=== PATIENT | female | born 1955 | race Caucasian/White ===

== ENCOUNTER 2017-10-29 11:57 | Inpatient (IN) | payer OTHER, SELFPAY ==
[2017-10-29] VITALS (8 sets, daily range): BP systolic 93–135; BP diastolic 53–74; PULSE 67–80; RESP 16–20; TEMP 36.3–37.6; O2SAT 95–100; BMI 22.8; BMI 23.5
--- NOTE | 2017-10-29 12:04 | ED.ABDPAIN ---
HPI - Abdominal Pain <DORITA Quinonez - Last Filed: 10/29/17 22:44> General Chief Complaint: Abdominal Pain Stated Complaint: ABDOMINAL PAIN, CONSTIPATION,NAUSEA Time Seen by Provider: 10/29/17 12:03 History of Present Illness HPI narrative: 62-year-old female here for complaint of having pain to her lower abdomen right greater than left for the past 5 days. She also states that she has been having constipation her last bowel movement was 5 days ago she states that was firm. She states she has had chills unknown if she has had a temperature. Positive p.o. intake. She denies any trauma to the abdomen. Increased pain with palpation to the area. She denies any urinary symptoms. She states the pain is crampy at times that waxes and wanes. She denies any other concerns or complaints MD complaint: abdominal pain Related Data Home Medications Medication Instructions Recorded Confirmed fluticasone [Flonase Allergy 1 spray INTRANASAL QDAY #0 05/14/16 10/29/17 Relief] calcium carbonate-vitamin D3 2 tab PO DAILY #0 06/03/17 10/29/17 [Calcium 600 + D(3)] docusate sodium 100 mg PO PRN PRN 10/29/17 10/29/17 sennosides 8.6 mg PO BID PRN 10/29/17 10/29/17 Allergies Allergy/AdvReac Type Severity Reaction Status Date / Time influenza virus vaccine, Allergy Severe PASSED OUT Verified 10/29/17 13:24 specific [influenza virus vacc,specific] dog dander [DOG DANDER] Allergy Unknown Verified 10/29/17 13:24 dust mites Allergy Intermediate Uncoded 10/29/17 13:24 Review of Systems <DORITA Quinonez - Last Filed: 10/29/17 22:44> Eyes Denies change in vision, Denies eye discharge, Denies irritation and Denies loss of vision Cardiovascular Denies chest pain, Denies irregular heart rhythm, Denies lightheadedness, Denies palpitations and Denies orthopnea Gastrointestinal Gastrointestinal: Reports abdominal pain and Reports constipation Genitourinary Denies hematuria, Denies flank pain, Denies urinary incontinence and Denies urinary urgency Musculoskeletal Denies back pain, Denies muscle weakness, Denies numbness and Denies tingling Integumentary/Breasts Denies pruritus, Denies erythema, Denies rash and Denies wounds Neurologic Denies confusion, Denies loss of vision, Denies numbness and Denies tingling Psychiatric Denies anxiety, Denies confusion, Denies depression, Denies homicidal ideation and Denies suicidal ideation Endocrine Denies palpitations Exam <DORITA Quinonez - Last Filed: 10/29/17 22:44> Initial Vital Signs Initial Vital Signs: Vital Signs Temperature 99.6 F 10/29/17 12:21 Pulse Rate 79 10/29/17 12:21 Respiratory Rate 20 10/29/17 12:21 Blood Pressure 112/53 L 10/29/17 12:21 Pulse Oximetry 100 10/29/17 12:21 Const General: cooperative and well developed Nutritional Appearance: well nourished Orientation: alert, awake, oriented x3 and not confused HENTX Mouth: oral mucosae normal and moist mucous membranes Eyes Conjunctivae: conjunctivae normal Sclera: sclerae normal Pupils: PERRL EOM: EOM intact bilaterally Resp Effort & Inspection: normal respiratory effort, able to speak in complete sentences, no respiratory distress and no use of accessory muscles Auscultation: clear to auscultation bilaterally, no rales, no rhonchi and no wheezes Cardio Rate: regular rate Rhythm: regular rhythm Heart Sounds: no click, no gallops, no murmurs and no rubs GI Inspection: non-distended Palpation: soft, no hepatosplenomegaly, No hepatomegaly, No hernia, No mass, No pulsatile mass and tender Auscultation: normal bowel sounds General: No CVA tenderness Skin General: no rashes or lesions noted, No jaundice and No petechiae <Elmer Null DO - Last Filed: 10/30/17 08:46> Initial Vital Signs Initial Vital Signs: Vital Signs Temperature 99.6 F 10/29/17 12:21 Pulse Rate 79 10/29/17 12:21 Respiratory Rate 20 10/29/17 12:21 Blood Pressure 112/53 L 10/29/17 12:21 Pulse Oximetry 100 10/29/17 12:21 Course <DORITA Quinonez - Last Filed: 10/29/17 22:44> Orders Ordered: Hydromorphone HCl (Dilaudid) 2 mg IV Q4HR PRN PRN Reason: Pain, Severe Last Admin: 10/30/17 06:12 Dose: 2 mg Admin: 10/30/17 00:15 Dose: 1 mg Piperacillin/Tazobactam/Dextrose (Zosyn) 3.375 gm in 50 mls @ 100 mls/hr IV Q6H SHAYNE Last Infusion: 10/30/17 06:08 Dose: 0 mls/hr Admin: 10/30/17 04:30 Dose: 100 mls/hr Infusion: 10/30/17 01:25 Dose: 0 mls/hr Admin: 10/29/17 21:48 Dose: 100 mls/hr Infusion: 10/29/17 17:22 Dose: 0 mls/hr Admin: 10/29/17 16:45 Dose: 100 mls/hr Sodium Chloride (Normal Saline 0.9%) 1,000 mls @ 125 mls/hr IV CONT SHAYNE Last Admin: 10/30/17 00:52 Dose: 125 mls/hr Admin: 10/29/17 17:58 Dose: Ketorolac Tromethamine (Toradol) 30 mg IV Q8H PRN PRN Reason: Pain, Mild Stop: 11/03/17 16:27 Last Admin: 10/30/17 04:42 Dose: 30 mg Admin: 10/29/17 19:29 Dose: 30 mg Ondansetron HCl (Zofran) 4 mg IV Q6HR PRN PRN Reason: Nausea And Vomiting Last Admin: 10/30/17 07:03 Dose: 4 mg Discontinued Medications Hydromorphone HCl (Dilaudid) 0.5 mg IV NOW ONE Stop: 10/29/17 12:55 Last Admin: 10/29/17 13:25 Dose: 0.5 mg Hydromorphone HCl (Dilaudid) 1 mg IV Q4H PRN PRN Reason: Pain, Severe Sodium Chloride (Normal Saline 0.9%) 1,000 mls @ 1,000 mls/hr IV BOLUS ONE Stop: 10/29/17 13:41 Last Infusion: 10/29/17 14:24 Dose: 0 mls/hr Admin: 10/29/17 13:20 Dose: 1,000 mls/hr Sodium Chloride (Normal Saline 0.9%) 1,000 mls @ 150 mls/hr IV CONT SHAYNE Last Infusion: 10/29/17 17:26 Dose: 125 mls/hr Admin: 10/29/17 16:44 Dose: 150 mls/hr Ondansetron HCl 8 mg/ Sodium (Chloride) 104 mls @ 208 mls/hr IV Q6HR PRN PRN Reason: Nausea And Vomiting Ketorolac Tromethamine (Toradol) 30 mg IV Q8H PRN PRN Reason: Pain, Mild Stop: 11/03/17 16:27 Ondansetron HCl (Zofran) 4 mg IV NOW ONE Stop: 10/29/17 12:43 Last Admin: 10/29/17 13:20 Dose: 4 mg Vital Signs - 8 hr 10/30/17 05:09 Temperature 97.5 F L Pulse Rate 70 Respiratory Rate 16 Blood Pressure 97/52 L Pulse Oximetry 97 <Elmer Null DO - Last Filed: 10/30/17 08:46> Orders Ordered: Hydromorphone HCl (Dilaudid) 2 mg IV Q4HR PRN PRN Reason: Pain, Severe Last Admin: 10/30/17 06:12 Dose: 2 mg Admin: 10/30/17 00:15 Dose: 1 mg Piperacillin/Tazobactam/Dextrose (Zosyn) 3.375 gm in 50 mls @ 100 mls/hr IV Q6H SHAYNE Last Infusion: 10/30/17 06:08 Dose: 0 mls/hr Admin: 10/30/17 04:30 Dose: 100 mls/hr Infusion: 10/30/17 01:25 Dose: 0 mls/hr Admin: 10/29/17 21:48 Dose: 100 mls/hr Infusion: 10/29/17 17:22 Dose: 0 mls/hr Admin: 10/29/17 16:45 Dose: 100 mls/hr Sodium Chloride (Normal Saline 0.9%) 1,000 mls @ 125 mls/hr IV CONT SHAYNE Last Admin: 10/30/17 00:52 Dose: 125 mls/hr Admin: 10/29/17 17:58 Dose: Ketorolac Tromethamine (Toradol) 30 mg IV Q8H PRN PRN Reason: Pain, Mild Stop: 11/03/17 16:27 Last Admin: 10/30/17 04:42 Dose: 30 mg Admin: 10/29/17 19:29 Dose: 30 mg Ondansetron HCl (Zofran) 4 mg IV Q6HR PRN PRN Reason: Nausea And Vomiting Last Admin: 10/30/17 07:03 Dose: 4 mg Discontinued Medications Hydromorphone HCl (Dilaudid) 0.5 mg IV NOW ONE Stop: 10/29/17 12:55 Last Admin: 10/29/17 13:25 Dose: 0.5 mg Hydromorphone HCl (Dilaudid) 1 mg IV Q4H PRN PRN Reason: Pain, Severe Sodium Chloride (Normal Saline 0.9%) 1,000 mls @ 1,000 mls/hr IV BOLUS ONE Stop: 10/29/17 13:41 Last Infusion: 10/29/17 14:24 Dose: 0 mls/hr Admin: 10/29/17 13:20 Dose: 1,000 mls/hr Sodium Chloride (Normal Saline 0.9%) 1,000 mls @ 150 mls/hr IV CONT SHAYNE Last Infusion: 10/29/17 17:26 Dose: 125 mls/hr Admin: 10/29/17 16:44 Dose: 150 mls/hr Ondansetron HCl 8 mg/ Sodium (Chloride) 104 mls @ 208 mls/hr IV Q6HR PRN PRN Reason: Nausea And Vomiting Ketorolac Tromethamine (Toradol) 30 mg IV Q8H PRN PRN Reason: Pain, Mild Stop: 11/03/17 16:27 Ondansetron HCl (Zofran) 4 mg IV NOW ONE Stop: 10/29/17 12:43 Last Admin: 10/29/17 13:20 Dose: 4 mg Vital Signs - 8 hr 10/30/17 05:09 Temperature 97.5 F L Pulse Rate 70 Respiratory Rate 16 Blood Pressure 97/52 L Pulse Oximetry 97 MDM - Abdominal Pain <DORITA Quinonez - Last Filed: 10/29/17 22:44> Lab Data Result diagrams: 10/29/17 14:10 10/29/17 14:10 Lab Results 10/29/17 10/29/17 10/29/17 Range/Units 13:19 14:10 14:10 WBC 14.4 H (4.5-11.0) X10^3/uL RBC 3.45 L (4.0-5.2) X10^6/uL Hgb 10.8 L (12.0-16.0) g/dL Hct 31.3 L (36-46) % MCV 90.9 (80-100) fL MCH 31.4 (26-34) PG MCHC 34.6 (30-36) % RDW 12.1 (11.6-14.8) % Plt Count 367 (150-400) X10^3/uL Neut % (Auto) 78.0 H (50-75) % Lymph % (Auto) 8.9 L (25-40) % Bath % (Auto) 12.5 (3-14) % Eos % (Auto) 0.2 L (2-4) % Baso % (Auto) 0.4 (0-2) % Neut # (Auto) 72352 H (9120-8052) /uL Sodium 136 L (137-145) mmol/L Potassium 3.2 L (3.4-5.1) mmol/L Chloride 100 (98-107) mmol/L Carbon Dioxide 24 (22-32) mmol/L BUN 18 H (7-17) mg/dL Creatinine 0.60 (0.52-1.04) mg/dL Estimated GFR > 60.0 (>60) mL/min BUN/Creatinine Ratio 30.0 H (6-22) Glucose 90 (80-110) mg/dL Calcium 8.7 (8.4-10.2) mg/dL Total Bilirubin 0.4 (0.2-1.3) mg/dL AST 36 (14-36) IU/L ALT 37 (9-52) IU/L Alkaline Phosphatase 106 (38-126) U/L Total Protein 6.5 (6.3-8.2) g/dL Albumin 3.4 L (3.5-5.0) g/dL Globulin 3.1 (1.7-4.1) g/dL Albumin/Globulin Ratio 1.1 (1.0-2.8) Lipase 94 (23-300) U/L Urine Color Yellow Urine Appearance Clear Urine pH 6.5 (4.5-8.0) Ur Specific [place] 1.010 (1.000-1.035) Urine Protein 1+ H (Negative) Urine Glucose (UA) Negative (Normal) g/dL Urine Ketones 3+ H (NEGATIVE) Urine Occult Blood Trace-lysed (Negative) Urine Nitrate Negative (Negative) Urine Bilirubin 2+ H (NEGATIVE) Urine Ictotest Negative (Negative) Urine Urobilinogen 0.2 (0.2) E.U./dL Ur Leukocyte Esterase Trace H (NEGATIVE) Urine RBC 5-10/hpf H (0-5/HPF) Urine WBC 1-5/hpf (0-5/HPF) Ur Squamous Epith Cells 1-5 /hpf Ur Renal Epithelial Cell 0-1/hpf Urine Bacteria Occasional (0-1) (None) Urine Mucus 1+ H (Negative) Ur Culture Indicated? Specimen cultured Micro UA Comment Not Reportable Imaging Data CT scan - abdomen: Radiologist's impression: PROCEDURE: CT ABDOMEN PELVIS W CON INDICATIONS: 62 year-old female with lower abdominal pain for several days. TECHNIQUE: After the administration of intravenous contrast, 5 mm thick sections acquired from the diaphragm to the symphysis. 5 mm coronal and sagittal reformats were acquired. For radiation dose reduction, the following was used: automated exposure control, adjustment of mA and/or kV according to patient size. COMPARISON: None. FINDINGS: Image quality: Excellent. ABDOMEN: Lung bases: Lung bases are clear, except for dependent atelectasis. Heart size is normal. Solid organs: Liver is normal in size and enhancement. Gallbladder wall thickness is normal. Biliary system is non dilated. Pancreas enhances normally. Spleen is normal in size and enhancement. No adrenal nodules. Kidneys demonstrate normal size and enhancement, without hydronephrosis. Peritoneum and bowel: Bowel loops demonstrate normal wall thickness and caliber. The appendix is dilated up to 1.3 cm diameter on axial image 57, with nearby calcified appendicolith. There is moderate loculated fluid around the appendiceal tip more inferiorly, as well as several pockets of extraluminal air. A nearby rim-enhancing fluid collection lies between the rectum and the uterus with multiple internal gas pockets, measuring 7.0 x 5.0 cm. Nodes and vessels: No retroperitoneal or mesenteric adenopathy by size criteria. Aorta and inferior vena cava are normal in size, with minimal aortic atherosclerosis. Miscellaneous: No ventral hernias. PELVIS: Genitourinary: Bladder wall thickness is normal. Uterus and ovaries are normal in size. Miscellaneous: No inguinal hernias or adenopathy. Bones: No suspicious bony lesions. No vertebral body compression fractures. Bilateral L5 pars defects are present, without L5-S1 spondylolisthesis. Nonacute T12 anterior wedge compression fracture is present, with 47% height loss. IMPRESSION: 1. Constellation of findings indicate ruptured acute appendicitis, with resultant midline pelvic abscess between the rectum and the uterus measuring up to 7.0 x 5.0 cm. 2. Nonacute T12 anterior wedge compression fracture, with mild to moderate height loss. 3. Bilateral L5 pars defects, without L5-S1 spondylolisthesis. Dictated by: Rex Fregoso M.D. on 10/29/2017 at 15:46 Approved by: Rex Fregoso M.D. on 10/29/2017 at 15:57 [facility] Narrative Medical decision making narrative: CBC shows elevated white count CT of the abdomen indicates ruptured appendicitis. Discussed case with surgery Dr. Ware. The patient was placed on zoysn IV. Patient is admitted hospital for surgical care. <Elmer Null, - Last Filed: 10/30/17 08:46> Lab Data Lab Results 10/29/17 10/29/17 10/29/17 Range/Units 13:19 14:10 14:10 WBC 14.4 H (4.5-11.0) X10^3/uL RBC 3.45 L (4.0-5.2) X10^6/uL Hgb 10.8 L (12.0-16.0) g/dL Hct 31.3 L (36-46) % MCV 90.9 (80-100) fL MCH 31.4 (26-34) PG MCHC 34.6 (30-36) % RDW 12.1 (11.6-14.8) % Plt Count 367 (150-400) X10^3/uL Neut % (Auto) 78.0 H (50-75) % Lymph % (Auto) 8.9 L (25-40) % Bath % (Auto) 12.5 (3-14) % Eos % (Auto) 0.2 L (2-4) % Baso % (Auto) 0.4 (0-2) % Neut # (Auto) 57322 H (5587-0369) /uL Sodium 136 L (137-145) mmol/L Potassium 3.2 L (3.4-5.1) mmol/L Chloride 100 (98-107) mmol/L Carbon Dioxide 24 (22-32) mmol/L BUN 18 H (7-17) mg/dL Creatinine 0.60 (0.52-1.04) mg/dL Estimated GFR > 60.0 (>60) mL/min BUN/Creatinine Ratio 30.0 H (6-22) Glucose 90 (80-110) mg/dL Calcium 8.7 (8.4-10.2) mg/dL Total Bilirubin 0.4 (0.2-1.3) mg/dL AST 36 (14-36) IU/L ALT 37 (9-52) IU/L Alkaline Phosphatase 106 (38-126) U/L Total Protein 6.5 (6.3-8.2) g/dL Albumin 3.4 L (3.5-5.0) g/dL Globulin 3.1 (1.7-4.1) g/dL Albumin/Globulin Ratio 1.1 (1.0-2.8) Lipase 94 (23-300) U/L Urine Color Yellow Urine Appearance Clear Urine pH 6.5 (4.5-8.0) Ur Specific [place] 1.010 (1.000-1.035) Urine Protein 1+ H (Negative) Urine Glucose (UA) Negative (Normal) g/dL Urine Ketones 3+ H (NEGATIVE) Urine Occult Blood Trace-lysed (Negative) Urine Nitrate Negative (Negative) Urine Bilirubin 2+ H (NEGATIVE) Urine Ictotest Negative (Negative) Urine Urobilinogen 0.2 (0.2) E.U./dL Ur Leukocyte Esterase Trace H (NEGATIVE) Urine RBC 5-10/hpf H (0-5/HPF) Urine WBC 1-5/hpf (0-5/HPF) Ur Squamous Epith Cells 1-5 /hpf Ur Renal Epithelial Cell 0-1/hpf Urine Bacteria Occasional (0-1) (None) Urine Mucus 1+ H (Negative) Ur Culture Indicated? Specimen cultured Micro UA Comment Not Reportable Discharge Plan Departure Patient Disposition: Admitted As Inpatient Clinical Impression: Acute appendicitis Discharge Date/Time: 10/29/17 17:23 Interventions: ED Discharge Assessment Last Done: 10/29/17 17:06 Admit Date/Time: 10/29/17 16:41 Admit Provider: Rea Ware <Elmer Null DO - Last Filed: 10/30/17 08:46> Cosign ED Attending Allyature Attestation: I was immediately available in the department for consultation. Documentation has been reviewed. I agree with assessment and plan.
--- NOTE | 2017-10-29 12:43 | DI.CT.S_ITS ---
PROCEDURE: CT ABDOMEN PELVIS W CON INDICATIONS: 62 year-old female with lower abdominal pain for several days. TECHNIQUE: After the administration of intravenous contrast, 5 mm thick sections acquired from the diaphragm to the symphysis. 5 mm coronal and sagittal reformats were acquired. For radiation dose reduction, the following was used: automated exposure control, adjustment of mA and/or kV according to patient size. COMPARISON: None. FINDINGS: Image quality: Excellent. ABDOMEN: Lung bases: Lung bases are clear, except for dependent atelectasis. Heart size is normal. Solid organs: Liver is normal in size and enhancement. Gallbladder wall thickness is normal. Biliary system is non dilated. Pancreas enhances normally. Spleen is normal in size and enhancement. No adrenal nodules. Kidneys demonstrate normal size and enhancement, without hydronephrosis. Peritoneum and bowel: Bowel loops demonstrate normal wall thickness and caliber. The appendix is dilated up to 1.3 cm diameter on axial image 57, with nearby calcified appendicolith. There is moderate loculated fluid around the appendiceal tip more inferiorly, as well as several pockets of extraluminal air. A nearby rim-enhancing fluid collection lies between the rectum and the uterus with multiple internal gas pockets, measuring 7.0 x 5.0 cm. Nodes and vessels: No retroperitoneal or mesenteric adenopathy by size criteria. Aorta and inferior vena cava are normal in size, with minimal aortic atherosclerosis. Miscellaneous: No ventral hernias. PELVIS: Genitourinary: Bladder wall thickness is normal. Uterus and ovaries are normal in size. Miscellaneous: No inguinal hernias or adenopathy. Bones: No suspicious bony lesions. No vertebral body compression fractures. Bilateral L5 pars defects are present, without L5-S1 spondylolisthesis. Nonacute T12 anterior wedge compression fracture is present, with 47% height loss. IMPRESSION: 1. Constellation of findings indicate ruptured acute appendicitis, with resultant midline pelvic abscess between the rectum and the uterus measuring up to 7.0 x 5.0 cm. 2. Nonacute T12 anterior wedge compression fracture, with mild to moderate height loss. 3. Bilateral L5 pars defects, without L5-S1 spondylolisthesis. Dictated by: Rex Fregoso M.D. on 10/29/2017 at 15:46 Approved by: Rex Fregoso M.D. on 10/29/2017 at 15:57
[2017-10-29] MEDS: ONDANSETRON 4 MG/2 ML INJ IV (13:20)
[2017-10-29] MEDS: SODIUM CHLORIDE 0.9% 1,000 ML 1000 ML IV (13:20)
[2017-10-29 13:25] LABS: Appearance Urine UA CLEAR; Bilirubin Urine UA 2+ (NEGATIVE); Color Urine UA YELLOW; Glucose Urine UA NEGATIVE (Normal); Ketones Urine UA 3+ (NEGATIVE); Leukocyte Esterase Urine UA TRACE (NEGATIVE); Nitrite Urine UA Negative (Negative); Occult Blood Urine UA TRACE-LYSED (Negative); Protein Urine UA 1+ (Negative); Urobilinogen Urine UA 0.2 E.U./dL (0.2); pH Urine UA 6.5 (4.5-8.0)
[2017-10-29] MEDS: HYDROMORPHONE 0.5 MG INJ IV (13:25)
[2017-10-29 13:33] LABS: Ictotest Urine Negative (Negative); RBC Urine 5-10/HPF (0-5/HPF); Renal Epithelial Cells Urine 0-1/HPF; Squamous Epithelial Cell Urine 1-5 /HPF; WBC Urine 1-5/HPF (0-5/HPF)
[2017-10-29 13:34] LABS: Bacteria Urine Occasional (0-1); Culture Indicated Urine Specimen Cultured; Mucus Urine 1+ (Negative)
--- NOTE | 2017-10-29 13:57 | PC.NURSE ---
lab notified that patient needs to be drawn for labs.
[2017-10-29 14:18] LABS: Add Manual Diff / Slide Review NO; Basophils Percent Auto 0.4 % (0-2); Eosinophils Percent Auto 0.2 % (2-4); Hematocrit 31.3 % (36-46); Hemoglobin 10.8 g/dL (12.0-16.0); Lymphocytes Percent Auto 8.9 % (25-40); Mean Corpuscular HGB Conc 34.6 % (30-36); Mean Corpuscular Hemoglobin 31.4 PG (26-34); Mean Corpuscular Volume 90.9 fL (80-100); Monocytes Percent Auto 12.5 % (3-14); Neutrophils Absolute Auto 11300 /uL (3000-5900); Platelet Count 367 X10^3/uL (150-400); Red Blood Cell Count 3.45 X10^6/uL (4.0-5.2); Red Cell Distribution Width 12.1 % (11.6-14.8); White Blood Cell Count 14.4 X10^3/uL (4.5-11.0)
[2017-10-29 14:29] LABS: Alanine Aminotransferase 37 IU/L (9-52); Albumin 3.4 g/dL (3.5-5.0); Albumin Globulin Ratio 1.1 (1.0-2.8); Alkaline Phosphatase 106 U/L (38-126); Aspartate Aminotransferase 36 IU/L (14-36); Bilirubin Total 0.4 mg/dL (0.2-1.3); Blood Urea Nitrogen 18 mg/dL (7-17); Calcium 8.7 mg/dL (8.4-10.2); Carbon Dioxide 24 mmol/L (22-32); Chloride 100 mmol/L (98-107); Estimated Glomerular Filt Rate > 60.0 mL/min (>60); Globulin 3.1 g/dL (1.7-4.1); Glucose 90 mg/dL (80-110); HEMOLYSIS < 15 (0-50); Lipase 94 U/L (23-300); Potassium 3.2 mmol/L (3.4-5.1); Sodium 136 mmol/L (137-145); Total Protein 6.5 g/dL (6.3-8.2)
--- NOTE | 2017-10-29 16:06 | PC.NURSE ---
patient informed of results by rina espinoza. patient teary but verbalized understanding. patient clothing removed, ivf ns infusing at 150 ml/hr as instructed by provider. patient using her personal phone to contact family and awaiting surgical consult.
[2017-10-29] MEDS: SODIUM CHLORIDE 0.9% 1,000 ML 150 ML IV (16:44)
[2017-10-29] MEDS: PIPERACILLIN-TAZO 3.375 GM/50 ML FROZ.PIGGY IV ×2 (16:45→21:48)
--- NOTE | 2017-10-29 16:51 | PC.NURSE ---
attempted to call report, floor staff state they will call us back.
[2017-10-29] MEDS: KETOROLAC 30 MG/ML VIAL IV (19:29)
[2017-10-30] VITALS (17 sets, daily range): BP systolic 90–118; BP diastolic 46–66; PULSE 65–93; RESP 14–18; TEMP 36.3–37.8; O2SAT 92–99; BMI 23.5
--- NOTE | 2017-10-30 | PATH_ITS ---
[facility] Accession Number: [id number] . 01 Material submitted: . INFLAMMATORY ABDOMINAL TISSUE . 02 Diagnosis: Specimen Designated Inflammatory Abdominal Tissue: Appendix with acute appendicitis and extensive acute and chronic inflammation of adjacent soft tissue. Negative for malignancy and significant atypia. MRV/11/02/2017 . 02 Electronically signed: . Ashish Ziegler MD, Pathologist NPI- [id number] . 01 Gross description: . Received in formalin, labeled 1) Inflammatory abdominal tissue, are multiple pieces of gil-yellow and foley rubbery focally firm fibrofatty tissue (2.5 x 1.8 x 1.0 cm in aggregate). The cut surface of multiple pieces contains and apparent lumen with the remaining tissue having a gil-white and foley fibrofatty cut surface. The tissue is inked black. Coil Taper slices submitted in cassette A1. ([id number]) /MRV . 02 Pathologist provided ICD-10: K35.80 . 02 CPT . 712810 Performed at: 01 [facility] [address], [place], [place] [id number] MD Kd Gutierrez MD Phone: [phone] Performed at: 02 [facility] [address] [place], [place] [id number] MD Deny Rivas MD Phone: [phone]
--- NOTE | 2017-10-30 | DI.RAD.S_ITS ---
PROCEDURE: XR CHEST 1V INDICATIONS: NG tube placement TECHNIQUE: One view of the chest was acquired. COMPARISON: None. FINDINGS: Surgical changes and devices: Enteric tip projecting in the stomach. Lungs and pleura: No pleural effusions or pneumothorax. No acute consolidation. Scarring/atelectasis seen in the left lung base Mediastinum: Mediastinal contours appear normal. Heart size is normal. Bones and chest wall: No suspicious bony lesions. Overlying soft tissues appear unremarkable. IMPRESSION: Enteric tube with the tip projecting in the stomach Dictated by: Blayne Thompson M.D. on 10/30/2017 at 13:05 Approved by: Blayne Thompson M.D. on 10/30/2017 at 13:06
[2017-10-30] MEDS: HYDROMORPHONE 2 MG INJ IV ×2 (00:15→06:12)
[2017-10-30] MEDS: SODIUM CHLORIDE 0.9% 1,000 ML 125 ML IV (00:52)
[2017-10-30] MEDS: PIPERACILLIN-TAZO 3.375 GM/50 ML FROZ.PIGGY IV ×4 (04:30→23:34)
[2017-10-30] MEDS: KETOROLAC 30 MG/ML VIAL IV (04:42)
--- NOTE | 2017-10-30 06:23 | PC.NURSE ---
Pt passed gas this morning. pt rates her pain 6/10 to RLQ, Toradol not lasting for 8 hrs and had to be medicated with IV dilaudid.
[2017-10-30] MEDS: ONDANSETRON 4 MG/2 ML INJ IV ×2 (07:03→12:50)
[2017-10-30] MEDS: LACTATED RINGERS 1,000 ML 42 ML IV (09:30)
--- NOTE | 2017-10-30 09:57 | SUR.HOLD ---
pt brought to the pacu, for pre op hold, another pt came from or to pacu, so care to pt Emily done by moises almanza and dr shearer
[2017-10-30] MEDS: LIDOCAINE 1% W/EPI INJ 20 ML INJ (11:03)
[2017-10-30] MEDS: BUPIVACAINE 0.5% (PF) 30 ML VIAL INJ (11:05)
--- NOTE | 2017-10-30 11:08 | SUR.OPER ---
Supine on padded OR bed, head on pillow, left arm padded and tucked at side, right arm secured on padded armboard legs uncrossed, safety belt at thigh, tape over blanket over lower legs .
[2017-10-30] MEDS: METOCLOPRAMIDE 10 MG/2 ML INJ IV (12:49)
--- NOTE | 2017-10-30 12:59 | SUR.HOLD ---
xray done for ngt placement, tube pulled back by dr shearer and xray taken again, placement verified to be ok. to lis. report called to mandi rn and pt transported up t0 room 213 on room air, nausea treated in pacu with ondansetron and reglan.
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
--- NOTE | 2017-10-30 13:09 | P.OP_ITS ---
Operative Date/Time/Diagnoses - Date of procedure: 10/30/17 Time of procedure: 13:04 Pre-op diagnosis: Perforated appendicitis with abscess and peritonitis Post-op diagnosis: same Procedure & Clinicians Procedure: Diagnostic/exploratory laparoscopy with lysis of adhesions, appendectomy, drainage of abscesses x2, and pelvic drain placement. Same procedure as scheduled: Yes Indications: Perforated appendicitis with abscess Surgeon: Rea Ware Click Yes if Unassisted: Yes Anesthesia Type: General (Dr. Rueda) Operative Notes Findings: 1. Appendix completely severed from its attachment to the cecum. 2. Free stool within the right lower quadrant at the site of the appendix 3. Significant intra-abdominal adhesions 4. Large abscess anterior to the rectum 5. Smaller abscess posterior to the cecum Closure Type: primary Specimen(s): other (1. Portions of the appendix, 2. Culture of peritoneal fluid) Implants & Drains: Nineteen [place] Earl drain in the right pericolic gutter and pelvis Applied: catheter Estimated Blood Loss (mL): 20 Blood products transfused: none Procedure in detail: After obtaining informed consent, the patient was brought to the operating room and placed in the supine position on the operating table. Following successful induction of general endotracheal anesthesia, appropriate padding of all miguel prominences, and placement of appropriate monitors, the abdomen was prepped and draped in the standard surgical fashion. A timeout was held per SCOAP protocol. Following infiltration with local anesthetic to create a field block, an incision was created inferior to the umbilicus and carried down through the skin and subcutaneous tissue to reveal the fascia below. 2-0 Vicryl retention sutures were placed on either side of midline and the abdomen was entered under direct vision using an 11 blade scalpel. Finger sweep was used to clear filmy adhesions just either side of the umbilicus to create space for a blunt trocar. A 12 mm blunt-tipped Cornelius trocar was placed in the abdominal cavity and it was insufflated to 15 mmHg pressure. We immediately visualized fairly dense right upper quadrant and mid abdomen adhesions involving the colon and omentum. A 2nd 5 mm trocar was placed midline between the umbilicus and pubis after infiltration with local anesthetic. This provided access for the camera so that the midline trocar could be used for working instruments. The adhesions were gently and carefully lysed sharply. The patient was placed in Trendelenburg position with the left side rotated toward the floor. Under direct vision, a 3rd 5 mm trocar was placed in the right upper quadrant. The camera was placed in the abdominal cavity and we immediately visualized a large right lower quadrant phlegmon. We began gently using blunt instruments and traction to take this phlegmon apart. We noted the open tip of the appendix extending from the cecum. This was grasped and a GUSTAVO stapling device passed across it to seal the end of the cecum. Further dissection into the ileocolic junction revealed free stool in the retrocecal position. The remainder of the appendix was removed in a piecemeal fashion as we could get it freed from surrounding inflammatory tissue. This area was irrigated significantly with saline solution and aspirated free of all fluid. The pelvic abscess was then addressed by lifting the edge of the uterus and releasing a significant volume of creamy liquid pus. The pus was aspirated into a syringe and sent for culture. The entire pelvis was then irrigated with 2 L of warm saline solution and aspirated free of all particulate matter. A 19 [place] Earl drain was then placed in the right upper quadrant and through the right pericolic gutter and into the pelvis. This was sewn into place with a nylon suture. The wounds were checked for hemostasis. The operative site was visualized and irrigated with warm saline solution. The abdomen was aspirated free of all fluid and particulate matter. The trocars were then removed under direct vision. The fascia was closed with 0 Vicryl suture and interrupted nylons were placed in the skin. All sponge, needle, and instrument counts were correct at the conclusion of the case. The patient was allowed to awaken from anesthesia without significant difficulty and taken to the post anesthesia care unit in good condition. The trochars were removed under direct vision. The abdomen was desufflated by giving the patient a large Valsalva maneuver. The umbilical incision was closed in 2 layers with Vicryl and Monocryl suture. Monocryl sutures were placed in the other 2 port sites. All sponge, needle, and instrument counts were correct at the conclusion of the case. The patient was allowed to awaken from anesthesia without difficulty and taken to the post-anesthesia care unit in good condition. Complications: none Condition: stable Disposition: PACU Plan for aftercare: 1. Transfer to acute care 2. Continue antibiotics 3. Leave NG tube in place 4. Leave Cordova in place 5. Will adjust antibiotics when culture results are available
[2017-10-30] MEDS: VANCOMYCIN 1,000 MG/200 ML FROZ.PIGGY 100 MG IV (14:21)
[2017-10-30] MEDS: DEXTROSE 5%-0.45% NS 1,000 ML 100 ML IV (14:22)
--- NOTE | 2017-10-30 17:34 | SUR.PHASEI ---
late entry: pt arrived to pacu with ngt, xray obtained band read by dr shearer, ngt pulled back and pt xrayed again and tube was then verified to be in correct place. vs stable pt nauseated and trated with ondansetron and reglan and nausea was relieved, mouth care done with wet swab and chap stick to lips, no out put from ngt, becca drain emptied x 2 and dressing to abdomen remained c/d/i. report was called and pt taken to room and left in stable condition.
[2017-10-30] MEDS: BENZOCAINE/MENTHOL 1 LOZ PKT 1 EACH PO (19:26)
--- NOTE | 2017-10-30 21:18 | PC.NURSE ---
Patient denies incisional/abdominal pain. 3 dressing sites intact- becca drain serous drainage. denies nausea- c/o discomfort from ng tube- clarified patient requires with dr. pleitez. Patient given throat lozenges for discomfort- also talking less and writing notes due to pain from ng tube. ruby on rails consultant set up and patient instructed in use.
[2017-10-30] MEDS: HYDROMORPHONE PCA 6 MG/30 ML PCA.VIAL IV (23:32)
[2017-10-31] VITALS (7 sets, daily range): BP systolic 94–110; BP diastolic 54–73; PULSE 72–84; RESP 16–18; TEMP 36.3–36.9; O2SAT 80–97
[2017-10-31] MEDS: DEXTROSE 5%-0.45% NS 1,000 ML 100 ML IV ×2 (02:17→23:15)
[2017-10-31] MEDS: PIPERACILLIN-TAZO 3.375 GM/50 ML FROZ.PIGGY IV ×4 (03:00→20:50)
[2017-10-31] MEDS: VANCOMYCIN 1,000 MG/200 ML FROZ.PIGGY 100 MG IV (03:52)
[2017-10-31] MEDS: VANCOMYCIN 1,000 MG/200 ML FROZ.PIGGY 200 MG IV ×2 (04:00→17:15)
[2017-10-31] MEDS: HYDROMORPHONE PCA 6 MG/30 ML PCA.VIAL IV ×3 (06:52→23:12)
[2017-10-31 07:27] LABS: Add Manual Diff / Slide Review NO; Basophils Percent Auto 0.6 % (0-2); Hematocrit 31.5 % (36-46); Hemoglobin 10.9 g/dL (12.0-16.0); Lymphocytes Percent Auto 12.3 % (25-40); Mean Corpuscular HGB Conc 34.6 % (30-36); Mean Corpuscular Hemoglobin 31.5 PG (26-34); Mean Corpuscular Volume 90.9 fL (80-100); Monocytes Percent Auto 10.3 % (3-14); Neutrophils Absolute Auto 11000 /uL (3000-5900); Neutrophils Percent Auto 76.8 % (50-75); Platelet Count 444 X10^3/uL (150-400); Red Blood Cell Count 3.47 X10^6/uL (4.0-5.2); Red Cell Distribution Width 12.3 % (11.6-14.8); White Blood Cell Count 14.4 X10^3/uL (4.5-11.0)
[2017-10-31 07:34] LABS: Alanine Aminotransferase 39 IU/L (9-52); Albumin 3.1 g/dL (3.5-5.0); Alkaline Phosphatase 85 U/L (38-126); Aspartate Aminotransferase 21 IU/L (14-36); Bilirubin Total 0.3 mg/dL (0.2-1.3); Blood Urea Nitrogen 4 mg/dL (7-17); Calcium 8.6 mg/dL (8.4-10.2); Carbon Dioxide 29 mmol/L (22-32); Chloride 101 mmol/L (98-107); Estimated Glomerular Filt Rate > 60.0 mL/min (>60); Globulin 3.2 g/dL (1.7-4.1); Glucose 170 mg/dL (80-110); HEMOLYSIS < 15 (0-50); Potassium 2.9 mmol/L (3.4-5.1); Sodium 141 mmol/L (137-145); Total Protein 6.3 g/dL (6.3-8.2)
[2017-10-31] MEDS: POTASSIUM CHLORIDE 40 MEQ in SODIUM CHLORIDE 0.9% 500 ML 130 ML IV (10:06)
--- NOTE | 2017-10-31 11:47 | CM.DPNOTE ---
Patient drove self to hospital and is hopeful to drive self home. Patient currently on pain meds. Patient understands if she remains on pain meds at time of discharge she will contact a friend to pick her up. Plan: Home when medically stable. Patient currently on IV vanco. CM team to follow up if patient remains on IV abx at discharge and as needed.
--- NOTE | 2017-10-31 13:45 | P.PN_ITS ---
Subjective Date Patient Seen: 10/31/17 Time Patient Seen: 13:41 Interval history: Elba is doing remarkably well now status post exploratory laparoscopy with appendectomy and drainage of 2 large abscesses. She reports that her pain is well controlled. NG tube was removed this morning as it did not produce anything overnight. She is in good spirits. She says she is not hungry and does not care if she eats again but that is mostly because she is worried about how much pain she may experience if she has to go to the bathroom. Exam Vital Signs (past 8 hours): Vital Signs - 8 hr 3 10/31/17 08:01 10/31/17 11:44 Temperature 97.3 F L 97.9 F Pulse Rate 72 79 Respiratory Rate 16 18 Blood Pressure 100/58 L 110/64 Pulse Oximetry 93 92 Pulse Oximetry 92 Oxygen Delivery Method Room Air Oxygen Flow Rate 0 Narrative Exam Narrative: Lungs: Clear to auscultation bilaterally Heart: Regular rate and rhythm Abdomen: Soft, appropriately tender to palpation, active bowel sounds. Drain is in place and draining serosanguineous fluid that is just mildly cloudy. She reports that she has continued to pass flatus since surgery. Extremities: Warm and well perfused. No edema Objective Labs Result Diagrams: 10/31/17 07:10 10/31/17 07:10 Labs: Laboratory Results - last 24 hr 10/31/17 10/31/17 07:10 07:10 WBC 14.4 H RBC 3.47 L Hgb 10.9 L Hct 31.5 L MCV 90.9 MCH 31.5 MCHC 34.6 RDW 12.3 Plt Count 444 H Neut % (Auto) 76.8 H Lymph % (Auto) 12.3 L [place] % (Auto) 10.3 Eos % (Auto) 0.0 L Baso % (Auto) 0.6 Neut # (Auto) 50869 H Sodium 141 Potassium 2.9 L Chloride 101 Carbon Dioxide 29 BUN 4 L Creatinine 0.50 L Estimated GFR > 60.0 BUN/Creatinine Ratio 8.0 Glucose 170 H Calcium 8.6 Total Bilirubin 0.3 AST 21 ALT 39 Alkaline Phosphatase 85 Total Protein 6.3 Albumin 3.1 L Globulin 3.2 Albumin/Globulin Ratio 1.0 Assessment & Plan Plan: Assessment/Plan Narrative: Postop day 1 after laparoscopy for perforated appendicitis with large abscesses. Elba is making excellent progress. Culture show she has grown 2 different types of gram-negative rods but identifications are still to follow. For now we will keep her on Zosyn and vancomycin. Leave the drain in place for now. We can remove the Cordova catheter today and let her start walking in the halls. Will start clear liquids this evening. Quality VTE Deep Vein Thrombosis/Pulmonary Embolism Present on Admission: No
[2017-11-01] MEDS: PIPERACILLIN-TAZO 3.375 GM/50 ML FROZ.PIGGY IV ×4 (03:31→21:12)
[2017-11-01 03:59] LABS: Vancomycin Trough 11.9 ug/mL (10-20)
[2017-11-01] MEDS: VANCOMYCIN 1,000 MG/200 ML FROZ.PIGGY 200 MG IV ×2 (04:30→16:26)
[2017-11-01] MEDS: VANCOMYCIN TROUGH 1 REQUEST MISC (04:32)
[2017-11-01 05:08] VITALS: BP 108/69; PULSE 78; RESP 16; TEMP 36.7; O2SAT 95
[2017-11-01] MEDS: HYDROMORPHONE PCA 6 MG/30 ML PCA.VIAL IV ×3 (06:33→22:00)
[2017-11-01 08:29] VITALS: BP 97/47; PULSE 78; RESP 15; TEMP 36.8; O2SAT 96
[2017-11-01] MEDS: FLUTICASONE 120 SPRAY/16 GM SPRAY.SUSP NASAL (10:44)
[2017-11-01 11:43] LABS: BUN Creatinine Ratio 8.3 (6-22); Blood Urea Nitrogen 5 mg/dL (7-17); Calcium 8.8 mg/dL (8.4-10.2); Carbon Dioxide 29 mmol/L (22-32); Chloride 105 mmol/L (98-107); Estimated Glomerular Filt Rate > 60.0 mL/min (>60); Glucose 97 mg/dL (80-110); HEMOLYSIS < 15 (0-50); Potassium 2.9 mmol/L (3.4-5.1); Sodium 143 mmol/L (137-145)
[2017-11-01 12:39] VITALS: BP 100/62; PULSE 73; RESP 15; TEMP 36.8; O2SAT 98
[2017-11-01] MEDS: LACTATED RINGERS 500 ML 21 ML IV (13:21)
[2017-11-01 14:52] VITALS: BMI 23.2
[2017-11-01 15:50] VITALS: BP 122/61; PULSE 73; RESP 18; TEMP 36.3; O2SAT 93
--- NOTE | 2017-11-01 16:36 | PM.PN.1 ---
Subjective Date Patient Seen: 11/01/17 Time Patient Seen: 11:36 Interval history: Elba is looking well today. She made a complete loop around the hallway and is passing a great deal of flatus. She tolerated clear liquids without difficulty and she is just about to eat her for solid meal. She says the pain medicine is working well for her and she is afraid to change to oral medication currently because it converts her to know that she can push the button whenever she is hurting. She does however, requests that I decreased the amount of IV fluids she is getting because she reports she is having to get up so frequently to use the bathroom. She has not had any fever overnight. Exam Vital Signs (past 8 hours): Vital Signs - 8 hr 11/01/17 12:39 11/01/17 15:50 Temperature 98.2 F 97.4 F L Pulse Rate 73 73 Respiratory Rate 15 18 Blood Pressure 100/62 122/61 H Pulse Oximetry 98 93 Pulse Oximetry 93 Oxygen Delivery Method Room Air Oxygen Flow Rate 0 Procedure Result Verified Site Gram Stain Final 10/30/17-1229 White blood cells Many poly WBCs No Organism Seen No organisms seen Aerobic Culture for wounds Preliminary 11/01/17-0740 Organism 1 Gram negative bacilli Growth HEAVY Action to follow Identification and Sensitivity to Follow Organism 2 Klebsiella pneumoniae Growth HEAVY 2. Klebsiella pneumoniae M.I.C. RX --------- --- * Amikacin S * Ampicillin R * Ampicillin/Sulbactam S * Aztreonam S * Cefazolin S * Cefepime S Cefalotin S * Cefotetan S * Ceftizoxime S * Ceftriaxone S * Cefuroxime S * Ciprofloxacin S * Doripenem S * Ertapenem S * Gentamicin S * Imipenem S * Levofloxacin S * Meropenem S * Moxifloxacin S * Nalidixic Acid S * Norfloxacin S * Piperacillin S * Ticarcillin R * Tigecycline S * Tobramycin S * Trimethoprim/Sulfamethoxazole S * Piperacillin/Tazobactam S Anaerobic Culture Preliminary 11/01/17-1019 <No reportable results for this procedure> Narrative Exam Narrative: Lungs: Clear bilaterally Heart: Regular rate and rhythm Abdomen: Soft, appropriately tender, wounds are clean dry and intact with minimal bruising, right sided SELENE drain is serous to serosanguineous in color and more clear than it was yesterday. Extremities: Warm and well perfused Objective Labs Result Diagrams: 10/31/17 07:10 11/01/17 11:15 Labs: Laboratory Results - last 24 hr 11/01/17 11/01/17 03:22 11:15 Sodium 143 Potassium 2.9 L Chloride 105 Carbon Dioxide 29 BUN 5 L Creatinine 0.60 Estimated GFR > 60.0 BUN/Creatinine Ratio 8.3 Glucose 97 Calcium 8.8 Vancomycin Trough 11.9 Assessment & Plan Plan: Assessment/Plan Narrative: Improving daily after laparoscopic appendectomy for perforated appendicitis with abscess formation. Culture has grown Klebsiella that is sensitive to Zosyn. Will give at least 1 more day for preliminary results to be finalized and then plan to narrow the antibiotic spectrum. 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 We will try to transition to oral meds tomorrow if she is reasonably comfortable. Quality VTE Deep Vein Thrombosis/Pulmonary Embolism Present on Admission: No
--- NOTE | 2017-11-01 16:39 | P.PN_ITS ---
Subjective Date Patient Seen: 11/01/17 Time Patient Seen: 11:36 Interval history: Elba is looking well today. She made a complete loop around the hallway and is passing a great deal of flatus. She tolerated clear liquids without difficulty and she is just about to eat her for solid meal. She says the pain medicine is working well for her and she is afraid to change to oral medication currently because it converts her to know that she can push the button whenever she is hurting. She does however, requests that I decreased the amount of IV fluids she is getting because she reports she is having to get up so frequently to use the bathroom. She has not had any fever overnight. Exam Vital Signs (past 8 hours): Vital Signs - 8 hr 3 11/01/17 12:39 11/01/17 15:50 Temperature 98.2 F 97.4 F L Pulse Rate 73 73 Respiratory Rate 15 18 Blood Pressure 100/62 122/61 H Pulse Oximetry 98 93 Pulse Oximetry 93 Oxygen Delivery Method Room Air Oxygen Flow Rate 0 Procedure Result Verified Site Gram Stain Final 10/30/17- 1229 White blood cells Many poly WBCs No Organism Seen No organisms seen Aerobic Culture for wounds Preliminary 11/01/17- 0740 Organism 1 Gram negative bacilli Growth HEAVY Action to follow Identification and Sensitivity to Follow Organism 2 Klebsiella pneumoniae Growth HEAVY 2. Klebsiella pneumoniae M.I.C. RX --------- --- * Amikacin S * Ampicillin R * Ampicillin/Sulbactam S * Aztreonam S * Cefazolin S * Cefepime S Cefalotin S * Cefotetan S * Ceftizoxime S * Ceftriaxone S * Cefuroxime S * Ciprofloxacin S * Doripenem S * Ertapenem S * Gentamicin S * Imipenem S * Levofloxacin S * Meropenem S * Moxifloxacin S * Nalidixic Acid S * Norfloxacin S * Piperacillin S * Ticarcillin R * Tigecycline S * Tobramycin S * Trimethoprim/Sulfamethoxazole S * Piperacillin/Tazobactam S Anaerobic Culture Preliminary 11/01/17- 1019 <No reportable results for this procedure> Narrative Exam Narrative: Lungs: Clear bilaterally Heart: Regular rate and rhythm Abdomen: Soft, appropriately tender, wounds are clean dry and intact with minimal bruising, right sided SELENE drain is serous to serosanguineous in color and more clear than it was yesterday. Extremities: Warm and well perfused Objective Labs Result Diagrams: 10/31/17 07:10 11/01/17 11:15 Labs: Laboratory Results - last 24 hr 11/01/17 11/01/17 03:22 11:15 Sodium 143 Potassium 2.9 L Chloride 105 Carbon Dioxide 29 BUN 5 L Creatinine 0.60 Estimated GFR > 60.0 BUN/Creatinine Ratio 8.3 Glucose 97 Calcium 8.8 Vancomycin Trough 11.9 Assessment & Plan Plan: Assessment/Plan Narrative: Improving daily after laparoscopic appendectomy for perforated appendicitis with abscess formation. Culture has grown Klebsiella that is sensitive to Zosyn. Will give at least 1 more day for preliminary results to be finalized and then plan to narrow the antibiotic spectrum. 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 We will try to transition to oral meds tomorrow if she is reasonably comfortable. Quality VTE Deep Vein Thrombosis/Pulmonary Embolism Present on Admission: No
[2017-11-01] MEDS: POTASSIUM CHLORIDE 10 MEQ TAB PO (18:00)
[2017-11-01 20:15] VITALS: BP 124/77; PULSE 80; RESP 16; TEMP 36.7; O2SAT 95
[2017-11-01 23:18] VITALS: BP 119/73; PULSE 77; RESP 20; TEMP 36.8; O2SAT 97
[2017-11-02] MEDS: PIPERACILLIN-TAZO 3.375 GM/50 ML FROZ.PIGGY IV ×4 (02:20→21:23)
--- NOTE | 2017-11-02 02:47 | PC.NURSE ---
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 Pt states she is passing flatus. Pt encouraged to turn, cough, deep breathe and use incentive spirometer. Pt agreeable with explanation of rational. Assessment completed.
[2017-11-02] MEDS: VANCOMYCIN 1,000 MG/200 ML FROZ.PIGGY 200 MG IV ×2 (03:07→17:01)
[2017-11-02 03:17] VITALS: BP 117/67; PULSE 74; RESP 19; TEMP 36.6; O2SAT 95
--- NOTE | 2017-11-02 04:44 | PC.NURSE ---
Pt states has occcasional sharp gas pain. Pt states that she is passing flatus. Offers made to replace SCDs and pt declined x2. Encouraged patient to continue with ankle waving and calf pumping. Pt states she plans to walk early in the morning after her bath. Pt states she thinks she will talk to the MD about changing from RING FACER to oral pain meds today. Pt is using RING FACER as necessary and she states it does relieve her pain.
[2017-11-02] MEDS: HYDROMORPHONE PCA 6 MG/30 ML PCA.VIAL IV (05:29)
--- NOTE | 2017-11-02 05:47 | PC.NURSE ---
Pt states she is continuing to pass flatus. 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 Ptg rates abd pain 5/10 with repositioning in bed.
[2017-11-02 06:20] LABS: Blood Urea Nitrogen 7 mg/dL (7-17); Carbon Dioxide 29 mmol/L (22-32); Chloride 103 mmol/L (98-107); Estimated Glomerular Filt Rate > 60.0 mL/min (>60); Glucose 95 mg/dL (80-110); HEMOLYSIS < 15 (0-50); Potassium 2.9 mmol/L (3.4-5.1); Sodium 141 mmol/L (137-145)
[2017-11-02 07:10] VITALS: BP 114/56; PULSE 71; RESP 16; TEMP 37; O2SAT 95
[2017-11-02] MEDS: POTASSIUM CHLORIDE 10 MEQ TAB PO ×2 (09:12→17:06)
--- NOTE | 2017-11-02 09:48 | PC.NURSE ---
Addendum entered by Anuradha Anne R.N. 11/02/17 12:36: Started on Percocet. MASTER AT ARMS removed. Pt continues to have minimal interest in much food. I dont feel nauseated, just not interested. Original Note: AM shift Pt reporting a/e from MASTER [employer], vivid dreams, nausea. While reluctant, agreeable to transitioning to PO pain control for better management and work toward discharge plan. Dr Ware notified of same.
[2017-11-02] MEDS: OXYCODONE/ACETAMINOPHEN 5/325 TABLET 1 TAB PO ×2 (10:22→14:46)
[2017-11-02] MEDS: FLUTICASONE 120 SPRAY/16 GM SPRAY.SUSP NASAL (10:25)
[2017-11-02 11:40] VITALS: BP 114/72; PULSE 76; RESP 16; TEMP 36.8; O2SAT 97
[2017-11-02 16:00] VITALS: BP 115/69; RESP 20; TEMP 37; O2SAT 99
--- NOTE | 2017-11-02 17:06 | P.PN_ITS ---
Subjective Date Patient Seen: 11/02/17 Time Patient Seen: 17:04 Interval history: Good spirits but admits that her pain was out of control earlier today. Still urinating and passing flatus. Still requiring IV medications for breakthrough pain. Exam Vital Signs (past 8 hours): Vital Signs - 8 hr 3 11/02/17 11:40 Temperature 98.2 F Pulse Rate 76 Respiratory Rate 16 Blood Pressure 114/72 Pulse Oximetry 97 Pulse Oximetry 97 Oxygen Delivery Method Room Air Oxygen Flow Rate 0 Narrative Exam Narrative: Afebrile Lungs: Clear bilaterally Heart: Continues to be regular rate and rhythm Abdomen: Soft, active bowel sounds, incisions are clean dry and intact without erythema, drain is serous and decreasing in output. Extremities: No edema Objective Labs Result Diagrams: 10/31/17 07:10 11/02/17 05:50 Labs: Laboratory Results - last 24 hr 11/02/17 05:50 Sodium 141 Potassium 2.9 L Chloride 103 Carbon Dioxide 29 BUN 7 Creatinine 0.70 Estimated GFR > 60.0 BUN/Creatinine Ratio 10.0 Glucose 95 Calcium 9.0 Assessment & Plan Plan: Assessment/Plan Narrative: Continues to improve after a laparoscopic appendectomy with drainage of 2 very large abscesses. 1. Continue antibiotic - we will stop vancomycin and continue only Zosyn for Klebsiella 2. Recheck labs in the morning. Potassium has been low but hopefully will be improving on oral supplementation. Patient did not tolerate potassium rider very well. 3. Plan for discharge to home on Tuesday or Tuesday morning as long as she continues to improve. Quality VTE Deep Vein Thrombosis/Pulmonary Embolism Present on Admission: No
[2017-11-02] MEDS: OXYCODONE IR 10 MG TABLET PO ×2 (17:49→21:23)
[2017-11-02 22:44] VITALS: BP 114/63; RESP 20; TEMP 36; O2SAT 96
[2017-11-02 23:52] VITALS: BP 123/80; PULSE 71; RESP 16; TEMP 36.6; O2SAT 98
--- NOTE | 2017-11-03 00:05 | PC.NURSE ---
Addendum entered by Ksenia Gautam R.N. 11/03/17 04:03: Medicated with Oxycodone for complaint of 7/10 pain. Original Note: Addendum entered by Ksenia Gautam R.N. 11/03/17 00:46: Medicated with Oxycodone 10mg for complaint of 7/10 abdominal pain described as intermittently dull/sharp. Original Note: Alert and oriented. Breath sounds CTA with RA sat of 98%. HRR. Denies nausea. BT present and is passing flatus. Abdomen is soft but appears distended. Dressings to abdomen CDI. Earl drain intact with no drainage noted currently. Does complain of 6/10 incisional pain but too early for additional pain meds and declines other intervention. Is able to turn self in bed but is slow and seems weak. Denies dysuria, frequency, urgency or incontinence. Has not had a BM since 10/28. Wearing bilateral SCD's. Fall risk score is medium; bed alarm is activated for safety.
[2017-11-03] MEDS: OXYCODONE IR 10 MG TABLET PO ×8 (00:42→23:46)
[2017-11-03] MEDS: PIPERACILLIN-TAZO 3.375 GM/50 ML FROZ.PIGGY IV ×4 (02:29→20:41)
[2017-11-03] MEDS: SODIUM CHLORIDE 0.9% FLUSH 10 ML IV ×2 (02:29→10:26)
[2017-11-03 04:13] VITALS: BP 129/66; PULSE 76; RESP 18; TEMP 36.6; O2SAT 97
[2017-11-03 08:15] VITALS: BP 125/73; PULSE 69; RESP 18; TEMP 36.6; O2SAT 97
[2017-11-03] MEDS: FLUTICASONE 120 SPRAY/16 GM SPRAY.SUSP NASAL (10:25)
[2017-11-03] MEDS: POTASSIUM CHLORIDE 10 MEQ TAB PO ×2 (10:25→17:06)
[2017-11-03 12:30] VITALS: BP 121/76; PULSE 67; RESP 14; TEMP 36.8; O2SAT 95
--- NOTE | 2017-11-03 13:30 | P.PN_ITS ---
Subjective Date Patient Seen: 11/03/17 Time Patient Seen: 13:27 Interval history: Postop day 4 after a laparoscopic appendectomy with drainage of abscesses. She reports that she is feeling better. Pain is still an issue. She reports that at times the oxycodone will control her pain and at other times is seems to do nothing. She has made the circular around the roque 1 time today and she plans to do 2 more times before she sleeps tonight. Continues to pass flatus. Exam Vital Signs (past 8 hours): Vital Signs - 8 hr 3 11/03/17 08:15 11/03/17 12:30 Temperature 97.9 F 98.2 F Pulse Rate 69 67 Respiratory Rate 18 14 Blood Pressure 125/73 H 121/76 H Pulse Oximetry 97 95 Pulse Oximetry 95 Oxygen Delivery Method Room Air Oxygen Flow Rate 0 Narrative Exam Narrative: Lungs: Clear bilaterally Heart: Regular rate and rhythm Abdomen: Soft, appropriately tender to palpation, active bowel sounds. Wounds are all clean dry and intact. No erythema and minimal serous drainage. Minimal bruising. Intraperitoneal Earl drain is minimal and serous now. Extremities: No edema Objective Labs Result Diagrams: 10/31/17 07:10 11/02/17 05:50 Assessment & Plan Plan: Assessment/Plan Narrative: Postop day 4 after exploratory laparoscopy with drainage of abscess x2 and appendectomy. The wounds are healing and she is improving. Since sometime with Elba today talking about a realistic expectation regarding pain control. She should not expect to be completely pain free. She should expect more a controlled level of pain. For or below would be a reasonable goal. We will continue to give her oxycodone as needed and she has IV Dilaudid for breakthrough. I am tentatively planning for discharge tomorrow as long as she does well overnight. Quality VTE Deep Vein Thrombosis/Pulmonary Embolism Present on Admission: No
[2017-11-03 15:31] LABS: Add Manual Diff / Slide Review NO; Basophils Percent Auto 0.9 % (0-2); Eosinophils Percent Auto 2.3 % (2-4); Hematocrit 31.4 % (36-46); Hemoglobin 10.7 g/dL (12.0-16.0); Lymphocytes Percent Auto 19.6 % (25-40); Mean Corpuscular HGB Conc 33.9 % (30-36); Mean Corpuscular Hemoglobin 30.9 PG (26-34); Mean Corpuscular Volume 91.2 fL (80-100); Monocytes Percent Auto 7.8 % (3-14); Neutrophils Absolute Auto 8500 /uL (3000-5900); Neutrophils Percent Auto 69.4 % (50-75); Platelet Count 586 X10^3/uL (150-400); Red Blood Cell Count 3.45 X10^6/uL (4.0-5.2); Red Cell Distribution Width 12.4 % (11.6-14.8); White Blood Cell Count 12.3 X10^3/uL (4.5-11.0)
[2017-11-03 15:38] VITALS: BP 136/53; PULSE 79; RESP 16; TEMP 36.4; O2SAT 97
[2017-11-03 15:45] LABS: BUN Creatinine Ratio 15.7 (6-22); Blood Urea Nitrogen 11 mg/dL (7-17); Calcium 9.4 mg/dL (8.4-10.2); Carbon Dioxide 30 mmol/L (22-32); Chloride 100 mmol/L (98-107); Estimated Glomerular Filt Rate > 60.0 mL/min (>60); Glucose 99 mg/dL (80-110); HEMOLYSIS < 15 (0-50); Potassium 3.6 mmol/L (3.4-5.1); Sodium 139 mmol/L (137-145)
[2017-11-03 20:13] VITALS: BP 132/69; PULSE 77; RESP 16; TEMP 36.4; O2SAT 96
[2017-11-03 23:30] VITALS: BP 135/78; PULSE 72; RESP 16; TEMP 36.4; O2SAT 95
[2017-11-04] MEDS: PIPERACILLIN-TAZO 3.375 GM/50 ML FROZ.PIGGY IV ×2 (02:56→08:46)
[2017-11-04] MEDS: OXYCODONE IR 10 MG TABLET PO ×4 (02:56→12:28)
[2017-11-04 03:23] VITALS: BP 115/71; PULSE 74; RESP 16; TEMP 36.6; O2SAT 97
[2017-11-04 08:00] VITALS: BP 118/71; PULSE 69; RESP 16; O2SAT 99
[2017-11-04] MEDS: SODIUM CHLORIDE 0.9% FLUSH 10 ML IV (08:46)
[2017-11-04] MEDS: POTASSIUM CHLORIDE 10 MEQ TAB PO (08:46)
[2017-11-04] MEDS: FLUTICASONE 120 SPRAY/16 GM SPRAY.SUSP NASAL (08:46)
--- NOTE | 2017-11-04 11:05 | P.DS_ITS ---
History of Present Illness Chief complaint: Acute Appendicitis Narrative: Elba is a terrence 62-year-old lady who presented to the emergency room late last evening with 5 days of lower abdominal pain. She reports the pain started 6 days ago with a feeling of ?sour stomach?. She said she has had some subjective fever at home. She describes chills and even some night sweats. She was seen and evaluated in the emergency room and found to have what appears to be perforated appendicitis with 2 areas of abscess formation. I have been consulted for definitive management. Discharge Providers Date of admission: 10/29/17 16:41 Primary care physician: Kathy Alvarado DO Consults: 10/29/17 16:29 Consult to General Surgery Routine Comment: Consulting Provider: Rea Ware Reason for consultation: appendicitis 10/30/17 13:28 Consult to Discharge Planning Routine Comment: Discharge provider: Rea Ware MD Summary Discharge Diagnosis: Acute appendicitis with perforation, abscess, and generalized peritonitis Hospital Course: Elba was taken to the operating room for an uneventful laparoscopic appendectomy with drainage of large peritoneal abscesses. She did well postoperatively. Pain was an issue but not to an unexpected degree. Bowel function returned quickly. At the time of discharge, she is walking in the halls, and using the incentive spirometer effectively. She has been afebrile for more than 24 hr and her drainage output is serous. She is ready for discharge to her home. Status at Discharge Cognitive/behavioral status at discharge: Normal Functional status at discharge: independent ambulation Time Spent with Patient Less than 30 minutes Exam Vital Signs (past 8 hours): Vital Signs - 8 hr 3 11/04/17 03:23 11/04/17 08:00 Temperature 97.8 F Pulse Rate 74 69 Respiratory Rate 16 16 Blood Pressure 115/71 118/71 Pulse Oximetry 97 99 Pulse Oximetry 99 Oxygen Delivery Method Room Air Oxygen Flow Rate 0 Narrative Exam Narrative: Very pleasant lady in no acute distress. HEENT: Normocephalic and atraumatic, pupils equal round reactive to light accommodation with anicteric sclera Lungs: Clear to auscultation bilaterally Heart: Regular rate and rhythm without murmur rub or gallop Abdomen: Soft, appropriately tender to palpation, active bowel sounds. All incisions are clean dry and intact. Drain has been removed and the site is clean. Extremities: Warm and well perfused Extremities: Warm and well perfused Objective Labs Result Diagrams: 11/03/17 15:12 11/03/17 15:12 Labs: Laboratory Results - last 24 hr 11/03/17 11/03/17 15:12 15:12 WBC 12.3 H RBC 3.45 L Hgb 10.7 L Hct 31.4 L MCV 91.2 MCH 30.9 MCHC 33.9 RDW 12.4 Plt Count 586 H Neut % (Auto) 69.4 Lymph % (Auto) 19.6 L [place] % (Auto) 7.8 Eos % (Auto) 2.3 Baso % (Auto) 0.9 Neut # (Auto) 8500 H Sodium 139 Potassium 3.6 Chloride 100 Carbon Dioxide 30 BUN 11 Creatinine 0.70 Estimated GFR > 60.0 BUN/Creatinine Ratio 15.7 Glucose 99 Calcium 9.4 Discharge Plan Discharge Plan Patient Disposition: Home, Self-Care Provider Discharge Instructions Diet: Diet as Tolerated Activity: Do not lift more than 10 pounds Cold/Heat Therapy: Apply ice or heat as desired to help with discomfort Wound Care Report to your healthcare provider any signs of infection, such as:: chills, fever, night sweats, increased pain and unusual drainage Dressing: Remove all dressings and shower as desired. Pat the incisions dry. You may leave them open to air and wear loose fitting clothing. Do not soak in water for at least 2 weeks. Discharge Data Primary Care Provider: Kathy Alvarado Attending Provider: Rea Ware Admit Date/Time: 10/29/17 16:41 Quality VTE Deep Vein Thrombosis/Pulmonary Embolism Present on Admission: No
--- NOTE | 2017-11-04 14:58 | PC.NURSE ---
Addendum entered by Jessica Calderon R.N. 11/04/17 15:18: Called Dr. Ware to clarify DC Rx orders. Patient discharged with friends to personal vehicle via wheelchair. Original Note: patient dressed and packed up, awaiting ride from friend. Items retrieved from safe and given to patient.
== END 2017-11-04 15:29 | disposition home or self-care (01) | DRG 340 ==
LOC: ED 16:36 → AC 16:45
PROVIDERS: Admitting Provider Surgery; Emergency Provider Nurse Practitioner Family; Family Provider Family Medicine; PCP Family Medicine; Visit Provider Surgery
PROC: 0DTJ4ZZ Resection of Appendix, Percutaneous Endoscopic Approach (ICD-10-PCS; CPT 44970; principal; 2017-10-30 09:15)
DX: K35.3 Acute appendicitis with localized peritonitis (principal); K66.0 Peritoneal adhesions (postprocedural) (postinfection); F17.210 Nicotine dependence, cigarettes, uncomplicated; B96.1 Klebsiella pneumoniae [K. pneumoniae] as the cause of diseases classified elsewhere
CPT/HCPCS: 36415; 71045; 74177; 80048; 80053; 80202; 81001; 81003; 83690; 85025; 87070; 87075; 87077; 87086; 87186; 87205; 94762; 96365; 96375; 99284; 99406; J0330; J1100; J1170; J1885; J2250; J2405; J2543; J2704; J2765; J3010; J3370; J3480; Q9967

== ENCOUNTER 2018-03-25 12:31 | Emergency (ER) | payer OTHER, SELFPAY ==
[2017-10-29 17:19] VITALS: BMI 23.5
--- NOTE | 2018-03-25 12:45 | DI.RAD.S_ITS ---
PROCEDURE: XR CLAVICLE LT INDICATIONS: glf, pain TECHNIQUE: 2 views of the clavicle were acquired. COMPARISON: [facility], [facility], XR CHEST 1V, 10/30/2017, 12:27. FINDINGS: Bones: Left lateral clavicle fracture. Possible mild subluxation of the a.c. joint, with slight superior displacement of the lateral clavicle fracture fragment relative to the acromion. Soft tissues: No suspicious soft tissue calcifications. IMPRESSION: Lateral left clavicle fracture. Dictated by: Blayne Thompson M.D. on 03/25/2018 at 14:10 Approved by: Blayne Thompson M.D. on 03/25/2018 at 14:12
[2018-03-25 12:46] VITALS: BP 160/90; PULSE 85; RESP 13; TEMP 36.8; O2SAT 99
--- NOTE | 2018-03-25 13:43 | ED.UPPEXIN ---
HPI - Extremity Injury (Upper) General Chief Complaint: Extremity Injury, Upper Stated Complaint: Lt shoulder pain from falling Time Seen by Provider: 03/25/18 12:43 Source: patient Mode of arrival: ambulatory Limitations: no limitations History of Present Illness HPI narrative: This is a 63-year-old female who states she had a slip and fall yesterday landing on her left shoulder. She states that since then she has continued to have pain which has not improved in the last 12 hr. Patient states there is bruising next the shoulder also. Patient states she does not have any pain in the lower but some sort of in the shoulder and upper chest she states painful to try to lift her shoulder. She does not have any weakness, she has not had any difficulty with grocery deliverer. She felt like she had some numbness in her hand when she was driving over in her car but since changing position she is not having any further. She denies any blood thinners. She took some ibuprofen at home last night. She denies hitting her she denies any neck or back pain or other injuries. She denies any shortness of breath, she denies any nausea or vomiting or other symptoms. Related Data Home Medications Medication Instructions Recorded Confirmed fluticasone [Flonase Allergy 1 spray INTRANASAL QDAY #0 05/14/16 11/22/17 Relief] calcium carbonate-vitamin D3 2 tab PO DAILY #0 06/03/17 11/22/17 [Calcium 600 + D(3)] docusate sodium 100 mg PO PRN PRN 10/29/17 11/22/17 sennosides 8.6 mg PO BID PRN 10/29/17 11/22/17 cholecalciferol (vitamin D3) 1,000 1,000 unit PO DAILY 11/22/17 11/22/17 unit capsule Previous Rx's Medication Instructions Recorded amoxicillin-pot clavulanate 1 tab PO TID #14 tab MDD 2 11/04/17 metronidazole 500 mg PO TID #21 tab MDD 3 11/04/17 oxycodone 10 mg PO Q3HR PRN #30 tab 11/04/17 walker #1 each 11/04/17 ondansetron 4 mg PO Q4H PRN #20 tab 11/05/17 oxycodone 10 mg tablet 10 mg PO Q3H PRN #30 tab 11/17/17 miscellaneous medical supply misc #1 each 11/29/17 oxycodone-acetaminophen [Percocet] 1 tab PO Q4-6H PRN #14 tab 03/25/18 Allergies Allergy/AdvReac Type Severity Reaction Status Date / Time influenza virus vaccine, Allergy Severe PASSED OUT Verified 11/22/17 09:08 specific [influenza virus vacc,specific] dog dander [DOG DANDER] Allergy Unknown Verified 11/22/17 09:08 Review of Systems Review of Systems All systems reviewed & are unremarkable except as noted in HPI and below Constitutional Denies headache(s) and Denies other (LOC) ENT Ears, Nose, Mouth, and Throat: Denies headache(s) and Denies neck pain Cardiovascular Denies chest pain, Denies irregular heart rhythm, Denies lightheadedness, Denies palpitations, Denies dyspnea, Denies dyspnea on exertion and Denies orthopnea Respiratory Denies cough, Denies dyspnea, Denies dyspnea on exertion and Denies wheezing Gastrointestinal Gastrointestinal: Denies abdominal pain, Denies change in bowel habits, Denies diarrhea, Denies nausea and Denies vomiting Musculoskeletal Reports as per HPI, Denies back pain, Denies deformity, Denies joint swelling, Reports limited range of motion, Denies muscle weakness, Denies neck pain, Reports numbness, Reports radiating pain into limb, Reports tingling and Reports other (Right shoulder pain) Integumentary/Breasts Reports unusual bruising Neurologic Denies headache(s), Reports numbness and Reports tingling Endocrine Denies palpitations Allergic/Immunologic Denies wheezing [facility] Medical History Chronic back pain (Chronic 2010) Dry eye (Chronic) GERD (gastroesophageal reflux disease) (Chronic ~1989) Gastric ulcer (Chronic 1989) Hemorrhoids (Chronic 2005) Hiatal hernia (Chronic) Knee pain (Chronic 10/2013) Peptic ulcer disease (Chronic) Rosacea (Chronic) Seasonal allergies (Chronic ~1989) Normal Papanicolaou smear (Resolved) Tibia/fibula fracture (Resolved 1988) Surgical History Anesthesia complication (Resolved) H/O local excision of skin lesion (Resolved 10/2013) History of esophagogastroduodenoscopy (EGD) (Resolved 12/03/16) History of orthopedic surgery (Resolved 1990) History of surgery (Resolved 1981) History of tonsillectomy (Resolved 1972) Status post LASIK surgery (Resolved 2000) Status post hemorrhoidectomy (Resolved 2005) Social History household members: none Smoking Status: Current some day smoker alcohol intake: current Exam Narrative Exam Narrative: GEN: Patient appears in mild distress. Patient is coloring in a coloring book with her right arm. HEAD: No evidence of trauma, no raccoon/Renteria sign. NECK: Nontender, painless range of motion, trachea midline Negative Nexus criteria, there is no midline tenderness, distracting injury, altered mental status, neuro deficit, recent EtOH. EYES: PERRLA, EOMI ENT: External inspection normal, trachea is midline RESP: Chest is nontender and has symmetric movement, no ecchymosis, breath sounds are normal no crackles, wheezes or rales CVS: Heart sounds are normal, no murmur noted, No JVD. ABG/GI: Nontender, soft, normal bowel sounds, no distention, no organomegaly NEURO: Oriented AOx3, neuro is grossly intact, sensation and motor is normal all 4 extremities moving, cranial nerves II through XII are intact, GCS is 15 PSYCH: Normal mood and affect SKIN: Intact, warm and dry, no crepitus and without decubitus. Patient has bruising over the distal clavicle. BACK: No CVA tenderness, no vertebral tenderness, no step-off's, no crepitus EXT: Patient has bruising over the distal clavicle, she has tenderness to palpation over the distal clavicle. There is no crepitus or subcutaneous emphysema. She does not have any tenderness of the shoulder humerus or left upper extremity. She has decreased range of motion at shoulder but has equal plant wire chief bilaterally and with push and pull bilaterally in her upper extremities, hips are nontender, no pedal edema, normal color and temperature, normal range of motion of extremities with normal tendon exam, 2+ pulses in all four extremities Initial Vital Signs Initial Vital Signs: Vital Signs Temperature 98.2 F 03/25/18 12:46 Pulse Rate 85 03/25/18 12:46 Respiratory Rate 13 03/25/18 12:46 Blood Pressure 160/90 H 03/25/18 12:46 Pulse Oximetry 99 03/25/18 12:46 Scores GCS Juany coma scale eye opening: Spontaneous Lyles coma scale verbal response: Orientated Lyles coma scale motor response: Obey commands Lyles coma scale total score: 15 Course Orders Ordered: ED Orders 03/25/18 12:45 XR clavicle LT Stat Discontinued Medications Oxycodone/Acetaminophen (Percocet 5/325) 1 tab PO NOW ONE Stop: 03/25/18 14:24 Last Admin: 03/25/18 14:33 Dose: 1 tab Vital Signs - 8 hr 03/25/18 12:46 Temperature 98.2 F Pulse Rate 85 Respiratory Rate 13 Blood Pressure 160/90 H Pulse Oximetry 99 MDM - Extremity Injury (Upper) Imaging Data clavicle xray: Radiologist's impression: [address] [id number] XRay Report Signed Patient: Elba Diaz [facility]#: [id number] : 6Acct:[id number] Age/Sex: 63 / FDate of Service: 03/25/18 Loc: ED Accession Number: [id number] Procedure: XR clavicle LT Ordering Provider: Roxanne Garibay PROCEDURE: XR CLAVICLE LT INDICATIONS: glf, pain TECHNIQUE: 2 views of the clavicle were acquired. [facility] FINDINGS: Bones: Left lateral clavicle fracture. Possible mild subluxation of the a.c. joint, with slight superior displacement of the lateral clavicle fracture fragment relative to the acromion. Soft tissues: No suspicious soft tissue calcifications. IMPRESSION: Lateral left clavicle fracture. Dictated by: Blayne Thompson M.D. on 03/25/2018 at 14:10 Approved by: Blayne Thompson M.D. on 03/25/2018 at 14:12 [facility] Narrative Medical decision making narrative: Patient has a fracture of the left lateral clavicle. She is tolerating pretty well. She is placed in a sling, given a short-term prescription for oxycodone as she has tolerated this well in the past. We did discuss range of motion for her shoulder and she can take off the sling at any time. Patient referred for follow-up for her fracture. Also discussed signs and symptoms to watch for and reasons to return emergently. Discharge Plan Departure Patient Disposition: Home Clinical Impression: Clavicle fracture Discharge Date/Time: 03/25/18 14:45 Interventions: ED Discharge Assessment Last Done: 03/25/18 14:39 Instructions: DI for Clavicle Fracture-Adult Activity Restrictions/Additional Instructions: Follow-up with primary care orthopedic surgery in the next 7-10 days for recheck. Use shoulder immobilizer as needed but make sure that you are moving your shoulder through its range of motion several times daily to prevent frozen shoulder. Take medications as prescribed for pain. Return to the emergency department for new weakness, numbness, inability to move, rapid swelling or sudden new changes to the extremity. Shortness of breath or new chest pain or passing out. Prescriptions: New oxycodone-acetaminophen [Percocet] 5-325 mg tablet 1 tab PO Q4-6H PRN (Reason: pain) Qty: 14 RF: 0 No Action fluticasone [Flonase Allergy Relief] 9.9 ML spray,suspension 1 spray Intranasal QDAY Qty: 0 RF: 0 calcium carbonate-vitamin D3 [Calcium 600 + D(3)] 600 mg(1,500mg) -200 unit Tablet 2 tab PO DAILY Qty: 0 RF: 0 oxycodone 10 mg tablet 10 mg PO Q3H PRN (Reason: pain) Qty: 30 RF: 0 miscellaneous medical supply misc .ROUTE .MEDSUPPLY Qty: 1 RF: 0 cholecalciferol (vitamin D3) 1,000 unit capsule 1,000 unit PO DAILY RF: 0 sennosides 8.6 mg Tablet 8.6 mg PO BID PRN (Reason: Constipation) RF: 0 docusate sodium 100 mg Capsule 100 mg PO PRN PRN (Reason: Abdominal Discomfort) RF: 0 oxycodone 10 mg Tablet 10 mg PO Q3HR PRN (Reason: Pain, Moderate) Qty: 30 RF: 0 metronidazole 500 mg tablet 500 mg PO TID MDD 3 Qty: 21 RF: 0 amoxicillin-pot clavulanate 500-125 mg tablet 1 tab PO TID MDD 2 Qty: 14 RF: 0 walker misc .ROUTE .MEDSUPPLY Qty: 1 RF: 0 ondansetron 4 mg tablet,disintegrating 4 mg PO Q4H PRN (Reason: nausea) Qty: 20 RF: 1 Referrals: Yo Dugan MD [Physician] - Kathy Alvarado DO [Primary Care Provider] -
--- NOTE | 2018-03-25 13:48 | ED_ITS ---
HPI - Extremity Injury (Upper) General Chief Complaint: Extremity Injury, Upper Stated Complaint: Lt shoulder pain from falling Time Seen by Provider: 03/25/18 12:43 Source: patient Mode of arrival: ambulatory Limitations: no limitations History of Present Illness HPI narrative: This is a 63-year-old female who states she had a slip and fall yesterday landing on her left shoulder. She states that since then she has continued to have pain which has not improved in the last 12 hr. Patient states there is bruising next the shoulder also. Patient states she does not have any pain in the lower but some sort of in the shoulder and upper chest she states painful to try to lift her shoulder. She does not have any weakness, she has not had any difficulty with dry sander. She felt like she had some numbness in her hand when she was driving over in her car but since changing position she is not having any further. She denies any blood thinners. She took some ibuprofen at home last night. She denies hitting her she denies any neck or back pain or other injuries. She denies any shortness of breath, she denies any nausea or vomiting or other symptoms. Related Data Home Medications Medication Instructions Recorded Confirmed fluticasone [Flonase Allergy 1 spray INTRANASAL QDAY #0 05/14/16 11/22/17 Relief] calcium carbonate-vitamin D3 2 tab PO DAILY #0 06/03/17 11/22/17 [Calcium 600 + D(3)] docusate sodium 100 mg PO PRN PRN 10/29/17 11/22/17 sennosides 8.6 mg PO BID PRN 10/29/17 11/22/17 cholecalciferol (vitamin D3) 1,000 1,000 unit PO DAILY 11/22/17 11/22/17 unit capsule Previous Rx's Medication Instructions Recorded amoxicillin-pot clavulanate 1 tab PO TID #14 tab MDD 2 11/04/17 metronidazole 500 mg PO TID #21 tab MDD 3 11/04/17 oxycodone 10 mg PO Q3HR PRN #30 tab 11/04/17 walker #1 each 11/04/17 ondansetron 4 mg PO Q4H PRN #20 tab 11/05/17 oxycodone 10 mg tablet 10 mg PO Q3H PRN #30 tab 11/17/17 miscellaneous medical supply misc #1 each 11/29/17 oxycodone-acetaminophen [Percocet] 1 tab PO Q4-6H PRN #14 tab 03/25/18 Allergies Allergy/AdvReac Type Severity Reaction Status Date / Time influenza virus vaccine, Allergy Severe PASSED OUT Verified 11/22/17 09:08 specific [influenza virus vacc,specific] dog dander [DOG DANDER] Allergy Unknown Verified 11/22/17 09:08 Review of Systems Review of Systems All systems reviewed & are unremarkable except as noted in HPI and below Constitutional Denies headache(s) and Denies other (LOC) ENT Ears, Nose, Mouth, and Throat: Denies headache(s) and Denies neck pain Cardiovascular Denies chest pain, Denies irregular heart rhythm, Denies lightheadedness, Denies palpitations, Denies dyspnea, Denies dyspnea on exertion and Denies orthopnea Respiratory Denies cough, Denies dyspnea, Denies dyspnea on exertion and Denies wheezing Gastrointestinal Gastrointestinal: Denies abdominal pain, Denies change in bowel habits, Denies diarrhea, Denies nausea and Denies vomiting Musculoskeletal Reports as per HPI, Denies back pain, Denies deformity, Denies joint swelling, Reports limited range of motion, Denies muscle weakness, Denies neck pain, Reports numbness, Reports radiating pain into limb, Reports tingling and Reports other (Right shoulder pain) Integumentary/Breasts Reports unusual bruising Neurologic Denies headache(s), Reports numbness and Reports tingling Endocrine Denies palpitations Allergic/Immunologic Denies wheezing [facility] Medical History Chronic back pain (Chronic 2010) Dry eye (Chronic) GERD (gastroesophageal reflux disease) (Chronic ~1989) Gastric ulcer (Chronic 1989) Hemorrhoids (Chronic 2005) Hiatal hernia (Chronic) Knee pain (Chronic 10/2013) Peptic ulcer disease (Chronic) Rosacea (Chronic) Seasonal allergies (Chronic ~1989) Normal Papanicolaou smear (Resolved) Tibia/fibula fracture (Resolved 1988) Surgical History Anesthesia complication (Resolved) H/O local excision of skin lesion (Resolved 10/2013) History of esophagogastroduodenoscopy (EGD) (Resolved 12/03/16) History of orthopedic surgery (Resolved 1990) History of surgery (Resolved 1981) History of tonsillectomy (Resolved 1972) Status post LASIK surgery (Resolved 2000) Status post hemorrhoidectomy (Resolved 2005) Social History household members: none Smoking Status: Current some day smoker alcohol intake: current Exam Narrative Exam Narrative: GEN: Patient appears in mild distress. Patient is coloring in a coloring book with her right arm. HEAD: No evidence of trauma, no raccoon/Renteria sign. NECK: Nontender, painless range of motion, trachea midline Negative Nexus criteria, there is no midline tenderness, distracting injury, altered mental status, neuro deficit, recent EtOH. EYES: PERRLA, EOMI ENT: External inspection normal, trachea is midline RESP: Chest is nontender and has symmetric movement, no ecchymosis, breath sounds are normal no crackles, wheezes or rales CVS: Heart sounds are normal, no murmur noted, No JVD. ABG/GI: Nontender, soft, normal bowel sounds, no distention, no organomegaly NEURO: Oriented AOx3, neuro is grossly intact, sensation and motor is normal all 4 extremities moving, cranial nerves II through XII are intact, GCS is 15 PSYCH: Normal mood and affect SKIN: Intact, warm and dry, no crepitus and without decubitus. Patient has bruising over the distal clavicle. BACK: No CVA tenderness, no vertebral tenderness, no step-off's, no crepitus EXT: Patient has bruising over the distal clavicle, she has tenderness to palpation over the distal clavicle. There is no crepitus or subcutaneous emphysema. She does not have any tenderness of the shoulder humerus or left upper extremity. She has decreased range of motion at shoulder but has equal director [employer] bilaterally and with push and pull bilaterally in her upper extremities, hips are nontender, no pedal edema, normal color and temperature, normal range of motion of extremities with normal tendon exam, 2+ pulses in all four extremities Initial Vital Signs Initial Vital Signs: Vital Signs Temperature 98.2 F 03/25/18 12:46 Pulse Rate 85 03/25/18 12:46 Respiratory Rate 13 03/25/18 12:46 Blood Pressure 160/90 H 03/25/18 12:46 Pulse Oximetry 99 03/25/18 12:46 Scores GCS Juany coma scale eye opening: Spontaneous [place] coma scale verbal response: Orientated [place] coma scale motor response: Obey commands [place] coma scale total score: 15 Course Orders Ordered: ED Orders 03/25/18 12:45 XR clavicle LT Stat Discontinued Medications Oxycodone/Acetaminophen (Percocet 5/325) 1 tab PO NOW ONE Stop: 03/25/18 14:24 Last Admin: 03/25/18 14:33 Dose: 1 tab Vital Signs - 8 hr 03/25/18 12:46 Temperature 98.2 F Pulse Rate 85 Respiratory Rate 13 Blood Pressure 160/90 H Pulse Oximetry 99 MDM - Extremity Injury (Upper) Imaging Data clavicle xray: Radiologist's impression: [address] [address] XRay Report Signed Patient: Elba Diaz [facility]#: [id number] : 6Acct:[id number] Age/Sex: 63 / FDate of Service: 03/25/18 Loc: ED Accession Number: [id number] Procedure: XR clavicle LT Ordering Provider: Roxanne Garibay PROCEDURE: XR CLAVICLE LT INDICATIONS: glf, pain TECHNIQUE: 2 views of the clavicle were acquired. [facility] 12[facility]. FINDINGS: Bones: Left lateral clavicle fracture. Possible mild subluxation of the a.c. joint, with slight superior displacement of the lateral clavicle fracture fragment relative to the acromion. Soft tissues: No suspicious soft tissue calcifications. IMPRESSION: Lateral left clavicle fracture. Dictated by: Blayne Thompson M.D. on 03/25/2018 at 14:10 Approved by: Blayne Thompson M.D. on 03/25/2018 at 14:12 [facility] Narrative Medical decision making narrative: Patient has a fracture of the left lateral clavicle. She is tolerating pretty well. She is placed in a sling, given a short-term prescription for oxycodone as she has tolerated this well in the past. We did discuss range of motion for her shoulder and she can take off the sling at any time. Patient referred for follow-up for her fracture. Also discussed signs and symptoms to watch for and reasons to return emergently. Discharge Plan Departure Patient Disposition: Home Clinical Impression: Clavicle fracture Discharge Date/Time: 03/25/18 14:45 Interventions: ED Discharge Assessment Last Done: 03/25/18 14:39 Instructions: DI for Clavicle Fracture-Adult Activity Restrictions/Additional Instructions: Follow-up with primary care orthopedic surgery in the next 7-10 days for recheck. Use shoulder immobilizer as needed but make sure that you are moving your shoulder through its range of motion several times daily to prevent frozen shoulder. Take medications as prescribed for pain. Return to the emergency department for new weakness, numbness, inability to move , rapid swelling or sudden new changes to the extremity. Shortness of breath or new chest pain or passing out. Prescriptions: New oxycodone-acetaminophen [Percocet] 5-325 mg tablet 1 tab PO Q4-6H PRN (Reason: pain) Qty: 14 RF: 0 No Action fluticasone [Flonase Allergy Relief] 9.9 ML spray,suspension 1 spray Intranasal QDAY Qty: 0 RF: 0 calcium carbonate-vitamin D3 [Calcium 600 + D(3)] 600 mg(1,500mg) -200 unit Tablet 2 tab PO DAILY Qty: 0 RF: 0 oxycodone 10 mg tablet 10 mg PO Q3H PRN (Reason: pain) Qty: 30 RF: 0 miscellaneous medical supply misc .ROUTE .MEDSUPPLY Qty: 1 RF: 0 cholecalciferol (vitamin D3) 1,000 unit capsule 1,000 unit PO DAILY RF: 0 sennosides 8.6 mg Tablet 8.6 mg PO BID PRN (Reason: Constipation) RF: 0 docusate sodium 100 mg Capsule 100 mg PO PRN PRN (Reason: Abdominal Discomfort) RF: 0 oxycodone 10 mg Tablet 10 mg PO Q3HR PRN (Reason: Pain, Moderate) Qty: 30 RF: 0 metronidazole 500 mg tablet 500 mg PO TID MDD 3 Qty: 21 RF: 0 amoxicillin-pot clavulanate 500-125 mg tablet 1 tab PO TID MDD 2 Qty: 14 RF: 0 walker misc .ROUTE .MEDSUPPLY Qty: 1 RF: 0 ondansetron 4 mg tablet,disintegrating 4 mg PO Q4H PRN (Reason: nausea) Qty: 20 RF: 1 Referrals: Yo Dugan MD [Physician] - Kathy Alvarado DO [Primary Care Provider] -
[2018-03-25] MEDS: OXYCODONE/ACETAMINOPHEN 5/325 TABLET 1 TAB PO (14:33)
== END 2018-03-25 14:45 | disposition home or self-care (01) ==
PROVIDERS: Emergency Provider Emergency Medicine; Family Provider Family Medicine; PCP Family Medicine
DX: S42.002A Fracture of unspecified part of left clavicle, initial encounter for closed fracture (principal); W01.0XXA Fall on same level from slipping, tripping and stumbling without subsequent striking against object, initial encounter
CPT/HCPCS: 73000; 99282; 99283

== ENCOUNTER 2018-03-27 17:33 | Emergency (ER) | payer OTHER, SELFPAY ==
[2017-10-29 17:19] VITALS: BMI 23.5
[2018-03-27 17:36] VITALS: BP 151/84; PULSE 81; RESP 20; TEMP 36.9; O2SAT 100
--- NOTE | 2018-03-27 17:40 | ED.UPPEXIN ---
HPI - Extremity Injury (Upper) <Laurie Farr PA-C - Last Filed: 03/27/18 21:33> General Chief Complaint: Extremity Injury, Upper Stated Complaint: FRACTURED LEFT CLAVICLE, NOW HAS HEAD ACHES Time Seen by Provider: 03/27/18 17:40 Source: patient Mode of arrival: ambulatory Limitations: no limitations History of Present Illness HPI narrative: This 63-year-old female returns to ED on advice of her primary care clinic the following left clavicle fracture 2 days ago. She states that she called their for follow-up and mention that she has had some soreness and tightness in the left side of her neck and also headaches, which are not typical for her. She states that her neck feels ?tight?, and she has some tingling in her left hand. She states that she has history of remote neck injury, does not even remember exactly what, but she has occasional tingling in her hand that resolved with changing her neck position, however since her shoulder fracture, the tingling has been more persistent, still somewhat relieved with position change. She states this is through both sides of her hand and fingers, and at times can feel in the wrist and forearm area, not in the upper arm. She describes this as a tingle, but not sensory loss. She denies any pain radiating down the arm, nor acute weakness. She states that she did not hit her neck as far she knows when she fell, more on the anterior lateral part of the shoulder. She is sure that she did not hit her head at all, did not lose consciousness. She has not had vomiting, vision change, or other new complaints. She does have a history of osteoporosis She states she had some type of head injury as a child, none since Related Data Home Medications Medication Instructions Recorded Confirmed fluticasone [Flonase Allergy 1 spray INTRANASAL QDAY #0 05/14/16 11/22/17 Relief] calcium carbonate-vitamin D3 2 tab PO DAILY #0 06/03/17 11/22/17 [Calcium 600 + D(3)] docusate sodium 100 mg PO PRN PRN 10/29/17 11/22/17 sennosides 8.6 mg PO BID PRN 10/29/17 11/22/17 cholecalciferol (vitamin D3) 1,000 1,000 unit PO DAILY 11/22/17 11/22/17 unit capsule Previous Rx's Medication Instructions Recorded amoxicillin-pot clavulanate 1 tab PO TID #14 tab MDD 2 11/04/17 metronidazole 500 mg PO TID #21 tab MDD 3 11/04/17 oxycodone 10 mg PO Q3HR PRN #30 tab 11/04/17 walker #1 each 11/04/17 ondansetron 4 mg PO Q4H PRN #20 tab 11/05/17 oxycodone 10 mg tablet 10 mg PO Q3H PRN #30 tab 11/17/17 miscellaneous medical supply misc #1 each 11/29/17 oxycodone-acetaminophen [Percocet] 1 tab PO Q4-6H PRN #14 tab 03/25/18 cyclobenzaprine 10 mg PO TID PRN #14 tab 03/27/18 Allergies Allergy/AdvReac Type Severity Reaction Status Date / Time influenza virus vaccine, Allergy Severe PASSED OUT Verified 11/22/17 09:08 specific [influenza virus vacc,specific] dog dander [DOG DANDER] Allergy Unknown Verified 11/22/17 09:08 Review of Systems <Laurie Farr PA-C - Last Filed: 03/27/18 21:33> Review of Systems All systems reviewed & are unremarkable except as noted in HPI and below Exam <Laurie Farr PA-C - Last Filed: 03/27/18 21:33> Narrative Exam Narrative: GENERAL APPEARANCE: Patient sitting comfortably, in no distress. HEENT: PERRL, EOMI NECK: Supple LUNGS: Clear to auscultation bilaterally. HEART: Rate and rhythm regular without murmur, normal S1 and S2, no S3 or S4. NEUROLOGIC: Alert and oriented, normal speech, and coordination. Bilateral upper extremity sensation grossly intact MUSCULOSKELETAL: Mild tenderness over the superior C-spine, more tender over the left posterior lateral cervical strap musculature where she is palpably tight. Reduced left lateral bend versus right, somewhat reduced bilateral rotation secondary to tenderness. Full C-spine flexion. No gross deformity of the left shoulder. Normal range of motion of the elbows, wrists, and hands. Sex Offender Treatment Professional strength 5/5 bilaterally VASCULAR: Upper extremities no cyanosis or edema, left radial and ulnar pulses 2+ Initial Vital Signs Initial Vital Signs: Vital Signs Temperature 98.4 F 03/27/18 17:36 Pulse Rate 81 03/27/18 17:36 Respiratory Rate 20 03/27/18 17:36 Blood Pressure 151/84 H 03/27/18 17:36 Pulse Oximetry 100 03/27/18 17:36 <Nando Rey MD - Last Filed: 03/27/18 22:21> Initial Vital Signs Initial Vital Signs: Vital Signs Temperature 98.4 F 03/27/18 17:36 Pulse Rate 81 03/27/18 17:36 Respiratory Rate 20 03/27/18 17:36 Blood Pressure 151/84 H 03/27/18 17:36 Pulse Oximetry 100 03/27/18 17:36 Course <Laurie Farr PA-C - Last Filed: 03/27/18 21:33> Additional Information: The patient has some chronic paresthesia intermittently in her upper extremities and remote history of C-spine injury. We did do a C-spine CT today as well as repeat shoulder x-ray to make sure no acute fracture displacement, which there was not. She has clear muscle tightness in her neck and does remember sleeping awkwardly, likely due to the fracture and sling which has probably exacerbated her muscle tension and headache. No evidence of any other acute injury or neurovascular compromise. She will start cyclobenzaprine as needed and restart ibuprofen to help with pain. She will call Ortho for follow-up as previously planned Orders Ordered: ED Orders 03/27/18 18:16 CT cervical spine wo con Stat XR shoulder LT min 2V Stat Discontinued Medications Acetaminophen (Tylenol) 975 mg PO NOW ONE Stop: 03/27/18 19:34 Hydrocodone Bitart/Acetaminophen ([place] 5/325) 1 tab PO NOW ONE Stop: 03/27/18 19:47 Last Admin: 03/27/18 19:52 Dose: 1 tab Cyclobenzaprine HCl (Flexeril) 10 mg PO NOW ONE Stop: 03/27/18 18:17 Last Admin: 03/27/18 18:42 Dose: 10 mg Ibuprofen (Advil) 400 mg PO NOW ONE Stop: 03/27/18 18:17 Last Admin: 03/27/18 18:42 Dose: 400 mg Vital Signs - 8 hr 03/27/18 17:36 03/27/18 20:05 Temperature 98.4 F Pulse Rate 81 74 Respiratory Rate 20 18 Blood Pressure 151/84 H 138/77 Pulse Oximetry 100 99 <Nando Rey MD - Last Filed: 03/27/18 22:21> Orders Ordered: ED Orders 03/27/18 18:16 CT cervical spine wo con Stat XR shoulder LT min 2V Stat Discontinued Medications Acetaminophen (Tylenol) 975 mg PO NOW ONE Stop: 03/27/18 19:34 Hydrocodone Bitart/Acetaminophen ([place] 5/325) 1 tab PO NOW ONE Stop: 03/27/18 19:47 Last Admin: 03/27/18 19:52 Dose: 1 tab Cyclobenzaprine HCl (Flexeril) 10 mg PO NOW ONE Stop: 03/27/18 18:17 Last Admin: 03/27/18 18:42 Dose: 10 mg Ibuprofen (Advil) 400 mg PO NOW ONE Stop: 03/27/18 18:17 Last Admin: 03/27/18 18:42 Dose: 400 mg Vital Signs - 8 hr 03/27/18 17:36 03/27/18 20:05 Temperature 98.4 F Pulse Rate 81 74 Respiratory Rate 20 18 Blood Pressure 151/84 H 138/77 Pulse Oximetry 100 99 MDM - Extremity Injury (Upper) <Laurie Farr PA-C - Last Filed: 03/27/18 21:33> Imaging Data cspine: Radiologist's impression: [place] [address] CT Scan Report Signed Patient: Elba Diaz [facility]#: [id number] : 6Acct:[id number] Age/Sex: 63 / FDate of Service: 03/27/18 Loc: ED Accession Number: [id number] Procedure: CT cervical spine wo con Ordering Provider: Laurie Farr P.A-C PROCEDURE: CT CERVICAL SPINE WO CON INDICATIONS: Pain, Left. UE paresthesia, History of neck trauma previously. TECHNIQUE: Noncontrast 3 mm thick sections acquired from the skull base to the T4 level. Sagittal and coronal reformats were then constructed. For radiation dose reduction, the following was used: automated exposure control, adjustment of mA and/or kV according to patient size. COMPARISON: None. FINDINGS: Image quality: Excellent. Bones: No fractures or dislocations. Visualized superior ribs are intact. Moderately severe C5-6 and C6-7 degenerative disc disease and disc height reduction with facet osteoarthritis to the degree that significant spinal and foraminal stenosis likely is present. No acute fracture or traumatic subluxation is found. Soft tissues: Prevertebral soft tissues are normal in thickness. No paravertebral hematomas. No apical pneumothoraces. IMPRESSION: No trauma found. Dictated by: Tyler Escoto M.D. on 03/27/2018 at 19:11 Approved by: Tyler Escoto M.D. on 03/27/2018 at 19:12 clavicle: Radiologist's impression: [place] [address] XRay Report Signed Patient: Elba Diaz [facility]#: [id number] : 6Acct:[id number] Age/Sex: 63 / FDate of Service: 03/27/18 Loc: ED Accession Number: [id number] Procedure: XR shoulder LT min 2V Ordering Provider: Laurie Farr P.A-C PROCEDURE: XR SHOULDER LT MIN 2V INDICATIONS: clavicle fracture, for comparison 03/25 TECHNIQUE: 3 views of the shoulder were acquired. COMPARISON: [facility], [facility], XR CLAVICLE LT, 03/25/2018, 12:45. FINDINGS: Bones: No dislocations. No suspicious bony lesions. Visualized ribs appear intact. Previously identified distal clavicular fracture again seen. Soft tissues: No suspicious soft tissue calcifications. IMPRESSION: Previously identified distal left clavicular fracture again seen. Dictated by: Tyler Escoto M.D. on 03/27/2018 at 19:09 Approved by: Tyler Escoto M.D. on 03/27/2018 at 19:10 Discharge Plan Departure Patient Disposition: Home Clinical Impression: Posterolateral cervical muscle strain, Fracture, clavicle closed, shaft Discharge Date/Time: 03/27/18 20:07 Interventions: ED Discharge Assessment Last Done: 03/27/18 20:05 Instructions: Tension Headache, DI for Clavicle Fracture-Adult, DI for Cervical Muscle Strain Activity Restrictions/Additional Instructions: Please return as we talked about if you have any acutely worsening symptoms, or new symptoms such as vision change, vomiting, or weakness in your arm. You can continue your pain medicine as needed and add the muscle relaxant cyclobenzaprine to help with your tight neck. Please avoid driving and other activities where you need to be alert as these may make you sleepy. Also please add ibuprofen 400 mg 3 times daily which can work nicely together with these. You can also try [id number] topical medicines such as Gerardo-Flores, or salon pas or 4% lidocaine patches to the sore areas to help with pain. Please call [facility] tomorrow and let them know that you were seen over the weekend in the emergency room with a shoulder fracture and need to schedule follow-up. Prescriptions: New cyclobenzaprine 10 mg tablet 10 mg PO TID PRN (Reason: muscle spasm) Qty: 14 RF: 0 No Action fluticasone [Flonase Allergy Relief] 9.9 ML spray,suspension 1 spray Intranasal QDAY Qty: 0 RF: 0 calcium carbonate-vitamin D3 [Calcium 600 + D(3)] 600 mg(1,500mg) -200 unit Tablet 2 tab PO DAILY Qty: 0 RF: 0 oxycodone 10 mg tablet 10 mg PO Q3H PRN (Reason: pain) Qty: 30 RF: 0 miscellaneous medical supply misc .ROUTE .MEDSUPPLY Qty: 1 RF: 0 cholecalciferol (vitamin D3) 1,000 unit capsule 1,000 unit PO DAILY RF: 0 sennosides 8.6 mg Tablet 8.6 mg PO BID PRN (Reason: Constipation) RF: 0 docusate sodium 100 mg Capsule 100 mg PO PRN PRN (Reason: Abdominal Discomfort) RF: 0 oxycodone 10 mg Tablet 10 mg PO Q3HR PRN (Reason: Pain, Moderate) Qty: 30 RF: 0 metronidazole 500 mg tablet 500 mg PO TID MDD 3 Qty: 21 RF: 0 amoxicillin-pot clavulanate 500-125 mg tablet 1 tab PO TID MDD 2 Qty: 14 RF: 0 walker misc .ROUTE .MEDSUPPLY Qty: 1 RF: 0 ondansetron 4 mg tablet,disintegrating 4 mg PO Q4H PRN (Reason: nausea) Qty: 20 RF: 1 oxycodone-acetaminophen [Percocet] 5-325 mg tablet 1 tab PO Q4-6H PRN (Reason: pain) Qty: 14 RF: 0 Referrals: [facility] [Provider Group] Kathy Alvarado DO [Primary Care Provider] - <Nando Rey MD - Last Filed: 03/27/18 22:21> Cosign ED Attending Allyature Attestation: I was in the ER at the time of this patient's care. I was available for verbal consultation or to see the patient directly if requested. I agree with the assessment and treatment plan.
--- NOTE | 2018-03-27 18:16 | DI.CT.S_ITS ---
PROCEDURE: CT CERVICAL SPINE WO CON INDICATIONS: Pain, Left. UE paresthesia, History of neck trauma previously. TECHNIQUE: Noncontrast 3 mm thick sections acquired from the skull base to the T4 level. Sagittal and coronal reformats were then constructed. For radiation dose reduction, the following was used: automated exposure control, adjustment of mA and/or kV according to patient size. COMPARISON: None. FINDINGS: Image quality: Excellent. Bones: No fractures or dislocations. Visualized superior ribs are intact. Moderately severe C5-6 and C6-7 degenerative disc disease and disc height reduction with facet osteoarthritis to the degree that significant spinal and foraminal stenosis likely is present. No acute fracture or traumatic subluxation is found. Soft tissues: Prevertebral soft tissues are normal in thickness. No paravertebral hematomas. No apical pneumothoraces. IMPRESSION: No trauma found. Dictated by: Tyler Escoto M.D. on 03/27/2018 at 19:11 Approved by: Tyler Escoto M.D. on 03/27/2018 at 19:12
--- NOTE | 2018-03-27 18:16 | DI.RAD.S_ITS ---
PROCEDURE: XR SHOULDER LT MIN 2V INDICATIONS: clavicle fracture, for comparison 03/25 TECHNIQUE: 3 views of the shoulder were acquired. COMPARISON: [facility], [facility], XR CLAVICLE LT, 03/25/2018, 12:45. FINDINGS: Bones: No dislocations. No suspicious bony lesions. Visualized ribs appear intact. Previously identified distal clavicular fracture again seen. Soft tissues: No suspicious soft tissue calcifications. IMPRESSION: Previously identified distal left clavicular fracture again seen. Dictated by: Tyler Escoto M.D. on 03/27/2018 at 19:09 Approved by: Tyler Escoto M.D. on 03/27/2018 at 19:10
--- NOTE | 2018-03-27 18:26 | ED_ITS ---
HPI - Extremity Injury (Upper) <Laurie Farr PA-C - Last Filed: 03/27/18 21:33> General Chief Complaint: Extremity Injury, Upper Stated Complaint: FRACTURED LEFT CLAVICLE, NOW HAS HEAD ACHES Time Seen by Provider: 03/27/18 17:40 Source: patient Mode of arrival: ambulatory Limitations: no limitations History of Present Illness HPI narrative: This 63-year-old female returns to ED on advice of her primary care clinic the following left clavicle fracture 2 days ago. She states that she called their for follow-up and mention that she has had some soreness and tightness in the left side of her neck and also headaches, which are not typical for her. She states that her neck feels ?tight?, and she has some tingling in her left hand. She states that she has history of remote neck injury, does not even remember exactly what, but she has occasional tingling in her hand that resolved with changing her neck position, however since her shoulder fracture, the tingling has been more persistent, still somewhat relieved with position change. She states this is through both sides of her hand and fingers, and at times can feel in the wrist and forearm area, not in the upper arm. She describes this as a tingle, but not sensory loss. She denies any pain radiating down the arm, nor acute weakness. She states that she did not hit her neck as far she knows when she fell, more on the anterior lateral part of the shoulder. She is sure that she did not hit her head at all , did not lose consciousness. She has not had vomiting, vision change, or other new complaints. She does have a history of osteoporosis She states she had some type of head injury as a child, none since Related Data Home Medications Medication Instructions Recorded Confirmed fluticasone [Flonase Allergy 1 spray INTRANASAL QDAY #0 05/14/16 11/22/17 Relief] calcium carbonate-vitamin D3 2 tab PO DAILY #0 06/03/17 11/22/17 [Calcium 600 + D(3)] docusate sodium 100 mg PO PRN PRN 10/29/17 11/22/17 sennosides 8.6 mg PO BID PRN 10/29/17 11/22/17 cholecalciferol (vitamin D3) 1,000 1,000 unit PO DAILY 11/22/17 11/22/17 unit capsule Previous Rx's Medication Instructions Recorded amoxicillin-pot clavulanate 1 tab PO TID #14 tab MDD 2 11/04/17 metronidazole 500 mg PO TID #21 tab MDD 3 11/04/17 oxycodone 10 mg PO Q3HR PRN #30 tab 11/04/17 walker #1 each 11/04/17 ondansetron 4 mg PO Q4H PRN #20 tab 11/05/17 oxycodone 10 mg tablet 10 mg PO Q3H PRN #30 tab 11/17/17 miscellaneous medical supply misc #1 each 11/29/17 oxycodone-acetaminophen [Percocet] 1 tab PO Q4-6H PRN #14 tab 03/25/18 cyclobenzaprine 10 mg PO TID PRN #14 tab 03/27/18 Allergies Allergy/AdvReac Type Severity Reaction Status Date / Time influenza virus vaccine, Allergy Severe PASSED OUT Verified 11/22/17 09:08 specific [influenza virus vacc,specific] dog dander [DOG DANDER] Allergy Unknown Verified 11/22/17 09:08 Review of Systems <Laurie Farr PA-C - Last Filed: 03/27/18 21:33> Review of Systems All systems reviewed & are unremarkable except as noted in HPI and below Exam <Laurie Farr PA-C - Last Filed: 03/27/18 21:33> Narrative Exam Narrative: GENERAL APPEARANCE: Patient sitting comfortably, in no distress. HEENT: PERRL, EOMI NECK: Supple LUNGS: Clear to auscultation bilaterally. HEART: Rate and rhythm regular without murmur, normal S1 and S2, no S3 or S4. NEUROLOGIC: Alert and oriented, normal speech, and coordination. Bilateral upper extremity sensation grossly intact MUSCULOSKELETAL: Mild tenderness over the superior C-spine, more tender over the left posterior lateral cervical strap musculature where she is palpably tight. Reduced left lateral bend versus right, somewhat reduced bilateral rotation secondary to tenderness. Full C-spine flexion. No gross deformity of the left shoulder. Normal range of motion of the elbows, wrists, and hands. [employer] strength 5/5 bilaterally VASCULAR: Upper extremities no cyanosis or edema, left radial and ulnar pulses 2+ Initial Vital Signs Initial Vital Signs: Vital Signs Temperature 98.4 F 03/27/18 17:36 Pulse Rate 81 03/27/18 17:36 Respiratory Rate 20 03/27/18 17:36 Blood Pressure 151/84 H 03/27/18 17:36 Pulse Oximetry 100 03/27/18 17:36 <Nando Rey MD - Last Filed: 03/27/18 22:21> Initial Vital Signs Initial Vital Signs: Vital Signs Temperature 98.4 F 03/27/18 17:36 Pulse Rate 81 03/27/18 17:36 Respiratory Rate 20 03/27/18 17:36 Blood Pressure 151/84 H 03/27/18 17:36 Pulse Oximetry 100 03/27/18 17:36 Course <Laurie Farr PA-C - Last Filed: 03/27/18 21:33> Additional Information: The patient has some chronic paresthesia intermittently in her upper extremities and remote history of C-spine injury. We did do a C- spine CT today as well as repeat shoulder x-ray to make sure no acute fracture displacement, which there was not. She has clear muscle tightness in her neck and does remember sleeping awkwardly, likely due to the fracture and sling which has probably exacerbated her muscle tension and headache. No evidence of any other acute injury or neurovascular compromise. She will start cyclobenzaprine as needed and restart ibuprofen to help with pain. She will call Ortho for follow-up as previously planned Orders Ordered: ED Orders 03/27/18 18:16 CT cervical spine wo con Stat XR shoulder LT min 2V Stat Discontinued Medications Acetaminophen (Tylenol) 975 mg PO NOW ONE Stop: 03/27/18 19:34 Hydrocodone Bitart/Acetaminophen ([place] 5/325) 1 tab PO NOW ONE Stop: 03/27/18 19:47 Last Admin: 03/27/18 19:52 Dose: 1 tab Cyclobenzaprine HCl (Flexeril) 10 mg PO NOW ONE Stop: 03/27/18 18:17 Last Admin: 03/27/18 18:42 Dose: 10 mg Ibuprofen (Advil) 400 mg PO NOW ONE Stop: 03/27/18 18:17 Last Admin: 03/27/18 18:42 Dose: 400 mg Vital Signs - 8 hr 03/27/18 17:36 03/27/18 20:05 Temperature 98.4 F Pulse Rate 81 74 Respiratory Rate 20 18 Blood Pressure 151/84 H 138/77 Pulse Oximetry 100 99 <Nando Rey MD - Last Filed: 03/27/18 22:21> Orders Ordered: ED Orders 03/27/18 18:16 CT cervical spine wo con Stat XR shoulder LT min 2V Stat Discontinued Medications Acetaminophen (Tylenol) 975 mg PO NOW ONE Stop: 03/27/18 19:34 Hydrocodone Bitart/Acetaminophen ([place] 5/325) 1 tab PO NOW ONE Stop: 03/27/18 19:47 Last Admin: 03/27/18 19:52 Dose: 1 tab Cyclobenzaprine HCl (Flexeril) 10 mg PO NOW ONE Stop: 03/27/18 18:17 Last Admin: 03/27/18 18:42 Dose: 10 mg Ibuprofen (Advil) 400 mg PO NOW ONE Stop: 03/27/18 18:17 Last Admin: 03/27/18 18:42 Dose: 400 mg Vital Signs - 8 hr 03/27/18 17:36 03/27/18 20:05 Temperature 98.4 F Pulse Rate 81 74 Respiratory Rate 20 18 Blood Pressure 151/84 H 138/77 Pulse Oximetry 100 99 MDM - Extremity Injury (Upper) <Laurie Farr PA-C - Last Filed: 03/27/18 21:33> Imaging Data cspine: Radiologist's impression: [place] [address] CT Scan Report Signed Patient: Elba Diaz [facility]#: [id number] : 6Acct:[id number] Age/Sex: 63 / FDate of Service: 03/27/18 Loc: ED Accession Number: [id number] Procedure: CT cervical spine wo con Ordering Provider: Laurie Farr P.A-C PROCEDURE: CT CERVICAL SPINE WO CON INDICATIONS: Pain, Left. UE paresthesia, History of neck trauma previously. TECHNIQUE: Noncontrast 3 mm thick sections acquired from the skull base to the T4 level. Sagittal and coronal reformats were then constructed. For radiation dose reduction, the following was used: automated exposure control, adjustment of mA and/or kV according to patient size. COMPARISON: None. FINDINGS: Image quality: Excellent. Bones: No fractures or dislocations. Visualized superior ribs are intact. Moderately severe C5-6 and C6-7 degenerative disc disease and disc height reduction with facet osteoarthritis to the degree that significant spinal and foraminal stenosis likely is present. No acute fracture or traumatic subluxation is found. Soft tissues: Prevertebral soft tissues are normal in thickness. No paravertebral hematomas. No apical pneumothoraces. IMPRESSION: No trauma found. Dictated by: Tyler Escoto M.D. on 03/27/2018 at 19:11 Approved by: Tyler Escoto M.D. on 03/27/2018 at 19:12 clavicle: Radiologist's impression: [place] [address] XRay Report Signed Patient: Elba Diaz [facility]#: [id number] : 6Acct:[id number] Age/Sex: 63 / FDate of Service: 03/27/18 Loc: ED Accession Number: [id number] Procedure: XR shoulder LT min 2V Ordering Provider: Laurie Farr P.A-C PROCEDURE: XR SHOULDER LT MIN 2V INDICATIONS: clavicle fracture, for comparison 03/25 TECHNIQUE: 3 views of the shoulder were acquired. COMPARISON: [facility], CR, XR CLAVICLE LT, 03/25/2018, 12:45. FINDINGS: Bones: No dislocations. No suspicious bony lesions. Visualized ribs appear intact. Previously identified distal clavicular fracture again seen. Soft tissues: No suspicious soft tissue calcifications. IMPRESSION: Previously identified distal left clavicular fracture again seen. Dictated by: Tyler Escoto M.D. on 03/27/2018 at 19:09 Approved by: Tyler Escoto M.D. on 03/27/2018 at 19:10 Discharge Plan Departure Patient Disposition: Home Clinical Impression: Posterolateral cervical muscle strain, Fracture, clavicle closed, shaft Discharge Date/Time: 03/27/18 20:07 Interventions: ED Discharge Assessment Last Done: 03/27/18 20:05 Instructions: Tension Headache, DI for Clavicle Fracture-Adult, DI for Cervical Muscle Strain Activity Restrictions/Additional Instructions: Please return as we talked about if you have any acutely worsening symptoms, or new symptoms such as vision change, vomiting, or weakness in your arm. You can continue your pain medicine as needed and add the muscle relaxant cyclobenzaprine to help with your tight neck. Please avoid driving and other activities where you need to be alert as these may make you sleepy. Also please add ibuprofen 400 mg 3 times daily which can work nicely together with these. You can also try epat-aos-soqkcvp topical medicines such as Gerardo-Flores, or salon pas or 4% lidocaine patches to the sore areas to help with pain. Please call [facility] tomorrow and let them know that you were seen over the weekend in the emergency room with a shoulder fracture and need to schedule follow-up. Prescriptions: New cyclobenzaprine 10 mg tablet 10 mg PO TID PRN (Reason: muscle spasm) Qty: 14 RF: 0 No Action fluticasone [Flonase Allergy Relief] 9.9 ML spray,suspension 1 spray Intranasal QDAY Qty: 0 RF: 0 calcium carbonate-vitamin D3 [Calcium 600 + D(3)] 600 mg(1,500mg) -200 unit Tablet 2 tab PO DAILY Qty: 0 RF: 0 oxycodone 10 mg tablet 10 mg PO Q3H PRN (Reason: pain) Qty: 30 RF: 0 miscellaneous medical supply misc .ROUTE .MEDSUPPLY Qty: 1 RF: 0 cholecalciferol (vitamin D3) 1,000 unit capsule 1,000 unit PO DAILY RF: 0 sennosides 8.6 mg Tablet 8.6 mg PO BID PRN (Reason: Constipation) RF: 0 docusate sodium 100 mg Capsule 100 mg PO PRN PRN (Reason: Abdominal Discomfort) RF: 0 oxycodone 10 mg Tablet 10 mg PO Q3HR PRN (Reason: Pain, Moderate) Qty: 30 RF: 0 metronidazole 500 mg tablet 500 mg PO TID MDD 3 Qty: 21 RF: 0 amoxicillin-pot clavulanate 500-125 mg tablet 1 tab PO TID MDD 2 Qty: 14 RF: 0 walker misc .ROUTE .MEDSUPPLY Qty: 1 RF: 0 ondansetron 4 mg tablet,disintegrating 4 mg PO Q4H PRN (Reason: nausea) Qty: 20 RF: 1 oxycodone-acetaminophen [Percocet] 5-325 mg tablet 1 tab PO Q4-6H PRN (Reason: pain) Qty: 14 RF: 0 Referrals: [facility] [Provider Group] Kathy Alvarado DO [Primary Care Provider] - <Nando Rey MD - Last Filed: 03/27/18 22:21> Cosign ED Attending Allyature Attestation: I was in the ER at the time of this patient's care. I was available for verbal consultation or to see the patient directly if requested. I agree with the assessment and treatment plan.
[2018-03-27] MEDS: IBUPROFEN 400 MG TABLET PO (18:42)
[2018-03-27] MEDS: CYCLOBENZAPRINE 10 MG TABLET PO (18:42)
--- NOTE | 2018-03-27 19:41 | PC.NURSE ---
[facility]
[2018-03-27] MEDS: HYDROCODONE/ACET 5/325 TABLET 1 TAB PO (19:52)
[2018-03-27 20:05] VITALS: BP 138/77; PULSE 74; RESP 18; O2SAT 99
== END 2018-03-27 20:07 | disposition home or self-care (01) ==
PROVIDERS: Emergency Provider Internal Medicine; Family Provider Family Medicine; PCP Family Medicine
DX: S16.1XXA Strain of muscle, fascia and tendon at neck level, initial encounter (principal); S42.022A Displaced fracture of shaft of left clavicle, initial encounter for closed fracture
CPT/HCPCS: 72125; 73030; 99282; 99284

== ENCOUNTER 2018-08-24 07:30 | Outpatient (RCR) | payer OTHER, SELFPAY ==
[2017-10-29 17:19] VITALS: BMI 23.5
--- NOTE | 2018-06-07 16:45 | PT.OPPOC ---
Current Diagnoses Displaced fracture of lateral end of left clavicle, initial encounter for closed fracture (06/07/18) Provider Visit Care Team Role Provider Type Kathy Alvarado DO Primary Care Provider Physician Specialty: Family Practice Address: [address] [place] [address], [id number] Email: [email or web address] MD Attending Provider Physician Specialty: Orthopedic Surgery Address: [address] [place] [address], [address] Email: [email or web address] Plan Of Care PT-OP-T Assessment and Plan Start: 06/07/18 14:36 Freq: Status: Active Protocol: Document 06/07/18 14:38 EA (Rec: 06/07/18 15:02 EA [id number]) Physical Therapy Assessment Rehab Potential Rehabilitation Potential Good Evaluation Complexity Number of Personal Factors/Comorbidities 1-2 Number of Body Systems Impaired 1-2 Clinical Presentation at Evaluation Stable Impairments Impairments Activity Tolerance Functional Mobility Gait Pain ROM Soft Tissue Mobility Strength Goals Three Impairment Pain with activity with PS of 6/10 Fci Goal (LTG) Patient will perform shoulder overhead movement with pain at least lower than 2/10 LTG Duration 4 wks Two Impairment Impaired shoulder flexion/ABD/ ER ROM Fci Goal (LTG) Patient will reach functional ROM to enhance functional overhead movements LTG Duration 4 wks One Impairment Quick Dash score of 70 Fci Goal (LTG) Patient will have QuickDash score of < 40 LTG Duration 4 wks Assessment Summary Assessment Pleasant 63 y/o F patient with a referring diagnosis of closed displaced fracture of acromial end of left clavicle on first week of March 2018 . Today patient exhibited shoulder LOM with capsular tightness. Weakness with pain towards flexion > ABD and ER. Palpation reveal anterior shoulder tenderness just over distal left clavicle and acromion process. Due to above mentioned deficits, patient has limitation in most overhead movements and lifting ability. Patient would benefit with skilled PT to improve shoulder ROM; and strengthening is upon surgeon discretion or surgeon protocol . Physical Therapy Plan Frequency and Duration Frequency of Treatment 2x/Week Duration of Treatment 8 wks Plan of Care Start Date 06/07/18 Plan of Care End Date 08/02/18 Therapeutic Interventions Therapeutic Interventions Home Exercise Program Joint Mobilizations Manual Therapy Patient/Caregiver Education Self-Care/Home Management Soft Tissue Mobilization Taping Therapeutic Exercises Modalities Cold Pack/Ice Massage Electric Stimulation Next Visit Focus/Plan Next Note Type Treatment Note Next Visit Plan Review HEP, Provide LE's strengthening HEP Plan of Care Dates Plan of Care Start Date 06/07/18 Plan of Care End Date 08/02/18 Please Sign and Return: I have reviewed this Plan of Care and certify that the skilled therapy services above are required to meet the patient?s needs. Physician Signature Date Printed Name and Credentials Clinical Instructor Signature Printed Name and Credentials
--- NOTE | 2018-06-07 16:45 | PT.OIE ---
Current Diagnoses Displaced fracture of lateral end of left clavicle, initial encounter for closed fracture (06/07/18) Past Medical History (Last Updated 03/27/18 @ 18:23 by Laurie Farr PA-C) Chronic back pain (Chronic 2010) Dry eye (Chronic) GERD (gastroesophageal reflux disease) (Chronic ~1989) Gastric ulcer (Chronic 1989) Hemorrhoids (Chronic 2005) Hiatal hernia (Chronic) Knee pain (Chronic 10/2013) Osteoporosis (Chronic) Paresthesia of left upper extremity (Chronic) Peptic ulcer disease (Chronic) Rosacea (Chronic) Seasonal allergies (Chronic ~1989) History of head injury (Resolved) Hx of spinal cord injury (Resolved) Normal Papanicolaou smear (Resolved) Tibia/fibula fracture (Resolved 1988) Past Surgical History (Last Reviewed 03/25/18 @ 13:45 by Roxanne Umaña DO) Anesthesia complication (Resolved) H/O local excision of skin lesion (Resolved 10/2013) History of esophagogastroduodenoscopy (EGD) (Resolved 12/03/16) History of orthopedic surgery (Resolved 1990) History of surgery (Resolved 1981) History of tonsillectomy (Resolved 1972) Status post LASIK surgery (Resolved 2000) Status post hemorrhoidectomy (Resolved 2005) Provider Visit Care Team Role Provider Type Kathy Alvarado DO Primary Care Provider Physician Specialty: Family Practice Address: [address] [place] [address], [id number] Email: [email or web address] MD Attending Provider Physician Specialty: Orthopedic Surgery Address: [address] [place] [address], [id number] Email: [email or web address] Physical Therapy Initial Evaluation PT-OP-A Visit Information Start: 06/07/18 14:36 Freq: Status: Active Protocol: Document 06/07/18 14:38 EA (Rec: 06/07/18 15:02 EA [id number]) Out-Patient Physical Therapy Visit Information Visit Information Visit Type Initial Evaluation Visit Start Time 13:45 Visit Stop Time 14:30 Total Visit Minutes 35 Visit Number 1 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 Evaluation Information Evaluation Date 06/07/18 Precautions Precautions 11 wks post clavicular fracture with current diagnosis of Osteoporosis ROM exercises PT-OP-B Current Condition Start: 06/07/18 14:36 Freq: Status: Active Protocol: Document 06/07/18 14:38 EA (Rec: 06/07/18 15:02 EA [id number]) Current Condition History of Current Condition Onset Date March 25, 2018 Current Complaints S/P closed displaced left clavicular end fracture; both LE's disuse weakness History of Current Condition Pt reports fell on her left shoulder at home on the first week of March 2018; was in the sling for 8 weeks with lifting pre-cautions. Pt reports last X-rays performed 3 weeks ago. Pt reports scared to use left arm and wanted to wait what would be the Physical therapist recommendation. Prior Treatments and Tests November/2017: Appendectomy Future Testing and Treatments Planned Next surgeon appointment is two weeks from now Treatment Goals Patient/Caregiver Goals 1. Patient wants to improve her LE's strength and endurance 2. Patient wants to eliminate left shoulder pain 3. Patient wants to improved shoulder functional mobility Prior Functional Status Baseline Function- ADL's Independent Baseline Function- Mobility Independent Baseline Function- Gait Indep with ability to walk more than a mile prior to last November surgery. Baseline Function- Work/School Retired Baseline Function- Recreation/Hobbies Used to work out in the gym with personal fitness trainer Current Functional Impairments (Reported) Functional Limitations- ADL's Modified independent with no lifting towards left side Functional Limitations- Mobility/Gait < 1 mile ambulation with no AD with no gait deviation Functional Limitations- Work/School Retired Functional Limitations- Recreation/ Unable to comeback to fitness Hobbies exercises PT-OP-C Subjective Start: 06/07/18 14:36 Freq: Status: Active Protocol: Document 06/07/18 14:38 EA (Rec: 06/07/18 15:02 EA [id number]) OP-PT Subjective Patient Comments Patient Comments My body feels weak since the last surgery and I want get back from old routine. Patient reports used to go to the gym with her personal fitness trainer 2-3 x /week and used to walk > 2 miles without difficulty. Patient Reported Progress Improving Patient Questionnaires Quick Dash- Upper Extremity Quick Dash UE Score 70 Quick Dash UE Impairment 60 to 79% Impaired (Score 60- 79) PT-OP-E Functional Tests Start: 06/07/18 14:36 Freq: Status: Active Protocol: Document 06/07/18 15:03 EA (Rec: 06/07/18 15:10 EA [id number]) Functional Tests Apley's Scratch Test Action 1: The subject is instructed to touch the opposite shoulder with his/her hand. This motion checks Glenohumeral adduction, internal rotation , horizontal adduction and scapular protraction Action 2: The subject is instructed to place his/her arm overhead and reach behind the neck to touch his/her upper back. This motion checks Glenohumeral abduction, external rotation and scapular upward rotation and elevation. Action 3: The subject puts his/her hand on the lower back and reaches upward as far as possible. This motion checks glenohumeral adduction, internal rotation and scapular retraction with downward rotation Action 1- Left ant R shoulder Action 1- Right post L shoulder Action 2- Left C7 Action 2- Right T4 Action 3- Left L4 Action 3- Right T6 PT-OP-G Mobility & Gait Start: 06/07/18 14:36 Freq: Status: Active Protocol: Document 06/07/18 15:03 EA (Rec: 06/07/18 15:10 EA [id number]) OP Gait Assessment Gait Gait Assistance Required: Independent Able to Maintain Weight Bearing Status Yes During Gait Assistive Devices Assistive Device None Gait Deviations General Gait Pattern Within Normal Limits Comments Gait Comments No gait deviation noted PT-OP-J Posture/Palpation/Skin Start: 06/07/18 14:36 Freq: Status: Active Protocol: Document 06/07/18 15:03 EA (Rec: 06/07/18 15:10 EA [id number]) Posture Evaluation Comments Posture Comments Good Head cervicothoracic posture Palpation Assessment Location One Palpation Location L anterior deltoid Palpation Findings Soft Tissue Tightness Muscle Guarding Tenderness Palpation Details Grade 2/4 tenderness over left anterior shoulder/ AC junction PT-OP-K Range of Motion Start: 06/07/18 14:36 Freq: Status: Active Protocol: Document 06/07/18 15:03 EA (Rec: 06/07/18 15:10 EA [id number]) Shoulder Goniometric Range of Motion Shoulder Measured in Degrees Right Active Shoulder ROM WFL Yes Left Passive Testing Position Supine Flexion 110 Abduction 120 External Rotation at 0 degrees Abduction 55 Internal Rotation Behind Back (text) 45 Left Active Testing Position Sitting Flexion 90 Extension 60 Abduction 110 External Rotation at 0 degrees Abduction 45 Internal Rotation 40 Shoulder ROM Limitations Shoulder ROM Limitations Soft Tissue Tightness Muscle Weakness Pain PT-OP-M Strength Start: 06/07/18 14:36 Freq: Status: Active Protocol: Document 06/07/18 15:10 EA (Rec: 06/07/18 15:13 EA [id number]) Shoulder Strength Shoulder Manual Muscle Testing Left Flexion 3+ Fair+ Extension 4- Good- Abduction (C5) 3+ Fair+ Adduction 4- Good- External Rotation 3+ Fair+ Internal Rotation 3+ Fair+ Elbow/Forearm Strength Elbow and Forearm Manual Muscle Testing Left Flexion (C6) 5 Normal Extension (C7) 5 Normal Pronation 5 Normal Supination 5 Normal Hip Strength Hip Manual Muscle Testing Right Flexion (L2) 4- Good- Extension (S1) 4 Good Abduction 4- Good- Adduction 4 Good External Rotation 4- Good- Internal Rotation 4- Good- Left Flexion (L2) 4- Good- Extension (S1) 4 Good Abduction 4 Good Adduction 4 Good External Rotation 4 Good Internal Rotation 4 Good PT-OP-Q Treatments Start: 06/07/18 14:36 Freq: Status: Active Protocol: Document 06/07/18 15:03 EA (Rec: 06/07/18 15:10 EA [id number]) Self-Care/Home Management Treatment Education Patient Education Body Mechanics Joint Protection, HEP given Pain Management PT-OP-T Assessment and Plan Start: 06/07/18 14:36 Freq: Status: Active Protocol: Document 06/07/18 14:38 EA (Rec: 06/07/18 15:02 EA [id number]) Physical Therapy Assessment Rehab Potential Rehabilitation Potential Good Evaluation Complexity Number of Personal Factors/Comorbidities 1-2 Number of Body Systems Impaired 1-2 Clinical Presentation at Evaluation Stable Impairments Impairments Activity Tolerance Functional Mobility Gait Pain ROM Soft Tissue Mobility Strength Goals Three Impairment Pain with activity with PS of 6/10 Cork Tile Floor Layer Goal (LTG) Patient will perform shoulder overhead movement with pain at least lower than 2/10 LTG Duration 4 wks Two Impairment Impaired shoulder flexion/ABD/ ER ROM Cork Tile Floor Layer Goal (LTG) Patient will reach functional ROM to enhance functional overhead movements LTG Duration 4 wks One Impairment Quick Dash score of 70 Fci Goal (LTG) Patient will have QuickDash score of < 40 LTG Duration 4 wks Assessment Summary Assessment Pleasant 63 y/o F patient with a referring diagnosis of closed displaced fracture of acromial end of left clavicle on first week of March 2018 . Today patient exhibited shoulder LOM with capsular tightness. Weakness with pain towards flexion > ABD and ER. Palpation reveal anterior shoulder tenderness just over distal left clavicle and acromion process. Due to above mentioned deficits, patient has limitation in most overhead movements and lifting ability. Patient would benefit with skilled PT to improve shoulder ROM; and strengthening is upon surgeon discretion or surgeon protocol . Physical Therapy Plan Frequency and Duration Frequency of Treatment 2x/Week Duration of Treatment 8 wks Plan of Care Start Date 06/07/18 Plan of Care End Date 08/02/18 Therapeutic Interventions Therapeutic Interventions Home Exercise Program Joint Mobilizations Manual Therapy Patient/Caregiver Education Self-Care/Home Management Soft Tissue Mobilization Taping Therapeutic Exercises Modalities Cold Pack/Ice Massage Electric Stimulation Next Visit Focus/Plan Next Note Type Treatment Note Next Visit Plan Review HEP, Provide LE's strengthening HEP
--- NOTE | 2018-06-12 16:00 | PT.OTN ---
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 Pt reports last X-rays performed 3 weeks ago. Pt reports scared to use left arm and wanted to wait whta would be the Physical therapist recommendation. Prior Treatments and Tests November/2017: Appendectomy Future Testing and Treatments Planned Next surgeon appointment is two weeks from now Treatment Goals Patient/Caregiver Goals 1. Patient wants to improve her LE's strength and endurance 2. Patient wants to eliminate left shoulder pain 3. Patient wants to improved shoulder functional mobility Prior Functional Status Baseline Function- ADL's Independent Baseline Function- Mobility Independent Baseline Function- Gait Indep with ability to walk more than a mile prior to last November surgery. Baseline Function- Work/School Retired Baseline Function- Recreation/Hobbies Used to work out in the gym with personal financial advisor Current Functional Impairments (Reported) Functional Limitations- ADL's Modified independent with no lifting towards left side Functional Limitations- Mobility/Gait < 1 mile ambulation with no AD with no gait deviation Functional Limitations- Work/School Retired Functional Limitations- Recreation/ Unable to comeback to fitness Hobbies exercises PT-OP-C Subjective Start: 06/07/18 14:36 Freq: Status: Active Protocol: Document 06/12/18 13:02 EA (Rec: 06/12/18 13:05 EA [id number]) OP-PT Subjective Patient Comments Patient Comments Pt reports she is quite sore after doing HEP; denies pain during exercises but sore after. Patient Reported Progress Improving PT-OP-E Functional Tests Start: 06/07/18 14:36 Freq: Status: Active Protocol: Document 06/07/18 15:03 EA (Rec: 06/07/18 15:10 EA [id number]) Functional Tests Apley's Scratch Test Action 1: The subject is instructed to touch the opposite shoulder with his/her hand. This motion checks Glenohumeral adduction, internal rotation , horizontal adduction and scapular protraction Action 2: The subject is instructed to place his/her arm overhead and reach behind the neck to touch his/her upper back. This motion checks Glenohumeral abduction, external rotation and scapular upward rotation and elevation. Action 3: The subject puts his/her hand on the lower back and reaches upward as far as possible. This motion checks glenohumeral adduction, internal rotation and scapular retraction with downward rotation Action 1- Left ant R shoulder Action 1- Right post L shoulder Action 2- Left C7 Action 2- Right T4 Action 3- Left L4 Action 3- Right T6 PT-OP-G Mobility & Gait Start: 06/07/18 14:36 Freq: Status: Active Protocol: Document 06/07/18 15:03 EA (Rec: 06/07/18 15:10 EA [id number]) OP Gait Assessment Gait Gait Assistance Required: Independent Able to Maintain Weight Bearing Status Yes During Gait Assistive Devices Assistive Device None Gait Deviations General Gait Pattern Within Normal Limits Comments Gait Comments No gait deviation noted PT-OP-J Posture/Palpation/Skin Start: 06/07/18 14:36 Freq: Status: Active Protocol: Document 06/07/18 15:03 EA (Rec: 06/07/18 15:10 EA [id number]) Posture Evaluation Comments Posture Comments Good Head cervicothoracic posture Palpation Assessment Location One Palpation Location L anterior deltoid Palpation Findings Soft Tissue Tightness Muscle Guarding Tenderness Palpation Details Grade 2/4 tenderness over left anterior shoulder/ AC junction PT-OP-K Range of Motion Start: 06/07/18 14:36 Freq: Status: Active Protocol: Document 06/07/18 15:03 EA (Rec: 06/07/18 15:10 EA [id number]) Shoulder Goniometric Range of Motion Shoulder Measured in Degrees Right Active Shoulder ROM WFL Yes Left Passive Testing Position Supine Flexion 110 Abduction 120 External Rotation at 0 degrees Abduction 55 Internal Rotation Behind Back (text) 45 Left Active Testing Position Sitting Flexion 90 Extension 60 Abduction 110 External Rotation at 0 degrees Abduction 45 Internal Rotation 40 Shoulder ROM Limitations Shoulder ROM Limitations Soft Tissue Tightness Muscle Weakness Pain PT-OP-M Strength Start: 06/07/18 14:36 Freq: Status: Active Protocol: Document 06/07/18 15:10 EA (Rec: 06/07/18 15:13 EA [id number]) Shoulder Strength Shoulder Manual Muscle Testing Left Flexion 3+ Fair+ Extension 4- Good- Abduction (C5) 3+ Fair+ Adduction 4- Good- External Rotation 3+ Fair+ Internal Rotation 3+ Fair+ Elbow/Forearm Strength Elbow and Forearm Manual Muscle Testing Left Flexion (C6) 5 Normal Extension (C7) 5 Normal Pronation 5 Normal Supination 5 Normal Hip Strength Hip Manual Muscle Testing Right Flexion (L2) 4- Good- Extension (S1) 4 Good Abduction 4- Good- Adduction 4 Good External Rotation 4- Good- Internal Rotation 4- Good- Left Flexion (L2) 4- Good- Extension (S1) 4 Good Abduction 4 Good Adduction 4 Good External Rotation 4 Good Internal Rotation 4 Good PT-OP-Q Treatments Start: 06/07/18 14:36 Freq: Status: Active Protocol: Document 06/12/18 13:02 EA (Rec: 06/12/18 13:05 EA [id number]) Cardio Equipment Upper Body Ergometer (UBE) Duration (Minutes) 5 Seat Position 8 Height 2.5 Gym Equipment Cable Column (Body Solid) Leg Extension Resistance 10# Reps/Time x 15 reps Shuttle Recovery Bilateral Squats Resistance 2 cords Shuttle Recovery Platform Stable Reps/Time x 15 reps Therapeutic Exercises Sitting Exercises 1 Sitting Exercise Name Camryn: flexion/ABD Reps/Minutes x 15 reps Comments pain free range Standing Exercises 1 Standing Exercise Name Wall slide:flexion/Y direction Side bilateral Reps/Minutes x 12 reps x 2 sets Manual Therapy Treatment Soft Tissue Mobilization 1 Body Location SS/anterior shoulder, Left Mobilization Type Myofascial Release Rolling Sustained Pressure Intensity/Depth Superficial Comments Divert attention to decreased guarding Manual Techniques 1 Type Gentle PROM: Flex/ABD/ER/IR Body Location left shoulder jnt Body Position Supine Reps/Duration x 10 reps Comments Gentle PT-OP-R Modalities Start: 06/07/18 14:36 Freq: Status: Active Protocol: Document 06/12/18 16:43 EA (Rec: 06/13/18 09:43 EA [id number]) Hot Pack/Cold Pack Treatment Cold Pack Location left shoulder Patient Position Hooklying Treatment Duration (minutes) 15 Patient Tolerance Good PT-OP-T Assessment and Plan Start: 06/07/18 14:36 Freq: Status: Active Protocol: Document 06/12/18 16:39 EA (Rec: 06/13/18 09:41 EA [id number]) Physical Therapy Assessment Assessment Summary Assessment Pt tolerated treatment but requires gentle approach due to patient muscle guarding during PROM; however was lessened while conversing to patient during treatment. Patient enjoys most of the LE' s exercises. Physical Therapy Plan Next Visit Focus/Plan Next Note Type Treatment Note Next Visit Plan cont with current plan.
--- NOTE | 2018-06-20 14:30 | PT.OTN ---
Current Diagnoses Displaced fracture of lateral end of left clavicle, initial encounter for closed fracture (06/20/18) Physical Therapy Treatment Note PT-OP-A Visit Information Start: 06/07/18 14:36 Freq: Status: Active Protocol: Document 06/20/18 13:45 GGD (Rec: 06/21/18 16:09 GGD [email or web address]) Out-Patient Physical Therapy Visit Information Visit Information Visit Type Treatment Note Visit Start Time 14:30 Visit Stop Time 15:40 Total Visit Minutes 40 Visit Number 3 Number of TESTER/LIFT TRUCKER Visits 1 Evaluation Information Evaluation Date 06/07/18 PT-OP-B Current Condition Start: 06/07/18 14:36 Freq: Status: Active Protocol: Document 06/07/18 14:38 EA (Rec: 06/07/18 15:02 EA [id number]) Current Condition History of Current Condition Onset Date March 25, 2018 Current Complaints S/P closed displaced left clavicular endfracture; both LE's dissue weakness History of Current Condition Pt reports fell on her left shoulder at home on the of March 2018; was in the sling for 8 weeks with lifting pre-cautions. Pt reports last X-rays performed 3 weeks ago. Pt reports scared to use left arm and wanted to wait whta would be the Physical therapist recommendation. Prior Treatments and Tests November/2017: Appendectomy Future Testing and Treatments Planned Next surgeon appointment is two weeks from now Treatment Goals Patient/Caregiver Goals 1. Patient wants to improve her LE's strength and endurance 2. Patient wants to eliminate left shoulder pain 3. Patient wants to improved shoulder functional mobility Prior Functional Status Baseline Function- ADL's Independent Baseline Function- Mobility Independent Baseline Function- Gait Indep with ability to walk more than a mile prior to last November surgery. Baseline Function- Work/School Retired Baseline Function- Recreation/Hobbies Used to work out in the gym with personal vehicle advisor Current Functional Impairments (Reported) Functional Limitations- ADL's Modified independent with no lifting towards left side Functional Limitations- Mobility/Gait < 1 mile ambulation with no AD with no gait deviation Functional Limitations- Work/School Retired Functional Limitations- Recreation/ Unable to comeback to fitness Hobbies exercises PT-OP-C Subjective Start: 06/07/18 14:36 Freq: Status: Active Protocol: Document 06/20/18 13:45 GGD (Rec: 06/21/18 16:09 GGD [email or web address]) OP-PT Subjective Patient Comments Patient Comments Pt states she had increase in pain after using arm for about 2 hours. PT-OP-E Functional Tests Start: 06/07/18 14:36 Freq: Status: Active Protocol: Document 06/07/18 15:03 EA (Rec: 06/07/18 15:10 EA [id number]) Functional Tests Apley's Scratch Test Action 1: The subject is instructed to touch the opposite shoulder with his/her hand. This motion checks Glenohumeral adduction, internal rotation , horizontal adduction and scapular protraction Action 2: The subject is instructed to place his/her arm overhead and reach behind the neck to touch his/her upper back. This motion checks Glenohumeral abduction, external rotation and scapular upward rotation and elevation. Action 3: The subject puts his/her hand on the lower back and reaches upward as far as possible. This motion checks glenohumeral adduction, internal rotation and scapular retraction with downward rotation Action 1- Left ant R shoulder Action 1- Right post L shoulder Action 2- Left C7 Action 2- Right T4 Action 3- Left L4 Action 3- Right T6 PT-OP-G Mobility & Gait Start: 06/07/18 14:36 Freq: Status: Active Protocol: Document 06/07/18 15:03 EA (Rec: 06/07/18 15:10 EA [id number]) OP Gait Assessment Gait Gait Assistance Required: Independent Able to Maintain Weight Bearing Status Yes During Gait Assistive Devices Assistive Device None Gait Deviations General Gait Pattern Within Normal Limits Comments Gait Comments No gait deviation noted PT-OP-J Posture/Palpation/Skin Start: 06/07/18 14:36 Freq: Status: Active Protocol: Document 06/07/18 15:03 EA (Rec: 06/07/18 15:10 EA [id number]) Posture Evaluation Comments Posture Comments Good Head cervicothoracic posture Palpation Assessment Location One Palpation Location L anterior deltoid Palpation Findings Soft Tissue Tightness Muscle Guarding Tenderness Palpation Details Grade 2/4 tenderness over left anterior shoulder/ AC junction PT-OP-K Range of Motion Start: 06/07/18 14:36 Freq: Status: Active Protocol: Document 06/07/18 15:03 EA (Rec: 06/07/18 15:10 EA [id number]) Shoulder Goniometric Range of Motion Shoulder Measured in Degrees Right Active Shoulder ROM WFL Yes Left Passive Testing Position Supine Flexion 110 Abduction 120 External Rotation at 0 degrees Abduction 55 Internal Rotation Behind Back (text) 45 Left Active Testing Position Sitting Flexion 90 Extension 60 Abduction 110 External Rotation at 0 degrees Abduction 45 Internal Rotation 40 Shoulder ROM Limitations Shoulder ROM Limitations Soft Tissue Tightness Muscle Weakness Pain PT-OP-M Strength Start: 06/07/18 14:36 Freq: Status: Active Protocol: Document 06/07/18 15:10 EA (Rec: 06/07/18 15:13 EA [id number]) Shoulder Strength Shoulder Manual Muscle Testing Left Flexion 3+ Fair+ Extension 4- Good- Abduction (C5) 3+ Fair+ Adduction 4- Good- External Rotation 3+ Fair+ Internal Rotation 3+ Fair+ Elbow/Forearm Strength Elbow and Forearm Manual Muscle Testing Left Flexion (C6) 5 Normal Extension (C7) 5 Normal Pronation 5 Normal Supination 5 Normal Hip Strength Hip Manual Muscle Testing Right Flexion (L2) 4- Good- Extension (S1) 4 Good Abduction 4- Good- Adduction 4 Good External Rotation 4- Good- Internal Rotation 4- Good- Left Flexion (L2) 4- Good- Extension (S1) 4 Good Abduction 4 Good Adduction 4 Good External Rotation 4 Good Internal Rotation 4 Good PT-OP-Q Treatments Start: 06/07/18 14:36 Freq: Status: Active Protocol: Document 06/20/18 13:45 GGD (Rec: 06/21/18 16:09 GGD [email or web address]) Cardio Equipment Upper Body Ergometer (UBE) Duration (Minutes) 5 Seat Position 8 Height 2.5 Gym Equipment Cable Column (Body Solid) Leg Extension Resistance 10# Reps/Time x 15 reps Shuttle Recovery Bilateral Squats Resistance 2 cords Shuttle Recovery Platform Stable Reps/Time x 15 reps Therapeutic Exercises Sitting Exercises 2 Sitting Exercise Name scap squeezes 1 Sitting Exercise Name Camryn: flexion/ABD Reps/Minutes x 15 reps Comments pain free range Standing Exercises 1 Standing Exercise Name Wall slide:flexion/Y direction Side bilateral Reps/Minutes x 12 reps x 2 sets Manual Therapy Treatment Soft Tissue Mobilization 1 Body Location SS/anterior shoulder, Left Mobilization Type Myofascial Release Rolling Sustained Pressure Intensity/Depth Superficial Manual Techniques 1 Type Gentle PROM: Flex/ABD/ER/IR Body Location left shoulder jnt Body Position Supine Reps/Duration x 10 reps Comments Gentle PT-OP-R Modalities Start: 06/07/18 14:36 Freq: Status: Active Protocol: Document 06/12/18 16:43 EA (Rec: 06/13/18 09:43 EA [id number]) Hot Pack/Cold Pack Treatment Cold Pack Location left shoulder Patient Position Hooklying Treatment Duration (minutes) 15 Patient Tolerance Good PT-OP-T Assessment and Plan Start: 06/07/18 14:36 Freq: Status: Active Protocol: Document 06/20/18 13:45 GGD (Rec: 06/21/18 16:09 GGD [email or web address]) Physical Therapy Assessment Assessment Summary Assessment Pt PROM of shoulder is improving. She is limited and guarded with AROM. She good tolerance to LE strengthening. Physical Therapy Plan Frequency and Duration Frequency of Treatment 2x/Week Duration of Treatment 8 wks Plan of Care Start Date 06/07/18 Plan of Care End Date 08/02/18 Therapeutic Interventions Therapeutic Interventions Home Exercise Program Joint Mobilizations Manual Therapy Patient/Caregiver Education Self-Care/Home Management Soft Tissue Mobilization Taping Therapeutic Exercises Modalities Cold Pack/Ice Massage Electric Stimulation Next Visit Focus/Plan Next Note Type Treatment Note Next Visit Plan Review HEP, Provide LE's strengthening HEP
--- NOTE | 2018-06-29 16:51 | PT.OTN ---
Current Diagnoses Displaced fracture of lateral end of left clavicle, initial encounter for closed fracture (06/29/18) Physical Therapy Treatment Note PT-OP-A Visit Information Start: 06/07/18 14:36 Freq: Status: Active Protocol: Document 06/29/18 14:00 HH (Rec: 06/29/18 16:50 HH [email or web address]) Out-Patient Physical Therapy Visit Information Visit Information Visit Type Treatment Note Visit Start Time 14:00 Visit Stop Time 14:45 Total Visit Minutes 45 Visit Number 4 Number of EDUCATIONAL COORDINATOR Visits 0 PT-OP-B Current Condition Start: 06/07/18 14:36 Freq: Status: Active Protocol: Document 06/07/18 14:38 EA (Rec: 06/07/18 15:02 EA [id number]) Current Condition History of Current Condition Onset Date March 25, 2018 Current Complaints S/P closed displaced left clavicular endfracture; both LE's dissue weakness History of Current Condition Pt reports fell on her left shoulder at home on the of March 2018; was in the sling for 8 weeks with lifting pre-cautions. Pt reports last X-rays performed 3 weeks ago. Pt reports scared to use left arm and wanted to wait whta would be the Physical therapist recommendation. Prior Treatments and Tests November/2017: Appendectomy Future Testing and Treatments Planned Next surgeon appointment is two weeks from now Treatment Goals Patient/Caregiver Goals 1. Patient wants to improve her LE's strength and endurance 2. Patient wants to eliminate left shoulder pain 3. Patient wants to improved shoulder functional mobility Prior Functional Status Baseline Function- ADL's Independent Baseline Function- Mobility Independent Baseline Function- Gait Indep with ability to walk more than a mile prior to last November surgery. Baseline Function- Work/School Retired Baseline Function- Recreation/Hobbies Used to work out in the gym with celebrity chef entrepreneur media personality Current Functional Impairments (Reported) Functional Limitations- ADL's Modified independent with no lifting towards left side Functional Limitations- Mobility/Gait < 1 mile ambulation with no AD with no gait deviation Functional Limitations- Work/School Retired Functional Limitations- Recreation/ Unable to comeback to fitness Hobbies exercises PT-OP-C Subjective Start: 06/07/18 14:36 Freq: Status: Active Protocol: Document 06/29/18 14:00 HH (Rec: 06/29/18 16:50 HH [email or web address]) OP-PT Subjective Patient Comments Patient Comments Pt is going to have follow up with tomorrow. Pt states her L shoulder has been feeling pretty good lately. able to nolberto and doff her clothes, and regain most of her ROM. But she did c/o slight pain usually after a long walk Patient Reported Progress Improving PT-OP-E Functional Tests Start: 06/07/18 14:36 Freq: Status: Active Protocol: Document 06/07/18 15:03 EA (Rec: 06/07/18 15:10 EA [id number]) Functional Tests Apley's Scratch Test Action 1: The subject is instructed to touch the opposite shoulder with his/her hand. This motion checks Glenohumeral adduction, internal rotation , horizontal adduction and scapular protraction Action 2: The subject is instructed to place his/her arm overhead and reach behind the neck to touch his/her upper back. This motion checks Glenohumeral abduction, external rotation and scapular upward rotation and elevation. Action 3: The subject puts his/her hand on the lower back and reaches upward as far as possible. This motion checks glenohumeral adduction, internal rotation and scapular retraction with downward rotation Action 1- Left ant R shoulder Action 1- Right post L shoulder Action 2- Left C7 Action 2- Right T4 Action 3- Left L4 Action 3- Right T6 PT-OP-G Mobility & Gait Start: 06/07/18 14:36 Freq: Status: Active Protocol: Document 06/07/18 15:03 EA (Rec: 06/07/18 15:10 EA [id number]) OP Gait Assessment Gait Gait Assistance Required: Independent Able to Maintain Weight Bearing Status Yes During Gait Assistive Devices Assistive Device None Gait Deviations General Gait Pattern Within Normal Limits Comments Gait Comments No gait deviation noted PT-OP-J Posture/Palpation/Skin Start: 06/07/18 14:36 Freq: Status: Active Protocol: Document 06/07/18 15:03 EA (Rec: 06/07/18 15:10 EA [id number]) Posture Evaluation Comments Posture Comments Good Head cervicothoracic posture Palpation Assessment Location One Palpation Location L anterior deltoid Palpation Findings Soft Tissue Tightness Muscle Guarding Tenderness Palpation Details Grade 2/4 tenderness over left anterior shoulder/ AC junction PT-OP-K Range of Motion Start: 06/07/18 14:36 Freq: Status: Active Protocol: Document 06/07/18 15:03 EA (Rec: 06/07/18 15:10 EA [id number]) Shoulder Goniometric Range of Motion Shoulder Measured in Degrees Right Active Shoulder ROM WFL Yes Left Passive Testing Position Supine Flexion 110 Abduction 120 External Rotation at 0 degrees Abduction 55 Internal Rotation Behind Back (text) 45 Left Active Testing Position Sitting Flexion 90 Extension 60 Abduction 110 External Rotation at 0 degrees Abduction 45 Internal Rotation 40 Shoulder ROM Limitations Shoulder ROM Limitations Soft Tissue Tightness Muscle Weakness Pain PT-OP-M Strength Start: 06/07/18 14:36 Freq: Status: Active Protocol: Document 06/07/18 15:10 EA (Rec: 06/07/18 15:13 EA [id number]) Shoulder Strength Shoulder Manual Muscle Testing Left Flexion 3+ Fair+ Extension 4- Good- Abduction (C5) 3+ Fair+ Adduction 4- Good- External Rotation 3+ Fair+ Internal Rotation 3+ Fair+ Elbow/Forearm Strength Elbow and Forearm Manual Muscle Testing Left Flexion (C6) 5 Normal Extension (C7) 5 Normal Pronation 5 Normal Supination 5 Normal Hip Strength Hip Manual Muscle Testing Right Flexion (L2) 4- Good- Extension (S1) 4 Good Abduction 4- Good- Adduction 4 Good External Rotation 4- Good- Internal Rotation 4- Good- Left Flexion (L2) 4- Good- Extension (S1) 4 Good Abduction 4 Good Adduction 4 Good External Rotation 4 Good Internal Rotation 4 Good PT-OP-Q Treatments Start: 06/07/18 14:36 Freq: Status: Active Protocol: Document 06/29/18 14:00 HH (Rec: 06/29/18 16:50 HH [email or web address]) Therapeutic Exercises Sidelying Exercises open book Sidelying Exercise Name open book Reps/Minutes 10 x2 Sitting Exercises 2 Sitting Exercise Name Scap roll Comments foward and backward roll 1 Sitting Exercise Name Camryn: flexion/ABD/ ext Reps/Minutes 10 mins Comments pain free range Manual Therapy Treatment Soft Tissue Mobilization 2 Body Location L upper trap Mobilization Type Myofascial Release Rolling Trigger Point Release Intensity/Depth Moderate 1 Body Location SS/anterior shoulder, Left Mobilization Type Myofascial Release Rolling Sustained Pressure Intensity/Depth Superficial Joint Mobilizations scap downward rotation with extension Grade III Body Position Sitting Comments scap downward rotation with extension scap upward rotation with flexion Grade III Body Position Sitting Comments scap upward rotation with flexion PT-OP-R Modalities Start: 06/07/18 14:36 Freq: Status: Active Protocol: Document 06/12/18 16:43 EA (Rec: 06/13/18 09:43 EA [id number]) Hot Pack/Cold Pack Treatment Cold Pack Location left shoulder Patient Position Hooklying Treatment Duration (minutes) 15 Patient Tolerance Good PT-OP-T Assessment and Plan Start: 06/07/18 14:36 Freq: Status: Active Protocol: Document 06/29/18 14:00 HH (Rec: 06/29/18 16:50 HH [email or web address]) Physical Therapy Assessment Assessment Summary Assessment Pt regained most of her active ROM but she still presented slow movements along with some muscle guarding especially during flexion. Pt rachel tx very well today with focus on scap mob during active GH movements. Educated pt on adding trunk movements (SB/ ROT) during pulleys. Pt is amauri to see MD tomorrow for follow up. Progress strengthening HEP next visit. Physical Therapy Plan Next Visit Focus/Plan Next Note Type Treatment Note Next Visit Plan Review HEP Progress scap and shoulder strengthening HEP LE strengthening.
--- NOTE | 2018-07-11 11:16 | PT.OTN ---
Current Diagnoses Displaced fracture of lateral end of left clavicle, initial encounter for closed fracture (07/11/18) Physical Therapy Treatment Note PT-OP-A Visit Information Start: 06/07/18 14:36 Freq: Status: Active Protocol: Document 07/11/18 10:25 [facility] (Rec: 07/11/18 11:15 [facility] [id number]) Out-Patient Physical Therapy Visit Information Visit Information Visit Type Treatment Note Visit Start Time 10:30 Visit Stop Time 11:25 Total Visit Minutes 55 Visit Number 5 Number of PUBLIC ADDRESS SYSTEM OPERATOR Visits 0 PT-OP-B Current Condition Start: 06/07/18 14:36 Freq: Status: Active Protocol: Document 06/07/18 14:38 EA (Rec: 06/07/18 15:02 EA [id number]) Current Condition History of Current Condition Onset Date March 25, 2018 Current Complaints S/P closed displaced left clavicular endfracture; both LE's dissue weakness History of Current Condition Pt reports fell on her left shoulder at home on the of March 2018; was in the sling for 8 weeks with lifting pre-cautions. Pt reports last X-rays performed 3 weeks ago. Pt reports scared to use left arm and wanted to wait whta would be the Physical therapist recommendation. Prior Treatments and Tests November/2017: Appendectomy Future Testing and Treatments Planned Next surgeon appointment is two weeks from now Treatment Goals Patient/Caregiver Goals 1. Patient wants to improve her LE's strength and endurance 2. Patient wants to eliminate left shoulder pain 3. Patient wants to improved shoulder functional mobility Prior Functional Status Baseline Function- ADL's Independent Baseline Function- Mobility Independent Baseline Function- Gait Indep with ability to walk more than a mile prior to last November surgery. Baseline Function- Work/School Retired Baseline Function- Recreation/Hobbies Used to work out in the gym with quality review trainer Current Functional Impairments (Reported) Functional Limitations- ADL's Modified independent with no lifting towards left side Functional Limitations- Mobility/Gait < 1 mile ambulation with no AD with no gait deviation Functional Limitations- Work/School Retired Functional Limitations- Recreation/ Unable to comeback to fitness Hobbies exercises PT-OP-C Subjective Start: 06/07/18 14:36 Freq: Status: Active Protocol: Document 07/11/18 10:25 [facility] (Rec: 07/11/18 11:15 [facility] [id number]) OP-PT Subjective Patient Comments Patient Comments Pt reports she did not see the doctor d/t the gregor and sees the MD next week. Pt reports feeling overall good except was sore after shovelling but did try to use her R arm more. PT-OP-E Functional Tests Start: 06/07/18 14:36 Freq: Status: Active Protocol: Document 06/07/18 15:03 EA (Rec: 06/07/18 15:10 EA [id number]) Functional Tests Apley's Scratch Test Action 1: The subject is instructed to touch the opposite shoulder with his/her hand. This motion checks Glenohumeral adduction, internal rotation , horizontal adduction and scapular protraction Action 2: The subject is instructed to place his/her arm overhead and reach behind the neck to touch his/her upper back. This motion checks Glenohumeral abduction, external rotation and scapular upward rotation and elevation. Action 3: The subject puts his/her hand on the lower back and reaches upward as far as possible. This motion checks glenohumeral adduction, internal rotation and scapular retraction with downward rotation Action 1- Left ant R shoulder Action 1- Right post L shoulder Action 2- Left C7 Action 2- Right T4 Action 3- Left L4 Action 3- Right T6 PT-OP-G Mobility & Gait Start: 06/07/18 14:36 Freq: Status: Active Protocol: Document 06/07/18 15:03 EA (Rec: 06/07/18 15:10 EA [id number]) OP Gait Assessment Gait Gait Assistance Required: Independent Able to Maintain Weight Bearing Status Yes During Gait Assistive Devices Assistive Device None Gait Deviations General Gait Pattern Within Normal Limits Comments Gait Comments No gait deviation noted PT-OP-J Posture/Palpation/Skin Start: 06/07/18 14:36 Freq: Status: Active Protocol: Document 06/07/18 15:03 EA (Rec: 06/07/18 15:10 EA [id number]) Posture Evaluation Comments Posture Comments Good Head cervicothoracic posture Palpation Assessment Location One Palpation Location L anterior deltoid Palpation Findings Soft Tissue Tightness Muscle Guarding Tenderness Palpation Details Grade 2/4 tenderness over left anterior shoulder/ AC junction PT-OP-K Range of Motion Start: 06/07/18 14:36 Freq: Status: Active Protocol: Document 06/07/18 15:03 EA (Rec: 06/07/18 15:10 EA [id number]) Shoulder Goniometric Range of Motion Shoulder Measured in Degrees Right Active Shoulder ROM WFL Yes Left Passive Testing Position Supine Flexion 110 Abduction 120 External Rotation at 0 degrees Abduction 55 Internal Rotation Behind Back (text) 45 Left Active Testing Position Sitting Flexion 90 Extension 60 Abduction 110 External Rotation at 0 degrees Abduction 45 Internal Rotation 40 Shoulder ROM Limitations Shoulder ROM Limitations Soft Tissue Tightness Muscle Weakness Pain PT-OP-M Strength Start: 06/07/18 14:36 Freq: Status: Active Protocol: Document 06/07/18 15:10 EA (Rec: 06/07/18 15:13 EA [id number]) Shoulder Strength Shoulder Manual Muscle Testing Left Flexion 3+ Fair+ Extension 4- Good- Abduction (C5) 3+ Fair+ Adduction 4- Good- External Rotation 3+ Fair+ Internal Rotation 3+ Fair+ Elbow/Forearm Strength Elbow and Forearm Manual Muscle Testing Left Flexion (C6) 5 Normal Extension (C7) 5 Normal Pronation 5 Normal Supination 5 Normal Hip Strength Hip Manual Muscle Testing Right Flexion (L2) 4- Good- Extension (S1) 4 Good Abduction 4- Good- Adduction 4 Good External Rotation 4- Good- Internal Rotation 4- Good- Left Flexion (L2) 4- Good- Extension (S1) 4 Good Abduction 4 Good Adduction 4 Good External Rotation 4 Good Internal Rotation 4 Good PT-OP-Q Treatments Start: 06/07/18 14:36 Freq: Status: Active Protocol: Document 07/11/18 10:25 [facility] (Rec: 07/11/18 11:15 [facility] [id number]) Cardio Equipment Upper Body Ergometer (UBE) Duration (Minutes) 5 Seat Position 8 Height 2.5 Other fwd & back w/R doing more of the work Therapeutic Exercises Prone Exercises scaption Prone Exercise Name scaption Side left Reps/Minutes 20 Habd Prone Exercise Name habd focus on scap position Side left Reps/Minutes 20 Sidelying Exercises abd Sidelying Exercise Name abd Side left Reps/Minutes 20 ER Sidelying Exercise Name er Side left Reps/Minutes 20 Standing Exercises lunge Standing Exercise Name w/opp arm lift Side bilateral Reps/Minutes 10 squat Standing Exercise Name w/flex w/ focus on scap engagement Reps/Minutes 20 90/90 ER Standing Exercise Name 90/90 ER w/tbar Reps/Minutes 15 Manual Therapy Treatment Soft Tissue Mobilization 2 Body Location L upper trap Mobilization Type Myofascial Release Rolling Trigger Point Release Intensity/Depth Moderate Joint Mobilizations scap downward rotation with extension Grade III Body Position Sitting Comments scap downward rotation with extension scap upward rotation with flexion Grade III Body Position Sitting Comments scap upward rotation with flexion PT-OP-R Modalities Start: 06/07/18 14:36 Freq: Status: Active Protocol: Document 07/11/18 10:25 [facility] (Rec: 07/11/18 11:15 [facility] [id number]) Hot Pack/Cold Pack Treatment Cold Pack Location left shoulder Patient Position Hooklying Treatment Duration (minutes) 15 Patient Tolerance Good PT-OP-T Assessment and Plan Start: 06/07/18 14:36 Freq: Status: Active Protocol: Document 07/11/18 10:25 [facility] (Rec: 07/11/18 11:15 [facility] [id number]) Physical Therapy Assessment Goals Three Impairment Pain with activity with PS of 6/10 Desktop Architect Goal (LTG) Patient will perform shoulder overhead movement with pain at least lower than 2/10 LTG Duration 4 wks Two Impairment Impaired shoulder flexion/ABD/ ER ROM Desktop Architect Goal (LTG) Patient will reach functional ROM to enhance functional overhead movements LTG Duration 4 wks One Impairment Quick Dash score of 70 Desktop Architect Goal (LTG) Patient will have QuickDash score of < 40 LTG Duration 4 wks Assessment Summary Assessment Pt has minimal end range limits of AROM at this time, but does have weakness with repetion of AROM. Physical Therapy Plan Frequency and Duration Frequency of Treatment 2x/Week Duration of Treatment 8 wks Plan of Care Start Date 06/07/18 Plan of Care End Date 08/02/18 Next Visit Focus/Plan Next Note Type Treatment Note Next Visit Plan Advance LE strength & balance & improve end range shoulder motion
--- NOTE | 2018-07-19 12:11 | PT.OTN ---
Current Diagnoses Displaced fracture of lateral end of left clavicle, initial encounter for closed fracture (07/19/18) Physical Therapy Treatment Note PT-OP-A Visit Information Start: 06/07/18 14:36 Freq: Status: Active Protocol: Document 07/19/18 11:11 EA (Rec: 07/19/18 11:16 EA [id number]) Out-Patient Physical Therapy Visit Information Visit Information Visit Type Treatment Note Visit Start Time 10:30 Visit Stop Time 11:15 Total Visit Minutes 45 Visit Number 6 PT-OP-B Current Condition Start: 06/07/18 14:36 Freq: Status: Active Protocol: Document 06/07/18 14:38 EA (Rec: 06/07/18 15:02 EA [id number]) Current Condition History of Current Condition Onset Date March 25, 2018 Current Complaints S/P closed displaced left clavicular endfracture; both LE's dissue weakness History of Current Condition Pt reports fell on her left shoulder at home on the of March 2018; was in the sling for 8 weeks with lifting pre-cautions. Pt reports last X-rays performed 3 weeks ago. Pt reports scared to use left arm and wanted to wait whta would be the Physical therapist recommendation. Prior Treatments and Tests November/2017: Appendectomy Future Testing and Treatments Planned Next surgeon appointment is two weeks from now Treatment Goals Patient/Caregiver Goals 1. Patient wants to improve her LE's strength and endurance 2. Patient wants to eliminate left shoulder pain 3. Patient wants to improved shoulder functional mobility Prior Functional Status Baseline Function- ADL's Independent Baseline Function- Mobility Independent Baseline Function- Gait Indep with ability to walk more than a mile prior to last November surgery. Baseline Function- Work/School Retired Baseline Function- Recreation/Hobbies Used to work out in the gym with personal injury specialist Current Functional Impairments (Reported) Functional Limitations- ADL's Modified independent with no lifting towards left side Functional Limitations- Mobility/Gait < 1 mile ambulation with no AD with no gait deviation Functional Limitations- Work/School Retired Functional Limitations- Recreation/ Unable to comeback to fitness Hobbies exercises PT-OP-C Subjective Start: 06/07/18 14:36 Freq: Status: Active Protocol: Document 07/19/18 11:11 EA (Rec: 07/19/18 11:16 EA [id number]) OP-PT Subjective Patient Comments Patient Comments Pt reports went for a check up and is now no restrictions and can begin resistance training. Patient Reported Progress Improving PT-OP-E Functional Tests Start: 06/07/18 14:36 Freq: Status: Active Protocol: Document 06/07/18 15:03 EA (Rec: 06/07/18 15:10 EA [id number]) Functional Tests Apley's Scratch Test Action 1: The subject is instructed to touch the opposite shoulder with his/her hand. This motion checks Glenohumeral adduction, internal rotation , horizontal adduction and scapular protraction Action 2: The subject is instructed to place his/her arm overhead and reach behind the neck to touch his/her upper back. This motion checks Glenohumeral abduction, external rotation and scapular upward rotation and elevation. Action 3: The subject puts his/her hand on the lower back and reaches upward as far as possible. This motion checks glenohumeral adduction, internal rotation and scapular retraction with downward rotation Action 1- Left ant R shoulder Action 1- Right post L shoulder Action 2- Left C7 Action 2- Right T4 Action 3- Left L4 Action 3- Right T6 PT-OP-G Mobility & Gait Start: 06/07/18 14:36 Freq: Status: Active Protocol: Document 06/07/18 15:03 EA (Rec: 06/07/18 15:10 EA [id number]) OP Gait Assessment Gait Gait Assistance Required: Independent Able to Maintain Weight Bearing Status Yes During Gait Assistive Devices Assistive Device None Gait Deviations General Gait Pattern Within Normal Limits Comments Gait Comments No gait deviation noted PT-OP-J Posture/Palpation/Skin Start: 06/07/18 14:36 Freq: Status: Active Protocol: Document 06/07/18 15:03 EA (Rec: 06/07/18 15:10 EA [id number]) Posture Evaluation Comments Posture Comments Good Head cervicothoracic posture Palpation Assessment Location One Palpation Location L anterior deltoid Palpation Findings Soft Tissue Tightness Muscle Guarding Tenderness Palpation Details Grade 2/4 tenderness over left anterior shoulder/ AC junction PT-OP-K Range of Motion Start: 06/07/18 14:36 Freq: Status: Active Protocol: Document 06/07/18 15:03 EA (Rec: 06/07/18 15:10 EA [id number]) Shoulder Goniometric Range of Motion Shoulder Measured in Degrees Right Active Shoulder ROM WFL Yes Left Passive Testing Position Supine Flexion 110 Abduction 120 External Rotation at 0 degrees Abduction 55 Internal Rotation Behind Back (text) 45 Left Active Testing Position Sitting Flexion 90 Extension 60 Abduction 110 External Rotation at 0 degrees Abduction 45 Internal Rotation 40 Shoulder ROM Limitations Shoulder ROM Limitations Soft Tissue Tightness Muscle Weakness Pain PT-OP-M Strength Start: 06/07/18 14:36 Freq: Status: Active Protocol: Document 06/07/18 15:10 EA (Rec: 06/07/18 15:13 EA [id number]) Shoulder Strength Shoulder Manual Muscle Testing Left Flexion 3+ Fair+ Extension 4- Good- Abduction (C5) 3+ Fair+ Adduction 4- Good- External Rotation 3+ Fair+ Internal Rotation 3+ Fair+ Elbow/Forearm Strength Elbow and Forearm Manual Muscle Testing Left Flexion (C6) 5 Normal Extension (C7) 5 Normal Pronation 5 Normal Supination 5 Normal Hip Strength Hip Manual Muscle Testing Right Flexion (L2) 4- Good- Extension (S1) 4 Good Abduction 4- Good- Adduction 4 Good External Rotation 4- Good- Internal Rotation 4- Good- Left Flexion (L2) 4- Good- Extension (S1) 4 Good Abduction 4 Good Adduction 4 Good External Rotation 4 Good Internal Rotation 4 Good PT-OP-Q Treatments Start: 06/07/18 14:36 Freq: Status: Active Protocol: Document 07/19/18 11:11 EA (Rec: 07/19/18 11:16 EA [id number]) Cardio Equipment Upper Body Ergometer (UBE) Duration (Minutes) 5 Seat Position 8 Height 2.5 Other fwd & back w/R doing more of the work Therapeutic Exercises Prone Exercises scaption Prone Exercise Name scaption Side left Reps/Minutes 20 Sidelying Exercises abd Sidelying Exercise Name abd Side left Resistance 1lb Reps/Minutes 20 ER Sidelying Exercise Name er Side left Resistance 1lb Reps/Minutes 20 Sitting Exercises 1 Sitting Exercise Name Camryn: flexion/ABD/ ext Reps/Minutes 3 mins Comments Full range Standing Exercises 5 Standing Exercise Name ER/IR Resistance Lv1 Reps/Minutes x 12 reps 4 Standing Exercise Name shoulder front raises Resistance 1 lb Reps/Minutes x 12 reps 3 Standing Exercise Name shoulder side raises Resistance 2lbs x 12 reps 2 Standing Exercise Name shoulder press Resistance 3lbs T-bar Reps/Minutes x 12 reps 1 Standing Exercise Name Wall slide:flexion/Y direction Side bilateral Reps/Minutes x 12 reps x 2 sets Manual Therapy Treatment Soft Tissue Mobilization 2 Body Location L upper trap Mobilization Type Myofascial Release Rolling Trigger Point Release Intensity/Depth Moderate 1 Body Location SS/anterior shoulder, Left Mobilization Type Myofascial Release Rolling Sustained Pressure Intensity/Depth Superficial PT-OP-R Modalities Start: 06/07/18 14:36 Freq: Status: Active Protocol: Document 07/11/18 10:25 LR (Rec: 07/11/18 11:15 LR [id number]) Hot Pack/Cold Pack Treatment Cold Pack Location left shoulder Patient Position Hooklying Treatment Duration (minutes) 15 Patient Tolerance Good PT-OP-T Assessment and Plan Start: 06/07/18 14:36 Freq: Status: Active Protocol: Document 07/19/18 12:08 EA (Rec: 07/19/18 12:10 EA [id number]) Physical Therapy Assessment Assessment Summary Assessment Patient exhibits improved shoulder ROM with less discomfort during resistance exercises. HEP given and educated and showed good understanding. Pt to see after a week. Physical Therapy Plan Next Visit Focus/Plan Next Note Type Treatment Note Next Visit Plan Cont. strengthening exercises. Review HEP
--- NOTE | 2018-08-03 16:40 | PT.OTRE ---
Current Diagnoses Displaced fracture of lateral end of left clavicle, initial encounter for closed fracture (08/03/18) Past Medical History (Last Updated 03/27/18 @ 18:23 by Laurie Farr PA-C) Chronic back pain (Chronic 2010) Dry eye (Chronic) GERD (gastroesophageal reflux disease) (Chronic ~1989) Gastric ulcer (Chronic 1989) Hemorrhoids (Chronic 2005) Hiatal hernia (Chronic) Knee pain (Chronic 10/2013) Osteoporosis (Chronic) Paresthesia of left upper extremity (Chronic) Peptic ulcer disease (Chronic) Rosacea (Chronic) Seasonal allergies (Chronic ~1989) History of head injury (Resolved) Hx of spinal cord injury (Resolved) Normal Papanicolaou smear (Resolved) Tibia/fibula fracture (Resolved 1988) Surgical History (Last Reviewed 03/25/18 @ 13:45 by Roxanne Umaña DO) Anesthesia complication (Resolved) H/O local excision of skin lesion (Resolved 10/2013) History of esophagogastroduodenoscopy (EGD) (Resolved 12/03/16) History of orthopedic surgery (Resolved 1990) History of surgery (Resolved 1981) History of tonsillectomy (Resolved 1972) Status post LASIK surgery (Resolved 2000) Status post hemorrhoidectomy (Resolved 2005) Provider Visit Care Team Role Provider Type Kathy Alvarado DO Primary Care Provider Physician Specialty: Family Practice Address: [address] [place] [address], [address] Email: [email or web address] Dugan MD Attending Provider Physician Specialty: Orthopedic Surgery Address: [address] [place] [address], [id number] Email: [email or web address] Physical Therapy Re-Evaluation PT-OP-A Visit Information Start: 06/07/18 14:36 Freq: Status: Active Protocol: Document 08/03/18 11:01 MIKE (Rec: 08/03/18 11:10 EA [id number]) Out-Patient Physical Therapy Visit Information Visit Information Visit Type Treatment Note Visit Start Time 09:45 Visit Stop Time 10:30 Total Visit Minutes 45 Visit Number 7 PT-OP-B Current Condition Start: 06/07/18 14:36 Freq: Status: Active Protocol: Document 06/07/18 14:38 EA (Rec: 06/07/18 15:02 EA [id number]) Current Condition History of Current Condition Onset Date March 25, 2018 Current Complaints S/P closed displaced left clavicular endfracture; both LE's dissue weakness History of Current Condition Pt reports fell on her left shoulder at home on the week of March 2018; was in the sling for 8 weeks with lifting pre-cautions. Pt reports last X-rays performed 3 weeks ago. Pt reports scared to use left arm and wanted to wait whta would be the Physical therapist recommendation. Prior Treatments and Tests November/2017: Appendectomy Future Testing and Treatments Planned Next surgeon appointment is two weeks from now Treatment Goals Patient/Caregiver Goals 1. Patient wants to improve her LE's strength and endurance 2. Patient wants to eliminate left shoulder pain 3. Patient wants to improved shoulder functional mobility Prior Functional Status Baseline Function- ADL's Independent Baseline Function- Mobility Independent Baseline Function- Gait Indep with ability to walk more than a mile prior to last November surgery. Baseline Function- Work/School Retired Baseline Function- Recreation/Hobbies Used to work out in the gym with personalized living manager nurse Current Functional Impairments (Reported) Functional Limitations- ADL's Modified independent with no lifting towards left side Functional Limitations- Mobility/Gait < 1 mile ambulation with no AD with no gait deviation Functional Limitations- Work/School Retired Functional Limitations- Recreation/ Unable to comeback to fitness Hobbies exercises PT-OP-C Subjective Start: 06/07/18 14:36 Freq: Status: Active Protocol: Document 08/03/18 11:01 EA (Rec: 08/03/18 11:10 EA [id number]) OP-PT Subjective Patient Comments Patient Comments Pt reports left shoulder is getting better; states would like to know when to begin to the gym and what exercises she can don Patient Reported Progress Improving PT-OP-E Functional Tests Start: 06/07/18 14:36 Freq: Status: Active Protocol: Document 08/03/18 16:39 EA (Rec: 08/03/18 16:39 EA [id number]) Functional Tests Fawney's Scratch Test Action 1: The subject is instructed to touch the opposite shoulder with his/her hand. This motion checks Glenohumeral adduction, internal rotation , horizontal adduction and scapular protraction Action 2: The subject is instructed to place his/her arm overhead and reach behind the neck to touch his/her upper back. This motion checks Glenohumeral abduction, external rotation and scapular upward rotation and elevation. Action 3: The subject puts his/her hand on the lower back and reaches upward as far as possible. This motion checks glenohumeral adduction, internal rotation and scapular retraction with downward rotation Action 1- Left ant R shoulder Action 1- Right post L shoulder Action 2- Left T2 Action 2- Right T4 Action 3- Left T8 Action 3- Right T6 PT-OP-G Mobility & Gait Start: 06/07/18 14:36 Freq: Status: Active Protocol: Document 06/07/18 15:03 EA (Rec: 06/07/18 15:10 EA [id number]) OP Gait Assessment Gait Gait Assistance Required: Independent Able to Maintain Weight Bearing Status Yes During Gait Assistive Devices Assistive Device None Gait Deviations General Gait Pattern Within Normal Limits Comments Gait Comments No gait deviation noted PT-OP-J Posture/Palpation/Skin Start: 06/07/18 14:36 Freq: Status: Active Protocol: Document 06/07/18 15:03 EA (Rec: 06/07/18 15:10 EA [id number]) Posture Evaluation Comments Posture Comments Good Head cervicothoracic posture Palpation Assessment Location One Palpation Location L anterior deltoid Palpation Findings Soft Tissue Tightness Muscle Guarding Tenderness Palpation Details Grade 2/4 tenderness over left anterior shoulder/ AC junction PT-OP-K Range of Motion Start: 06/07/18 14:36 Freq: Status: Active Protocol: Document 08/03/18 16:36 EA (Rec: 08/03/18 16:38 EA [id number]) Shoulder Goniometric Range of Motion Shoulder Measured in Degrees Right Active Shoulder ROM WFL Yes Left Passive Testing Position Supine Flexion 110 Abduction 120 External Rotation at 0 degrees Abduction 55 Internal Rotation Behind Back (text) 45 Left Active Flexion 170 Extension 170 External Rotation at 0 degrees Abduction 75 Internal Rotation 50 Shoulder ROM Limitations Shoulder ROM Limitations Soft Tissue Tightness Muscle Weakness Pain PT-OP-M Strength Start: 06/07/18 14:36 Freq: Status: Active Protocol: Document 08/03/18 16:38 EA (Rec: 08/03/18 16:39 EA [id number]) Shoulder Strength Shoulder Manual Muscle Testing Left Flexion 4 Good Extension 4- Good- Abduction (C5) 4 Good Adduction 4+ Good+ External Rotation 4 Good Internal Rotation 4 Good Horizontal Abduction 4 Good Horizontal Adduction 4 Good Elbow/Forearm Strength Elbow and Forearm Manual Muscle Testing Left Flexion (C6) 5 Normal Extension (C7) 5 Normal Pronation 5 Normal Supination 5 Normal PT-OP-Q Treatments Start: 06/07/18 14:36 Freq: Status: Active Protocol: Document 08/03/18 11:01 EA (Rec: 08/03/18 11:10 EA [id number]) Cardio Equipment Upper Body Ergometer (UBE) Duration (Minutes) 5 Seat Position 8 Height 2.5 Other fwd & back w/R doing more of the work Gym Equipment Cable Column (Body Solid) Rows Details sit to stand and row Resistance 20 Reps/Time x15 Lat Pull Down Details 20 Reps/Time x15 Shuttle Recovery Bilateral Squats Resistance 3cords Shuttle Recovery Platform Stable Reps/Time x 15 reps Therapeutic Exercises Sitting Exercises 2 Sitting Exercise Name Scap roll Comments foward and backward roll Standing Exercises 5 Standing Exercise Name ER/IR Resistance Lv1 Reps/Minutes x 12 reps 4 Standing Exercise Name shoulder front raises Resistance 2 lb Reps/Minutes x 12 reps 3 Standing Exercise Name shoulder side raises Resistance 2lbs x 12 reps 2 Standing Exercise Name shoulder press Resistance 3lbs T-bar Reps/Minutes x 12 reps lunge Standing Exercise Name w/opp arm lift Side bilateral Reps/Minutes 10 squat Standing Exercise Name w/flex w/ focus on scap engagement Reps/Minutes 20 1 Standing Exercise Name Wall slide:flexion/Y direction Side bilateral Resistance 2lbs AW to wrist Reps/Minutes x 12 reps x 2 sets Self-Care/Home Management Treatment Education Patient Education Body Mechanics Joint Protection Pain Management Other Education Fitness exercises with images given and understands safety. PT-OP-R Modalities Start: 06/07/18 14:36 Freq: Status: Active Protocol: Document 07/11/18 10:25 LR (Rec: 07/11/18 11:15 LR [id number]) Hot Pack/Cold Pack Treatment Cold Pack Location left shoulder Patient Position Hooklying Treatment Duration (minutes) 15 Patient Tolerance Good PT-OP-T Assessment and Plan Start: 06/07/18 14:36 Freq: Status: Active Protocol: Document 08/03/18 11:01 MIKE (Rec: 08/03/18 11:10 EA [id number]) Physical Therapy Assessment Goals Four Impairment No fitness program in place Baffle Mounter Goal (LTG) Patient will exhibit safe/ independent fitness program to both UE/LE's LTG Duration 4 wks Three Impairment Pain with activity with PS of 6/10 Baffle Mounter Goal (LTG) Patient will perform shoulder overhead movement with pain at least lower than 2/10 LTG Duration goal reachd Two Impairment Impaired shoulder flexion/ABD/ ER ROM Fpc Goal (LTG) Patient will reach functional ROM to enhance functional overhead movements LTG Duration Goal reached One Impairment Quick Dash score of 70 Baffle Mounter Goal (LTG) Patient will have QuickDash score of < 20 LTG Duration 4 wks progressing very well Progress Towards Goals Progress Towards Goals Progressing Toward Goals Assessment Summary Assessment Pt demonstrates significant improvement to left shoulder as to functional ROM, strength and functional mobility. Patient will continue to benefit to skilled PT in transition to fitness program. Physical Therapy Plan Frequency and Duration Frequency of Treatment 1 Duration of Treatment 4 Plan of Care Start Date 08/02/18 Plan of Care End Date 09/04/18 Therapeutic Interventions Therapeutic Interventions Home Exercise Program Patient/Caregiver Education Self-Care/Home Management Soft Tissue Mobilization Therapeutic Exercises Modalities Cold Pack/Ice Massage Electric Stimulation Next Visit Focus/Plan Next Note Type Treatment Note Next Visit Plan Re-assess indep fitness exercises responses.
--- NOTE | 2018-08-03 16:41 | PT.OPPOC ---
Current Diagnoses Displaced fracture of lateral end of left clavicle, initial encounter for closed fracture (08/03/18) Provider Visit Care Team Role Provider Type Kathy Alvarado DO Primary Care Provider Physician Specialty: Family Practice Address: [address] [place] [address], [phone] Email: [email or web address] Yo Dugan MD Attending Provider Physician Specialty: Orthopedic Surgery Address: [address] [place] [address], [phone] Email: [email or web address] Plan Of Care PT-OP-T Assessment and Plan Start: 06/07/18 14:36 Freq: Status: Active Protocol: Document 08/03/18 11:01 MIKE (Rec: 08/03/18 11:10 EA [id number]) Physical Therapy Assessment Goals Four Impairment No fitness program in place Quick Sketch Artist Goal (LTG) Patient will exhibit safe/ independent fitness program to both UE/LE's LTG Duration 4 wks Three Impairment Pain with activity with PS of 6/10 Quick Sketch Artist Goal (LTG) Patient will perform shoulder overhead movement with pain at least lower than 2/10 LTG Duration goal reachd Two Impairment Impaired shoulder flexion/ABD/ ER ROM Longterm Goal (LTG) Patient will reach functional ROM to enhance functional overhead movements LTG Duration Goal reached One Impairment Quick Dash score of 70 Quick Sketch Artist Goal (LTG) Patient will have QuickDash score of < 20 LTG Duration 4 wks progressing very well Progress Towards Goals Progress Towards Goals Progressing Toward Goals Assessment Summary Assessment Pt demonstrates significant improvement to left shoulder as to functional ROM, strength and functional mobility. Patient will continue to benefit to skilled PT in transition to fitness program. Physical Therapy Plan Frequency and Duration Frequency of Treatment 1 Duration of Treatment 4 Plan of Care Start Date 08/02/18 Plan of Care End Date 09/04/18 Therapeutic Interventions Therapeutic Interventions Home Exercise Program Patient/Caregiver Education Self-Care/Home Management Soft Tissue Mobilization Therapeutic Exercises Modalities Cold Pack/Ice Massage Electric Stimulation Next Visit Focus/Plan Next Note Type Treatment Note Next Visit Plan Re-assess indep fitness exercises responses. Plan of Care Dates Plan of Care Start Date 08/02/18 Plan of Care End Date 09/04/18 Please Sign and Return: I have reviewed this Plan of Care and certify that the skilled therapy services above are required to meet the patient?s needs. Physician Signature Date Printed Name and Credentials Clinical Instructor Signature Printed Name and Credentials
--- NOTE | 2018-08-24 08:56 | PT.OTN ---
Current Diagnoses Displaced fracture of lateral end of left clavicle, initial encounter for closed fracture (08/24/18) Physical Therapy Treatment Note PT-OP-A Visit Information Start: 06/07/18 14:36 Freq: Status: Active Protocol: Document 08/24/18 07:35 EA (Rec: 08/24/18 08:10 EA [id number]) Out-Patient Physical Therapy Visit Information Visit Information Visit Type Treatment Note Visit Start Time 07:30 Visit Stop Time 08:15 Total Visit Minutes 45 Visit Number 8 PT-OP-B Current Condition Start: 06/07/18 14:36 Freq: Status: Active Protocol: Document 06/07/18 14:38 EA (Rec: 06/07/18 15:02 EA [id number]) Current Condition History of Current Condition Onset Date March 25, 2018 Current Complaints S/P closed displaced left clavicular endfracture; both LE's dissue weakness History of Current Condition Pt reports fell on her left shoulder at home on the of March 2018; was in the sling for 8 weeks with lifting pre-cautions. Pt reports last X-rays performed 3 weeks ago. Pt reports scared to use left arm and wanted to wait whta would be the Physical therapist recommendation. Prior Treatments and Tests November/2017: Appendectomy Future Testing and Treatments Planned Next surgeon appointment is two weeks from now Treatment Goals Patient/Caregiver Goals 1. Patient wants to improve her LE's strength and endurance 2. Patient wants to eliminate left shoulder pain 3. Patient wants to improved shoulder functional mobility Prior Functional Status Baseline Function- ADL's Independent Baseline Function- Mobility Independent Baseline Function- Gait Indep with ability to walk more than a mile prior to last November surgery. Baseline Function- Work/School Retired Baseline Function- Recreation/Hobbies Used to work out in the gym with application trainer Current Functional Impairments (Reported) Functional Limitations- ADL's Modified independent with no lifting towards left side Functional Limitations- Mobility/Gait < 1 mile ambulation with no AD with no gait deviation Functional Limitations- Work/School Retired Functional Limitations- Recreation/ Unable to comeback to fitness Hobbies exercises PT-OP-C Subjective Start: 06/07/18 14:36 Freq: Status: Active Protocol: Document 08/24/18 07:35 EA (Rec: 08/24/18 08:10 EA [id number]) OP-PT Subjective Patient Comments Patient Comments Pt reports she is currently on trainers workout and states animal attendants and trainers foun out that there still weakness; denies pain. Patient Reported Progress Improving PT-OP-E Functional Tests Start: 06/07/18 14:36 Freq: Status: Active Protocol: Document 08/03/18 16:39 EA (Rec: 08/03/18 16:39 EA [id number]) Functional Tests Apley's Scratch Test Action 1: The subject is instructed to touch the opposite shoulder with his/her hand. This motion checks Glenohumeral adduction, internal rotation , horizontal adduction and scapular protraction Action 2: The subject is instructed to place his/her arm overhead and reach behind the neck to touch his/her upper back. This motion checks Glenohumeral abduction, external rotation and scapular upward rotation and elevation. Action 3: The subject puts his/her hand on the lower back and reaches upward as far as possible. This motion checks glenohumeral adduction, internal rotation and scapular retraction with downward rotation Action 1- Left ant R shoulder Action 1- Right post L shoulder Action 2- Left T2 Action 2- Right T4 Action 3- Left T8 Action 3- Right T6 PT-OP-G Mobility & Gait Start: 06/07/18 14:36 Freq: Status: Active Protocol: Document 06/07/18 15:03 EA (Rec: 06/07/18 15:10 EA [id number]) OP Gait Assessment Gait Gait Assistance Required: Independent Able to Maintain Weight Bearing Status Yes During Gait Assistive Devices Assistive Device None Gait Deviations General Gait Pattern Within Normal Limits Comments Gait Comments No gait deviation noted PT-OP-J Posture/Palpation/Skin Start: 06/07/18 14:36 Freq: Status: Active Protocol: Document 06/07/18 15:03 EA (Rec: 06/07/18 15:10 EA [id number]) Posture Evaluation Comments Posture Comments Good Head cervicothoracic posture Palpation Assessment Location One Palpation Location L anterior deltoid Palpation Findings Soft Tissue Tightness Muscle Guarding Tenderness Palpation Details Grade 2/4 tenderness over left anterior shoulder/ AC junction PT-OP-K Range of Motion Start: 06/07/18 14:36 Freq: Status: Active Protocol: Document 08/03/18 16:36 EA (Rec: 08/03/18 16:38 EA [id number]) Shoulder Goniometric Range of Motion Shoulder Measured in Degrees Right Active Shoulder ROM WFL Yes Left Passive Testing Position Supine Flexion 110 Abduction 120 External Rotation at 0 degrees Abduction 55 Internal Rotation Behind Back (text) 45 Left Active Flexion 170 Extension 170 External Rotation at 0 degrees Abduction 75 Internal Rotation 50 Shoulder ROM Limitations Shoulder ROM Limitations Soft Tissue Tightness Muscle Weakness Pain PT-OP-M Strength Start: 06/07/18 14:36 Freq: Status: Active Protocol: Document 08/03/18 16:38 EA (Rec: 08/03/18 16:39 EA [id number]) Shoulder Strength Shoulder Manual Muscle Testing Left Flexion 4 Good Extension 4- Good- Abduction (C5) 4 Good Adduction 4+ Good+ External Rotation 4 Good Internal Rotation 4 Good Horizontal Abduction 4 Good Horizontal Adduction 4 Good Elbow/Forearm Strength Elbow and Forearm Manual Muscle Testing Left Flexion (C6) 5 Normal Extension (C7) 5 Normal Pronation 5 Normal Supination 5 Normal PT-OP-Q Treatments Start: 06/07/18 14:36 Freq: Status: Active Protocol: Document 08/24/18 07:35 EA (Rec: 08/24/18 08:10 EA [id number]) Cardio Equipment Upper Body Ergometer (UBE) Duration (Minutes) 5 Seat Position 8 Height 2.5 Other fwd & back w/R doing more of the work Gym Equipment Cable Column (Body Solid) Rows Details sit to stand and row Resistance 20 Reps/Time x15 Lat Pull Down Details 20 Reps/Time x15 Shuttle Recovery Bilateral Squats Resistance 3cords Shuttle Recovery Platform Stable Reps/Time x 15 reps Therapeutic Exercises Prone Exercises 1 Prone Exercise Name T-Y Resistance 1 lb Reps/Minutes x 12 reps Comments T-ball Standing Exercises 5 Standing Exercise Name ER/IR Resistance Lv1 Reps/Minutes x 12 reps lunge Standing Exercise Name w/opp arm lift Side bilateral Reps/Minutes 10 1 Standing Exercise Name Wall slide:flexion/Y direction Side bilateral Resistance 2lbs AW to wrist Reps/Minutes x 12 reps x 2 sets PT-OP-R Modalities Start: 06/07/18 14:36 Freq: Status: Active Protocol: Document 07/11/18 10:25 LRH (Rec: 07/11/18 11:15 LRH [id number]) Hot Pack/Cold Pack Treatment Cold Pack Location left shoulder Patient Position Hooklying Treatment Duration (minutes) 15 Patient Tolerance Good PT-OP-T Assessment and Plan Start: 06/07/18 14:36 Freq: Status: Active Protocol: Document 08/24/18 08:53 EA (Rec: 08/24/18 08:55 EA [id number]) Physical Therapy Assessment Assessment Summary Assessment Patient has shown shoulder mobility improvement but still requires tactile and verbal cues during therex. No muscular substitution noted. Refused shoulder press exercises as she feels it may aggravated old lumbar fracture . Patient will cont to benefit with skilled PT with main focus on progressive strengthening in transition to fitness exercises. Physical Therapy Plan Next Visit Focus/Plan Next Note Type Re-Evaluation
--- NOTE | 2018-11-20 09:08 | PT.OPDS ---
Current Diagnoses Displaced fracture of lateral end of left clavicle, initial encounter for closed fracture (08/24/18) Provider Visit Care Team Role Provider Type Kathy Alvarado DO Primary Care Provider Physician Specialty: Family Practice Address: [address] [place] [address], [id number] Email: [email or web address] Yo Dugan MD Attending Provider Physician Specialty: Orthopedic Surgery Address: [address] [place] [address], [id number] Email: [email or web address] Visit Number Visit Number 8 Discharge Summary PT-OP-B Current Condition Start: 06/07/18 14:36 Freq: Status: Active Protocol: Document 06/07/18 14:38 EA (Rec: 06/07/18 15:02 EA [id number]) Current Condition History of Current Condition Onset Date March 25, 2018 Current Complaints S/P closed displaced left clavicular endfracture; both LE's dissue weakness History of Current Condition Pt reports fell on her left shoulder at home on the week of March 2018; was in the sling for 8 weeks with lifting pre-cautions. Pt reports last X-rays performed 3 weeks ago. Pt reports scared to use left arm and wanted to wait whta would be the Physical therapist recommendation. Prior Treatments and Tests November/2017: Appendectomy Future Testing and Treatments Planned Next surgeon appointment is two weeks from now Treatment Goals Patient/Caregiver Goals 1. Patient wants to improve her LE's strength and endurance 2. Patient wants to eliminate left shoulder pain 3. Patient wants to improved shoulder functional mobility Prior Functional Status Baseline Function- ADL's Independent Baseline Function- Mobility Independent Baseline Function- Gait Indep with ability to walk more than a mile prior to last November surgery. Baseline Function- Work/School Retired Baseline Function- Recreation/Hobbies Used to work out in the gym with personal care attendant Current Functional Impairments (Reported) Functional Limitations- ADL's Modified independent with no lifting towards left side Functional Limitations- Mobility/Gait < 1 mile ambulation with no AD with no gait deviation Functional Limitations- Work/School Retired Functional Limitations- Recreation/ Unable to comeback to fitness Hobbies exercises PT-OP-C Subjective Start: 06/07/18 14:36 Freq: Status: Active Protocol: Document 11/20/18 09:05 EA (Rec: 11/20/18 09:08 EA [id number]) OP-PT Subjective Patient Comments Patient Comments Over the phone today, patient reports she has been actively swimming and using her shoulder with minimal symptoms increased but she states nothing to bother much. Patient agreeable to be discharge today. Patient Reported Progress Improving PT-OP-E Functional Tests Start: 06/07/18 14:36 Freq: Status: Active Protocol: Document 08/03/18 16:39 EA (Rec: 08/03/18 16:39 EA [id number]) Functional Tests Apley's Scratch Test Action 1- Left ant R shoulder Action 1- Right post L shoulder Action 2- Left T2 Action 2- Right T4 Action 3- Left T8 Action 3- Right T6 PT-OP-G Mobility & Gait Start: 06/07/18 14:36 Freq: Status: Active Protocol: Document 06/07/18 15:03 EA (Rec: 06/07/18 15:10 EA [id number]) OP Gait Assessment Gait Gait Assistance Required: Independent Able to Maintain Weight Bearing Status Yes During Gait Assistive Devices Assistive Device None Gait Deviations General Gait Pattern Within Normal Limits Comments Gait Comments No gait deviation noted PT-OP-J Posture/Palpation/Skin Start: 06/07/18 14:36 Freq: Status: Active Protocol: Document 06/07/18 15:03 EA (Rec: 06/07/18 15:10 EA [id number]) Posture Evaluation Comments Posture Comments Good Head cervicothoracic posture Palpation Assessment Location One Palpation Location L anterior deltoid Palpation Findings Soft Tissue Tightness Muscle Guarding Tenderness Palpation Details Grade 2/4 tenderness over left anterior shoulder/ AC junction PT-OP-K Range of Motion Start: 06/07/18 14:36 Freq: Status: Active Protocol: Document 08/03/18 16:36 EA (Rec: 08/03/18 16:38 EA [id number]) Shoulder Goniometric Range of Motion Shoulder Right Active Shoulder ROM WFL Yes Left Passive Testing Position Supine Flexion 110 Abduction 120 External Rotation at 0 degrees Abduction 55 Internal Rotation Behind Back (text) 45 Left Active Flexion 170 Extension 170 External Rotation at 0 degrees Abduction 75 Internal Rotation 50 Shoulder ROM Limitations Shoulder ROM Limitations Soft Tissue Tightness Muscle Weakness Pain PT-OP-M Strength Start: 06/07/18 14:36 Freq: Status: Active Protocol: Document 08/03/18 16:38 EA (Rec: 08/03/18 16:39 EA [id number]) Shoulder Strength Shoulder Manual Muscle Testing Left Flexion 4 Good Extension 4- Good- Abduction (C5) 4 Good Adduction 4+ Good+ External Rotation 4 Good Internal Rotation 4 Good Horizontal Abduction 4 Good Horizontal Adduction 4 Good Elbow/Forearm Strength Elbow and Forearm Manual Muscle Testing Left Flexion (C6) 5 Normal Extension (C7) 5 Normal Pronation 5 Normal Supination 5 Normal PT-OP-T Assessment and Plan Start: 06/07/18 14:36 Freq: Status: Active Protocol: Document 11/20/18 09:05 EA (Rec: 11/20/18 09:08 EA [id number]) Physical Therapy Assessment Assessment Summary Assessment Patient is discharge today. Patient is rehabilitated better upon discharge. I advised to seek professional certified athletic trainer if wishes to come back to the gym. Physical Therapy Plan Discharge Physical Therapy Discharge Reasons No Longer Attending PT
== END 2018-11-20 09:39 | disposition home or self-care (01) ==
LOC: PHYS 07:30
PROVIDERS: PCP Family Medicine; Visit Provider Orthopaedic Surgery
DX: S42.032A Displaced fracture of lateral end of left clavicle, initial encounter for closed fracture (principal)
CPT/HCPCS: 97010; 97014; 97110; 97140; 97161; 97535; G0283

== ENCOUNTER → 2018-12-13 10:42 | Outpatient (CLI) | payer OTHER, SELFPAY ==
[2017-10-29 17:19] VITALS: BMI 23.5
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
== END ==
PROVIDERS: Visit Provider Registered Nurse
DX: M54.2 Cervicalgia (principal); V89.2XXA Person injured in unspecified motor-vehicle accident, traffic, initial encounter
CPT/HCPCS: 72040; 72072

== ENCOUNTER → 2019-01-17 12:03 | Outpatient (CLI) | payer OTHER, SELFPAY ==
[2017-10-29 17:19] VITALS: BMI 23.5
--- NOTE | 2019-01-17 | DI.MG.S_ITS ---
BILATERAL DIGITAL SCREENING MAMMOGRAM 3D/2D WITH CAD: 01/17/2019 CLINICAL: Routine screening. Comparison is made to exams dated: 06/23/2017 mammogram, 03/12/2016 mammogram, and 03/07/2015 mammogram - [facility]. There are scattered fibroglandular elements in both breasts. Current study was also evaluated with a Computer Aided Detection (CAD) system. No significant masses, calcifications, or other findings are seen in either breast. There has been no significant interval change. IMPRESSION: NEGATIVE There is no mammographic evidence of malignancy. A 1 year screening mammogram is recommended. This exam was interpreted at Station ID: [id number]. NOTE: For mammograms, a report in lay terms will be sent to the patient. Approximately 15% of breast malignancies will not be visualized mammographically. In the management of a palpable breast mass, a negative mammogram must not discourage biopsy of a clinically suspicious lesion. Electronically Signed By: Kd falk/seth:01/17/2019 14:30:10 letter sent: Normal Exam ACR BI-RADS Category 1: Negative [id number]
== END ==
PROVIDERS: PCP Family Medicine; Visit Provider Family Medicine
DX: Z13.21 Encounter for screening for nutritional disorder (principal)
CPT/HCPCS: 77063; 77067

== ENCOUNTER → 2019-08-15 11:59 | Outpatient (CLI) | payer OTHER, SELFPAY ==
[2017-10-29 17:19] VITALS: BMI 23.5
--- NOTE | 2019-08-15 12:01 | DI.US.S_ITS ---
PROCEDURE: US PELVIC COMPLETE INDICATIONS: RLQ PAIN TECHNIQUE: Real-time scanning was performed of the pelvic organs, with image documentation. Additional endovaginal scanning was necessary due to incomplete visualization of the adnexal and endometrial structures by transabdominal scanning. COMPARISON: [facility], , PELVIC COMPLETE, 12/11/2009, 16:11. FINDINGS: Transabdominal scanning: Limited scanning through the kidneys shows no hydronephrosis. No pathologic free abdominal or pelvic fluid. Scanning over the right inguinal canal area revealed no evidence of herniation. Endovaginal scanning: Uterus: Uterus is normal in size at the 2.1 x 3.1 x 3.6 cm. The endometrium measures 1 mm in combined thickness. Ovaries: The right ovary measures 0.9 x 1.1 x 1.5 cm and the left measures 0.9 x 1.0 x 1.3 cm. IMPRESSION: No ovarian or uterine abnormality seen, no abnormal free fluid or evidence of peritoneal mass. No right inguinal hernia is suspected. Source and reported right lower quadrant pain is not seen. The patient reports prior appendectomy. Dictated by: Tyler Escoto M.D. on 08/15/2019 at 14:18 Approved by: Tyler Escoto M.D. on 08/15/2019 at 14:21
== END ==
PROVIDERS: PCP Family Medicine; Referring Provider Family Medicine; Visit Provider Family Medicine
DX: R10.31 Right lower quadrant pain (principal)
CPT/HCPCS: 76830; 76856

== ENCOUNTER → 2020-01-29 10:12 | Outpatient (CLI) | payer OTHER, SELFPAY ==
[2017-10-29 17:19] VITALS: BMI 23.5
--- NOTE | 2020-01-29 10:22 | DI.MG.S_ITS ---
Patient Name: HEMANT CALDERA date: 12/02/1939 Sex: F Attending Physician: Jasper Indications: Date: 01/29/2020 10:16 At the request of: VENU COLIN Procedure: MM screening mammo BI BILATERAL DIGITAL SCREENING MAMMOGRAM 3D/2D WITH CAD: 01/29/2020 CLINICAL: Routine screening. Comparison is made to exams dated: 02/27/2018 mammogram, 02/10/2017 mammogram, and 02/03/2016 mammogram - [facility]. The tissue of both breasts is heterogeneously dense. This may lower the sensitivity of mammography. Current study was also evaluated with a Computer Aided Detection (CAD) system. There are benign vascular calcifications in both breasts. No significant masses, calcifications, or other findings are seen in either breast. There has been no significant interval change. IMPRESSION: BENIGN There is no mammographic evidence of malignancy. A 1 year screening mammogram is recommended. This exam was interpreted at Station ID: [id number]. NOTE: For mammograms, a report in lay terms will be sent to the patient. Approximately 15% of breast malignancies will not be visualized mammographically. In the management of a palpable breast mass, a negative mammogram must not discourage biopsy of a clinically suspicious lesion. Electronically Signed By: Sheila santiago/seth:01/29/2020 10:38:05 letter sent: Normal Exam ACR BI-RADS Category 2: Benign Finding(s) 3342F
== END ==
PROVIDERS: PCP Family Medicine; Referring Provider Family Medicine; Visit Provider Family Medicine
DX: Z12.31 Encounter for screening mammogram for malignant neoplasm of breast (principal)
CPT/HCPCS: 77063; 77067

== ENCOUNTER → 2020-03-09 14:18 | Outpatient (CLI) | payer OTHER, SELFPAY ==
[2017-10-29 17:19] VITALS: BMI 23.5
--- NOTE | 2020-03-09 14:19 | DI.RAD.S_ITS ---
PROCEDURE: XR FOOT LT 2V INDICATIONS: pain around 5th toe TECHNIQUE: 2 views of the foot were acquired. COMPARISON: None. FINDINGS: Bones: In this patient with this given history, scrutiny is given to the 5th toe. There is apparent remote fracture seen involving the proximal phalanx of the 5th toe. No additional fractures or dislocations. No suspicious bony lesions. Age-appropriate bony degenerative changes are seen. Soft tissues: No tibiotalar joint effusion. Achilles tendon appears normal. IMPRESSION: Apparent remote fracture involving the proximal phalanx of the 5th toe. Please correlate with known patient history and focal tenderness. Dictated by: Chris Martínez M.D. on 03/09/2020 at 16:07 Approved by: Chris Martínez M.D. on 03/09/2020 at 16:08
== END ==
PROVIDERS: PCP Family Medicine; Referring Provider Family Medicine; Visit Provider Physician Assistant
DX: M79.675 Pain in left toe(s) (principal)
CPT/HCPCS: 73620

== ENCOUNTER → 2020-05-09 13:47 | Outpatient (CLI) | payer OTHER, SELFPAY ==
[2017-10-29 17:19] VITALS: BMI 23.5
== END ==
PROVIDERS: PCP Family Medicine; Referring Provider Family Medicine; Visit Provider Family Medicine
DX: M81.0 Age-related osteoporosis without current pathological fracture (principal); Z78.0 Asymptomatic menopausal state; K92.9 Disease of digestive system, unspecified; F17.200 Nicotine dependence, unspecified, uncomplicated; Z82.62 Family history of osteoporosis
CPT/HCPCS: 77080

== ENCOUNTER → 2020-08-28 14:07 | Outpatient (CLI) | payer OTHER, SELFPAY ==
[2017-10-29 17:19] VITALS: BMI 23.5
[2020-08-28] MEDS: COVID-19 VACC, Ad26(JANSSEN)/PF 0.5 ML IM (14:20)
== END ==
PROVIDERS: PCP Family Medicine; Visit Provider Internal Medicine
DX: Z23 Encounter for immunization (principal)
CPT/HCPCS: 0031A; 91303

== ENCOUNTER → 2020-09-15 14:02 | Outpatient (CLI) | payer OTHER, SELFPAY ==
[2017-10-29 17:19] VITALS: BMI 23.5
[2020-09-15 14:17] LABS: Bacteria Urine None Seen; RBC Urine None Seen (0-5/HPF); WBC Urine None Seen (0-5/HPF)
[2020-09-15 15:13] LABS: Add Manual Diff / Slide Review NO; Basophils Absolute Auto 100 /uL (0-100); Basophils Percent Auto 1.1 % (0-2); Eosinophils Absolute Auto 300 /uL (0-450); Eosinophils Percent Auto 4.3 % (2-4); Hematocrit 42.2 % (36-46); Hemoglobin 14.1 g/dL (12.0-16.0); Lymphocytes Absolute Auto 3600 /uL (1100-4500); Lymphocytes Percent Auto 46.9 % (25-40); Mean Corpuscular HGB Conc 33.5 % (30-36); Mean Corpuscular Hemoglobin 31.5 PG (26-34); Monocytes Absolute Auto 700 /uL (0-900); Monocytes Percent Auto 9.4 % (3-14); Neutrophils Absolute Auto 2900 /uL (1500-7000); Neutrophils Percent Auto 38.3 % (50-75); Platelet Count 308 X10^3/uL (150-400); Red Blood Cell Count 4.49 X10^6/uL (4.0-5.2); Red Cell Distribution Width 12.1 % (11.6-14.8); White Blood Cell Count 7.6 X10^3/uL (4.5-11.0)
[2020-09-15 15:44] LABS: Alanine Aminotransferase 45 IU/L (<35); Albumin 4.8 g/dL (3.5-5.0); Albumin Globulin Ratio 1.4 (1.0-2.8); Alkaline Phosphatase 77 U/L (38-126); Aspartate Aminotransferase 43 IU/L (14-36); BUN Creatinine Ratio 21.5 (6-22); Bilirubin Total 0.5 mg/dL (0.2-1.3); Blood Urea Nitrogen 14 mg/dL (7-17); Calcium 10.4 mg/dL (8.4-10.2); Carbon Dioxide 20 mmol/L (22-32); Chloride 106 mmol/L (98-107); Cholesterol 224 mg/dL (140-199); Estimated Glomerular Filt Rate > 60.0 mL/min (>60); Globulin 3.4 g/dL (1.7-4.1); Glucose 99 mg/dL (80-110); HDL Cholesterol 77 mg/dL (40-60); HEMOLYSIS < 15 (0-50); LDL Cholesterol Calculated 124 mg/dL (<100); Potassium 3.9 mmol/L (3.4-5.1); Sodium 138 mmol/L (137-145); Total Protein 8.2 g/dL (6.3-8.2); Triglycerides 116 mg/dL (35-150)
[2020-09-15 17:06] LABS: Appearance Urine UA CLEAR; Bilirubin Urine UA NEGATIVE (NEGATIVE); Color Urine UA YELLOW; Glucose Urine UA NEGATIVE (Negative); Ketones Urine UA NEGATIVE (NEGATIVE); Leukocyte Esterase Urine UA NEGATIVE (NEGATIVE); Nitrite Urine UA NEGATIVE (Negative); Occult Blood Urine UA NEGATIVE (Negative); Protein Urine UA NEGATIVE (Negative); Specific Gravity Urine UA <=1.005 (1.000-1.035); Urobilinogen Urine UA 0.2 E.U./dL (0.2)
[2020-09-15 17:07] LABS: pH Urine UA 5.5 (4.5-8.0)
[2020-09-15 17:17] LABS: Culture Indicated Urine Cult Not Indicated
[2020-09-16 14:04] LABS: SARS CoV19 IgG Negative (Negative)
== END ==
PROVIDERS: PCP Family Medicine; Referring Provider Nurse Practitioner Family; Visit Provider Registered Nurse
DX: Z00.00 Encounter for general adult medical examination without abnormal findings (principal); Z01.84 Encounter for antibody response examination; D64.9 Anemia, unspecified; E78.5 Hyperlipidemia, unspecified; Z82.49 Family history of ischemic heart disease and other diseases of the circulatory system; Z20.822 Contact with and (suspected) exposure to COVID-19
CPT/HCPCS: 36415; 80053; 80061; 81001; 85025; 86769

== ENCOUNTER → 2020-11-13 13:30 | Outpatient (CLI) | payer OTHER, SELFPAY ==
[2017-10-29 17:19] VITALS: BMI 23.5
--- NOTE | 2020-11-13 13:32 | DI.RAD.S_ITS ---
PROCEDURE: XR KNEE LT 3V INDICATIONS: knee pain, osteo, weight bearing TECHNIQUE: 3 views of the knee were acquired. COMPARISON: [facility], , KNEE 3V RIGHT, 12/24/2013, 12:04. FINDINGS: Bones: No fractures or dislocations. No suspicious bony lesions. Soft tissues: Small joint joint effusion. No suspicious soft tissue calcifications. IMPRESSION: Small joint effusion; otherwise no definite radiographic abnormality. If pain persists with conservative management, consider cross sectional imaging such as CT or MRI for further assessment. Dictated by: Tung Colbert [facility] Interpreted: Tyler Escoto MD on 11/13/2020 at 13:58 Transcribed by: ISAC on 11/13/2020 at 13:59 Approved by: Tyler Escoto M.D. on 11/14/2020 at 9:32
== END ==
PROVIDERS: PCP Family Medicine; Referring Provider Family Medicine; Visit Provider Family Medicine
DX: M25.562 Pain in left knee (principal); M25.462 Effusion, left knee
CPT/HCPCS: 73562

== ENCOUNTER → 2020-12-06 14:04 | Outpatient (CLI) | payer OTHER, SELFPAY ==
[2017-10-29 17:19] VITALS: BMI 23.5
[2020-12-06 14:32] LABS: COVID19 -Nasal RAPID Negative (Negative)
== END ==
PROVIDERS: PCP Family Medicine; Visit Provider Physician Assistant
DX: Z20.822 Contact with and (suspected) exposure to COVID-19 (principal); J31.2 Chronic pharyngitis
CPT/HCPCS: 87070; 87635

== ENCOUNTER → 2021-01-20 11:26 | Outpatient (CLI) | payer OTHER, SELFPAY ==
[2017-10-29 17:19] VITALS: BMI 23.5
[2021-01-20 13:31] LABS: Alanine Aminotransferase 28 IU/L (<35); Albumin Globulin Ratio 1.7 (1.0-2.8); Alkaline Phosphatase 60 U/L (38-126); Aspartate Aminotransferase 32 IU/L (14-36); BUN Creatinine Ratio 25.4 (6-22); Bilirubin Total 0.4 mg/dL (0.2-1.3); Blood Urea Nitrogen 16 mg/dL (7-17); Calcium 10.2 mg/dL (8.4-10.2); Carbon Dioxide 25 mmol/L (22-32); Chloride 106 mmol/L (98-107); Cholesterol 201 mg/dL (140-199); Estimated Glomerular Filt Rate > 60.0 mL/min (>60); Glucose 94 mg/dL (80-110); HDL Cholesterol 57 mg/dL (40-60); HEMOLYSIS < 15 (0-50); LDL Cholesterol Calculated 122 mg/dL (<100); Potassium 4.2 mmol/L (3.4-5.1); Sodium 139 mmol/L (137-145); Triglycerides 111 mg/dL (35-150)
[2021-01-20 15:50] LABS: Vitamin D 25 Hydroxy (D3) 66.1 ng/mL (30.0-100.0)
== END ==
PROVIDERS: PCP Family Medicine; Referring Provider Family Medicine; Visit Provider Family Medicine
DX: E83.52 Hypercalcemia (principal); M81.8 Other osteoporosis without current pathological fracture; E78.5 Hyperlipidemia, unspecified; M85.80 Other specified disorders of bone density and structure, unspecified site; Z78.0 Asymptomatic menopausal state
CPT/HCPCS: 36415; 80053; 80061; 82306

== ENCOUNTER → 2021-02-12 17:00 | Outpatient (CLI) | payer MEDICARE, OTHER, SELFPAY ==
[2017-10-29 17:19] VITALS: BMI 23.5
--- NOTE | 2021-02-12 | DI.MG.S_ITS ---
BILATERAL DIGITAL SCREENING MAMMOGRAM 3D/2D WITH CAD: 02/12/2021 CLINICAL: Routine screening. Comparison is made to exams dated: 01/29/2020 mammogram, 01/17/2019 mammogram, and 06/23/2017 mammogram - [facility]. The tissue of both breasts is predominantly fatty. Current study was also evaluated with a Computer Aided Detection (CAD) system. There is a benign calcification in the right breast. No significant masses, calcifications, or other findings are seen in either breast. There has been no significant interval change. IMPRESSION: BENIGN There is no mammographic evidence of malignancy. A 1 year screening mammogram is recommended. This exam was interpreted at Station ID: [id number]. NOTE: For mammograms, a report in lay terms will be sent to the patient. Approximately 15% of breast malignancies will not be visualized mammographically. In the management of a palpable breast mass, a negative mammogram must not discourage biopsy of a clinically suspicious lesion. Electronically Signed By: Tarsha mares/seth:02/13/2021 08:40:58 letter sent: Normal Exam ACR BI-RADS Category 2: Benign Finding(s) [id number]
[2021-02-12 10:51] VITALS: BMI 23.5
== END ==
PROVIDERS: PCP Family Medicine; Referring Provider Family Medicine; Visit Provider Family Medicine
DX: Z12.31 Encounter for screening mammogram for malignant neoplasm of breast (principal)
CPT/HCPCS: 77063; 77067

== ENCOUNTER → 2021-04-04 08:01 | Outpatient (CLI) | payer MEDICARE, OTHER, SELFPAY ==
[2021-02-12 10:51] VITALS: BMI 23.5
[2021-04-04 09:07] LABS: Cholesterol 206 mg/dL (140-199); HDL Cholesterol 61 mg/dL (40-60); LDL Cholesterol Calculated 124 mg/dL (<100); Triglycerides 107 mg/dL (35-150)
== END ==
PROVIDERS: PCP Family Medicine; Referring Provider Family Medicine; Visit Provider Family Medicine
DX: E78.5 Hyperlipidemia, unspecified (principal)
CPT/HCPCS: 36415; 80061

== ENCOUNTER → 2021-06-08 12:33 | Outpatient (CLI) | payer MEDICARE, OTHER, SELFPAY ==
[2021-02-12 10:51] VITALS: BMI 23.5
[2021-06-08 16:46] LABS: COVID19 -Nasal RAPID Negative (Negative)
== END ==
PROVIDERS: PCP Family Medicine; Visit Provider Nurse Practitioner Family
DX: Z20.822 Contact with and (suspected) exposure to COVID-19 (principal); R53.83 Other fatigue
CPT/HCPCS: 87635

== ENCOUNTER 2021-06-16 10:57 | Observation (INO) | payer MEDICARE, OTHER, SELFPAY ==
[2021-02-12 10:51] VITALS: BMI 23.5
[2021-06-16] VITALS (20 sets, daily range): BP systolic 120–189; BP diastolic 61–93; PULSE 69–79; RESP 14–23; TEMP 36.3–36.6; O2SAT 94–100; BMI 22.6
--- NOTE | 2021-06-16 11:06 | DI.RAD.S_ITS ---
PROCEDURE: XR CHEST 1V INDICATIONS: Possible stroke TECHNIQUE: One view of the chest was acquired. COMPARISON: [facility], CR, XR CHEST 1V, 10/30/2017, 12:27. FINDINGS: Surgical changes and devices: None. Lungs and pleura: Lungs are clear. No pleural effusions or pneumothorax. Mediastinum: Mediastinal contours appear normal. Heart size is normal. Bones and chest wall: No suspicious bony lesions. Overlying soft tissues appear unremarkable. IMPRESSION: No acute cardiopulmonary disease. Dictated by: Charley Medrano M.D. on 06/16/2021 at 11:26 Approved by: Charley Medrano M.D. on 06/16/2021 at 11:27
--- NOTE | 2021-06-16 11:06 | DI.CT.S_ITS ---
PROCEDURE: CT STROKE INDICATIONS: left side numb TECHNIQUE: Noncontrast 4.5 mm thick angled axial sections acquired from the foramen magnum to the vertex, with coronal reformats. For radiation dose reduction, the following was used: automated exposure control, adjustment of mA and/or kV according to patient size. COMPARISON: None. FINDINGS: Image quality: Excellent. CSF spaces: Basal cisterns are patent. No extra-axial fluid collections. The ventricles are symmetric in size and shape. Brain: Small hypodensity in the right frontal lobe suspicious for subacute infarct. No intracranial bleeds or masses. There is cerebral volume loss for age, with resultant ventricular and sulcal prominence. There are periventricular and deep white matter chronic small vessel ischemic changes. There is intracranial internal carotid artery atherosclerosis. Skull and face: Calvarium and visualized facial bones appear intact, without suspicious lesions. Sinuses: Visualized sinuses and mastoids are clear. IMPRESSION: 1. Small hypodensity in the right frontal lobe suspicious for subacute infarct. 2. No intracranial bleed. The result was discussed with Dr. Aguilar. This study fulfills neurological imaging criteria for inclusion or exclusion of acute stroke therapies based on available published neurological guidelines. Dictated by: Charley Medrano M.D. on 06/16/2021 at 11:23 Approved by: Charley Medrano M.D. on 06/16/2021 at 11:26
--- NOTE | 2021-06-16 11:38 | DI.MRI.S_ITS ---
PROCEDURE: MR STROKE Pre- and post-contrast brain MRI, non-contrast brain MR angiogram, pre- and postcontrast neck MR angiogram INDICATIONS: Left-sided numbness. probable stroke 24 hours TECHNIQUE: Brain: Noncontrast axial T1 spin echo, axial T2 fast spin echo, sagittal and axial FLAIR, coronal T2 fast spin echo, axial gradient echo, axial diffusion and ADC through the brain. After the administration of contrast, axial 3D VIBE of the cranial vasculature and brain. Brain MRA: Non-contrast 3-D time of flight MR angiogram, with multiple bjkcaqw-pmsrhtkjk-nfqekqajwc (MIP) reformats performed. Neck MRA: Axial and sagittal TruFISP through the neck. Coronal dynamic MR angiogram during administration of contrast in the arterial and venous phases, with 3-dimenstional dvipftu-ujuvsotlf-sbahmyhyfb (MIP) reformats constructed from subtraction images. COMPARISON: [facility], CT, CT STROKE, 06/16/2021, 11:16. FINDINGS: Image quality: Excellent. BRAIN: CSF spaces: The ventricles are normal in size. Basal cisterns are patent. No extra-axial fluid collections. Brain: Diffusion weighted images demonstrate no acute infarcts. No intracranial hemorrhage, mass, or mass effect. There are subcortical and periventricular foci of white matter T2 hyperintensity consistent with mild to moderate chronic small vessel ischemic changes. Brainstem appears normal. Normal intravascular flow voids are present. No abnormal intracranial enhancement. Skull and face: Calvarial marrow signal is normal. Orbits appear normal. Sinuses: There is mild mucosal thickening within the ethmoid sinuses. Mastoid air cells are clear. BRAIN MR ANGIOGRAM: Anterior circulation: Intracranial internal carotid arteries are normal in size and patent bilaterally. The flow within the paired anterior cerebral arteries is symmetric and patent bilaterally. The flow within the middle cerebral arteries is symmetric and patent bilaterally. The anterior communicating artery is patent. No high-grade stenoses, occlusions, or aneurysms. Posterior circulation: The visualized portions of the vertebral arteries are patent and join to form a patent basilar artery. The flow within the posterior cerebral arteries is symmetric and patent bilaterally. No high-grade stenoses, occlusions, or aneurysms. NECK MR ANGIOGRAM: Carotids: Great vessels demonstrate conventional anatomy as they arise from the aortic arch. The origins of the common carotid arteries appear patent. The calibers and courses of both common carotid arteries are normal. The carotid bulbs appear widely patent. The internal carotid arteries demonstrate normal course and caliber. Posterior circulation: The origins of the vertebral arteries appear patent. More superior portions of both vertebral arteries demonstrate normal course and caliber, and join to form a normal appearing basilar artery. Miscellaneous: Subclavian arteries appear patent. Pre-contrast images through the neck demonstrate no soft tissue abnormalities. The IMPRESSION: BRAIN MRI: 1. No evidence of acute or subacute infarct. 2. Mild to moderate chronic white matter small vessel ischemic changes. BRAIN MR ANGIOGRAM: 1. No high-grade stenosis or occlusion of the central intracranial arteries. NECK MR ANGIOGRAM: 1. No high-grade stenosis or occlusion of the head and neck arteries. The carotid bulbs are widely patent. Dictated by: Kd Lennon M.D. on 06/16/2021 at 13:48 Approved by: Kd Lennon M.D. on 06/16/2021 at 13:49
--- NOTE | 2021-06-16 11:39 | ED.NEUROSD ---
HPI - Neuro Symptoms/Deficit General Chief Complaint: Neuro Symptoms/Deficit Stated Complaint: numbness/spasms on left side of body Time Seen by Provider: 06/16/21 11:32 Source: patient Mode of arrival: Ambulatory History of Present Illness HPI Narrative: Patient is a 66-year-old female history of hyperlipidemia, presenting today with left arm numbness. She is unclear of when it started but sometime yesterday possibly yesterday afternoon. This morning she woke up and says it continues to feel this way she has no weakness. Her leg has decreased sensation as well but she has no difficulty walking. No difficulty speaking no facial droop. No prior history of TIA stroke or coronary artery disease. She is noted to be quite hypertensive in the emergency department. On Anticoagulants: No Related Data Home Medications Medication Instructions Recorded Confirmed fluticasone propionate 50 1 spray INTRANASAL QDAY #0 05/14/16 06/16/21 mcg/actuation nasal spray,suspension (Flonase Allergy Relief) calcium carbonate 600 mg-vitamin 2 cap PO DAILY 06/16/21 06/16/21 D3 25 mcg (1,000 unit) capsule plant stanol maria ines 450 mg tablet 1 mg PO DAILY 06/16/21 06/16/21 (Cholest Off) Allergies Allergy/AdvReac Type Severity Reaction Status Date / Time influenza virus vaccine, Allergy Severe PASSED OUT Verified 04/06/21 09:35 specific [influenza virus vacc,specific] dog dander [DOG DANDER] Allergy Unknown Verified 04/06/21 09:35 Review of Systems Review of Systems Narrative: GENERAL: Denies chills, fatigue, malaise, fever, sweats, travel HEENT: Denies sinus pain, ear pain, sore throat, difficulty swallowing, neck pain RESPIRATORY: Denies dyspnea, cough, wheezing, hemoptysis, sputum. CARDIOVASCULAR: Denies chest pain, palpitations, orthopnea, edema GASTROINTESTINAL: Denies nausea, vomiting, abdominal pain, diarrhea, constipation, melena. : Denies dysuria, frequency, incontinence, hematuria, urinary retention, flank pain. MUSCULOSKELETAL: Denies weakness, joint pain, or bony pain SKIN: No rash, no erythema, no pruritus NEUROLOGIC: See HPI PSYCHIATRIC: No concerning psychosocial issues. 12 point review of systems is negative except for those stated above and HPI Hematologic/Lymphatic On Anticoagulants: No Patient History Medical History Acute appendicitis Anal pruritus Chronic back pain (2010) Dry eye Fracture of fifth toe, left, closed Gastric ulcer (1989) GERD (gastroesophageal reflux disease) (~1989) Hemorrhoids (2005) Hiatal hernia History of head injury Hx of spinal cord injury Hyperlipidemia Knee pain (10/2013) Normal Papanicolaou smear Osteoporosis (06/07/14) Paresthesia of left upper extremity Peptic ulcer disease Rosacea Seasonal allergies (~1989) Tibia/fibula fracture (1988) Tobacco use disorder (04/22/14) Surgical History Anesthesia complication H/O local excision of skin lesion (10/2013) History of esophagogastroduodenoscopy (EGD) (12/03/16) History of orthopedic surgery (1990) History of surgery (1981) History of tonsillectomy (1972) Status post hemorrhoidectomy (2005) Status post LASIK surgery (2000) Family History Brother Age: 66 Hypertension Father Diabetes mellitus Heart disease Hypertension High cholesterol Mother Heart disease Stroke Renal failure Social History household members: none Smoking Status: Current every day smoker quit status: quit date established alcohol intake: current Smoking Status: Current every day smoker alcohol intake frequency: holidays/special occasions only Substance Use Type: does not use Exam Initial Vital Signs Initial Vital Signs: Vital Signs Temperature 97.4 F L 06/16/21 11:00 Pulse Rate 79 06/16/21 11:00 Respiratory Rate 18 06/16/21 11:00 Blood Pressure 180/93 H 06/16/21 11:00 Pulse Oximetry 99 06/16/21 11:00 GENERAL: Alert pleasant 66-year-old female and in no acute distress. HEENT: Head atraumatic,EOMI, pupils reactive, face symmetric, moist mucous membranes CARDIOVASCULAR: Regular rate and rhythm without murmurs, rubs or gallops. RESPIRATORY: Breath sounds equal bilaterally, no wheezes rales or rhonchi. ABDOMEN: Soft, nontender. Normoactive bowel sounds all 4 quadrants. No guarding or rebound. EXTREMITIES: Normal range of motion, no clubbing or edema. Neurovascularly intact NEUROLOGICAL: Alert and oriented x4.Normal gait and speech. Cranial nerves II through XII grossly intact. Good [id number], good uasm-ta-vtob, strength equal bilaterally, no dysarthria or aphasia, decreased sensation to left both arm and leg no visual changes, mild left facial droop SKIN: Warm, dry, no laceration, no petechiae, no rashes or lesions. Scores NIH Stroke Scale Level of Conciousness: Alert, keenly responsive Ask month/age: Answers both questions correctly. Open/close eyes, close hand: Performs both tasks correctly Best gaze horizontal: Normal Visual tavarez: No visual loss Facial palsy: Minor paralysis, flattened nasolabial fold, asymmetry on smiling Left arm drift: No drift for full 10 sec Right arm drift: No drift for full 10 sec Left leg drift: No drift for full 5 sec Right leg drift: No drift for full 5 sec Limb ataxia: Absent Sensory on face/arms/legs: Mild to moderate sensory loss, can tell touch Best language: No aphasia, normal Dysarthria: Normal Extinction or inattention: No abnormality Total NIH Stroke scale score: 2 Course Orders Ordered: ED Orders 06/16/21 11:06 CT Stroke Stat XR chest 1V Stat EKG-12 Lead Stat 06/16/21 11:38 MR stroke Stat 06/16/21 11:40 COVID19 - ADMIT (PHYSICIAN GENERAL [facility]NAL MEDICINE swab/PCR) Stat 06/16/21 12:03 Complete Blood Count AUTO DIFF Stat Comprehensive Metabolic Panel Stat Troponin & CK Cardiac Panel Stat 06/16/21 12:53 Urine Drug Screen, Rapid Stat Acetaminophen (Acetaminophen 325 Mg Tablet) 650 mg PO Q6HR PRN PRN Reason: Fever/Mild Pain (1-3) Aspirin (Aspirin Ec 81 Mg Tablet) 81 mg PO DAILY SHAYNE Atorvastatin Calcium (Atorvastatin 20 Mg Tablet) 80 mg PO BEDTIME SHAYNE Enoxaparin Sodium (Enoxaparin 40 Mg/0.4 Ml Syringe) 40 mg SUBCUT DAILY SHAYNE Fluticasone Propionate (Fluticasone 120 [place]/16 Gm [place].Susp) 1 spray NASAL DAILY SHAYNE Ondansetron HCl (Ondansetron 4 Mg/2 Ml Inj) 4 mg IV Q8HR PRN PRN Reason: Nausea And Vomiting Discontinued Medications Aspirin (Aspirin 81 Mg Chew Tab) 324 mg PO NOW ONE Stop: 06/16/21 11:38 Last Admin: 06/16/21 11:59 Dose: 324 mg Documented by: LULÚ Lorazepam (Lorazepam 2 Mg/Ml Inj) 0.5 mg IV NOW ONE Stop: 06/16/21 12:32 Last Admin: 06/16/21 12:34 Dose: 0.5 mg Documented by: LULÚ Vital Signs Vital signs: Vital Signs - 8 hr 06/16/21 12:08 06/16/21 12:24 06/16/21 12:30 Pulse Rate 74 71 75 Respiratory Rate 22 Blood Pressure 189/76 H 179/79 H Pulse Oximetry 94 100 100 06/16/21 12:40 06/16/21 13:29 06/16/21 13:30 Pulse Rate 74 70 Respiratory Rate 23 23 Blood Pressure 162/82 H 154/73 H Pulse Oximetry 100 06/16/21 14:00 06/16/21 14:01 Pulse Rate 74 72 Respiratory Rate 20 Blood Pressure 126/86 Pulse Oximetry 98 MDM - Neuro Symptoms/Deficit Lab Data Result diagrams: 06/16/21 12:03 06/16/21 12:03 Labs: Lab Results 06/16/21 06/16/21 06/16/21 Range/Units 11:40 12:03 12:03 WBC 7.0 (4.5-11.0) X10^3/uL RBC 4.70 (4.0-5.2) X10^6/uL Hgb 14.5 (12.0-16.0) g/dL Hct 42.5 (36-46) % MCV 90.3 (80-100) fL MCH 30.8 (26-34) PG MCHC 34.1 (30-36) % RDW 12.2 (11.6-14.8) % Plt Count 340 (150-400) X10^3/uL Neut % (Auto) 49.3 L (50-75) % Lymph % (Auto) 40.6 H (25-40) % [place] % (Auto) 6.8 (3-14) % Eos % (Auto) 2.5 (2-4) % Baso % (Auto) 0.8 (0-2) % Neut # (Auto) 3500 (9990-0411) /uL Lymph # (Auto) 2900 (0060-7177) /uL [place] # (Auto) 500 (0-900) /uL Eos # (Auto) 200 (0-450) /uL Baso # (Auto) 100 (0-100) /uL Sodium 143 (137-145) mmol/L Potassium 4.3 (3.4-5.1) mmol/L Chloride 106 (98-107) mmol/L Carbon Dioxide 27 (22-32) mmol/L BUN 14 (7-17) mg/dL Creatinine 0.66 (0.52-1.04) mg/dL Estimated GFR > 60.0 (>60) mL/min BUN/Creatinine Ratio 21.2 (6-22) Glucose 98 (80-110) mg/dL Calcium 10.8 H (8.4-10.2) mg/dL Total Bilirubin 0.5 (0.2-1.3) mg/dL AST 31 (14-36) IU/L ALT 23 (<35) IU/L Alkaline Phosphatase 79 (38-126) U/L Total Creatine Kinase 74 (30-135) U/L CK-MB (CK-2) TNP CK-MB (CK-2) Rel Index TNP Troponin I < 0.012 (0.01-0.034) ng/mL Total Protein 9.4 H (6.3-8.2) g/dL Albumin 5.4 H (3.5-5.0) g/dL Globulin 4.0 (1.7-4.1) g/dL Albumin/Globulin Ratio 1.4 (1.0-2.8) U Opiates 300ng/mL cut (Negative) Ur Oxycodone Screen (Negative) Urine Methadone Screen (Negative) Ur Barbiturates Screen (Negative) U Tricyclic Antidepress (Negative) Ur Phencyclidine Scrn (Negative) Ur Amphetamines Screen (Negative) U Methamphetamines Scrn (Negative) Ur MDMA Scrn (Ecstasy) (Negative) U Benzodiazepines Scrn (Negative) Urine Cocaine Screen (Negative) U Marijuana (THC) Screen (Negative) SARS-CoV-2 (PCR) Negative (Negative) 06/16/21 Range/Units 12:53 WBC (4.5-11.0) X10^3/uL RBC (4.0-5.2) X10^6/uL Hgb (12.0-16.0) g/dL Hct (36-46) % MCV (80-100) fL MCH (26-34) PG MCHC (30-36) % RDW (11.6-14.8) % Plt Count (150-400) X10^3/uL Neut % (Auto) (50-75) % Lymph % (Auto) (25-40) % [place] % (Auto) (3-14) % Eos % (Auto) (2-4) % Baso % (Auto) (0-2) % Neut # (Auto) (4277-5068) /uL Lymph # (Auto) (9732-8181) /uL [place] # (Auto) (0-900) /uL Eos # (Auto) (0-450) /uL Baso # (Auto) (0-100) /uL Sodium (137-145) mmol/L Potassium (3.4-5.1) mmol/L Chloride (98-107) mmol/L Carbon Dioxide (22-32) mmol/L BUN (7-17) mg/dL Creatinine (0.52-1.04) mg/dL Estimated GFR (>60) mL/min BUN/Creatinine Ratio (6-22) Glucose (80-110) mg/dL Calcium (8.4-10.2) mg/dL Total Bilirubin (0.2-1.3) mg/dL AST (14-36) IU/L ALT (<35) IU/L Alkaline Phosphatase (38-126) U/L Total Creatine Kinase (30-135) U/L CK-MB (CK-2) CK-MB (CK-2) Rel Index Troponin I (0.01-0.034) ng/mL Total Protein (6.3-8.2) g/dL Albumin (3.5-5.0) g/dL Globulin (1.7-4.1) g/dL Albumin/Globulin Ratio (1.0-2.8) U Opiates 300ng/mL cut Negative (Negative) Ur Oxycodone Screen Negative (Negative) Urine Methadone Screen Negative (Negative) Ur Barbiturates Screen Negative (Negative) U Tricyclic Antidepress Negative (Negative) Ur Phencyclidine Scrn Negative (Negative) Ur Amphetamines Screen Negative (Negative) U Methamphetamines Scrn Negative (Negative) Ur MDMA Scrn (Ecstasy) Negative (Negative) U Benzodiazepines Scrn Negative (Negative) Urine Cocaine Screen Negative (Negative) U Marijuana (THC) Screen Negative (Negative) SARS-CoV-2 (PCR) (Negative) Urine Dip Bedside Urine Glucose Negative Bedside Urine Bilirubin - Negative Bedside Urine Ketone - Negative Urine Specific [place] 1.010 Bedside Urine Occult Blood - Negative Bedside Urine pH 6.0 Bedside Urine Protein - Negative Bedside Urine Urobilinogen - Negative Bedside Urine Nitrite - Negative Bedside Urine Leukocytes - Negative Esterase Imaging Data CT scan - head: Radiologist's Impression: PROCEDURE:? CT STROKE ? INDICATIONS:? left side numb ? TECHNIQUE:? Noncontrast 4.5 mm thick angled axial sections acquired from the foramen magnum to the vertex, with coronal reformats.? For radiation dose reduction, the following was used:? automated exposure control, adjustment of mA and/or kV according to patient size.? ? COMPARISON:? None. ? FINDINGS:? Image quality:? Excellent.? ? CSF spaces:? Basal cisterns are patent.? No extra-axial fluid collections.? The ventricles are symmetric in size and shape.? ? Brain:? Small hypodensity in the right frontal lobe suspicious for subacute infarct.? No intracranial bleeds or masses.? There is cerebral volume loss for age, with resultant ventricular and sulcal prominence.? There are periventricular and deep white matter chronic small vessel ischemic changes.? There is intracranial internal carotid artery atherosclerosis.? ? Skull and face:? Calvarium and visualized facial bones appear intact, without suspicious lesions.? ? Sinuses:? Visualized sinuses and mastoids are clear.? ? IMPRESSION:? ? 1. Small hypodensity in the right frontal lobe suspicious for subacute infarct. 2. No intracranial bleed. ? The result was discussed with Dr. Aguilar.? ? This study fulfills neurological imaging criteria for inclusion or exclusion of acute stroke therapies based on available published neurological guidelines.? ? ? Dictated by: Charley Medrano M.D. on 06/16/2021 at 11:23 ?? ECG Data Interpretation: Normal sinus rhythm rate [address] changes no T-wave inversions p.r. interval 134 QRS 86 QTC 428 no ischemic change MDM Narrative Medical decision making narrative: Patient does not have large vessel occlusion signs. But she does have some abnormal feeling sensation on both left arm and left leg. She has had symptoms unknown amount of time currently greater than 3 hours and was not a tPA candidate. Noncontrast CT showed probable subacute stroke. She is also noted to be quite hypertensive in the emergency department without history of hypertension Discharge Plan Departure Patient Disposition: Admitted As Inpatient Clinical Impression: CVA (cerebral vascular accident) Admit Date/Time: 06/16/21 14:13 Admit Provider: Danilo Patino
[2021-06-16] MEDS: ASPIRIN 81 MG CHEW TAB 324 MG PO (11:59)
[2021-06-16 12:17] LABS: Add Manual Diff / Slide Review NO; Basophils Absolute Auto 100 /uL (0-100); Basophils Percent Auto 0.8 % (0-2); Eosinophils Absolute Auto 200 /uL (0-450); Eosinophils Percent Auto 2.5 % (2-4); Hematocrit 42.5 % (36-46); Hemoglobin 14.5 g/dL (12.0-16.0); Lymphocytes Absolute Auto 2900 /uL (1100-4500); Lymphocytes Percent Auto 40.6 % (25-40); Mean Corpuscular HGB Conc 34.1 % (30-36); Mean Corpuscular Hemoglobin 30.8 PG (26-34); Mean Corpuscular Volume 90.3 fL (80-100); Monocytes Absolute Auto 500 /uL (0-900); Monocytes Percent Auto 6.8 % (3-14); Neutrophils Absolute Auto 3500 /uL (1500-7000); Neutrophils Percent Auto 49.3 % (50-75); Platelet Count 340 X10^3/uL (150-400); Red Cell Distribution Width 12.2 % (11.6-14.8)
[2021-06-16 12:29] LABS: Alanine Aminotransferase 23 IU/L (<35); Albumin 5.4 g/dL (3.5-5.0); Albumin Globulin Ratio 1.4 (1.0-2.8); Alkaline Phosphatase 79 U/L (38-126); Aspartate Aminotransferase 31 IU/L (14-36); BUN Creatinine Ratio 21.2 (6-22); Bilirubin Total 0.5 mg/dL (0.2-1.3); Blood Urea Nitrogen 14 mg/dL (7-17); Calcium 10.8 mg/dL (8.4-10.2); Carbon Dioxide 27 mmol/L (22-32); Chloride 106 mmol/L (98-107); Creatine Kinase 74 U/L (30-135); Estimated Glomerular Filt Rate > 60.0 mL/min (>60); Glucose 98 mg/dL (80-110); HEMOLYSIS < 15 (0-50); Potassium 4.3 mmol/L (3.4-5.1); Sodium 143 mmol/L (137-145); Total Protein 9.4 g/dL (6.3-8.2)
[2021-06-16] MEDS: LORazepam 2 MG/ML INJ 0.5 MG IV (12:34)
[2021-06-16 12:38] LABS: COVID19 - ADMIT (NP swab/PCR) Negative (Negative)
[2021-06-16 12:40] LABS: Troponin I < 0.012 ng/mL (0.01-0.034)
[2021-06-16 13:08] LABS: UR Morphine/Opiate cutoff 300 Negative (Negative); Ur Creatinine Normal (Normal); Ur Specific Gravity Normal (Normal); Urine Amphetamines Negative (Negative); Urine Barbiturates Negative (Negative); Urine Benzodiazepines Negative (Negative); Urine Cocaine Negative (Negative); Urine MDMA Negative (Negative); Urine Methadone Negative (Negative); Urine Methamphetamines Negative (Negative); Urine Oxycodone Negative (Negative); Urine Phencyclidine Negative (Negative); Urine Tetrahydrocannabinol Negative (Negative); Urine Tricyclic Antidepressant Negative (Negative); Urine pH Normal (Normal)
--- NOTE | 2021-06-16 14:28 | DI.CT.S_ITS ---
PROCEDURE: CT CERVICAL SPINE WO CON INDICATIONS: radiculopathy in left arm TECHNIQUE: Noncontrast 3 mm thick sections acquired from the skull base to the T4 level. Sagittal and coronal reformats were then constructed. For radiation dose reduction, the following was used: automated exposure control, adjustment of mA and/or kV according to patient size. COMPARISON: [facility], CT, CT CERVICAL SPINE WO CON, 03/27/2018, 19:18. FINDINGS: Image quality: Excellent. Bones: No fractures or dislocations. Mild kyphosis at C5-C6. Degenerative disc disease, moderate at C5-C6 and C6-C7, mild at C3-C4 and C4-C5. Bilateral facet arthropathy most pronounced at C4-C5 and C5-C6 on the left. Visualized superior ribs are intact. Soft tissues: Prevertebral soft tissues are normal in thickness. No paravertebral hematomas. No apical pneumothoraces. IMPRESSION: 1. No acute abnormalities in cervical spine. 2. Moderate degenerative disc and facet disease in cervical spine. Dictated by: Charley Medrano M.D. on 06/16/2021 at 14:56 Approved by: Charley Medrano M.D. on 06/16/2021 at 14:59
--- NOTE | 2021-06-16 14:30 | DI.ECHO.S_ITS ---
[facility] +---------+ : : [address] : : : : [place] : : : : [id number] : : : : Phone: [phone] Echocardiogram Report + + :Name: NARA GAITAN Study Date: 06/17/2021 Height: 61 in : :[facility] ReadingLocation: Weight: 120 lb : : Gender: Female BSA: 1.5 m2 : :: 1955 Age: 66 yrs BP: 132/65 mmHg: :Reason For Study: TIA VS CVA : :Ordering Physician: MENDOZA, : :MYRNA Performed By: Charlene Dhillon : :Referring: MYRNA RAPHAEL : + + Interpretation Summary The patient was in sinus bradycardia with heart rates between 52-62 bpm during the exam. Injection of contrast documented an interatrial shunt. Consider MIKAYLA to assess interatrial shunt. Mild atherosclerotic plaque(s) in the aortic arch. The left ventricle is normal in size. The ejection fraction is estimated to be 60-65%. There is no obvious LV thrombus. The right ventricle is normal in size and function. There is mild tricuspid regurgitation. The right ventricular systolic pressure is estimated to be at least 24 mmHg based on an estimated right atrial pressure of 3 mm Hg. The IVC is of normal diameter and collapses greater than 50% with a sniff. This suggests a low right atrial pressure of 3 mm Hg. Procedure: A two-dimensional transthoracic echocardiogram with color flow and Doppler was performed. The study quality was technically good. There is no prior echocardiogram noted for this patient. A saline contrast injection was performed to assess for cardiac shunting. The patient was in sinus bradycardia with heart rates between 52-62 bpm during the exam. Left Ventricle: The left ventricle is normal in size. Proximal septal thickening is noted. There is no echo evidence for significant left ventricular outflow tract obstruction. There is no thrombus. The ejection fraction is estimated to be 60-65%. There are no focal wall motion abnormalities. Diastolic parameters suggest probable normal left ventricular diastolic function and normal filling pressures. Right Ventricle: The right ventricle is normal in size and function. Atria: The left atrial size is normal. Right atrial size is normal. Injection of contrast documented an interatrial shunt. Mitral Valve: The mitral valve is normal in structure and function. There is trace mitral regurgitation. Aortic Valve: The aortic valve is trileaflet. The aortic valve opens well. There is no aortic valve stenosis. No aortic regurgitation is present. Tricuspid Valve: The tricuspid valve is normal. There is mild tricuspid regurgitation. The right ventricular systolic pressure is estimated to be at least 24 mmHg based on an estimated right atrial pressure of 3 mm Hg. Pulmonic Valve: The pulmonic valve is not well seen, but is grossly normal. There is no pulmonic valvular regurgitation. Great Vessels: The aortic root is normal size. The dimensions of the ascending aorta are normal. Mild atherosclerotic plaque(s) in the aortic arch. There is mild luminal irregularity and echogenicity in the abdominal aorta, suggestive of aortic atherosclerotic disease. The IVC is of normal diameter and collapses greater than 50% with a sniff. This suggests a low right atrial pressure of 3 mm Hg. Pericardium/ Pleura There is no pericardial effusion. There is no pleural effusion. MMode/2D Measurements & Calculations LVIDd: 3.8 cm LVOT diam: 1.9 cm LVIDs: 2.7 cm Ao root diam: 2.7 cm FS: 29.8 % asc Aorta Diam: 2.9 cm IVSd: 0.85 cm Ao Arch Diam (Prox Trans): 2.8 cm LVPWd: 0.61 cm LV clark. diameter/BSA (cm/m^2): 2.5 LV sys. diameter/BSA (cm/m^2): 1.8 LA A2 area: 18.3 cm2 RA long axis: 4.2 cm LA A4 area: 14.8 cm2 RA area: 11.2 cm2 LA length (vol): 4.7 cm RA vol: 25.8 ml LA vol: 48.6 ml RA : 17.0 ml/m2 LA vol index: 31.9 ml/m2 IVC diam: 1.2 cm RVD1 (basal): 3.0 cm RVD2 (mid): 2.6 cm TAPSE: 1.8 cm Doppler Measurements & Calculations Ao V2 max: 135.4 cm/sec LVOT Max Ruslan: 112.6 cm/sec Ao V2 mean: 88.6 cm/sec LV V1 max P.1 mmHg Ao max P.3 mmHg LV V1 VTI: 23.4 cm Ao mean P.6 mmHg LEFTY(I,D): 2.1 cm2 Ao V2 VTI: 33.4 cm LEFTY(V,D): 2.4 cm2 sev ratio: 0.70 LEFTY indexed to BSA (cm^2/m^2): 1.4 MV E max ruslan: 92.5 cm/sec TR max ruslan: 226.4 cm/sec MV A max ruslan: 71.9 cm/sec TR max P.5 mmHg MV E/A: 1.3 PA V2 max: 85.0 cm/sec Med Peak E' Ruslan: 7.9 cm/sec PA V2 mean: 58.4 cm/sec E/E' med: 11.8 PA mean P.5 mmHg Lat Peak E' Ruslan: 11.1 cm/sec PA pr(Accel): 24.2 mmHg E/E' lat: 8.3 E/e' average: 10.0 MV dec time: 0.20 sec SV(LVOT): 68.9 ml Reading Physician:11:17 AM
--- NOTE | 2021-06-16 15:18 | PC.NURSE ---
Agree with documentation/care by Golden Horner
--- NOTE | 2021-06-16 18:24 | PM.HP.1 ---
History of Present Illness History of Present Illness Date Patient Seen: 06/16/21 Time Patient Seen: 12:30 Chief complaint: numbness/spasms on left side of body Narrative: Ms. Diaz is a 66W with PMH of hyperlipidema who presents with left arm numbness. She states staring yesterday her left side had a funny feeling. She has difficulty describing the sensation but it sounds as if she had a change in her sensation, and some numbness. She also had left arm shooting pain. Today she felt worsening symptoms on the left face, left arm slight weakness, and the funny feeling in her left leg. Because of this she presented to the hospital. She had no vision changes, possible transient speech change with word finding difficulty In the ED workup was done, vitals notable for blood pressure systolic in the 180s. Labs notable for WBC 7.0, creatinine 0.66, troponin negative. COVID negative. She was given aspirin and admitted for further treatment. Family history with Mom: TIA Patient History Medical History Acute appendicitis Anal pruritus Chronic back pain (2010) Dry eye Fracture of fifth toe, left, closed Gastric ulcer (1989) GERD (gastroesophageal reflux disease) (~1989) Hemorrhoids (2005) Hiatal hernia History of head injury Hx of spinal cord injury Hyperlipidemia Knee pain (10/2013) Normal Papanicolaou smear Osteoporosis (06/07/14) Paresthesia of left upper extremity Peptic ulcer disease Rosacea Seasonal allergies (~1989) Tibia/fibula fracture (1988) Tobacco use disorder (04/22/14) Surgical History Anesthesia complication H/O local excision of skin lesion (10/2013) History of esophagogastroduodenoscopy (EGD) (12/03/16) History of orthopedic surgery (1990) History of surgery (1981) History of tonsillectomy (1972) Status post hemorrhoidectomy (2005) Status post LASIK surgery (2000) Family & Social History Family History Brother Age: 66 Hypertension Father Diabetes mellitus Heart disease Hypertension High cholesterol Mother Heart disease Stroke Renal failure Social History: household members none Prior Living Arrangements House Safety & Behavioral: Feels Safe in Current Yes Environment Been Physically Hurt or No Threatened By a Person Suicidal Ideation Description None Suicide Plan Description No Plan Tobacco & Substance use: Tobacco type cigarettes Smoking Status Current every day smoker alcohol intake current alcohol intake frequency holiday/special occasion Substance Use Type does not use Meds Home Medications and Allergies Home Medications Medication Instructions Recorded Confirmed Type fluticasone propionate 50 1 spray INTRANASAL QDAY #0 05/14/16 06/16/21 History mcg/actuation nasal spray,suspension (Flonase Allergy Relief) calcium carbonate 600 mg-vitamin 2 cap PO DAILY 06/16/21 06/16/21 History D3 25 mcg (1,000 unit) capsule plant stanol maria ines 450 mg tablet 1 mg PO DAILY 06/16/21 06/16/21 History (Cholest Off) Allergies Allergy/AdvReac Type Severity Reaction Status Date / Time influenza virus vaccine, Allergy Severe PASSED OUT Verified 04/06/21 09:35 specific [influenza virus vacc,specific] dog dander [DOG DANDER] Allergy Unknown Verified 04/06/21 09:35 Review of Systems Review of Systems Narrative: 14 systems reviewed and negative aside from what is noted in HPI Exam Vital Signs (past 8 hours): - 06/16/21 11:00 06/16/21 11:27 06/16/21 11:28 Temperature 97.4 F L Pulse Rate 79 74 72 Respiratory Rate 18 Blood Pressure 180/93 H 189/84 H Pulse Oximetry 99 06/16/21 11:30 06/16/21 12:08 06/16/21 12:24 Temperature Pulse Rate 72 74 71 Respiratory Rate Blood Pressure 189/76 H Pulse Oximetry 99 94 100 06/16/21 12:30 06/16/21 12:40 06/16/21 13:29 Temperature Pulse Rate 75 74 Respiratory Rate 22 23 Blood Pressure 179/79 H 162/82 H Pulse Oximetry 100 100 06/16/21 13:30 06/16/21 14:00 06/16/21 14:01 Temperature Pulse Rate 70 74 72 Respiratory Rate 23 20 Blood Pressure 154/73 H 126/86 Pulse Oximetry 98 06/16/21 14:30 06/16/21 14:44 06/16/21 14:46 Temperature Pulse Rate 72 77 73 Respiratory Rate 17 22 14 Blood Pressure 122/61 132/65 133/63 Pulse Oximetry 100 100 06/16/21 15:03 Temperature 97.7 F Pulse Rate 69 Respiratory Rate 16 Blood Pressure 139/78 Pulse Oximetry 100 Oxygen Delivery Method Room Air Narrative Exam Narrative: GEN: no acute distress HEENT: moist mucous membranes, PERRL NECK: trachea midline, no JVD PULM: clear bilaterally, no wheezes, rhonchi, rales ABD: soft, nontender, nondistended, no organomegaly EXT: warm and well perfused with no edema NEURO: awake and alert, sensation described as slightly decreased on the left, strength equal both sides 5/5, no facial droop, no speech issues PSYCH: pleasant Objective Labs Result Diagrams: 06/16/21 12:03 06/16/21 12:03 Labs: Laboratory Results - last 24 hr 06/16/21 06/16/21 06/16/21 11:40 12:03 12:03 WBC 7.0 RBC 4.70 Hgb 14.5 Hct 42.5 MCV 90.3 MCH 30.8 MCHC 34.1 RDW 12.2 Plt Count 340 Neut % (Auto) 49.3 L Lymph % (Auto) 40.6 H [place] % (Auto) 6.8 Eos % (Auto) 2.5 Baso % (Auto) 0.8 Neut # (Auto) 3500 Lymph # (Auto) 2900 [place] # (Auto) 500 Eos # (Auto) 200 Baso # (Auto) 100 Sodium 143 Potassium 4.3 Chloride 106 Carbon Dioxide 27 BUN 14 Creatinine 0.66 Estimated GFR > 60.0 BUN/Creatinine Ratio 21.2 Glucose 98 Calcium 10.8 H Total Bilirubin 0.5 AST 31 ALT 23 Alkaline Phosphatase 79 Total Creatine Kinase 74 CK-MB (CK-2) TNP CK-MB (CK-2) Rel Index TNP Troponin I < 0.012 Total Protein 9.4 H Albumin 5.4 H Globulin 4.0 Albumin/Globulin Ratio 1.4 U Opiates 300ng/mL cut Ur Oxycodone Screen Urine Methadone Screen Ur Barbiturates Screen U Tricyclic Antidepress Ur Phencyclidine Scrn Ur Amphetamines Screen U Methamphetamines Scrn Ur MDMA Scrn (Ecstasy) U Benzodiazepines Scrn Urine Cocaine Screen U Marijuana (THC) Screen SARS-CoV-2 (PCR) Negative 06/16/21 12:53 WBC RBC Hgb Hct MCV MCH MCHC RDW Plt Count Neut % (Auto) Lymph % (Auto) [place] % (Auto) Eos % (Auto) Baso % (Auto) Neut # (Auto) Lymph # (Auto) [place] # (Auto) Eos # (Auto) Baso # (Auto) Sodium Potassium Chloride Carbon Dioxide BUN Creatinine Estimated GFR BUN/Creatinine Ratio Glucose Calcium Total Bilirubin AST ALT Alkaline Phosphatase Total Creatine Kinase CK-MB (CK-2) CK-MB (CK-2) Rel Index Troponin I Total Protein Albumin Globulin Albumin/Globulin Ratio U Opiates 300ng/mL cut Negative Ur Oxycodone Screen Negative Urine Methadone Screen Negative Ur Barbiturates Screen Negative U Tricyclic Antidepress Negative Ur Phencyclidine Scrn Negative Ur Amphetamines Screen Negative U Methamphetamines Scrn Negative Ur MDMA Scrn (Ecstasy) Negative U Benzodiazepines Scrn Negative Urine Cocaine Screen Negative U Marijuana (THC) Screen Negative SARS-CoV-2 (PCR) Assessment & Plan Assessment & Plan narrative: Ms. Diaz is a 66W who presents with numbness and weakness on the left now resolving. 1. Probable TIA -CT head showed hypodensity, MRI shows no acute stroke -MR angiogram shows no stenosis -ordered for aspirin, and statin -NIH q4 -PT/OT/speech eval -check lipids, a1c -permissive hypertension, no need for meds as long as BP <220 -CT neck to rule out neck causing radiculopathy 2. Hyperlipidemia -ordered for statin 3. Active smoker -counselled to quit smoking CODE: Full Proxy: Chelsie Neely, friend I have utilized all available resources to reconcile the patient's home medications. Time Spent With Patient Critical Care time: I spent a total of [] minutes of critical care time on this patient's care today; this time is exclusive of procedural time. Quality MIPS - Admit I confirm the patient?s Advance Care Plan is present, Code status is documented, Surrogate decision maker is in patient?s record [If Yes, STOP here]: Yes
[2021-06-16] MEDS: ATORVASTATIN 20 MG TABLET 80 MG PO (21:24)
[2021-06-17 04:00] VITALS: BP 104/68; PULSE 63; RESP 18; TEMP 36.6; O2SAT 100
[2021-06-17 06:39] LABS: Add Manual Diff / Slide Review NO; Basophils Absolute Auto 100 /uL (0-100); Basophils Percent Auto 1.2 % (0-2); Eosinophils Absolute Auto 500 /uL (0-450); Eosinophils Percent Auto 6.6 % (2-4); Hematocrit 36.3 % (36-46); Hemoglobin 12.5 g/dL (12.0-16.0); Lymphocytes Absolute Auto 3600 /uL (1100-4500); Lymphocytes Percent Auto 52.3 % (25-40); Mean Corpuscular HGB Conc 34.3 % (30-36); Mean Corpuscular Hemoglobin 31.2 PG (26-34); Mean Corpuscular Volume 90.7 fL (80-100); Monocytes Absolute Auto 500 /uL (0-900); Monocytes Percent Auto 7.8 % (3-14); Neutrophils Absolute Auto 2200 /uL (1500-7000); Neutrophils Percent Auto 32.1 % (50-75); Platelet Count 289 X10^3/uL (150-400); Red Cell Distribution Width 12.4 % (11.6-14.8); White Blood Cell Count 6.9 X10^3/uL (4.5-11.0)
[2021-06-17 06:53] LABS: Hemoglobin A1C% w Est Avg Glu 5.3 % (4.0-6.0)
[2021-06-17 06:54] LABS: BUN Creatinine Ratio 24.6 (6-22); Blood Urea Nitrogen 15 mg/dL (7-17); Calcium 9.8 mg/dL (8.4-10.2); Carbon Dioxide 28 mmol/L (22-32); Chloride 108 mmol/L (98-107); Cholesterol 149 mg/dL (140-199); Estimated Glomerular Filt Rate > 60.0 mL/min (>60); Glucose 101 mg/dL (80-110); HDL Cholesterol 42 mg/dL (40-60); HEMOLYSIS < 15 (0-50); LDL Cholesterol Calculated 87 mg/dL (<100); Magnesium 2.1 mg/dL (1.6-2.3); Potassium 4.2 mmol/L (3.4-5.1); Sodium 141 mmol/L (137-145); Triglycerides 101 mg/dL (35-150)
[2021-06-17 07:15] VITALS: O2SAT 99
[2021-06-17 07:45] VITALS: O2SAT 100
[2021-06-17] MEDS: ASPIRIN EC 81 MG TABLET PO (08:57)
[2021-06-17] MEDS: ENOXAPARIN 40 MG/0.4 ML SYRINGE SUBCUT (08:57)
[2021-06-17 09:39] VITALS: BP 128/66; PULSE 61; RESP 19; TEMP 36.1; O2SAT 100
--- NOTE | 2021-06-17 10:06 | PT.IIE ---
Surgical History (Last Reviewed 06/16/21 @ 18:30 by Danilo Patino MD) Anesthesia complication History of esophagogastroduodenoscopy (EGD) (12/03/16) History of tonsillectomy (1972) Status post hemorrhoidectomy (2005) Status post LASIK surgery (2000) Medical History (Last Reviewed 06/16/21 @ 18:30 by Danilo Patino MD) Acute appendicitis Anal pruritus Chronic back pain (2010) Dry eye Fracture of fifth toe, left, closed Gastric ulcer (1989) GERD (gastroesophageal reflux disease) (~1989) Hemorrhoids (2005) Hiatal hernia History of head injury Hx of spinal cord injury Hyperlipidemia Knee pain (10/2013) Normal Papanicolaou smear Osteoporosis (06/07/14) Paresthesia of left upper extremity Peptic ulcer disease Rosacea Seasonal allergies (~1989) Tibia/fibula fracture (1988) Tobacco use disorder (04/22/14) Physical Therapy Inpatient Evaluation/Re-Eval M1 PT/OT-IP Prior Functional Status Start: 06/17/21 11:55 Freq: NEEDED Status: Active Protocol: Document 06/17/21 10:06 AB (Rec: 06/17/21 12:04 AB [email or web address]) Medical Review Prior Functional Status Medical History Reviewed Yes Communication able to make needs known Mobility and Gait pt stated that she is independent with all mobilities and ambulation without AD Social History Household Members none Living Arrangements House Number of Floors (Floors) One Floor Number of Stairs To Enter/Railing? 7 steps L rail to enter the house Home Environment High Toilet,Walk in Shower,Tub /Shower Home Equipment Four Wheel Walker,Straight Cane,Lift Recliner,Grab Bars Near Toilet,Grab Bars In Shower M2 PT-IP Current Condition Start: 06/17/21 11:55 Freq: NEEDED Status: Active Protocol: Document 06/17/21 10:06 AB (Rec: 06/17/21 12:04 AB [email or web address]) Physical Therapy Current Condition Current Condition Evaluation Date 06/17/21 Treatment Diagnosis CVA; difficulty in walking Onset Date 06/16/21 M3 PT-IP Subjective Start: 06/17/21 11:55 Freq: NEEDED Status: Active Protocol: Document 06/17/21 10:06 AB (Rec: 06/17/21 12:04 AB [id number]) Subjective Physical Therapy Visit Type Type Initial Evaluation Visit Start Time 10:06 Visit Stop Time 10:23 Total Visit Minutes 17 Number of COTTON GROWER Visits 0 Physical Therapy Visit Comments Patient Comments pt is agreeable to do PT Therapy Pain Assessment Pain Present Pain Present Denied Pain M4 PT-IP Mobility and Gait Start: 06/17/21 11:55 Freq: NEEDED Status: Active Protocol: Document 06/17/21 10:06 AB (Rec: 06/17/21 12:04 [email or web address]) PT-Bed Mobility Assessment Supine to Sit Supine to Sit Independent Sit to Supine Sit to Supine Independent PT-Transfer Assessment Sit to and From Stand Sit to and from Stand Independent Equipment Transfer Assistive Device None Orthotic/Prosthetic Devices or Brace: No Comments Mobility Comments pt is independent with bed mobility and transfers without AD. ambulated in room ~ 30 ft without AD SBA without LOB and agreed to ambulate in the hallway and completed ~ 150 ft without AD SBA. completed up /down steps using L rail ascending SBA. ambulated back to her room. Pt requested to go back to bed and completed sit to supine independent. positioned in bed. call light and table placed within reach . pt has no other questions and concerns and agreed that no further PT intervention indicated at this time. Gait Assessment Gait Gait Assistance Required: Standby Assistance Distance (Feet) 150 Able to Maintain Weight Bearing Status Yes During Gait Assistive Devices Assistive Device None Orthotic/Prosthetic Devices or Brace: No Gait Deviations General Gait Pattern Decreased Stride Length Stair Climbing Assessment Evaluation Level of Assist On Stairs Standby Assistance Devices Stair Climbing Assistive Devices Left Railing Technique/Endurance Stair Climbing Direction Ascend and Descend Stair Climbing Technique Step Over Step Number of Steps Climbed 3 Query Text: Stair Climbing Set # Repetitions (reps) 2 PT-Balance Assessment Sitting Balance and Reactions Static Sitting Balance Ability Normal Dynamic Sitting Balance Ability Normal Standing Balance and Reactions Static Standing Balance Ability Good Dynamic Standing Balance Ability Good Device Used without AD M5 PT-IP Objective Assessments Start: 06/17/21 11:55 Freq: NEEDED Status: Active Protocol: Document 06/17/21 10:06 AB (Rec: 06/17/21 12:04 [email or web address]) Orientation Orientation/Cognition Level of Alertness Alert Orientation Name,Age,Birthday,Month,Date, Year,Day of Week,Place, Situation Language Function Ability No Deficits Noted Safety Awareness Understands Safety Issues Memory Description No Deficits Noted Gross Range of Motion Lower Extremity ROM Assessment Within Functional Limits Strength Lower Extremity Strength Assessment Within Functional Limits Coordination Assessment Gross Coordination Gross Coordination WNL Sensation Assessment Sensation Gross Sensation Left UE Impaired Sensation Description Numbness Comments Sensation Comments continues to have slight numbness on L hand Muscle Tone Muscle Tone WNL Yes M6 PT-IP Treatment Start: 06/17/21 11:55 Freq: NEEDED Status: Active Protocol: Document 06/17/21 10:06 AB (Rec: 06/17/21 12:04 AB [email or web address]) Physical Therapy Treatment Education Education Provided Safety M7 PT-IP Assessment and Plan Start: 06/17/21 11:55 Freq: NEEDED Status: Active Protocol: Document 06/17/21 10:06 AB (Rec: 06/17/21 12:04 AB [email or web address]) PT Summary Assessment and Plan Potential Rehabilitation Potential Good Status of Condition at Evaluation Stable Summary Assessment Summary PT eval completed and pt is modified independent with bed mobility and transfers without AD. SBA provided for safety for ambulation and stair climbing. pt able to ambulate without AD and has a steady gait without LOB. No further PT intervention indicated at this time. Frequency of Treatment Frequency Of Treatment Discharge Recommendations To Nursing Amount of Assist Needed Standby Assistance Discharge Recommendations PT Discharge Recommendations Home Transportation Needs at Discharge Private Vehicle
--- NOTE | 2021-06-17 10:45 | ST.IPSCREEN ---
Pt seen secondary to experiencing left arm numbness, her left side had a funny feeling, worsening symptoms on the left face, left arm slight weakness, and the funny feeling in her left leg. Because of this she presented to the hospital. According to records reviewed, pt's symptoms began resolving in the ED. MDI indicated no intracranial change. In her room this morning, pt's speech,language and swallowing were screened. Pt demonstrated all structures and functions to be WNL. No ST indicated. Will d/c
--- NOTE | 2021-06-17 12:30 | OT.IP.EVAL ---
Past Medical History (Last Reviewed 06/16/21 @ 18:30 by Danilo Patino MD) Acute appendicitis Anal pruritus Chronic back pain (2010) Dry eye Fracture of fifth toe, left, closed Gastric ulcer (1989) GERD (gastroesophageal reflux disease) (~1989) H/O local excision of skin lesion (10/2013) Hemorrhoids (2005) Hiatal hernia History of head injury History of orthopedic surgery (1990) History of surgery (1981) Hx of spinal cord injury Hyperlipidemia Knee pain (10/2013) Normal Papanicolaou smear Osteoporosis (06/07/14) Paresthesia of left upper extremity Peptic ulcer disease Rosacea Seasonal allergies (~1989) Tibia/fibula fracture (1988) Tobacco use disorder (04/22/14) Surgical History (Last Reviewed 06/16/21 @ 18:30 by Danilo Patino MD) Anesthesia complication H/O local excision of skin lesion (10/2013) History of esophagogastroduodenoscopy (EGD) (12/03/16) History of orthopedic surgery (1990) History of surgery (1981) History of tonsillectomy (1972) Status post hemorrhoidectomy (2005) Status post LASIK surgery (2000) Occupational Therapy Inpatient Evaluation/Re-Eval M1 PT/OT-IP Prior Functional Status Start: 06/17/21 11:55 Freq: NEEDED Status: Discharge Protocol: Document 06/17/21 10:06 AB (Rec: 06/17/21 12:04 AB [id number]) Medical Review Prior Functional Status Medical History Reviewed Yes Communication able to make needs known Mobility and Gait pt stated that she is independent with all mobilities and ambulation without AD Social History Household Members none Living Arrangements House Number of Floors (Floors) One Floor Number of Stairs To Enter/Railing? 7 steps L rail to enter the house Home Environment High Toilet,Walk in Shower,Tub /Shower Home Equipment Four Wheel Walker,Straight Cane,Lift Recliner,Grab Bars Near Toilet,Grab Bars In Shower M1 PT/OT-IP Prior Functional Status Start: 06/17/21 16:15 Freq: NEEDED Status: Active Protocol: Document 06/17/21 16:15 [facility] (Rec: 06/17/21 16:23 [facility] [id number]) Medical Review Prior Functional Status Medical History Reviewed Yes Communication able to make needs known Mobility and Gait pt stated that she is independent with all mobilities and ambulation without AD Activities of Daily Living and IADL's completely independent with all needs. Social History Household Members none Living Arrangements House Number of Floors (Floors) One Floor Number of Stairs To Enter/Railing? 7 steps L rail to enter the house Home Environment High Toilet,Walk in Shower,Tub /Shower Home Equipment Four Wheel Walker,Straight Cane,Lift Recliner,Grab Bars Near Toilet,Grab Bars In Shower M2 OT-IP Current Condition Start: 06/17/21 16:15 Freq: Status: Active Protocol: Document 06/17/21 16:15 [facility] (Rec: 06/17/21 16:23 [facility] [id number]) Occupational Therapy Current Condition Current Condition Evaluation Date 06/17/21 Treatment Diagnosis TIA Diagnosis Onset Date 06/16/21 M3 OT- IP Subjective and Pain Start: 06/17/21 16:15 Freq: Status: Active Protocol: Document 06/17/21 16:15 [facility] (Rec: 06/17/21 16:23 [facility] [id number]) OT- Subjective Occupational Therapy Visit Type Type Initial Evaluation Visit Start Time 12:10 Visit Stop Time 12:30 Total Visit Minutes 20 Occupational Therapy Visit Comments Patient Comments Pt agreed to work with OT. Patient/Caregiver Goals TO go home. OT Pain Assessment Pain When Pain Assessed At Rest Pain Present Pain Present Denied Pain M4 OT- IP ADL's Start: 06/17/21 16:15 Freq: Status: Active Protocol: Document 06/17/21 16:15 [facility] (Rec: 06/17/21 16:23 [facility] [id number]) OT [id number] General Evaluation Self-Feeding Ability Independent OT ADL-Grooming General Evaluation Grooming Ability Independent OT ADL-Oral Care General Eval Oral Care Ability Independent OT ADL-Toileting General Evaluation Toileting Ability Independent M5 OT- IP IADL's Start: 06/17/21 16:15 Freq: Status: Active Protocol: Document 06/17/21 16:15 [facility] (Rec: 06/17/21 16:23 [facility] [id number]) OT-Instrumental Activities of Daily Living Deficits IADL Deficits Identified No Deficits Home Safety Awareness Awareness of Need for Assistance at Home Good Awareness Ability to Problem Solve Emergency Able to Problem Solve Situations Medication Management Medication Management No Deficits Identified Money Management Money Management No Deficits Identified Meal Preparation Meal Preparation No Deficits Identified Pct Pct No Deficits Identified M6 OT- IP Functional Cognition Start: 06/17/21 16:15 Freq: Status: Active Protocol: Document 06/17/21 16:15 [facility] (Rec: 06/17/21 16:23 [facility] [id number]) Cognitive Factors Limiting Selfcare Function Cognitive Ability Level of Alertness Alert Patient Orientation Name,Age,Birthday,Month,Date, Year,Day of Week,Place, Situation Attention Span Ability Capable of Focused Attention, Capable of Sustained Attention Ability to Follow Commands Able to Follow Multi-Step Commands Memory Description No Deficits Noted Safety Awareness No Deficits Noted Problem Solving Ability No deficits Noted Executive Function Ability Unable to Filter Distractions Cognitive Comments Cognitive Assessment Comments Pt scored 67 seconds on [place] making Part B which implies normal but not perfect for visual attention, task switching, speed of processing , executive functioning, and mental flexibility. Pt is aware that she needs extra time for new learning, as pt initially having trouble to figure out the various variable for reading percentile for 9 Hole Peg test by sex, age and r/l hand. OT- Vision and Hearing OT- Hearing Assessment OT- Hearing Assessment WFL OT- Vision Assessment Visual Acuity Glasses For Reading M7 OT- IP Mobility and Balance Start: 06/17/21 16:15 Freq: Status: Active Protocol: Document 06/17/21 16:15 [facility] (Rec: 06/17/21 16:23 [facility] [id number]) OT-Transfer Assessment Comments Mobility Comments Pt not wanting to get up and has been independent in the room per pt and PT eval. M8 OT- IP Objective Assessments Start: 06/17/21 16:15 Freq: Status: Active Protocol: Document 06/17/21 16:15 [facility] (Rec: 06/17/21 16:23 [facility] [id number]) OT Gross Range of Motion Upper Extremity Range of Motion Assessment Within Functional Limits OT Strength Upper Extremity Strength Assessment Within Functional Limits OT-Muscle Tone Assessment Muscle Tone WNL Yes M9 OT- IP Assessment and Plan Start: 06/17/21 16:15 Freq: Status: Active Protocol: Document 06/17/21 16:15 [facility] (Rec: 06/17/21 16:23 [facility] [id number]) OT Summary Assessment and Plan Potential Rehabilitation Potential Excellent Analytic Complexity at Evaluation Low Summary Progress Towards Goals Safe For Discharge Assessment Summary Pt here due to TIA and feels at her baseline and looking to go home today. Left weakness has resolved and her coordination for her left hand scored above 75% on the 9 Hole Peg Test. Discharge Recommendations OT Discharge Recommendations Home Transportation Needs at Discharge Private Vehicle
[2021-06-17 12:38] VITALS: BP 120/68; PULSE 66; RESP 17; TEMP 36.3; O2SAT 100
--- NOTE | 2021-06-17 13:06 | CM.DANOTE ---
DCP Brief Assessment Note Patient is a 66 yo female who was admitted on 06/16/21 for numbness/spasms. Pt has MCR and PRE DIM for insurance and her PCP is Dr. Kathy Alvarado. EMR was reviewed. Per MD, pt was admitted for TIA workup but test results normal and pt medically stable to d/c home today with no identified barriers to discharge. Per PT, pt lives alone independently and does not use DME for mobility and is active and independent at baseline. PT cleared pt for safe return home today and no further PT needs. Per ST, cleared pt for safe d/c home with no speech needs. Pt has not been admitted since 2018 to [facility] and was able to d/c home at that time as well. No identified barriers to discharge and no bedside DCP assessment completed at this time due to triage needs. Plan: Patient to d/c home today via friend POV and no SW needs at this time. CHARU Richardson
--- NOTE | 2021-06-17 14:06 | PC.NURSE ---
Discharged by provider. Pt verbalized understanding of d/c instructions. Will call her pcp to schedule f/up. IV removed, Tele removed. Pt dressed and escorted off unit via w/c to private vehicle. 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 Pt left in stable condition with all personal belongings.
--- NOTE | 2021-06-17 18:30 | P.DS_ITS ---
History of Present Illness History of Present Illness Chief complaint: numbness/spasms on left side of body Narrative: Ms. Diaz is a 66W with PMH of hyperlipidema who presents with left arm numbness. She states staring yesterday her left side had a funny feeling. She has difficulty describing the sensation but it sounds as if she had a change in her sensation, and some numbness. She also had left arm shooting pain. Today she felt worsening symptoms on the left face, left arm slight weakness, and the fu nny feeling in her left leg. Because of this she presented to the hospital. She had no vision changes, possible transient speech change with word finding difficulty In the ED workup was done, vitals notable for blood pressure systolic in the 180s. Labs notable for WBC 7.0, creatinine 0.66, troponin negative. COVID negative. She was given aspirin and admitted for further treatment. Family history with Mom: TIA Discharge Providers Provider Date of admission: 06/16/21 14:13 Discharge Date: 06/17/21 Primary care physician: Kathy Alvarado DO Consults: 06/16/21 14:29 Consult to Discharge Planning Routine Comment: Consult to Occupational Therapy Evaluate & Treat Comment: Physician Instructions: Evaluate and treat Consult to Physical Therapy Evaluate & Treat Comment: Physician Instructions: Evaluate and Treat Consult to Speech Therapy Evaluate & Treat Comment: Physician Instructions: Evaluate and treat Discharge provider: Danilo Patino MD Summary Hospital Course Discharge Diagnosis: 1. TIA 2. Hyperlipidemia 3. Active smoker Hospital Course: Ms. Diaz was admitted with left sided symptoms, with an odd sensation, numbness in her left arm. She had improvement on her symptoms. She was started on aspirin and plavix. Initial CT head was concerning for possible stroke in the right frontal lobe. Follow up MRI showed no acute process. She did have shooting arm pain and CT c-spine showed no acute abnormalities but moderate disc and facet disease in the C-spine. ECHO showed possible interarterial shunt and there should be consideration to refer to cardiology for further workup if indicated by her PCP. She was discharged on aspirin and a statin and encouraged to stop smoking. Exam Vital Signs (past 8 hours): - 06/17/21 12:38 Temperature 97.3 F L Pulse Rate 66 Respiratory Rate 17 Blood Pressure 120/68 Pulse Oximetry 100 Oxygen Delivery Method Room Air Oxygen Flow Rate 0 Narrative Exam Narrative: GEN: no acute distress PULM: clear bilaterally, no wheezes, rhonchi, rales ABD: soft, nontender, nondistended, no organomegaly EXT: warm and well perfused with no edema Objective Labs Result Diagrams: 06/17/21 06:11 06/17/21 06:11 Labs: Laboratory Results - last 24 hr 06/17/21 06/17/21 06/17/21 06:11 06:11 06:11 WBC 6.9 RBC 4.00 Hgb 12.5 Hct 36.3 MCV 90.7 MCH 31.2 MCHC 34.3 RDW 12.4 Plt Count 289 Neut % (Auto) 32.1 L Lymph % (Auto) 52.3 H Ada % (Auto) 7.8 Eos % (Auto) 6.6 H Baso % (Auto) 1.2 Neut # (Auto) 2200 Lymph # (Auto) 3600 Ada # (Auto) 500 Eos # (Auto) 500 H Baso # (Auto) 100 Sodium 141 Potassium 4.2 Chloride 108 H Carbon Dioxide 28 BUN 15 Creatinine 0.61 Estimated GFR > 60.0 BUN/Creatinine Ratio 24.6 H Glucose 101 Hemoglobin A1c 5.3 Calcium 9.8 Magnesium 2.1 Triglycerides Cholesterol LDL Cholesterol, Calc HDL Cholesterol 06/17/21 06:11 WBC RBC Hgb Hct MCV MCH MCHC RDW Plt Count Neut % (Auto) Lymph % (Auto) Ada % (Auto) Eos % (Auto) Baso % (Auto) Neut # (Auto) Lymph # (Auto) Ada # (Auto) Eos # (Auto) Baso # (Auto) Sodium Potassium Chloride Carbon Dioxide BUN Creatinine Estimated GFR BUN/Creatinine Ratio Glucose Hemoglobin A1c Calcium Magnesium Triglycerides 101 Cholesterol 149 LDL Cholesterol, Calc 87 HDL Cholesterol 42 [facility] Medical History Acute appendicitis Anal pruritus Chronic back pain (2010) Dry eye Fracture of fifth toe, left, closed Gastric ulcer (1989) GERD (gastroesophageal reflux disease) (~1989) Hemorrhoids (2005) Hiatal hernia History of head injury Hx of spinal cord injury Hyperlipidemia Knee pain (10/2013) Normal Papanicolaou smear Osteoporosis (06/07/14) Paresthesia of left upper extremity Peptic ulcer disease Rosacea Seasonal allergies (~1989) Tibia/fibula fracture (1988) Tobacco use disorder (04/22/14) Surgical History Anesthesia complication H/O local excision of skin lesion (10/2013) History of esophagogastroduodenoscopy (EGD) (12/03/16) History of orthopedic surgery (1990) History of surgery (1981) History of tonsillectomy (1972) Status post hemorrhoidectomy (2005) Status post LASIK surgery (2000) Family History Brother Age: 66 Hypertension Father Diabetes mellitus Heart disease Hypertension High cholesterol Mother Heart disease Stroke Renal failure Social History household members: none Smoking Status: Current every day smoker quit status: quit date established alcohol intake: current Discharge Plan Discharge Plan Patient Disposition: Home Provider Discharge Comment: Ms. Diaz came in to the hospital with neurologic symptoms. She was found to have a TIA. She felt improved and was discharged with aspirin and a statin. Discharge orders & Medications Prescriptions: New atorvastatin [Lipitor] 20 mg Tablet 80 mg PO BEDTIME Qty: 30 0RF aspirin 81 mg Tablet,Delayed Release (Dr/Ec) 81 mg PO DAILY Qty: 30 0RF Continued fluticasone propionate [Flonase Allergy Relief] 9.9 ML spray,suspension 1 spray Intranasal QDAY Qty: 0 0RF calcium carbonate-vitamin D3 600 mg-25 mcg (1,000 unit) Capsule 2 cap PO DAILY 0RF Cholest Off 450 mg Tablet 1 mg PO DAILY 0RF Follow up/Referrals: Kathy Alvarado DO [Primary Care Provider] - Diet/Activity/Treatments Diet: Regular Visit Report/Discharge Packet Instructions: DI for Transient Ischemic Attack Discharge Data Primary Care Provider: Kathy Alvarado Attending Provider: Danilo Patino
== END 2021-06-17 13:25 | disposition home or self-care (01) ==
LOC: ED 12:58 → AC 14:49
PROVIDERS: Admitting Provider Internal Medicine; Emergency Provider Emergency Medicine; PCP Family Medicine; Referring Provider Emergency Medicine; Visit Provider Internal Medicine
DX: G45.9 Transient cerebral ischemic attack, unspecified (principal); E78.5 Hyperlipidemia, unspecified; F17.210 Nicotine dependence, cigarettes, uncomplicated; R29.702 NIHSS score 2; Z20.822 Contact with and (suspected) exposure to COVID-19
CPT/HCPCS: 36415; 70450; 70548; 70553; 71045; 72125; 80048; 80053; 80061; 80305; 81003; 82550; 83036; 83735; 84484; 85025; 87635; 93005; 93306; 94760; 96372; 96374; 97161; 97165; 99285; C9803; G0378; J1650; J2060

== ENCOUNTER 2021-06-21 11:06 | Emergency (ER) | payer MEDICARE, OTHER, SELFPAY ==
[2021-06-16 15:03] VITALS: BMI 22.6
[2021-06-21] VITALS (9 sets, daily range): BP systolic 118–141; BP diastolic 60–78; PULSE 55–73; RESP 14–27; TEMP 37.1; O2SAT 90–100; BMI 22.2
--- NOTE | 2021-06-21 11:23 | ED.GENADULT ---
HPI - General Adult General Chief complaint: Headache Stated complaint: POST TIA,HEADACHE,TINGLING IN FEET,PRESSURE IN ARM Time Seen by Provider: 06/21/21 11:22 History of Present Illness HPI narrative: 66-year-old woman with acute left arm numbness on June 16 was admitted for stroke workup and determined to have had a TIA discharged home on the with a statin and daily aspirin. Part of that workup included a brain MRI on 06/16 that showed no aneurysms or high-grade stenoses or occlusions. She describes the headache as variable including both sides of the head behind both eyes waxing and waning through the day. She complains that her left eye feels ?heavy? however she has had no decreased peripheral vision, double vision or decreased visual acuity. She has not had fevers or, does not complain of sinus drainage and reports no focal neurologic complaints since hospital discharge. She did start Lipitor and is wondering if that might be causing some of her fatigue as well as contributing to her headaches. She states she does not typically have headaches and has never been diagnosed with migraines. Related Data Home Medications Medication Instructions Recorded Confirmed fluticasone propionate 50 1 spray INTRANASAL QDAY #0 05/14/16 06/16/21 mcg/actuation nasal spray,suspension (Flonase Allergy Relief) calcium carbonate 600 mg-vitamin 2 cap PO DAILY 06/16/21 06/16/21 D3 25 mcg (1,000 unit) capsule plant stanol maria ines 450 mg tablet 1 mg PO DAILY 06/16/21 06/16/21 (Cholest Off) Previous Rx's Medication Instructions Recorded aspirin 81 mg tablet,delayed 81 mg PO DAILY #30 tab 06/17/21 release atorvastatin 20 mg tablet (Lipitor) 80 mg PO BEDTIME #30 tab 06/17/21 Allergies Allergy/AdvReac Type Severity Reaction Status Date / Time influenza virus vaccine, Allergy Severe PASSED OUT Verified 06/21/21 11:32 specific [influenza virus vacc,specific] dog dander [DOG DANDER] Allergy Unknown Verified 06/21/21 11:32 Review of Systems Review of Systems Narrative: Remainder of complete review of systems is otherwise unremarkable except for that included in the HPI. Patient History Medical History Acute appendicitis Anal pruritus Chronic back pain (2010) Dry eye Fracture of fifth toe, left, closed Gastric ulcer (1989) GERD (gastroesophageal reflux disease) (~1989) Hemorrhoids (2005) Hiatal hernia History of head injury Hx of spinal cord injury Hyperlipidemia Knee pain (10/2013) Normal Papanicolaou smear Osteoporosis (06/07/14) Paresthesia of left upper extremity Peptic ulcer disease Rosacea Seasonal allergies (~1989) Tibia/fibula fracture (1988) Tobacco use disorder (04/22/14) Surgical History Anesthesia complication H/O local excision of skin lesion (10/2013) History of esophagogastroduodenoscopy (EGD) (12/03/16) History of orthopedic surgery (1990) History of surgery (1981) History of tonsillectomy (1972) Status post hemorrhoidectomy (2005) Status post LASIK surgery (2000) Family History Brother Age: 66 Hypertension Father Diabetes mellitus Heart disease Hypertension High cholesterol Mother Heart disease Stroke Renal failure Social History household members: none Smoking Status: Current every day smoker quit status: quit date established alcohol intake: current Smoking Status: Current every day smoker alcohol intake frequency: holidays/special occasions only Substance Use Type: does not use Exam Initial Vital Signs Initial Vital Signs: Vital Signs Temperature 98.7 F 06/21/21 11:32 Pulse Rate 73 06/21/21 11:32 Respiratory Rate 16 06/21/21 11:32 Blood Pressure 138/67 06/21/21 11:32 Pulse Oximetry 99 06/21/21 11:32 General: Healthy appearing, in no acute distress. Able to give a complete and coherent history. Well-nourished well-developed HEENT: Moist mucous membranes, normal sclera with reactive pupils, Neck: No JVD, supple Respiratory: Lungs are clear to auscultation, no wheezing no rales no rhonchi. Full and symmetrical air movement Cardiac: Regular rate and rhythm no murmurs no bruits Abdomen: Soft, nontender, good bowel tones, no flank pain Skin: Warm and dry, no rashes Neurologic: Grossly neurologically intact with no obvious asymmetries or abnormalities Extremities: No trauma, well perfused Psych: Cooperative, appropriate insight and affect Course Orders Ordered: ED Orders 06/21/21 12:22 CT head/brain wo con Stat Complete Blood Count AUTO DIFF Stat Comprehensive Metabolic Panel Stat 06/21/21 12:45 COVID19 -Nasal swab/Pre-Proc Stat Discontinued Medications Sodium Chloride (Normal Saline 0.9%) 1,000 mls @ 1,000 mls/hr IV BOLUS ONE Stop: 06/21/21 13:20 Last Admin: 06/21/21 13:11 Dose: Not Given Documented by: AMANDEEP Ketorolac Tromethamine (Ketorolac 30 Mg/Ml Vial) 15 mg IV NOW ONE Stop: 06/21/21 12:22 Last Admin: 06/21/21 13:10 Dose: Not Given Documented by: AMANDEEP Metoclopramide HCl (Metoclopramide 10 Mg/2 Ml Inj) 10 mg IV NOW ONE Stop: 06/21/21 12:22 Last Admin: 06/21/21 13:10 Dose: Not Given Documented by: AMANDEEP Metoclopramide HCl (Metoclopramide Hcl 10 Mg Tablet) 10 mg PO NOW ONE Stop: 06/21/21 13:10 Oxycodone/Acetaminophen (Oxycodone/Acetaminophen 5/325 Tablet) 1 tab PO NOW ONE Stop: 06/21/21 13:10 Vital Signs Vital signs: Vital Signs - 8 hr 06/21/21 11:32 06/21/21 11:58 06/21/21 12:00 Temperature 98.7 F Pulse Rate 73 62 61 Respiratory Rate 16 23 Blood Pressure 138/67 122/78 Pulse Oximetry 99 100 99 06/21/21 12:34 06/21/21 13:00 06/21/21 13:04 Temperature Pulse Rate 55 L 61 59 L Respiratory Rate 27 H 26 H Blood Pressure 141/67 H Pulse Oximetry 90 L 99 06/21/21 13:30 06/21/21 13:36 Temperature Pulse Rate 59 L 60 Respiratory Rate 14 15 Blood Pressure 137/63 137/67 Pulse Oximetry 100 100 Medical Decision Making Lab Data Labs: Lab Results 06/21/21 Range/Units 12:45 SARS-CoV-2 (PCR) Negative (Negative) MDM Narrative Medical decision making narrative: 66-year-old woman recent hospital admission for TIA with persistent headache. She believes that it started concurrent with the initial left arm numbness that led to the recent hospitalization however she is also concerned that it may be related to the Lipitor on which she was discharged. Because she does not typically headaches she was concerned that there may be new or worsening findings related to her recent TIA comes in for further evaluation. We were unable to start an IV year obtain blood. CT scan head shows no new findings or changes. Headache is significantly improved with ibuprofen and Tylenol. At this point I suggested that she hold the Lipitor to see if it is contributing once the headaches of resolved to try restarting the Lipitor to see if she can tolerated as it is recommended in a 66-year-old woman post TIA. She understands. Questions are answered. She will be following up with her primary care physician and she is safe for home discharge Discharge Plan Departure Patient Disposition: Home Clinical Impression: Headache above the eye region Instructions: DI for Headache Activity Restrictions/Additional Instructions: Thank you for coming in today With the recent TIA, I believe that further evaluation was entirely appropriate. At this point I am not finding any evidence of infection or additional stroke. I think it is safe to treat the headache as simply headache pain. Using 400 mg of ibuprofen (2 sceq-ith-lzsxepr pills) and 1 Tylenol every 6 hours can be very helpful in controlling pain. I think it is safe to hold the atorvastatin for a couple of days to see if the headache improves. If it does I would try restarting the atorvastatin to see if it actually is contributing to the headaches at all. I encourage you follow-up with your primary care physician this week. Prescriptions: No Action fluticasone propionate [Flonase Allergy Relief] 9.9 ML spray,suspension 1 spray Intranasal QDAY Qty: 0 0RF calcium carbonate-vitamin D3 600 mg-25 mcg (1,000 unit) Capsule 2 cap PO DAILY 0RF Cholest Off 450 mg Tablet 1 mg PO DAILY 0RF atorvastatin [Lipitor] 20 mg Tablet 80 mg PO BEDTIME Qty: 30 0RF aspirin 81 mg Tablet,Delayed Release (Dr/Ec) 81 mg PO DAILY Qty: 30 0RF Referrals: Kathy Alvarado DO [Primary Care Provider] -
--- NOTE | 2021-06-21 12:22 | DI.CT.S_ITS ---
PROCEDURE: CT HEAD/BRAIN WO CON INDICATIONS: severe CEJA, recent admit for TIA, unresolved Headache TECHNIQUE: Noncontrast 4.5 mm thick angled axial sections acquired from the foramen magnum to the vertex, with coronal and sagittal reformats. For radiation dose reduction, the following was used: automated exposure control, adjustment of mA and/or kV according to patient size. COMPARISON: [facility], , MR STROKE, 06/16/2021, 12:44. FINDINGS: Image quality: Excellent. CSF spaces: Basal cisterns are patent. No extra-axial fluid collections. Ventricles are normal in size and shape. Brain: No midline shift. No intracranial masses or hemorrhage. Caballero-white matter interface is normal. Moderate cerebral and cerebellar volume loss with multifocal white matter chronic ischemic change noted. Skull and face: Calvarium and visualized facial bones are intact, without suspicious lesions. Sinuses: Visualized sinuses and mastoids are clear. IMPRESSION: Atrophy and chronic ischemic change without acute hemorrhage or mass effect Approved by: Eloy Garber M.D. on 06/21/2021 at 12:43
--- NOTE | 2021-06-21 13:08 | PC.NURSE ---
IV attempted three times and patient declined further attempts for IV or labs. Provider notified.
[2021-06-21 13:29] LABS: COVID19 -Nasal RAPID Negative (Negative)
== END 2021-06-21 14:35 | disposition home or self-care (01) ==
PROVIDERS: Emergency Provider Emergency Medicine; PCP Family Medicine
DX: R51.9 Headache, unspecified (principal); F17.200 Nicotine dependence, unspecified, uncomplicated; Z20.822 Contact with and (suspected) exposure to COVID-19
CPT/HCPCS: 70450; 87635; 99283; 99284; C9803; J1885; J2765

== ENCOUNTER → 2021-07-06 09:02 | Outpatient (CLI) | payer MEDICARE, OTHER, SELFPAY ==
[2021-06-16 15:03] VITALS: BMI 22.6
[2021-07-06 11:32] LABS: Alanine Aminotransferase 25 IU/L (<35); Albumin 4.7 g/dL (3.5-5.0); Albumin Globulin Ratio 1.7 (1.0-2.8); Alkaline Phosphatase 78 U/L (38-126); Aspartate Aminotransferase 27 IU/L (14-36); BUN Creatinine Ratio 26.2 (6-22); Bilirubin Total 0.3 mg/dL (0.2-1.3); Blood Urea Nitrogen 16 mg/dL (7-17); Calcium 10.2 mg/dL (8.4-10.2); Carbon Dioxide 25 mmol/L (22-32); Chloride 105 mmol/L (98-107); Cholesterol 119 mg/dL (140-199); Estimated Glomerular Filt Rate > 60.0 mL/min (>60); Globulin 2.8 g/dL (1.7-4.1); Glucose 90 mg/dL (80-110); HDL Cholesterol 44 mg/dL (40-60); HEMOLYSIS < 15 (0-50); LDL Cholesterol Calculated 49 mg/dL (<100); Potassium 4.7 mmol/L (3.4-5.1); Sodium 138 mmol/L (137-145); Total Protein 7.5 g/dL (6.3-8.2); Triglycerides 131 mg/dL (35-150)
== END ==
PROVIDERS: PCP Family Medicine; Referring Provider Internal Medicine Cardiovascular Disease; Visit Provider Internal Medicine Cardiovascular Disease
DX: G45.9 Transient cerebral ischemic attack, unspecified (principal); R00.1 Bradycardia, unspecified; R06.83 Snoring; E78.00 Pure hypercholesterolemia, unspecified
CPT/HCPCS: 36415; 80053; 80061

== ENCOUNTER → 2021-08-26 16:22 | Outpatient (CLI) | payer MEDICARE, OTHER, SELFPAY ==
[2021-06-16 15:03] VITALS: BMI 22.6
--- NOTE | 2021-08-26 16:24 | DI.RAD.S_ITS ---
PROCEDURE: XR THORACIC SPINE 3V INDICATIONS: thoracic pain since hike 3 - 4 weeks ago TECHNIQUE: 3 views of the thoracic spine were acquired. COMPARISON: [facility], CT, CT ABDOMEN PELVIS W CON, 10/29/2017, 14:46. [facility], CR, XR THORACIC SPINE 3V, 12/13/2018, 10:47. FINDINGS: Bones: No acute compression fractures or dislocations. There is mild levocurvature of the mid thoracic spine centered at approximately the T8-9 level. Mild reciprocal dextrocurvature noted in the mid lumbar spine. Stable appearance of chronic anterior compression deformity at T12. No suspicious bony lesions. 12 pairs of ribs are noted, and appear intact where visualized. Multilevel thoracic spondylitic changes most pronounced in the midthoracic spine. Soft tissues: No paravertebral stripe thickening. IMPRESSION: Thoracic spine without acute fracture. Mild multilevel thoracic spondylosis most pronounced in the mid thoracic spine. Dictated by: Jesse Ya M.D. on 08/26/2021 at 17:00 Approved by: Jesse Ya M.D. on 08/26/2021 at 17:04
== END ==
PROVIDERS: PCP Family Medicine; Referring Provider Family Medicine; Visit Provider Family Medicine
DX: M47.814 Spondylosis without myelopathy or radiculopathy, thoracic region (principal); M54.6 Pain in thoracic spine
CPT/HCPCS: 72072

== ENCOUNTER → 2021-12-09 10:12 | Outpatient (CLI) | payer MEDICARE, OTHER, SELFPAY ==
[2021-06-16 15:03] VITALS: BMI 22.6
[2021-12-09 10:46] LABS: COVID19 -Nasal RAPID Negative (Negative)
== END ==
PROVIDERS: PCP Family Medicine; Visit Provider Physician Assistant
DX: Z20.822 Contact with and (suspected) exposure to COVID-19 (principal)
CPT/HCPCS: 87635

== ENCOUNTER → 2022-02-15 09:13 | Outpatient (CLI) | payer MEDICARE, OTHER, SELFPAY ==
[2021-06-16 15:03] VITALS: BMI 22.6
--- NOTE | 2022-02-15 | DI.MG.S_ITS ---
BILATERAL DIGITAL SCREENING MAMMOGRAM 3D/2D WITH CAD: 02/15/2022 CLINICAL: Routine screening. Comparison is made to exams dated: 02/12/2021 mammogram, 01/29/2020 mammogram, and 01/17/2019 mammogram - [facility]. There are scattered areas of fibroglandular density in both breasts (category b / 25%-50% glandular tissue). Current study was also evaluated with a Computer Aided Detection (CAD) system. There is a benign calcification in the right breast. No significant masses, calcifications, or other findings are seen in either breast. There has been no significant interval change. IMPRESSION: BENIGN There is no mammographic evidence of malignancy. A 1 year screening mammogram is recommended. Based on the Tyrer Cuzick model (a risk assessment model) the patient's lifetime risk is 6.9% and her 10 year risk is 3.5%. According to the ACR, ACS, and NCCN guidelines, an annual breast MRI exam along with mammogram is recommended if the patient's lifetime risk is 20% or greater. This exam was interpreted at Station ID: [id number]. NOTE: For mammograms, a report in lay terms will be sent to the patient. Approximately 15% of breast malignancies will not be visualized mammographically. In the management of a palpable breast mass, a negative mammogram must not discourage biopsy of a clinically suspicious lesion. Electronically Signed By: Ariel boyce/seth:02/15/2022 12:43:59 letter sent: Normal Exam ACR BI-RADS Category 2: Benign Finding(s) 3342F
== END ==
PROVIDERS: PCP Family Medicine; Referring Provider Family Medicine; Visit Provider Family Medicine
DX: Z12.31 Encounter for screening mammogram for malignant neoplasm of breast (principal)
CPT/HCPCS: 77063; 77067

== ENCOUNTER → 2022-04-20 13:11 | Outpatient (CLI) | payer MEDICARE, OTHER, SELFPAY ==
[2021-06-16 15:03] VITALS: BMI 22.6
== END ==
PROVIDERS: PCP Family Medicine; Visit Provider Family Medicine
DX: N89.8 Other specified noninflammatory disorders of vagina (principal)
CPT/HCPCS: 87210

== ENCOUNTER → 2022-04-30 11:30 | Outpatient (CLI) | payer MEDICARE, OTHER, SELFPAY ==
[2021-06-16 15:03] VITALS: BMI 22.6
[2022-04-30 12:54] LABS: Alanine Aminotransferase 33 IU/L (<35); Albumin 5.1 g/dL (3.5-5.0); Albumin Globulin Ratio 1.4 (1.0-2.8); Alkaline Phosphatase 85 U/L (38-126); Aspartate Aminotransferase 46 IU/L (14-36); BUN Creatinine Ratio 21.4 (6-22); Bilirubin Total 0.5 mg/dL (0.2-1.3); Blood Urea Nitrogen 12 mg/dL (7-17); Calcium 10.2 mg/dL (8.4-10.2); Carbon Dioxide 25 mmol/L (22-32); Chloride 103 mmol/L (98-107); Estimated Glomerular Filt Rate > 60 mL/min (>60); Globulin 3.7 g/dL (1.7-4.1); Glucose 85 mg/dL (80-110); HEMOLYSIS 15 (0-50); Potassium 3.7 mmol/L (3.4-5.1); Sodium 142 mmol/L (137-145); Total Protein 8.8 g/dL (6.3-8.2)
== END ==
PROVIDERS: PCP Family Medicine; Referring Provider Nurse Practitioner; Visit Provider Nurse Practitioner
DX: R00.1 Bradycardia, unspecified (principal)
CPT/HCPCS: 36415; 80053

== ENCOUNTER 2022-05-22 16:09 | Observation (INO) | payer MEDICARE, OTHER, SELFPAY ==
[2021-06-16 15:03] VITALS: BMI 22.6
[2022-05-22] VITALS (11 sets, daily range): BP systolic 120–187; BP diastolic 60–84; PULSE 62–75; RESP 11–22; TEMP 36.5–36.6; O2SAT 99–100; BMI 24.7; BMI 25.1
--- NOTE | 2022-05-22 16:25 | DI.CT.S_ITS ---
PROCEDURE: CT ANGIO HEAD AND NECK INDICATIONS: left arm numbness TECHNIQUE: After the administration of intravenous contrast, 1 mm thick sections acquired from the aortic arch through the [place] of Bill. Post-contrast 4.5 mm thick sections then re-acquired from the foramen magnum to the vertex. 3-dimensional eetjqws-nbldmevli-acacsniupx (MIP) and/or volume rendering reformats were acquired of the central intracranial vasculature and neck separately. For radiation dose reduction, the following was used: automated exposure control, adjustment of mA and/or kV according to patient size. COMPARISON: None. FINDINGS: Image quality: Excellent. HEAD CT ANGIOGRAPHY: Anterior circulation: Intracranial internal carotid arteries are normal in size and flow. The flow within the paired anterior cerebral arteries is normal and symmetric. The flow within the middle cerebral arteries is normal and symmetric. The anterior communicating artery is seen. No aneurysms are seen. Posterior circulation: Visualized portions of the vertebral arteries demonstrate normal caliber, and join to form a normal appearing basilar artery. Flow within the posterior cerebral arteries is normal and symmetric. No aneurysms are seen. NECK CT ANGIOGRAPHY: Carotid system: The great vessels demonstrate a conventional anatomy as they arise from the aortic arch. The origins of the common carotid arteries appear patent. The common carotid arteries demonstrate normal caliber and courses. The bifurcation regions are both widely patent. The internal carotid arteries demonstrate normal calibers and courses. Posterior circulation: The origins of the vertebral arteries both appear widely patent. The more superior extracranial portions of both vertebral arteries also demonstrate normal courses and calibers. They join to form a normal appearing basilar artery. Soft tissues: Visualized neck soft tissues demonstrate no suspicious abnormalities. Bones: No suspicious bony lesions. Visualized cervical spine appears normally aligned. IMPRESSION: Normal CT angiogram of the head and neck without evidence of large vessel occlusion, significant stenosis or aneurysm Any quantitative measurements of stenosis were performed using NASCET criteria. Approved by: Eloy Garber M.D. on 05/22/2022 at 16:52
--- NOTE | 2022-05-22 16:25 | DI.CT.S_ITS ---
PROCEDURE: CT STROKE INDICATIONS: left arm numbness TECHNIQUE: Noncontrast 4.5 mm thick angled axial sections acquired from the foramen magnum to the vertex, with coronal reformats. For radiation dose reduction, the following was used: automated exposure control, adjustment of mA and/or kV according to patient size. COMPARISON: None. FINDINGS: Image quality: Excellent. CSF spaces: Basal cisterns are patent. No extra-axial fluid collections. The ventricles are symmetric in size and shape. Brain: No intracranial bleeds or masses. There is cerebral volume loss for age, with resultant ventricular and sulcal prominence. There are periventricular and deep white matter chronic small vessel ischemic changes. There is intracranial internal carotid artery atherosclerosis. Skull and face: Calvarium and visualized facial bones appear intact, without suspicious lesions. Sinuses: Visualized sinuses and mastoids are clear. IMPRESSION: Normal head CT. Findings were discussed with Dr. Aguilar at time of dictation. This study fulfills neurological imaging criteria for inclusion or exclusion of acute stroke therapies based on available published neurological guidelines. Dictated by: Nikos Soto M.D. on 05/22/2022 at 17:08 Approved by: Nikos Soto M.D. on 05/22/2022 at 17:09
--- NOTE | 2022-05-22 16:34 | ED_ITS ---
HPI - Neuro Symptoms/Deficit General Chief Complaint: Neuro Symptoms/Deficit Stated Complaint: 1:45 Larm numb/seeing colors/dizzing stroke BPhi Time Seen by Provider: 05/22/22 16:25 History of Present Illness HPI Narrative: Patient is a 67-year-old female history of TIA with left arm numbness she was admitted about 1 year ago for the same, history of hyperlipidemia, presents today with flashing changes in both eyes and left arm numbness. She is confident it started around 145. She says she is been weaning muscle today not in front of any screens or computers. He says the flashing lights in both eyes lasted less than 10 minutes he says that has completely resolved however she feels like her left arm is still numb. She denies it being week. 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 She denies any chest pain shortness of breath. She is not had any fever chills or nausea and vomiting. Related Data Home Medications Medication Instructions Recorded Confirmed fluticasone propionate 50 1 spray intranasal QDAY ##0 05/14/16 04/30/22 mcg/actuation nasal spray,suspension (Flonase Allergy Relief) calcium carbonate 600 mg-vitamin 2 cap PO DAILY 06/16/21 04/30/22 D3 25 mcg (1,000 unit) capsule docusate sodium PO 07/15/21 04/30/22 Previous Rx's Medication Instructions Recorded aspirin 81 mg tablet,delayed 81 mg PO DAILY #30 tabs 06/17/21 release atorvastatin 40 mg tablet 40 mg PO DAILY #90 tabs 06/23/21 Allergies Allergy/AdvReac Type Severity Reaction Status Date / Time influenza virus vaccine, Allergy Severe PASSED OUT Verified 05/22/22 16:35 specific [influenza virus vacc,specific] dog dander [DOG DANDER] Allergy Unknown Verified 05/22/22 16:35 Review of Systems Review of Systems ROS Unobtainable: All systems reviewed & are unremarkable except as noted in HPI and below Patient History Medical History (Updated 05/22/22 @ 19:06 by Catherine Aguilar DO) Acute appendicitis Allergic rhinitis (04/22/14) Anal pruritus Chronic back pain (2010) Compression fracture of first lumbar vertebra, closed, initial encounter (01/21/16) Dry eye Fracture of fifth toe, left, closed Gastric ulcer (1989) Gastroesophageal reflux disease (01/25/14) GERD (gastroesophageal reflux disease) (~1989) Hemorrhoids (2005) Hiatal hernia History of head injury Hx of spinal cord injury Hypercalcemia Hyperlipidemia Knee pain (10/2013) Low back pain (01/25/14) Osteoporosis (06/07/14) Paresthesia of left upper extremity Peptic ulcer disease Rosacea Seasonal allergies (~1989) Tibia/fibula fracture (1988) Tobacco use disorder (04/22/14) Vaginal atrophy (05/18/17) Surgical History Anesthesia complication H/O local excision of skin lesion (10/2013) History of esophagogastroduodenoscopy (EGD) (12/03/16) History of orthopedic surgery (1990) History of surgery (1981) History of tonsillectomy (1972) Status post hemorrhoidectomy (2005) Status post LASIK surgery (2000) Family History Brother Age: 67 Hypertension Father Diabetes mellitus Heart disease Hypertension High cholesterol Mother Heart disease Stroke Renal failure Social History household members: none Smoking Status: Current every day smoker quit status: quit date established alcohol intake: current Smoking Status: Current every day smoker alcohol intake frequency: holidays/special occasions only Substance Use Type: does not use Exam Initial Vital Signs Initial Vital Signs: Vital Signs Temperature 98 F 05/22/22 16:20 Pulse Rate 68 05/22/22 16:20 Respiratory Rate 17 05/22/22 16:20 Blood Pressure 182/84 H 05/22/22 16:20 Pulse Oximetry 99 05/22/22 16:20 Oxygen Delivery Method 05/22/22 16:20 GENERAL: Alert pleasant 67-year-old female and in no acute distress. HEENT: Head atraumatic,EOMI, pupils reactive, face symmetric, moist mucous membranes CARDIOVASCULAR: Regular rate and rhythm without murmurs, rubs or gallops. RESPIRATORY: Breath sounds equal bilaterally, no wheezes rales or rhonchi. ABDOMEN: Soft, nontender. Normoactive bowel sounds all 4 quadrants. No guarding or rebound. EXTREMITIES: Normal range of motion, no clubbing or edema. Neurovascularly intact NEUROLOGICAL: Alert and oriented x4.Normal gait and speech. Cranial nerves II through XII grossly intact. Good [id number]-[id number], good xorp-hv-sbni, strength equal bilaterally, no dysarthria or aphasia, mild decreased sensation in left, no visual changes, no facial droop SKIN: Warm, dry, no laceration, no petechiae, no rashes or lesions. Scores NIH Stroke Scale Level of Conciousness: Alert, keenly responsive Ask month/age: Answers both questions correctly. Open/close eyes, close hand: Performs both tasks correctly Best gaze horizontal: Normal Visual tavarez: No visual loss Facial palsy: Normal symetrical movement Left arm drift: No drift for full 10 sec Right arm drift: No drift for full 10 sec Left leg drift: No drift for full 5 sec Right leg drift: No drift for full 5 sec Limb ataxia: Absent Sensory on face/arms/legs: Mild to moderate sensory loss, can tell touch Best language: No aphasia, normal Dysarthria: Normal Extinction or inattention: No abnormality Total NIH Stroke scale score: 1 Course Orders Ordered: ED Orders 05/22/22 16:[address] angio head and neck Stat EKG-12 Lead Stat 05/22/22 16:29 Urine Drug Screen, Rapid Stat 05/22/22 17:00 Complete Blood Count AUTO DIFF Stat Comprehensive Metabolic Panel Stat Ethanol (ETOH) Stat Partial Thromboplastin Time Stat Prothrombin Time INR Stat Troponin & CK Cardiac Panel Stat 05/22/22 17:29 Urinalysis and Microscopic Stat 05/22/22 18:28 COVID19 -Nasal RAPID/Pre-Proc Stat Vital Signs Vital signs: Vital Signs - 8 hr 05/22/22 16:20 05/22/22 17:02 05/22/22 18:25 Temperature 98 F Pulse Rate 68 75 66 Respiratory Rate 17 16 21 Blood Pressure 182/84 H 180/79 H Pulse Oximetry 99 99 100 Oxygen Delivery Method Room Air Room Air 05/22/22 18:30 05/22/22 18:30 Temperature Pulse Rate 64 Respiratory Rate 18 Blood Pressure 187/80 H Pulse Oximetry 100 Oxygen Delivery Method Room Air MDM - Neuro Symptoms/Deficit Lab Data Result diagrams: 05/22/22 17:00 05/22/22 17:00 Labs: Lab Results 05/22/22 05/22/22 05/22/22 Range/Units 16:29 17:00 17:00 WBC 8.5 (4.5-11.0) X10^3/uL RBC 4.36 (4.0-5.2) X10^6/uL Hgb 13.4 (12.0-16.0) g/dL Hct 39.2 (36-46) % MCV 90.0 (80-100) fL MCH 30.8 (26-34) PG MCHC 34.3 (30-36) % RDW 12.5 (11.6-14.8) % Plt Count 311 (150-400) X10^3/uL Neut % (Auto) 37.8 L (50-75) % Lymph % (Auto) 51.7 H (25-40) % Sequoyah % (Auto) 7.2 (3-14) % Eos % (Auto) 2.3 (2-4) % Baso % (Auto) 1.0 (0-2) % Neut # (Auto) 3200 (1634-3279) /uL Lymph # (Auto) 4400 (6897-6895) /uL Sequoyah # (Auto) 600 (0-900) /uL Eos # (Auto) 200 (0-450) /uL Baso # (Auto) 100 (0-100) /uL PT 10.9 (10.1-12.7) SECONDS INR 1.0 (0.9-1.3) APTT 28 (26-36) SECONDS Sodium (137-145) mmol/L Potassium (3.4-5.1) mmol/L Chloride (98-107) mmol/L Carbon Dioxide (22-32) mmol/L BUN (7-17) mg/dL Creatinine (0.52-1.04) mg/dL Estimated GFR (>60) mL/min BUN/Creatinine Ratio (6-22) Glucose (80-110) mg/dL Calcium (8.4-10.2) mg/dL Total Bilirubin (0.2-1.3) mg/dL AST (14-36) IU/L ALT (<35) IU/L Alkaline Phosphatase (38-126) U/L Total Creatine Kinase (30-135) U/L CK-MB (CK-2) CK-MB (CK-2) Rel Index Troponin I (0.01-0.034) ng/mL Total Protein (6.3-8.2) g/dL Albumin (3.5-5.0) g/dL Globulin (1.7-4.1) g/dL Albumin/Globulin Ratio (1.0-2.8) Urine Color Urine Appearance Urine pH (4.5-8.0) Ur Specific Maurice (1.000-1.035) Urine Protein (Negative) Urine Glucose (UA) (Negative) g/dL Urine Ketones (NEGATIVE) Urine Occult Blood (Negative) Urine Nitrate (Negative) Urine Bilirubin (NEGATIVE) Urine Urobilinogen (0.2) E.U./dL Ur Leukocyte Esterase (NEGATIVE) Urine RBC (0-5/HPF) Urine WBC (0-5/HPF) Ur Squamous Epith Cells (0-5/HPF) Urine Bacteria (None) Ur Culture Indicated? U Opiates 300ng/mL cut Negative (Negative) Ur Oxycodone Screen Negative (Negative) Urine Methadone Screen Negative (Negative) Ur Barbiturates Screen Negative (Negative) U Tricyclic Antidepress Negative (Negative) Ur Phencyclidine Scrn Negative (Negative) Ur Amphetamines Screen Negative (Negative) U Methamphetamines Scrn Negative (Negative) Ur MDMA Scrn (Ecstasy) Negative (Negative) U Benzodiazepines Scrn Negative (Negative) Urine Cocaine Screen Negative (Negative) U Marijuana (THC) Screen Negative (Negative) Ethyl Alcohol ( - 10) mg/dL 05/22/22 05/22/22 Range/Units 17:00 17:29 WBC (4.5-11.0) X10^3/uL RBC (4.0-5.2) X10^6/uL Hgb (12.0-16.0) g/dL Hct (36-46) % MCV (80-100) fL MCH (26-34) PG MCHC (30-36) % RDW (11.6-14.8) % Plt Count (150-400) X10^3/uL Neut % (Auto) (50-75) % Lymph % (Auto) (25-40) % Sequoyah % (Auto) (3-14) % Eos % (Auto) (2-4) % Baso % (Auto) (0-2) % Neut # (Auto) (1360-5708) /uL Lymph # (Auto) (7010-7401) /uL Sequoyah # (Auto) (0-900) /uL Eos # (Auto) (0-450) /uL Baso # (Auto) (0-100) /uL PT (10.1-12.7) SECONDS INR (0.9-1.3) APTT (26-36) SECONDS Sodium 140 (137-145) mmol/L Potassium 4.0 (3.4-5.1) mmol/L Chloride 100 (98-107) mmol/L Carbon Dioxide 26 (22-32) mmol/L BUN 18 H (7-17) mg/dL Creatinine 0.59 (0.52-1.04) mg/dL Estimated GFR > 60 (>60) mL/min BUN/Creatinine Ratio 30.5 H (6-22) Glucose 81 (80-110) mg/dL Calcium 10.5 H (8.4-10.2) mg/dL Total Bilirubin 0.5 (0.2-1.3) mg/dL AST 32 (14-36) IU/L ALT 27 (<35) IU/L Alkaline Phosphatase 78 (38-126) U/L Total Creatine Kinase 74 (30-135) U/L CK-MB (CK-2) TNP CK-MB (CK-2) Rel Index TNP Troponin I < 0.012 (0.01-0.034) ng/mL Total Protein 8.8 H (6.3-8.2) g/dL Albumin 5.1 H (3.5-5.0) g/dL Globulin 3.7 (1.7-4.1) g/dL Albumin/Globulin Ratio 1.4 (1.0-2.8) Urine Color Yellow Urine Appearance Clear Urine pH 6.5 (4.5-8.0) Ur Specific Maurice <=1.005 (1.000-1.035) Urine Protein Negative (Negative) Urine Glucose (UA) Negative (Negative) g/dL Urine Ketones Negative (NEGATIVE) Urine Occult Blood Negative (Negative) Urine Nitrate Negative (Negative) Urine Bilirubin Negative (NEGATIVE) Urine Urobilinogen 0.2 (0.2) E.U./dL Ur Leukocyte Esterase Negative (NEGATIVE) Urine RBC None seen (0-5/HPF) Urine WBC None seen (0-5/HPF) Ur Squamous Epith Cells 0-1 /hpf (0-5/HPF) Urine Bacteria None seen (None) Ur Culture Indicated? Cult not indicated U Opiates 300ng/mL cut (Negative) Ur Oxycodone Screen (Negative) Urine Methadone Screen (Negative) Ur Barbiturates Screen (Negative) U Tricyclic Antidepress (Negative) Ur Phencyclidine Scrn (Negative) Ur Amphetamines Screen (Negative) U Methamphetamines Scrn (Negative) Ur MDMA Scrn (Ecstasy) (Negative) U Benzodiazepines Scrn (Negative) Urine Cocaine Screen (Negative) U Marijuana (THC) Screen (Negative) Ethyl Alcohol < 10 ( - 10) mg/dL Imaging Data CT scan - head: Radiologist's Impression: Signed Patient: Elba Diaz MR#: [id number] : 1955 Acct:[id number] Age/Sex: 67 / F Date of Service: 05/22/22 Loc: ED Accession Number: [id number] ?? Procedure: CT Stroke Ordering Provider: Catherine Aguilar D.O. PROCEDURE:? CT STROKE ? INDICATIONS:? left arm numbness ? TECHNIQUE:? Noncontrast 4.5 mm thick angled axial sections acquired from the foramen magnum to the vertex, with coronal reformats.? For radiation dose reduction, the following was used:? automated exposure control, adjustment of mA and/or kV according to patient size.? ? COMPARISON:? None. ? FINDINGS:? Image quality:? Excellent.? ? CSF spaces:? Basal cisterns are patent.? No extra-axial fluid collections.? The ventricles are symmetric in size and shape.? ? Brain:? No intracranial bleeds or masses.? There is cerebral volume loss for age, with resultant ventricular and sulcal prominence.? There are periventricular and deep white matter chronic small vessel ischemic changes.? There is intracranial internal carotid artery atherosclerosis.? ? Skull and face:? Calvarium and visualized facial bones appear intact, without suspicious lesions.? ? Sinuses:? Visualized sinuses and mastoids are clear.? ? IMPRESSION:? Normal head CT.? Findings were discussed with Dr. Aguilar at time of dictation. ? This study fulfills neurological imaging criteria for inclusion or exclusion of acute stroke therapies based on available published neurological guidelines.? ? ? Dictated by: Nikos Soto M.D. on 05/22/2022 at 17:08 ? ? CTA - brain/neck: Radiologist's Impression: Signed Patient: Elba Diaz MR#: [id number] : 1955 Acct:[id number] Age/Sex: 67 / F Date of Service: 05/22/22 Loc: ED Accession Number: [id number] ?? Procedure: CT angio head and neck Ordering Provider: Catherine Aguilar D.O. PROCEDURE:? CT ANGIO HEAD AND NECK ? INDICATIONS:? left arm numbness ? TECHNIQUE:? After the administration of intravenous contrast, 1 mm thick sections acquired from the aortic arch through the [place] of Bill.? Post-contrast 4.5 mm thick sections then re-acquired from the foramen magnum to the vertex.? 3-dimensional uddgetk-sglsofuci-hmkxgzyklz (MIP) and/or volume rendering reformats were acquired of the central intracranial vasculature and neck separately. For radiation dose reduction, the following was used:? automated exposure control, adjustment of mA and/or kV according to patient size.? ? COMPARISON:? None. ? FINDINGS:? Image quality:? Excellent.? ? HEAD CT ANGIOGRAPHY:? Anterior circulation:? Intracranial internal carotid arteries are normal in size and flow.? The flow within the paired anterior cerebral arteries is normal and symmetric.? The flow within the middle cerebral arteries is normal and symmetric.? The anterior communicating artery is seen.? No aneurysms are seen.? ? Posterior circulation:? Visualized portions of the vertebral arteries demonstrate normal caliber, and join to form a normal appearing basilar artery.? Flow within the posterior cerebral arteries is normal and symmetric.? No aneurysms are seen.? ? NECK CT ANGIOGRAPHY:? Carotid system:? The great vessels demonstrate a conventional anatomy as they arise from the aortic arch.? The origins of the common carotid arteries appear patent.? The common carotid arteries demonstrate normal caliber and courses.? The bifurcation regions are both widely patent.? The internal carotid arteries demonstrate normal calibers and courses.? ? Posterior circulation:? The origins of the vertebral arteries both appear widely patent.? The more superior extracranial portions of both vertebral arteries also d emonstrate normal courses and calibers.? They join to form a normal appearing basilar artery.? ? Soft tissues:? Visualized neck soft tissues demonstrate no suspicious abnormalities.? ? Bones:? No suspicious bony lesions.? Visualized cervical spine appears normally aligned.? IMPRESSION:? ? Normal CT angiogram of the head and neck without evidence of large vessel occlusion, significant stenosis or aneurysm ? Any quantitative measurements of stenosis were performed using NASCET criteria.? Approved by: Eloy Garber M.D. on 05/22/2022 at 16:52? ECG Data Interpretation: Normal sinus rhythm rate 70 RI interval 154 QRS QTC [address] changes no T-wave inversions similar to previous EKGs MDM Narrative Medical decision making narrative: Patient 67 years old history of TIA with a known PFO presents today as a code stroke. She is a low NIH stroke scale of 1 with sensation only changed in her left arm. Presentation was a little bit different with bilateral visual changes but that part only lasted very briefly only a couple of minutes and then persisted left arm numbness. No chest pain or weakness associated with it. This is however previous TIA presented. She remains hypertensive in the emergency department. Symptoms improving she can not tell if it is completely better yet or not. Blood work and CTs are negative. She does not have any chest pain or pressure. Troponin negative. Patient not a tPA candidate low NIH stroke scale no sign of large vessel occlusion. Dr. Her barrientos updated patient's symptoms test results and kindly accepts Discharge Plan Departure Patient Disposition: Admitted as Observation Clinical Impression: Transient cerebral ischemia Prescriptions: No Action fluticasone propionate [Flonase Allergy Relief] 9.9 ML spray,suspension 1 spray Intranasal QDAY Qty: 0 atorvastatin 40 mg tablet 40 mg PO DAILY Qty: 90 3RF docusate sodium PO calcium carbonate-vitamin D3 600 mg-25 mcg (1,000 unit) Capsule 2 cap PO DAILY aspirin 81 mg Tablet,Delayed Release (Dr/Ec) 81 mg PO DAILY Qty: 30 0RF Referrals: Martha Javed DO [Primary Care Provider] -
[2022-05-22 17:11] LABS: Add Manual Diff / Slide Review NO; Basophils Absolute Auto 100 /uL (0-100); Eosinophils Absolute Auto 200 /uL (0-450); Eosinophils Percent Auto 2.3 % (2-4); Hematocrit 39.2 % (36-46); Hemoglobin 13.4 g/dL (12.0-16.0); Lymphocytes Absolute Auto 4400 /uL (1100-4500); Lymphocytes Percent Auto 51.7 % (25-40); Mean Corpuscular HGB Conc 34.3 % (30-36); Mean Corpuscular Hemoglobin 30.8 PG (26-34); Monocytes Absolute Auto 600 /uL (0-900); Monocytes Percent Auto 7.2 % (3-14); Neutrophils Absolute Auto 3200 /uL (1500-7000); Neutrophils Percent Auto 37.8 % (50-75); Platelet Count 311 X10^3/uL (150-400); Red Blood Cell Count 4.36 X10^6/uL (4.0-5.2); Red Cell Distribution Width 12.5 % (11.6-14.8); White Blood Cell Count 8.5 X10^3/uL (4.5-11.0)
[2022-05-22 17:18] LABS: Prothrombin Time 10.9 SECONDS (10.1-12.7)
[2022-05-22 17:21] LABS: PTT Partial Thromboplastin Tim 28 SECONDS (26-36)
[2022-05-22 17:24] LABS: Alanine Aminotransferase 27 IU/L (<35); Albumin 5.1 g/dL (3.5-5.0); Albumin Globulin Ratio 1.4 (1.0-2.8); Alkaline Phosphatase 78 U/L (38-126); Aspartate Aminotransferase 32 IU/L (14-36); BUN Creatinine Ratio 30.5 (6-22); Bilirubin Total 0.5 mg/dL (0.2-1.3); Blood Urea Nitrogen 18 mg/dL (7-17); Calcium 10.5 mg/dL (8.4-10.2); Carbon Dioxide 26 mmol/L (22-32); Chloride 100 mmol/L (98-107); Creatine Kinase 74 U/L (30-135); Estimated Glomerular Filt Rate > 60 mL/min (>60); Ethanol (ETOH) < 10 mg/dL; Globulin 3.7 g/dL (1.7-4.1); Glucose 81 mg/dL (80-110); HEMOLYSIS 32 (0-50); Sodium 140 mmol/L (137-145); Total Protein 8.8 g/dL (6.3-8.2)
[2022-05-22 17:34] LABS: Troponin I < 0.012 ng/mL (0.01-0.034)
[2022-05-22 17:49] LABS: Appearance Urine UA CLEAR; Bilirubin Urine UA NEGATIVE (NEGATIVE); Color Urine UA YELLOW; Glucose Urine UA NEGATIVE (Negative); Ketones Urine UA NEGATIVE (NEGATIVE); Leukocyte Esterase Urine UA NEGATIVE (NEGATIVE); Nitrite Urine UA NEGATIVE (Negative); Occult Blood Urine UA NEGATIVE (Negative); Protein Urine UA NEGATIVE (Negative); Specific Gravity Urine UA <=1.005 (1.000-1.035); Urobilinogen Urine UA 0.2 E.U./dL (0.2)
[2022-05-22 17:53] LABS: UR Morphine/Opiate cutoff 300 Negative (Negative); Ur Creatinine Normal (Normal); Ur Specific Gravity Normal (Normal); Urine Amphetamines Negative (Negative); Urine Cocaine Negative (Negative); Urine Tetrahydrocannabinol Negative (Negative); Urine pH Normal (Normal)
[2022-05-22 17:54] LABS: Urine Barbiturates Negative (Negative); Urine Benzodiazepines Negative (Negative); Urine MDMA Negative (Negative); Urine Methadone Negative (Negative); Urine Methamphetamines Negative (Negative); Urine Oxycodone Negative (Negative); Urine Phencyclidine Negative (Negative); Urine Tricyclic Antidepressant Negative (Negative)
[2022-05-22 18:06] LABS: pH Urine UA 6.5 (4.5-8.0)
[2022-05-22 18:56] LABS: Bacteria Urine None Seen; Culture Indicated Urine Cult Not Indicated; RBC Urine None Seen (0-5/HPF); Squamous Epithelial Cell Urine 0-1 /HPF (0-5/HPF); WBC Urine None Seen (0-5/HPF)
[2022-05-22 18:57] LABS: COVID19 -Nasal RAPID Negative (Negative)
[2022-05-22] MEDS: ASPIRIN 81 MG CHEW TAB 324 MG PO (19:47)
--- NOTE | 2022-05-22 22:47 | P.HP_ITS ---
History of Present Illness History of Present Illness Date Patient Seen: 05/22/22 Time Patient Seen: 23:00 Chief complaint: 1:45 Larm numb/seeing colors/dizzing stroke BPhi Narrative: Ms. Diaz is a 67W with PMH TIA, HL, PFO who presents to the hospital today w ith flashing in her vision and left arm numbness. This was similar to her symptoms that happened when she was diagnosed with probable TIA last admission here, though then she had no visual changes. She notes her blood pressure was high earlier today. She has been diagnosed with a small PFO and has seen cardiology who has not recommended closure at this point. She had no difficulty with speech. No other symptoms in other extremities. In the ED workup was done, vitals notable for high blood pressure 180s/80s. NIH 1. Labs notable for WBC 8.5, hgb 13.4, plts 311. Creatinine 0.59. Trop negative. UA negative for infection. CT head with no acute process. CTA head/neck with no acute process. She was admitted for further treatment. When I saw her she states her symptoms had resolved. Patient History Medical History Acute appendicitis Allergic rhinitis (04/22/14) Anal pruritus Chronic back pain (2010) Compression fracture of first lumbar vertebra, closed, initial encounter (01/21/16) Dry eye Fracture of fifth toe, left, closed Gastric ulcer (1989) Gastroesophageal reflux disease (01/25/14) GERD (gastroesophageal reflux disease) (~1989) Hemorrhoids (2005) Hiatal hernia History of head injury Hx of spinal cord injury Hypercalcemia Hyperlipidemia Knee pain (10/2013) Low back pain (01/25/14) Osteoporosis (06/07/14) Paresthesia of left upper extremity Peptic ulcer disease Rosacea Seasonal allergies (~1989) Tibia/fibula fracture (1988) Tobacco use disorder (04/22/14) Vaginal atrophy (05/18/17) Surgical History Anesthesia complication H/O local excision of skin lesion (10/2013) History of esophagogastroduodenoscopy (EGD) (12/03/16) History of orthopedic surgery (1990) History of surgery (1981) History of tonsillectomy (1972) Status post hemorrhoidectomy (2005) Status post LASIK surgery (2000) Family & Social History Family History Brother Age: 67 Hypertension Father Diabetes mellitus Heart disease Hypertension High cholesterol Mother Heart disease Stroke Renal failure Social History: household members none Prior Living Arrangements House Safety & Behavioral: Feels Safe in Current Yes Environment Been Physically Hurt or No Threatened By a Person Tobacco & Substance use: Tobacco type cigarettes Smoking Status Current every day smoker alcohol intake current alcohol intake frequency holiday/special occasion Substance Use Type does not use Meds Home Medications and Allergies Home Medications Medication Instructions Recorded Confirmed Type calcium carbonate 600 mg-vitamin 2 cap PO DAILY 06/16/21 05/22/22 History D3 25 mcg (1,000 unit) capsule aspirin 81 mg tablet,delayed 81 mg PO DAILY #30 tabs 06/17/21 05/22/22 Rx release atorvastatin 40 mg tablet 40 mg PO DAILY #90 tabs 06/23/21 05/22/22 Rx docusate sodium 100 mg PO DAILY 07/15/21 05/22/22 History Allergies Allergy/AdvReac Type Severity Reaction Status Date / Time influenza virus vaccine, Allergy Severe PASSED OUT Verified 05/22/22 16:35 specific [influenza virus vacc,specific] dog dander [DOG DANDER] Allergy Unknown Verified 05/22/22 16:35 Review of Systems Review of Systems Narrative: 14 systems reviewed and negative aside from what is noted in HPI Exam Vital Signs (past 8 hours): - 05/22/22 17:02 05/22/22 18:25 05/22/22 18:30 Temperature Pulse Rate 75 66 Respiratory Rate 16 21 Blood Pressure 180/79 H 187/80 H Pulse Oximetry 99 100 Oxygen Delivery Method Room Air Oxygen Flow Rate 05/22/22 18:30 05/22/22 19:00 05/22/22 19:01 Temperature Pulse Rate 64 67 Respiratory Rate 18 17 Blood Pressure 144/67 H Pulse Oximetry 100 100 Oxygen Delivery Method Room Air Oxygen Flow Rate 05/22/22 19:01 05/22/22 19:30 05/22/22 19:30 Temperature Pulse Rate 62 64 Respiratory Rate 19 11 L Blood Pressure 120/60 Pulse Oximetry 100 100 Oxygen Delivery Method Room Air Oxygen Flow Rate 05/22/22 20:00 05/22/22 20:00 05/22/22 20:30 Temperature Pulse Rate 62 Respiratory Rate 20 Blood Pressure 136/63 133/63 Pulse Oximetry 99 Oxygen Delivery Method Oxygen Flow Rate 05/22/22 20:30 05/22/22 21:00 05/22/22 21:00 Temperature Pulse Rate 62 66 Respiratory Rate 13 22 Blood Pressure 149/67 H Pulse Oximetry 100 99 Oxygen Delivery Method Room Air Room Air Oxygen Flow Rate 05/22/22 21:05 Temperature 97.7 F Pulse Rate 67 Respiratory Rate 17 Blood Pressure 137/62 Pulse Oximetry 100 Oxygen Delivery Method Oxygen Flow Rate 0 Oxygen Delivery Method Room Air Oxygen Flow Rate 0 Narrative Exam Narrative: GEN: no acute distress HEENT: moist mucous membranes, PERRL NECK: trachea midline, no JVD PULM: clear bilaterally, no wheezes, rhonchi, rales CV: regular rate and rhythm, with no murmurs ABD: soft, nontender, nondistended, no organomegaly EXT: warm and well perfused with no edema NEURO: awake, alert, oriented, no focal deficits Objective Labs Result Diagrams: 05/22/22 17:00 05/22/22 17:00 Labs: Laboratory Results - last 24 hr 05/22/22 05/22/22 05/22/22 16:29 17:00 17:00 WBC 8.5 RBC 4.36 Hgb 13.4 Hct 39.2 MCV 90.0 MCH 30.8 MCHC 34.3 RDW 12.5 Plt Count 311 Neut % (Auto) 37.8 L Lymph % (Auto) 51.7 H [place] % (Auto) 7.2 Eos % (Auto) 2.3 Baso % (Auto) 1.0 Neut # (Auto) 3200 Lymph # (Auto) 4400 [place] # (Auto) 600 Eos # (Auto) 200 Baso # (Auto) 100 PT 10.9 INR 1.0 APTT 28 Sodium Potassium Chloride Carbon Dioxide BUN Creatinine Estimated GFR BUN/Creatinine Ratio Glucose Calcium Total Bilirubin AST ALT Alkaline Phosphatase Total Creatine Kinase CK-MB (CK-2) CK-MB (CK-2) Rel Index Troponin I Total Protein Albumin Globulin Albumin/Globulin Ratio Urine Color Urine Appearance Urine pH Ur Specific [place] Urine Protein Urine Glucose (UA) Urine Ketones Urine Occult Blood Urine Nitrate Urine Bilirubin Urine Urobilinogen Ur Leukocyte Esterase Urine RBC Urine WBC Ur Squamous Epith Cells Urine Bacteria Ur Culture Indicated? U Opiates 300ng/mL cut Negative Ur Oxycodone Screen Negative Urine Methadone Screen Negative Ur Barbiturates Screen Negative U Tricyclic Antidepress Negative Ur Phencyclidine Scrn Negative Ur Amphetamines Screen Negative U Methamphetamines Scrn Negative Ur MDMA Scrn (Ecstasy) Negative U Benzodiazepines Scrn Negative Urine Cocaine Screen Negative U Marijuana (THC) Screen Negative Ethyl Alcohol SARS-CoV-2 (PCR) 05/22/22 05/22/22 05/22/22 17:00 17:29 18:27 WBC RBC Hgb Hct MCV MCH MCHC RDW Plt Count Neut % (Auto) Lymph % (Auto) [place] % (Auto) Eos % (Auto) Baso % (Auto) Neut # (Auto) Lymph # (Auto) [place] # (Auto) Eos # (Auto) Baso # (Auto) PT INR APTT Sodium 140 Potassium 4.0 Chloride 100 Carbon Dioxide 26 BUN 18 H Creatinine 0.59 Estimated GFR > 60 BUN/Creatinine Ratio 30.5 H Glucose 81 Calcium 10.5 H Total Bilirubin 0.5 AST 32 ALT 27 Alkaline Phosphatase 78 Total Creatine Kinase 74 CK-MB (CK-2) TNP CK-MB (CK-2) Rel Index TNP Troponin I < 0.012 Total Protein 8.8 H Albumin 5.1 H Globulin 3.7 Albumin/Globulin Ratio 1.4 Urine Color Yellow Urine Appearance Clear Urine pH 6.5 Ur Specific [place] <=1.005 Urine Protein Negative Urine Glucose (UA) Negative Urine Ketones Negative Urine Occult Blood Negative Urine Nitrate Negative Urine Bilirubin Negative Urine Urobilinogen 0.2 Ur Leukocyte Esterase Negative Urine RBC None seen Urine WBC None seen Ur Squamous Epith Cells 0-1 /hpf Urine Bacteria None seen Ur Culture Indicated? Cult not indicated U Opiates 300ng/mL cut Ur Oxycodone Screen Urine Methadone Screen Ur Barbiturates Screen U Tricyclic Antidepress Ur Phencyclidine Scrn Ur Amphetamines Screen U Methamphetamines Scrn Ur MDMA Scrn (Ecstasy) U Benzodiazepines Scrn Urine Cocaine Screen U Marijuana (THC) Screen Ethyl Alcohol < 10 SARS-CoV-2 (PCR) Negative Assessment & Plan Assessment & Plan narrative: 1. Probable TIA -CT head and CTA head/neck with no acute process -MRI brain and ECHO ordered -check lipids and a1c -allow permissive hypertension -NIH q4h -continue aspirin, likely will need plavix for 21 days -continue statin -PT/OT and speech eval -follow up as outpatient with cardiology to determine if needs pfo closure -keep on tele 2. Elevated blood pressure -continue close followup with PCP -allow permissive hypertension CODE: Full Proxy: Rea Elisa, friend I have utilized all available resources to reconcile the patient's home medications Time Spent With Patient Critical Care time: I spent a total of [] minutes of critical care time on this patient's care today; this time is exclusive of procedural time. Quality VTE Deep Vein Thrombosis/Pulmonary Embolism Present on Admission: No
[2022-05-22] MEDS: ACETAMINOPHEN 325 MG TABLET 650 MG PO (23:45)
[2022-05-22] MEDS: ATORVASTATIN 20 MG TABLET 40 MG PO (23:46)
--- NOTE | 2022-05-23 | DI.US.S_ITS ---
PROCEDURE: Duplex venous ultrasound, bilateral lower extremity INDICATIONS: PYELONEPHRITIS TECHNIQUE: Duplex venous ultrasound both lower extremity venous vasculature was obtained COMPARISON: None. FINDINGS: Normal color flow, venous waveforms and compressibility noted in the bilateral lower extremities from the common femoral through the popliteal veins into the calf IMPRESSION: No evidence of deep venous thrombosis, bilateral lower extremities Approved by: Eloy Garber M.D. on 05/23/2022 at 15:10
[2022-05-23 01:15] VITALS: O2SAT 96
[2022-05-23 02:00] VITALS: BP 101/55; PULSE 70; RESP 17; TEMP 36.5; O2SAT 96
[2022-05-23 05:00] VITALS: O2SAT 97
[2022-05-23 06:26] LABS: Add Manual Diff / Slide Review NO; Basophils Absolute Auto 100 /uL (0-100); Eosinophils Absolute Auto 300 /uL (0-450); Eosinophils Percent Auto 3.7 % (2-4); Hematocrit 36.4 % (36-46); Hemoglobin 12.4 g/dL (12.0-16.0); Lymphocytes Absolute Auto 4100 /uL (1100-4500); Lymphocytes Percent Auto 54.5 % (25-40); Mean Corpuscular Hemoglobin 30.2 PG (26-34); Mean Corpuscular Volume 88.7 fL (80-100); Monocytes Absolute Auto 600 /uL (0-900); Monocytes Percent Auto 7.9 % (3-14); Neutrophils Absolute Auto 2500 /uL (1500-7000); Neutrophils Percent Auto 32.9 % (50-75); Platelet Count 294 X10^3/uL (150-400); Red Cell Distribution Width 12.8 % (11.6-14.8); White Blood Cell Count 7.6 X10^3/uL (4.5-11.0)
[2022-05-23 06:37] LABS: BUN Creatinine Ratio 32.4 (6-22); Blood Urea Nitrogen 22 mg/dL (7-17); Calcium 9.6 mg/dL (8.4-10.2); Carbon Dioxide 25 mmol/L (22-32); Chloride 102 mmol/L (98-107); Cholesterol 160 mg/dL (140-199); Estimated Glomerular Filt Rate > 60 mL/min (>60); Glucose 94 mg/dL (80-110); HDL Cholesterol 46 mg/dL (40-60); HEMOLYSIS < 15 (0-50); LDL Cholesterol Calculated 58 mg/dL (<100); Potassium 3.8 mmol/L (3.4-5.1); Sodium 139 mmol/L (137-145); Triglycerides 280 mg/dL (35-150)
[2022-05-23 06:52] LABS: Hemoglobin A1C% w Est Avg Glu 5.3 % (4.0-6.0)
--- NOTE | 2022-05-23 07:52 | P.PN_ITS ---
Exam Vital Signs (past 8 hours): - 05/23/22 02:00 05/23/22 01:15 05/23/22 05:00 Temperature 97.7 F Pulse Rate 70 Respiratory Rate 17 Blood Pressure 101/55 L Pulse Oximetry 96 96 97 Oxygen Delivery Method Room Air Room Air Oxygen Flow Rate 0 0 0 Oxygen Delivery Method Room Air Oxygen Flow Rate 0 Narrative Exam Narrative: GEN: no acute distress HEENT: moist mucous membranes, PERRL NECK: trachea midline, no JVD PULM: clear bilaterally, no wheezes, rhonchi, rales CV: regular rate and rhythm, with no murmurs ABD: soft, nontender, nondistended, no organomegaly EXT: warm and well perfused with no edema NEURO: awake, alert, oriented, no focal deficits Objective Labs Result Diagrams: 05/23/22 05:46 05/23/22 05:46 Labs: Laboratory Results - last 24 hr 05/22/22 05/22/22 05/22/22 16:29 17:00 17:00 WBC 8.5 RBC 4.36 Hgb 13.4 Hct 39.2 MCV 90.0 MCH 30.8 MCHC 34.3 RDW 12.5 Plt Count 311 Neut % (Auto) 37.8 L Lymph % (Auto) 51.7 H [place] % (Auto) 7.2 Eos % (Auto) 2.3 Baso % (Auto) 1.0 Neut # (Auto) 3200 Lymph # (Auto) 4400 [place] # (Auto) 600 Eos # (Auto) 200 Baso # (Auto) 100 PT 10.9 INR 1.0 APTT 28 Sodium Potassium Chloride Carbon Dioxide BUN Creatinine Estimated GFR BUN/Creatinine Ratio Glucose Hemoglobin A1c Calcium Total Bilirubin AST ALT Alkaline Phosphatase Total Creatine Kinase CK-MB (CK-2) CK-MB (CK-2) Rel Index Troponin I Total Protein Albumin Globulin Albumin/Globulin Ratio Triglycerides Cholesterol LDL Cholesterol, Calc HDL Cholesterol Urine Color Urine Appearance Urine pH Ur Specific [place] Urine Protein Urine Glucose (UA) Urine Ketones Urine Occult Blood Urine Nitrate Urine Bilirubin Urine Urobilinogen Ur Leukocyte Esterase Urine RBC Urine WBC Ur Squamous Epith Cells Urine Bacteria Ur Culture Indicated? U Opiates 300ng/mL cut Negative Ur Oxycodone Screen Negative Urine Methadone Screen Negative Ur Barbiturates Screen Negative U Tricyclic Antidepress Negative Ur Phencyclidine Scrn Negative Ur Amphetamines Screen Negative U Methamphetamines Scrn Negative Ur MDMA Scrn (Ecstasy) Negative U Benzodiazepines Scrn Negative Urine Cocaine Screen Negative U Marijuana (THC) Screen Negative Ethyl Alcohol SARS-CoV-2 (PCR) 05/22/22 05/22/22 05/22/22 17:00 17:29 18:27 WBC RBC Hgb Hct MCV MCH MCHC RDW Plt Count Neut % (Auto) Lymph % (Auto) [place] % (Auto) Eos % (Auto) Baso % (Auto) Neut # (Auto) Lymph # (Auto) [place] # (Auto) Eos # (Auto) Baso # (Auto) PT INR APTT Sodium 140 Potassium 4.0 Chloride 100 Carbon Dioxide 26 BUN 18 H Creatinine 0.59 Estimated GFR > 60 BUN/Creatinine Ratio 30.5 H Glucose 81 Hemoglobin A1c Calcium 10.5 H Total Bilirubin 0.5 AST 32 ALT 27 Alkaline Phosphatase 78 Total Creatine Kinase 74 CK-MB (CK-2) TNP CK-MB (CK-2) Rel Index TNP Troponin I < 0.012 Total Protein 8.8 H Albumin 5.1 H Globulin 3.7 Albumin/Globulin Ratio 1.4 Triglycerides Cholesterol LDL Cholesterol, Calc HDL Cholesterol Urine Color Yellow Urine Appearance Clear Urine pH 6.5 Ur Specific [place] <=1.005 Urine Protein Negative Urine Glucose (UA) Negative Urine Ketones Negative Urine Occult Blood Negative Urine Nitrate Negative Urine Bilirubin Negative Urine Urobilinogen 0.2 Ur Leukocyte Esterase Negative Urine RBC None seen Urine WBC None seen Ur Squamous Epith Cells 0-1 /hpf Urine Bacteria None seen Ur Culture Indicated? Cult not indicated U Opiates 300ng/mL cut Ur Oxycodone Screen Urine Methadone Screen Ur Barbiturates Screen U Tricyclic Antidepress Ur Phencyclidine Scrn Ur Amphetamines Screen U Methamphetamines Scrn Ur MDMA Scrn (Ecstasy) U Benzodiazepines Scrn Urine Cocaine Screen U Marijuana (THC) Screen Ethyl Alcohol < 10 SARS-CoV-2 (PCR) Negative 05/23/22 05/23/22 05/23/22 05:46 05:46 05:46 WBC 7.6 RBC 4.10 Hgb 12.4 Hct 36.4 MCV 88.7 MCH 30.2 MCHC 34.0 RDW 12.8 Plt Count 294 Neut % (Auto) 32.9 L Lymph % (Auto) 54.5 H [place] % (Auto) 7.9 Eos % (Auto) 3.7 Baso % (Auto) 1.0 Neut # (Auto) 2500 Lymph # (Auto) 4100 [place] # (Auto) 600 Eos # (Auto) 300 Baso # (Auto) 100 PT INR APTT Sodium 139 Potassium 3.8 Chloride 102 Carbon Dioxide 25 BUN 22 H Creatinine 0.68 Estimated GFR > 60 BUN/Creatinine Ratio 32.4 H Glucose 94 Hemoglobin A1c 5.3 Calcium 9.6 Total Bilirubin AST ALT Alkaline Phosphatase Total Creatine Kinase CK-MB (CK-2) CK-MB (CK-2) Rel Index Troponin I Total Protein Albumin Globulin Albumin/Globulin Ratio Triglycerides 280 H Cholesterol 160 LDL Cholesterol, Calc 58 HDL Cholesterol 46 Urine Color Urine Appearance Urine pH Ur Specific [place] Urine Protein Urine Glucose (UA) Urine Ketones Urine Occult Blood Urine Nitrate Urine Bilirubin Urine Urobilinogen Ur Leukocyte Esterase Urine RBC Urine WBC Ur Squamous Epith Cells Urine Bacteria Ur Culture Indicated? U Opiates 300ng/mL cut Ur Oxycodone Screen Urine Methadone Screen Ur Barbiturates Screen U Tricyclic Antidepress Ur Phencyclidine Scrn Ur Amphetamines Screen U Methamphetamines Scrn Ur MDMA Scrn (Ecstasy) U Benzodiazepines Scrn Urine Cocaine Screen U Marijuana (THC) Screen Ethyl Alcohol SARS-CoV-2 (PCR) [facility] Medical History Acute appendicitis Allergic rhinitis (04/22/14) Anal pruritus Chronic back pain (2010) Compression fracture of first lumbar vertebra, closed, initial encounter (01/21/16) Dry eye Fracture of fifth toe, left, closed Gastric ulcer (1989) Gastroesophageal reflux disease (01/25/14) GERD (gastroesophageal reflux disease) (~1989) Hemorrhoids (2005) Hiatal hernia History of head injury Hx of spinal cord injury Hypercalcemia Hyperlipidemia Knee pain (10/2013) Low back pain (01/25/14) Osteoporosis (06/07/14) Paresthesia of left upper extremity Peptic ulcer disease Rosacea Seasonal allergies (~1989) Tibia/fibula fracture (1988) Tobacco use disorder (04/22/14) Vaginal atrophy (05/18/17) Surgical History Anesthesia complication H/O local excision of skin lesion (10/2013) History of esophagogastroduodenoscopy (EGD) (07/14/17) History of orthopedic surgery (1990) History of surgery (1981) History of tonsillectomy (1972) Status post hemorrhoidectomy (2005) Status post LASIK surgery (2000) Family History Brother Age: 67 Hypertension Father Diabetes mellitus Heart disease Hypertension High cholesterol Mother Heart disease Stroke Renal failure Social History household members: none Smoking Status: Current every day smoker quit status: quit date established alcohol intake: current Assessment & Plan Assessment & Plan narrative: 1. Probable TIA -CT head and CTA head/neck with no acute process -MRI brain and ECHO ordered -check lipids and a1c -allow permissive hypertension -NIH q4h -continue aspirin, likely will need plavix for 21 days -continue statin -PT/OT and speech eval -follow up as outpatient with cardiology to determine if needs pfo closure -keep on tele 2. Elevated blood pressure -continue close followup with PCP -allow permissive hypertension CODE: Full Proxy: Rea Pérez, friend I have utilized all available resources to reconcile the patient's home medications Time Spent With Patient Critical Care time: I spent a total of [] minutes of critical care time on this patient's care today; this time is exclusive of procedural time. Quality VTE Deep Vein Thrombosis/Pulmonary Embolism Present on Admission: No
--- NOTE | 2022-05-23 08:11 | DI.MRI.S_ITS ---
PROCEDURE: MR HEAD/BRAIN WO CON INDICATIONS: TIA like symptoms TECHNIQUE: Noncontrast axial T1 spin echo, axial T2 fast spin echo, sagittal and axial FLAIR, coronal T2 fast spin echo, axial gradient echo, axial diffusion and ADC through the brain. COMPARISON: None. FINDINGS: Image quality: Excellent. CSF Spaces: Basal cisterns are patent. No extra-axial fluid collections. Ventricles are normal in size and shape. Brain: No intracranial masses or hemorrhage. [place]/white matter interface is normal. Brainstem appears normal. Diffusion-weighted sequence is unremarkable without evidence of acute infarct. Normal intravascular flow voids are present. Atrophy and moderate chronic ischemic change noted Skull and face: Calvarium has normal marrow signal. Orbits appear normal. Sinuses: Sinuses and mastoids are clear. IMPRESSION: Atrophy and chronic ischemic change without acute infarct, hemorrhage or mass lesion Approved by: Eloy Garber M.D. on 05/23/2022 at 9:51
[2022-05-23] MEDS: CLOPIDOGREL 75 MG TABLET PO (08:38)
[2022-05-23] MEDS: ASPIRIN EC 81 MG TABLET PO (08:38)
--- NOTE | 2022-05-23 08:48 | PC.NURSE ---
Addendum entered by Emma Goodson R.N. 05/23/22 12:38: Patient has had her MRI and Echo, patient was given valium earlier before going in the MRI, states that this helped her relax. She is napping now and waiting to see the doctorr. Original Note: Assess- Patients NIH scale a 0. Patient able to lift both of her arms and legs up with no drift, she is reading sentences well, no aphagia or slurred speech present. Smile is symmetrical, and o vision issues. She is ambulatory in the room and independent with the restroom. Patient will have an MRI , she states that she may need something to help relax her. Unsure of what time MRI will be. Patient is resting now, took her aspirin and plavix. Patient is worried about having to take plavix at home, she would like to talk to the doctors about this.
[2022-05-23] MEDS: diazePAM 5 MG TABLET PO (08:57)
[2022-05-23 09:00] VITALS: O2SAT 98
--- NOTE | 2022-05-23 09:06 | ST.IPSCREEN ---
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 NS provided medications and pt took pills in reclined position with thin water through straw cup. She exhibited no overt signs or symptoms of aspiration. Pt exhibited cognition and speech WNL. She was 100% intelligible and reported no difficulty with word finding. Completed oral motor exam with pt. Structures were symmetrical at rest and in motion. Tongue, lips, and jaw strength and ROM were WNL. Dentition present and WNL. Pt reported no difficulty with mastication or swallowing. Structure and function of oral mechanism appears WNL for the purposes of speech and swallowing. Speech therapy is not indicated at this time.
--- NOTE | 2022-05-23 09:25 | PT.IIE ---
Surgical History (Last Reviewed 05/23/22 @ 00:53 by Danilo Patino MD) Anesthesia complication H/O local excision of skin lesion (10/2013) History of esophagogastroduodenoscopy (EGD) (12/03/16) History of orthopedic surgery (1990) History of surgery (1981) History of tonsillectomy (1972) Status post hemorrhoidectomy (2005) Status post LASIK surgery (2000) Medical History (Last Reviewed 05/23/22 @ 00:53 by Danilo Patino MD) Acute appendicitis Allergic rhinitis (04/22/14) Anal pruritus Chronic back pain (2010) Compression fracture of first lumbar vertebra, closed, initial encounter (01/21/16) Dry eye Fracture of fifth toe, left, closed Gastric ulcer (1989) Gastroesophageal reflux disease (01/25/14) GERD (gastroesophageal reflux disease) (~1989) Hemorrhoids (2005) Hiatal hernia History of head injury Hx of spinal cord injury Hypercalcemia Hyperlipidemia Knee pain (10/2013) Low back pain (01/25/14) Osteoporosis (06/07/14) Paresthesia of left upper extremity Peptic ulcer disease Rosacea Seasonal allergies (~1989) Tibia/fibula fracture (1988) Tobacco use disorder (04/22/14) Vaginal atrophy (05/18/17) Physical Therapy Inpatient Evaluation/Re-Eval M1 PT/OT-IP Prior Functional Status Start: 05/23/22 09:25 Freq: NEEDED Status: Active Protocol: Document 05/23/22 09:25 DLM (Rec: 05/23/22 09:33 DLM [id number]) Medical Review Prior Functional Status Medical History Reviewed Yes Diet/Fluid Consistency Regular Communication WFL Mobility and Gait Independent without a device, active, takes dog for walks Activities of Daily Living and IADL's Independent Social History Household Members none Living Arrangements House Number of Floors (Floors) One Floor Number of Stairs To Enter/Railing? 7 steps in from garage with left rail Home Environment High Toilet,Walk in Shower,Tub /Shower Home Equipment Four Wheel Walker,Straight Cane,Lift Recliner,Grab Bars Near Toilet,Grab Bars In Shower M2 PT-IP Current Condition Start: 05/23/22 09:25 Freq: NEEDED Status: Active Protocol: Document 05/23/22 09:25 DLM (Rec: 05/23/22 09:33 DL [id number]) Physical Therapy Current Condition Current Condition Evaluation Date 05/23/22 Treatment Diagnosis left UE numbness and vision changes, rule/out CVA Onset Date 05/22/22 M3 PT-IP Subjective Start: 05/23/22 09:25 Freq: NEEDED Status: Active Protocol: Document 05/23/22 09:25 DLM (Rec: 05/23/22 09:33 DL [id number]) Subjective Physical Therapy Visit Type Type Initial Evaluation Visit Start Time 09:00 Visit Stop Time 09:25 Total Visit Minutes 25 Number of BELL CLERK Visits 0 Physical Therapy Visit Comments Patient Comments She reports her symptoms have resolved. Patient Goals Discharge home Therapy Pain Assessment Pain When Pain Assessed After Treatment Pain Present Pain Present Denied Pain M4 PT-IP Mobility and Gait Start: 05/23/22 09:25 Freq: NEEDED Status: Active Protocol: Document 05/23/22 09:25 DL (Rec: 05/23/22 09:33 DL [id number]) PT-Bed Mobility Assessment Rolling Type of Rolling Bilateral Level of Assist Independent Supine to Sit Supine to Sit Independent Sit to Supine Sit to Supine Independent Scooting Scooting to Edge of Bed Independent Scooting Up and Down in Bed Independent PT-Transfer Assessment Sit to and From Stand Sit to and from Stand Independent Equipment Transfer Assistive Device None Transfers Transfer Destination Bed Transfer Technique Stand Step Pivot Transfer Ability Level of Assist Independent Gait Assessment Gait Gait Assistance Required: Independent Distance (Feet) 300 Assistive Devices Assistive Device None Gait Deviations General Gait Pattern Within Normal Limits Stair Climbing Assessment Evaluation Level of Assist On Stairs Independent Devices Stair Climbing Assistive Devices Left Railing Technique/Endurance Stair Climbing Direction Ascend and Descend Stair Climbing Technique Step Over Step Number of Steps Climbed 3 Query Text: Stair Climbing Set # Repetitions (reps) 3 PT-Balance Assessment Sitting Balance and Reactions Static Sitting Balance Ability Normal Dynamic Sitting Balance Ability Normal Standing Balance and Reactions Static Standing Balance Ability Normal Dynamic Standing Balance Ability Normal Device Used none Balance Tests Single Limb Standing 5 sec each LE Romberg Independent and steady Tandem Standing needs UE assist to obtain but can hold for 20 sec M5 PT-IP Objective Assessments Start: 05/23/22 09:25 Freq: NEEDED Status: Active Protocol: Document 01/01/23 09:25 DLM (Rec: 05/23/22 09:33 DL [id number]) Orientation Orientation/Cognition Level of Alertness Alert Orientation Name,Age,Birthday,Month,Date, Year,Day of Week,Place, Situation Language Function Ability No Deficits Noted Safety Awareness Understands Safety Issues Memory Description No Deficits Noted Gross Range of Motion Upper Extremity ROM Assessment Within Functional Limits Lower Extremity ROM Assessment Within Functional Limits Strength Upper Extremity Strength Assessment Within Functional Limits Lower Extremity Strength Assessment Within Functional Limits Coordination Assessment Gross Coordination Gross Coordination WNL Sensation Assessment Sensation Gross Sensation WNL Muscle Tone Muscle Tone WNL Yes M6 PT-IP Treatment Start: 05/23/22 09:25 Freq: NEEDED Status: Active Protocol: Document 05/23/22 09:25 DLM (Rec: 05/23/22 09:33 DL [id number]) Physical Therapy Treatment Education Education Provided Safety M7 PT-IP Assessment and Plan Start: 05/23/22 09:25 Freq: NEEDED Status: Active Protocol: Document 05/23/22 09:25 DLM (Rec: 05/23/22 09:33 DL [id number]) PT Summary Assessment and Plan Potential Rehabilitation Potential Excellent Status of Condition at Evaluation Evolving Summary Assessment Summary Janelle is alert and resting in bed. She reports her left UE feels normal and she no longer has a headache nor vision changes. She reports she has been up independently in her room without difficulty. Her clinical exam shows normal strength and independent mobility and gait. No assistive device needed. No increase in symptoms with activity. She appears safe to discharge home when medically cleared. No skilled physical therapy needs identified at this time. Frequency of Treatment Frequency Of Treatment Discharge Treatment Plan Other Recommendations and Next Treatment no skilled physical therapy Focus needs at this time Recommendations To Nursing Amount of Assist Needed Independent Discharge Recommendations PT Discharge Recommendations Home Transportation Needs at Discharge Private Vehicle
[2022-05-23 09:33] VITALS: BP 101/52; PULSE 64; RESP 18; TEMP 36.2; O2SAT 95
--- NOTE | 2022-05-23 10:34 | DI.ECHO.S_ITS ---
Interpretation Summary 1) Normal left ventricular thickness, size, wall motion, and systolic function (EF 60-65%). 2) Normal right ventricular size with low normal function. 3) No significant valvular abnormalities. 4) Injection of contrast with valsalva documented an interatrial shunt. 5) Compared to the Echo done 06/17/2021, no significant change. Procedure: A two-dimensional transthoracic echocardiogram with color flow and Doppler was performed. The study quality was technically adequate. Comparison is made with the echocardiogram of 06/17/2021. The patient was in sinus rhythm with heart rates between 56-63 bpm during the exam. Left Ventricle: There is normal left ventricular wall thickness. The left ventricle is normal in size. The ejection fraction is estimated to be 60-65%. Left ventricular systolic function appears normal without focal wall motion abnormalities. Diastolic parameters suggest a relaxation abnormality of the left ventricle, consistent with probable normal filling pressures. Right Ventricle: The right ventricle is normal size. Right ventricular systolic function is at the lower limits of normal. Atria: The left atrial size is normal. Right atrial size is normal. Injection of contrast with valsalva documented an interatrial shunt. Mitral Valve: The mitral valve is normal in structure and function. There is trace mitral regurgitation. Aortic Valve: The aortic valve is trileaflet. The aortic valve opens well. There is no aortic valve stenosis. No aortic regurgitation is present. Tricuspid Valve: The tricuspid valve is normal in structure and function. There is trace tricuspid regurgitation. Pulmonary artery pressures cannot be estimated because of the lack of a measurable TR jet velocity. Pulmonic Valve: The pulmonic valve is not well seen, but is grossly normal. There is trace pulmonic regurgitation. Great Vessels: The aortic root is normal size. The dimensions of the ascending aorta are normal. The IVC is of normal diameter and collapses greater than 50% with a sniff. This suggests a low right atrial pressure of 3 mm Hg. Pericardium/ Pleura There is no pericardial effusion. There is no pleural effusion. MMode/2D Measurements & Calculations LVIDd: 3.6 cm LVOT diam: 1.8 cm LVIDs: 2.5 cm Ao root diam: 2.7 cm FS: 31.3 % asc Aorta Diam: 2.8 cm EPSS: 0.49 cm Ao Arch Diam (Prox Trans): 2.4 cm IVSd: 0.85 cm LVPWd: 0.87 cm LV clark. diameter/BSA (cm/m^2): 2.4 LV sys. diameter/BSA (cm/m^2): 1.6 LA A2 area: 17.5 cm2 RA long axis: 4.6 cm LA A4 area: 17.1 cm2 RA area: 12.6 cm2 LA length (vol): 5.2 cm RA vol: 29.2 ml LA vol: 48.3 ml RA : 19.0 ml/m2 LA vol index: 31.4 ml/m2 IVC diam: 1.2 cm RVD1 (basal): 3.3 cm RVD2 (mid): 2.8 cm TAPSE: 1.6 cm Doppler Measurements & Calculations Ao V2 max: 129.8 cm/sec LVOT Max Ruslan: 120.1 cm/sec Ao V2 mean: 92.6 cm/sec LV V1 max P.8 mmHg Ao max P.7 mmHg LV V1 VTI: 25.5 cm Ao mean P.8 mmHg LEFTY(I,D): 2.6 cm2 Ao V2 VTI: 24.0 cm LEFTY(V,D): 2.3 cm2 sev ratio: 1.1 LEFTY indexed to BSA (cm^2/m^2): 1.7 MV E max ruslan: 70.2 cm/sec PA V2 max: 79.5 cm/sec MV A max ruslan: 66.1 cm/sec PA V2 mean: 56.2 cm/sec MV E/A: 1.1 PA mean P.5 mmHg Med Peak E' Ruslan: 5.8 cm/sec PA pr(Accel): 41.3 mmHg E/E' med: 12.0 Lat Peak E' Ruslan: 9.7 cm/sec E/E' lat: 7.2 E/e' average: 9.6 MV dec time: 0.25 sec SV(LVOT): 63.1 ml Reading Physician:12:05 PM
--- NOTE | 2022-05-23 10:55 | CM.DANOTE ---
DCP: Case received, EMR reviewed, briefly met with patient while she was walking with P.T. Introduced self and role. Was able to complete DCP assessment based upon information available, as well as P.T. notes. Patient is a 67 year old female who admitted yesterday afternoon to the care of the hospitalist team. PCP: Dr. Javed. Payer: confirmed: Medicare/[employer]. Patient came to the hospital via private vehicle secondary to having flashing changes in both of her eyes, as well as left arm numbness. Patient indicated the flashing lights in both eyes lasted less than 10 minutes, had resolved, but her left arm is still numb. Notes indicate that patient has history of TIA. Patient was also noted to have some HTN. Patient here for CVA rule out, is to have MRI today. Briefly met with patient, she was walking independently in the hallway with P.T. She was heading down for her MRI. Was able to review P.T. notes. She resides alone in [place], has friends of contact. She is independent at her baseline, but does have some DME at home, four wheel walker, cane, and grab bars. Patient is alert and oriented. P: DCP to continue to follow. Patient should be able to go home when stable, pending MRI results. Mery Joiner RN/Assistant Finance Director Discharge Planning/Care Management CM Discharge Assessment Start: 05/23/22 10:52 Freq: Status: Active Protocol: Document 05/23/22 10:52 (Rec: 05/23/22 10:55 [id number]) Discharge Planning Assessment Assigned Marine Engineering Teacher Mery Joiner RN/Assistant Finance Director Advance Directives? No History Provided By Patient,Medical Record Prior Living Arrangements House Household Members none Type of transporation used prior to Drives own vehicle admit Independent with ADL's Yes Is patient alert and oriented? Yes Caregiver for Another No DME Already Rented / Owned Cane,Other Comment Has Four Wheel Walker, grab bars near toilet and shower Barriers to Discharge No Discharge Plan Home Transportation Arrangement Friend. Referrals Initiated None needed Whiteboard Updated in Patient Room with No name and ext. # of Marine Engineering Teacher Comment Did not yet update white board , had nursing in room at the time. Review Status In Process Next Review Type Continued Stay Review
[2022-05-23 14:00] VITALS: BP 124/75; PULSE 74; RESP 18; TEMP 36.4; O2SAT 97
--- NOTE | 2022-05-23 16:53 | PM.DS.1 ---
History of Present Illness History of Present Illness Date Patient Seen: 05/23/22 Time Patient Seen: 23:00 Chief complaint: 1:45 Larm numb/seeing colors/dizzing stroke BPhi Narrative: Ms. Diaz is a 67W with PMH TIA, HL, PFO who presents to the hospital today with flashing in her vision and left arm numbness. This was similar to her symptoms that happened when she was diagnosed with probable TIA last admission here, though then she had no visual changes. She notes her blood pressure was high earlier today. She has been diagnosed with a small PFO and has seen cardiology who has not recommended closure at this point. She had no difficulty with speech. No other symptoms in other extremities. In the ED workup was done, vitals notable for high blood pressure 180s/80s. NIH 1. Labs notable for WBC 8.5, hgb 13.4, plts 311. Creatinine 0.59. Trop negative. UA negative for infection. CT head with no acute process. CTA head/neck with no acute process. She was admitted for further treatment. When I saw her she states her symptoms had resolved. Discharge Providers Provider Date of admission: 05/22/22 19:22 Discharge Date: 05/23/22 Primary care physician: Martha Javed DO Consults: 05/22/22 21:15 Consult to Occupational Therapy Evaluate & Treat Comment: Physician Instructions: Evaluate and treat Consult to Physical Therapy Evaluate & Treat Comment: Physician Instructions: Evaluate and Treat Consult to Speech Therapy Evaluate & Treat Comment: Physician Instructions: Evaluate and treat Discharge provider: Gen Perez DO Summary Hospital Course Discharge Diagnosis: 1. TIA vs migraine -presented with sparkling lights in visual field as well as left arm numbness. Noted a slight headache as well. Suspicious for migraine. -CT head and CTA head/neck with no acute process -MRI brain normal and ECHO ordered but pt will f/u with network diagnostic support specialist for the result -LDL 58 and A1c 5.3% -allowed permissive hypertension for 24 hours -continue aspirin plus plavix for 21 days -continue statin -PT/OT and speech eval 2. Elevated blood pressure -continue close followup with PCP -allowed permissive hypertension, BP 120/70's prior to discharge Hospital Course: Admitted for visual changes and left arm numbness which resolved. Had completely normal stroke workup and given patient's visual changes being similar to aura along with a headache, could possibly be related to a complex migraine. Patient given script for imitrex to take if symptoms ever return and see if this resolves her symptoms. Recommended she also see a neurologist. Nonetheless her aspirin was continued and plavix added for 21 days. Repeat echo done but not resulted yet and she will f/u with her network diagnostic support specialist for the result. DVT US negative bilaterally. Discharged home. Time Spent with Patient Time spent: Greater than 30 minutes Exam Vital Signs (past 8 hours): - 05/23/22 09:33 05/23/22 09:00 05/23/22 13:00 Temperature 97.2 F L Pulse Rate 64 Respiratory Rate 18 Blood Pressure 101/52 L Pulse Oximetry 95 98 Oxygen Delivery Method Room Air Room Air Oxygen Flow Rate 0 05/23/22 14:00 Temperature 97.6 F Pulse Rate 74 Respiratory Rate 18 Blood Pressure 124/75 Pulse Oximetry 97 Oxygen Delivery Method Oxygen Flow Rate 0 Oxygen Delivery Method Room Air Oxygen Flow Rate 0 Narrative Exam Narrative: GEN: no acute distress HEENT: moist mucous membranes, PERRL NECK: trachea midline, no JVD PULM: clear bilaterally, no wheezes, rhonchi, rales CV: regular rate and rhythm, with no murmurs ABD: soft, nontender, nondistended, no organomegaly EXT: warm and well perfused with no edema NEURO: awake, alert, oriented, no focal deficits Objective Labs Result Diagrams: 05/23/22 05:46 05/23/22 05:46 Labs: Laboratory Results - last 24 hr 05/22/22 05/22/22 05/22/22 16:29 17:00 17:00 WBC 8.5 RBC 4.36 Hgb 13.4 Hct 39.2 MCV 90.0 MCH 30.8 MCHC 34.3 RDW 12.5 Plt Count 311 Neut % (Auto) 37.8 L Lymph % (Auto) 51.7 H Pine % (Auto) 7.2 Eos % (Auto) 2.3 Baso % (Auto) 1.0 Neut # (Auto) 3200 Lymph # (Auto) 4400 Pine # (Auto) 600 Eos # (Auto) 200 Baso # (Auto) 100 PT 10.9 INR 1.0 APTT 28 Sodium Potassium Chloride Carbon Dioxide BUN Creatinine Estimated GFR BUN/Creatinine Ratio Glucose Hemoglobin A1c Calcium Total Bilirubin AST ALT Alkaline Phosphatase Total Creatine Kinase CK-MB (CK-2) CK-MB (CK-2) Rel Index Troponin I Total Protein Albumin Globulin Albumin/Globulin Ratio Triglycerides Cholesterol LDL Cholesterol, Calc HDL Cholesterol Urine Color Urine Appearance Urine pH Ur Specific Paradise Urine Protein Urine Glucose (UA) Urine Ketones Urine Occult Blood Urine Nitrate Urine Bilirubin Urine Urobilinogen Ur Leukocyte Esterase Urine RBC Urine WBC Ur Squamous Epith Cells Urine Bacteria Ur Culture Indicated? U Opiates 300ng/mL cut Negative Ur Oxycodone Screen Negative Urine Methadone Screen Negative Ur Barbiturates Screen Negative U Tricyclic Antidepress Negative Ur Phencyclidine Scrn Negative Ur Amphetamines Screen Negative U Methamphetamines Scrn Negative Ur MDMA Scrn (Ecstasy) Negative U Benzodiazepines Scrn Negative Urine Cocaine Screen Negative U Marijuana (THC) Screen Negative Ethyl Alcohol SARS-CoV-2 (PCR) 05/22/22 05/22/22 05/22/22 17:00 17:29 18:27 WBC RBC Hgb Hct MCV MCH MCHC RDW Plt Count Neut % (Auto) Lymph % (Auto) Pine % (Auto) Eos % (Auto) Baso % (Auto) Neut # (Auto) Lymph # (Auto) Pine # (Auto) Eos # (Auto) Baso # (Auto) PT INR APTT Sodium 140 Potassium 4.0 Chloride 100 Carbon Dioxide 26 BUN 18 H Creatinine 0.59 Estimated GFR > 60 BUN/Creatinine Ratio 30.5 H Glucose 81 Hemoglobin A1c Calcium 10.5 H Total Bilirubin 0.5 AST 32 ALT 27 Alkaline Phosphatase 78 Total Creatine Kinase 74 CK-MB (CK-2) TNP CK-MB (CK-2) Rel Index TNP Troponin I < 0.012 Total Protein 8.8 H Albumin 5.1 H Globulin 3.7 Albumin/Globulin Ratio 1.4 Triglycerides Cholesterol LDL Cholesterol, Calc HDL Cholesterol Urine Color Yellow Urine Appearance Clear Urine pH 6.5 Ur Specific Paradise <=1.005 Urine Protein Negative Urine Glucose (UA) Negative Urine Ketones Negative Urine Occult Blood Negative Urine Nitrate Negative Urine Bilirubin Negative Urine Urobilinogen 0.2 Ur Leukocyte Esterase Negative Urine RBC None seen Urine WBC None seen Ur Squamous Epith Cells 0-1 /hpf Urine Bacteria None seen Ur Culture Indicated? Cult not indicated U Opiates 300ng/mL cut Ur Oxycodone Screen Urine Methadone Screen Ur Barbiturates Screen U Tricyclic Antidepress Ur Phencyclidine Scrn Ur Amphetamines Screen U Methamphetamines Scrn Ur MDMA Scrn (Ecstasy) U Benzodiazepines Scrn Urine Cocaine Screen U Marijuana (THC) Screen Ethyl Alcohol < 10 SARS-CoV-2 (PCR) Negative 05/23/22 05/23/22 05/23/22 05:46 05:46 05:46 WBC 7.6 RBC 4.10 Hgb 12.4 Hct 36.4 MCV 88.7 MCH 30.2 MCHC 34.0 RDW 12.8 Plt Count 294 Neut % (Auto) 32.9 L Lymph % (Auto) 54.5 H Pine % (Auto) 7.9 Eos % (Auto) 3.7 Baso % (Auto) 1.0 Neut # (Auto) 2500 Lymph # (Auto) 4100 Pine # (Auto) 600 Eos # (Auto) 300 Baso # (Auto) 100 PT INR APTT Sodium 139 Potassium 3.8 Chloride 102 Carbon Dioxide 25 BUN 22 H Creatinine 0.68 Estimated GFR > 60 BUN/Creatinine Ratio 32.4 H Glucose 94 Hemoglobin A1c 5.3 Calcium 9.6 Total Bilirubin AST ALT Alkaline Phosphatase Total Creatine Kinase CK-MB (CK-2) CK-MB (CK-2) Rel Index Troponin I Total Protein Albumin Globulin Albumin/Globulin Ratio Triglycerides 280 H Cholesterol 160 LDL Cholesterol, Calc 58 HDL Cholesterol 46 Urine Color Urine Appearance Urine pH Ur Specific Paradise Urine Protein Urine Glucose (UA) Urine Ketones Urine Occult Blood Urine Nitrate Urine Bilirubin Urine Urobilinogen Ur Leukocyte Esterase Urine RBC Urine WBC Ur Squamous Epith Cells Urine Bacteria Ur Culture Indicated? U Opiates 300ng/mL cut Ur Oxycodone Screen Urine Methadone Screen Ur Barbiturates Screen U Tricyclic Antidepress Ur Phencyclidine Scrn Ur Amphetamines Screen U Methamphetamines Scrn Ur MDMA Scrn (Ecstasy) U Benzodiazepines Scrn Urine Cocaine Screen U Marijuana (THC) Screen Ethyl Alcohol SARS-CoV-2 (PCR) [facility] Medical History Acute appendicitis Allergic rhinitis (04/22/14) Anal pruritus Chronic back pain (2010) Compression fracture of first lumbar vertebra, closed, initial encounter (01/21/16) Dry eye Fracture of fifth toe, left, closed Gastric ulcer (1989) Gastroesophageal reflux disease (01/25/14) GERD (gastroesophageal reflux disease) (~1989) Hemorrhoids (2005) Hiatal hernia History of head injury Hx of spinal cord injury Hypercalcemia Hyperlipidemia Knee pain (10/2013) Low back pain (01/25/14) Osteoporosis (06/07/14) Paresthesia of left upper extremity Peptic ulcer disease Rosacea Seasonal allergies (~1989) Tibia/fibula fracture (1988) Tobacco use disorder (04/22/14) Vaginal atrophy (05/18/17) Surgical History Anesthesia complication H/O local excision of skin lesion (10/2013) History of esophagogastroduodenoscopy (EGD) (12/03/16) History of orthopedic surgery (1990) History of surgery (1981) History of tonsillectomy (1972) Status post hemorrhoidectomy (2005) Status post LASIK surgery (2000) Family History Brother Age: 67 Hypertension Father Diabetes mellitus Heart disease Hypertension High cholesterol Mother Heart disease Stroke Renal failure Social History household members: none Smoking Status: Current every day smoker quit status: quit date established alcohol intake: current Discharge Plan Discharge Plan Patient Disposition: Home Provider Discharge Comment: You were admitted with visual changes and left arm numbness. All of your stroke workup was negative. I have a strong suspicion that your symptoms may have been related to a migraine, since you also developed a headache. The sparkly lights were suspicious for an aura which typically come before a migraine is about to happen. Just in case, we are treating you for a TIA with aspirin plus plavix for 3 weeks. After that time stop the plavix and continue the aspirin indefinitely. Also keep taking your statin. I've sent a migraine medication called imitrex which you can take if you develop similar symptoms and a headache and if it goes away then you'll know it is a migraine. But if your symptoms persist, or you have any sustained weakness in your arms, legs or face then come to the ED. I would see a neurologist about this to help distinguish if they think these are TIA's vs migraines. Discharge orders & Medications Prescriptions: New clopidogrel 75 mg Tablet 75 mg PO DAILY 20 Days Qty: 20 0RF Rx Instructions: start on 1/2 sumatriptan succinate [Imitrex] 50 mg tablet See Rx Instructions .ROUTE .COMPLEX Qty: 20 0RF Rx Instructions: take 1 tab at onset of headache; if no relief may repeat 1 tab after at least 2 hrs; max = 4 tabs/24 hr Continued atorvastatin 40 mg tablet 40 mg PO DAILY Qty: 90 3RF docusate sodium 100 mg PO DAILY calcium carbonate-vitamin D3 600 mg-25 mcg (1,000 unit) Capsule 2 cap PO DAILY aspirin 81 mg Tablet,Delayed Release (Dr/Ec) 81 mg PO DAILY Qty: 30 0RF Follow up/Referrals: Martha Javed DO [Primary Care Provider] - 1 Month Visit Report/Discharge Packet Instructions: DI for Migraine, DI for Transient Ischemic Attack, Clopidogrel, Sumatriptan Stand Alone Forms: Patient Portal/API, Stroke Signs & Symptoms Discharge Data Primary Care Provider: Martha Javed Attending Provider: Eduardo Plascencia VTE Deep Vein Thrombosis/Pulmonary Embolism Present on Admission: No
== END 2022-05-23 16:30 | disposition home or self-care (01) ==
LOC: ED 19:06 → AC 19:22
PROVIDERS: Internal Medicine; Admitting Provider Internal Medicine; Emergency Provider Emergency Medicine; PCP Family Medicine; Visit Provider Internal Medicine
DX: R29.818 Other symptoms and signs involving the nervous system (principal); R42 Dizziness and giddiness; R03.0 Elevated blood-pressure reading, without diagnosis of hypertension; H53.8 Other visual disturbances; R20.0 Anesthesia of skin; R51.9 Headache, unspecified; R29.701 NIHSS score 1; Z86.73 Personal history of transient ischemic attack (TIA), and cerebral infarction without residual deficits; Z20.822 Contact with and (suspected) exposure to COVID-19
CPT/HCPCS: 36415; 70450; 70496; 70498; 70551; 76770; 80048; 80053; 80061; 80305; 80320; 81001; 82550; 83036; 84484; 85025; 85610; 85730; 87635; 93005; 93306; 97161; 99284; C9803; G0378

== ENCOUNTER → 2022-06-16 12:13 | Outpatient (RCR) | payer MEDICARE, OTHER, SELFPAY ==
[2017-10-29 17:19] VITALS: BMI 23.5
[2021-01-14 09:45] VITALS: BP 142/92
--- NOTE | 2021-01-14 11:50 | PT.OIE ---
Current Diagnoses Patellofemoral disorders, left knee (01/14/21) Difficulty in walking, not elsewhere classified (01/14/21) Past Medical History (Last Reviewed 05/20/20 @ 13:43 by DORITA Kennedy) Acute appendicitis Chronic back pain (2010) Dry eye Fracture of fifth toe, left, closed Gastric ulcer (1989) GERD (gastroesophageal reflux disease) (~1989) H/O local excision of skin lesion (10/2013) Hemorrhoids (2005) Hiatal hernia History of head injury History of orthopedic surgery (1990) History of surgery (1981) Hx of spinal cord injury Knee pain (10/2013) Normal Papanicolaou smear Osteoporosis Paresthesia of left upper extremity Peptic ulcer disease Rosacea Seasonal allergies (~1989) Tibia/fibula fracture (1988) Past Surgical History (Last Reviewed 05/20/20 @ 13:43 by DORITA Kennedy) Anesthesia complication H/O local excision of skin lesion (10/2013) History of esophagogastroduodenoscopy (EGD) (12/03/16) History of orthopedic surgery (1990) History of surgery (1981) History of tonsillectomy (1972) Status post hemorrhoidectomy (2005) Status post LASIK surgery (2000) Visit Care Team Role Provider Type Kathy Alvarado DO Primary Care Provider Physician Specialty: Family Practice Address: [address] [place] [address], [address], [address] Email: [email or web address] Kyle Atkins MD Attending Provider Physician Referring Provider Specialty: Orthopedics Address: [address] [place] [address], [id number] Email: [email or web address] [facility] Initial Evaluation PT-OP-A Visit Information Start: 01/14/21 08:44 Freq: Status: Active Protocol: Document 01/14/21 09:45 AW (Rec: 01/14/21 11:00 AW [id number]) Out-Patient Physical Therapy Visit Information Visit Information Visit Type Initial Evaluation Visit Start Time 09:45 Visit Stop Time 10:30 Total Visit Minutes 45 Visit Number 1 Number of TELEPHONE MESSENGER Visits 0 Evaluation Information Evaluation Date 01/14/21 Precautions Precautions osteoporosis PT-OP-B Current Condition Start: 01/14/21 08:44 Freq: Status: Active Protocol: Document 01/14/21 09:45 AW (Rec: 01/14/21 08:52 AW [id number]) Current Condition History of Current Condition Onset Date October 2020 Current Complaints left knee pain History of Current Condition Elba ramped up her activity very quickly in October. She had been less active than usual over the past year and decided to get back in shape. She started hiking [employer] [place] [employer] regularly. She was also swimming. She started to notice worsening left knee pain - mostly medial but sometimes in the joint itself - which was worse with downhill activity. She noted some relief when she took a break for about 10 days. She also reports occasional swelling in the medial knee. She describes the pain as throbbing and like it's not gliding the way it should. Her pain is present but much more dull when she is less active. She has osteoporosis and fell in early 2018, fracturing her clavicle. She also reports thoracic compression fracture years ago from heavy overhead lifting. She denies falls over the past one year. She does admit she stubbed her left little toe and fractured it last year but did not fall. Prior Treatments and Tests - 11/13/20 left knee x-ray: Small joint effusion; otherwise no definite radiographic abnormality. - 2018 PT following fall and clavicle fracture Future Testing and Treatments Planned Dr. Atkins, ortho, suggests injection but pt would like to try PT first. Treatment Goals Patient/Caregiver Goals Pt would like to be able to return to regular hiking on hilly and uneven terrain without knee pain. Prior Functional Status Baseline Function- ADL's Independent Baseline Function- Mobility Independent Current Functional Impairments (Reported) Functional Limitations- Recreation/ Unable to tolerate downhill Hobbies and down stairs without pain. PT-OP-C Subjective Start: 01/14/21 08:44 Freq: Status: Active Protocol: Document 01/14/21 09:45 AW (Rec: 01/14/21 11:00 AW [email or web address]) Patient Questionnaires Lower Extremity Functional Scale LEFS Score 54 LEFS Impairment 20 to 39% Impaired (Score 48- 62) OP-PT Pain Assessment Pain Assessment Grid Paper Pain Assessment Grid Completed Yes: scanned to EMR PT-OP-D Balance Start: 01/14/21 08:44 Freq: Status: Active Protocol: Document 01/14/21 09:45 AW (Rec: 01/14/21 11:00 AW [email or web address]) Balance Tests Single Limb Standing Single Limb- Right >15 seconds but with instability Single Limb- Left 6 sec, 10 sec - unstable PT-OP-E Functional Tests Start: 01/14/21 08:44 Freq: Status: Active Protocol: Document 01/14/21 09:45 AW (Rec: 01/14/21 11:06 AW [email or web address]) Functional Tests Other sit to stand, squat Comment poor knee tracking bilaterally during descent - excessively medial PT-OP-F Manual Assessment Start: 01/14/21 08:44 Freq: Status: Active Protocol: Document 01/14/21 09:45 AW (Rec: 01/14/21 11:06 AW [email or web address]) Manual Assessments Soft Tissue Assessment Soft Tissue Mobility Assessment Slight atrophy medial quadriceps. No point tenderness at pes anserine or with deep palpation of any knee structure. Joint Mobility Assessment Joint Mobility Assessment Stable on all ligament testing bilaterally. PT-OP-H Neuro Start: 01/14/21 08:44 Freq: Status: Active Protocol: Document 01/14/21 09:45 AW (Rec: 01/14/21 11:06 AW [email or web address]) Sensation Evaluation Gross Sensation Gross Sensation WNL Deep Tendon Reflex & Clonus Assessment Deep Tendon Reflex Bilateral Bicep Deep Tendon Reflex 2+ Normal Bilateral Achilles Deep Tendon Reflex 1+ Diminished Bilateral Patellar Deep Tendon Reflex 2+ Normal Vital Signs Blood Pressure Sitting Blood Pressure (90/60-120/80 mmHg) 142/92 H Blood Pressure Source Manual Cuff,Right Upper Extremity PT-OP-J Posture/Palpation/Skin Start: 01/14/21 08:44 Freq: Status: Active Protocol: Document 01/14/21 09:45 AW (Rec: 01/14/21 11:06 AW [email or web address]) Posture Evaluation Position Standing Knee Posture (L) Neutral,(R) Neutral Ankle/Foot Posture (L) Neutral,(R) Neutral PT-OP-K Range of Motion Start: 01/14/21 08:44 Freq: Status: Active Protocol: Document 01/14/21 09:45 AW (Rec: 01/14/21 11:13 AW [email or web address]) Hip Goniometric Range of Motion Hip bilateral Hip ROM WFL Yes Testing Position Supine Comments Right IR limited. Left rotation WNL Hip ROM Limitations Hip ROM Limitations Soft Tissue Tightness Knee Goniometric Range of Motion Knee bilateral Knee ROM WFL Yes Patient Position Supine Flexion Active (degrees) 145 Flexion Passive (degrees) 150 Extension Active (degrees) 0 Comments No pain with overpressure. PT-OP-L Special Tests Start: 01/14/21 08:44 Freq: Status: Active Protocol: Document 01/14/21 09:45 AW (Rec: 01/14/21 11:13 AW [email or web address]) Special Tests Knee Special Tests Patellar Grind Test Test Results left positive; right negative Thessaly Test 5 Degrees Test Results negative PT-OP-M Strength Start: 01/14/21 08:44 Freq: Status: Active Protocol: Document 01/14/21 09:45 AW (Rec: 01/14/21 11:13 AW [email or web address]) Hip Strength Hip Manual Muscle Testing Left Flexion (L2) 4+ Good+ Extension (S1) 4 Good Abduction 4 Good Adduction 4+ Good+ External Rotation 4+ Good+ Internal Rotation 5 Normal Comments Left hip resisted ER painful Right Flexion (L2) 5 Normal Extension (S1) 4+ Good+ Abduction 4+ Good+ Adduction 4+ Good+ External Rotation 5 Normal Internal Rotation 5 Normal Knee Strength Knee Manual Muscle Testing Left Flexion (S2) 4+ Good+ Extension (L3) 5 Normal Right Flexion (S2) 5 Normal Extension (L3) 5 Normal Ankle/Foot Strength Ankle and Foot Manual Muscle Testing Left Dorsiflexion (L4) 4+ Good+ Plantarflexion (S1) 4+ Good+ Inversion 5 Normal Eversion (S1) 5 Normal Right Dorsiflexion (L4) 5 Normal Plantarflexion (S1) 5 Normal Inversion 5 Normal Eversion (S1) 5 Normal PT-OP-Q Treatments Start: 01/14/21 08:44 Freq: Status: Active Protocol: Document 01/14/21 09:45 AW (Rec: 01/14/21 11:20 AW [email or web address]) Therapeutic Exercises Supine Exercises bridge Supine Exercise Name bridge Equipment Used TB2 Reps/Minutes 5 x 1; 8 x 1 Comments lift - 3SH - 3sec ecc phase supine clamshell Supine Exercise Name supine clamshell Side bilateral Resistance level 2 Equipment Used TB Reps/Minutes 10 x 2 Comments cued controlled eccentric phase PT-OP-T Assessment and Plan Start: 01/14/21 08:44 Freq: Status: Active Protocol: Document 01/14/21 09:45 AW (Rec: 01/14/21 11:48 AW [email or web address]) Physical Therapy Assessment Rehab Potential Rehabilitation Potential Excellent Evaluation Complexity Number of Personal Factors/Comorbidities 1-2 Number of Body Systems Impaired 1-2 Clinical Presentation at Evaluation Stable Impairments Impairments Balance,Functional Activities, Gait,Pain,Posture,ROM,Soft Tissue Mobility,Strength Other Concerns Age Related Concerns osteoporosis Goals Four Impairment hip strength Snf Goal (LTG) Pt will improve all hip strength to 5/5 for improved gait mechanics LTG Duration 8 weeks - 03/11/21 Three Impairment LEFS Snf Goal (LTG) Pt will improve LEFS score from 54/80 66/80 or greater on LEFS to demonstrate improvement in ability to participate in daily and recreational activities. LTG Duration 8 weeks - 03/11/21 Two Impairment pain with hiking Short Term Goal (STG) Pt will hike hilly and uneven terrain 30 minutes without increase in baseline pain STG Duration 4 weeks - 02/11/21 Snf Goal (LTG) Pt will hike hilly and uneven terrain 60 minutes without increase in baseline pain LTG Duration 8 weeks - 03/11/21 One Impairment lacks HEP Short Term Goal (STG) Pt will be independent with HEP for hip and knee strength to support therapy services provided in clinic STG Duration 4 weeks - 02/11/21 Assessment Summary Assessment Elba is an active 65 yo woman who attends outpatient physical therapy with complaint of left knee pain since October. She acknowledges she increased her activity suddenly at that time and that her knee pain was relieved with a break from hiking. The knee is stable on all stress testing. Pt presents with hip weakness (left more affected than right), left medial quadriceps atrophy, and positive patellar grind testing suggestive of patellofemoral joint involvement. She is expected to benefit from skilled therapy to address strength deficits and to modify activity as needed in order to promote full return to hiking activity. Physical Therapy Plan Frequency and Duration Frequency of Treatment 1-2x/week Duration of Treatment 8 weeks Plan of Care Start Date 01/14/21 Plan of Care End Date 03/16/21 Therapeutic Interventions Therapeutic Interventions Aquatic Therapy,Balance Training,Gait Training,Home Exercise Program,Joint Mobilizations,Manual Therapy, Neuromuscular Re-education, Patient/Caregiver Education, Self-Care/Home Management,Soft Tissue Mobilization,Taping, Therapeutic Activities, Therapeutic Exercises Next Visit Focus/Plan Next Note Type Treatment Note Next Visit Plan review initial HEP and progress hip strength as tolerated; hip flexor stretch; medial quad strengthening
--- NOTE | 2021-01-14 11:51 | PT.OPPOC ---
Physical, Occupational & Speech Therapy At [facility] Current Diagnoses Patellofemoral disorders, left knee (01/14/21) Difficulty in walking, not elsewhere classified (01/14/21) Visit Care Team Role Provider Type Kathy Alvarado DO Primary Care Provider Physician Specialty: Family Practice Address: [address] [place] [address], [facility] [address], [place], [address] Email: [email or web address] Kyle Atkins MD Attending Provider Physician Referring Provider Specialty: Orthopedics Address: [address] [place] [address], [id number] Email: [email or web address] Plan Of Care PT-OP-T Assessment and Plan Start: 01/14/21 08:44 Freq: Status: Active Protocol: Document 01/14/21 09:45 AW (Rec: 01/14/21 11:48 AW [email or web address]) Physical Therapy Assessment Rehab Potential Rehabilitation Potential Excellent Evaluation Complexity Number of Personal Factors/Comorbidities 1-2 Number of Body Systems Impaired 1-2 Clinical Presentation at Evaluation Stable Impairments Impairments Balance,Functional Activities, Gait,Pain,Posture,ROM,Soft Tissue Mobility,Strength Other Concerns Age Related Concerns osteoporosis Goals Four Impairment hip strength Safety Coordinator Goal (LTG) Pt will improve all hip strength to 5/5 for improved gait mechanics LTG Duration 8 weeks - 03/11/21 Three Impairment LEFS Safety Coordinator Goal (LTG) Pt will improve LEFS score from 54/80 66/80 or greater on LEFS to demonstrate improvement in ability to participate in daily and recreational activities. LTG Duration 8 weeks - 03/11/21 Two Impairment pain with hiking Short Term Goal (STG) Pt will hike hilly and uneven terrain 30 minutes without increase in baseline pain STG Duration 4 weeks - 02/11/21 Safety Coordinator Goal (LTG) Pt will hike hilly and uneven terrain 60 minutes without increase in baseline pain LTG Duration 8 weeks - 03/11/21 One Impairment lacks HEP Short Term Goal (STG) Pt will be independent with HEP for hip and knee strength to support therapy services provided in clinic STG Duration 4 weeks - 02/11/21 Assessment Summary Assessment Elba is an active 65 yo woman who attends outpatient physical therapy with complaint of left knee pain since October. She acknowledges she increased her activity suddenly at that time and that her knee pain was relieved with a break from hiking. The knee is stable on all stress testing. Pt presents with hip weakness (left more affected than right), left medial quadriceps atrophy, and positive patellar grind testing suggestive of patellofemoral joint involvement. She is expected to benefit from skilled therapy to address strength deficits and to modify activity as needed in order to promote full return to hiking activity. Physical Therapy Plan Frequency and Duration Frequency of Treatment 1-2x/week Duration of Treatment 8 weeks Plan of Care Start Date 01/14/21 Plan of Care End Date 03/16/21 Therapeutic Interventions Therapeutic Interventions Aquatic Therapy,Balance Training,Gait Training,Home Exercise Program,Joint Mobilizations,Manual Therapy, Neuromuscular Re-education, Patient/Caregiver Education, Self-Care/Home Management,Soft Tissue Mobilization,Taping, Therapeutic Activities, Therapeutic Exercises Next Visit Focus/Plan Next Note Type Treatment Note Next Visit Plan review initial HEP and progress hip strength as tolerated; hip flexor stretch; medial quad strengthening Plan of Care Dates Plan of Care Start Date 01/14/21 Plan of Care End Date 03/16/21 Electronically Signed by: Aura Travis PT 01/14/21 [id number] Please Sign and Return: I have reviewed this Plan of Care and certify that the skilled therapy services above are required to meet the patient?s needs. Physician Signature Date Printed Name and Credentials Clinical Instructor Signature Printed Name and Credentials
--- NOTE | 2021-01-20 13:01 | PT.OTN ---
Current Diagnoses Patellofemoral disorders, left knee (01/20/21) Difficulty in walking, not elsewhere classified (01/20/21) Physical Therapy Treatment Note PT-OP-A Visit Information Start: 01/14/21 08:44 Freq: Status: Active Protocol: Document 01/20/21 12:14 SP (Rec: 01/20/21 13:53 SP [id number]) Out-Patient Physical Therapy Visit Information Visit Information Visit Type Treatment Note Visit Start Time 12:14 Visit Stop Time 13:01 Total Visit Minutes 47 Visit Number 2 Number of RESPIRATORY SERVICES MANAGER Visits 1 Evaluation Information Evaluation Date 01/14/21 Precautions Precautions osteoporosis PT-OP-B Current Condition Start: 01/14/21 08:44 Freq: Status: Active Protocol: Document 01/14/21 09:45 AW (Rec: 01/14/21 08:52 AW [email or web address]) Current Condition History of Current Condition Onset Date October 2020 Current Complaints left knee pain History of Current Condition lEba ramped up her activity very quickly in October. She had been less active than usual over the past year and decided to get back in shape. She started hiking [employer] and [employer] regularly. She was also swimming. She started to notice worsening left knee pain - mostly medial but sometimes in the joint itself - which was worse with downhill activity. She noted some relief when she took a break for about 10 days. She also reports occasional swelling in the medial knee. She describes the pain as throbbing and like it's not gliding the way it should. Her pain is present but much more dull when she is less active. She has osteoporosis and fell in early 2018, fracturing her clavicle. She also reports thoracic compression fracture years ago from heavy overhead lifting. She denies falls over the past one year. She does admit she stubbed her left little toe and fractured it last year but did not fall. Prior Treatments and Tests - 11/13/20 left knee x-ray: Small joint effusion; otherwise no definite radiographic abnormality. - 2018 PT following fall and clavicle fracture Future Testing and Treatments Planned Dr. Atkins, ortho, suggests injection but pt would like to try PT first. Treatment Goals Patient/Caregiver Goals Pt would like to be able to return to regular hiking on hilly and uneven terrain without knee pain. Prior Functional Status Baseline Function- ADL's Independent Baseline Function- Mobility Independent Current Functional Impairments (Reported) Functional Limitations- Recreation/ Unable to tolerate downhill Hobbies and down stairs without pain. PT-OP-C Subjective Start: 01/14/21 08:44 Freq: Status: Active Protocol: Document 01/20/21 12:14 SP (Rec: 01/20/21 13:53 SP [id number]) OP-PT Subjective Patient Comments Patient Comments Pt stated the bridging hurt her back at home and unable to continue this ex. PT-OP-D Balance Start: 01/14/21 08:44 Freq: Status: Active Protocol: Document 01/14/21 09:45 AW (Rec: 01/14/21 11:00 AW [email or web address]) Balance Tests Single Limb Standing Single Limb- Right >15 seconds but with instability Single Limb- Left 6 sec, 10 sec - unstable PT-OP-E Functional Tests Start: 01/14/21 08:44 Freq: Status: Active Protocol: Document 01/14/21 09:45 AW (Rec: 01/14/21 11:06 AW [email or web address]) Functional Tests Other sit to stand, squat Comment poor knee tracking bilaterally during descent - excessively medial PT-OP-F Manual Assessment Start: 01/14/21 08:44 Freq: Status: Active Protocol: Document 01/14/21 09:45 AW (Rec: 01/14/21 11:06 AW [email or web address]) Manual Assessments Soft Tissue Assessment Soft Tissue Mobility Assessment Slight atrophy medial quadriceps. No point tenderness at pes anserine or with deep palpation of any knee structure. Joint Mobility Assessment Joint Mobility Assessment Stable on all ligament testing bilaterally. PT-OP-H Neuro Start: 01/14/21 08:44 Freq: Status: Active Protocol: Document 01/14/21 09:45 AW (Rec: 01/14/21 11:06 AW [email or web address]) Sensation Evaluation Gross Sensation Gross Sensation WNL Deep Tendon Reflex & Clonus Assessment Deep Tendon Reflex Bilateral Bicep Deep Tendon Reflex 2+ Normal Bilateral Achilles Deep Tendon Reflex 1+ Diminished Bilateral Patellar Deep Tendon Reflex 2+ Normal Vital Signs Blood Pressure Sitting Blood Pressure (90/60-120/80 mmHg) 142/92 H Blood Pressure Source Manual Cuff,Right Upper Extremity PT-OP-J Posture/Palpation/Skin Start: 01/14/21 08:44 Freq: Status: Active Protocol: Document 01/14/21 09:45 AW (Rec: 01/14/21 11:06 AW [email or web address]) Posture Evaluation Position Standing Knee Posture (L) Neutral,(R) Neutral Ankle/Foot Posture (L) Neutral,(R) Neutral PT-OP-K Range of Motion Start: 01/14/21 08:44 Freq: Status: Active Protocol: Document 01/14/21 09:45 AW (Rec: 01/14/21 11:13 AW [email or web address]) Hip Goniometric Range of Motion Hip bilateral Hip ROM WFL Yes Testing Position Supine Comments Right IR limited. Left rotation WNL Hip ROM Limitations Hip ROM Limitations Soft Tissue Tightness Knee Goniometric Range of Motion Knee bilateral Knee ROM WFL Yes Patient Position Supine Flexion Active (degrees) 145 Flexion Passive (degrees) 150 Extension Active (degrees) 0 Comments No pain with overpressure. PT-OP-L Special Tests Start: 01/14/21 08:44 Freq: Status: Active Protocol: Document 01/14/21 09:45 AW (Rec: 01/14/21 11:13 AW [email or web address]) Special Tests Knee Special Tests Patellar Grind Test Test Results left positive; right negative Thessaly Test 5 Degrees Test Results negative PT-OP-M Strength Start: 01/14/21 08:44 Freq: Status: Active Protocol: Document 01/14/21 09:45 AW (Rec: 01/14/21 11:13 AW [email or web address]) Hip Strength Hip Manual Muscle Testing Left Flexion (L2) 4+ Good+ Extension (S1) 4 Good Abduction 4 Good Adduction 4+ Good+ External Rotation 4+ Good+ Internal Rotation 5 Normal Comments Left hip resisted ER painful Right Flexion (L2) 5 Normal Extension (S1) 4+ Good+ Abduction 4+ Good+ Adduction 4+ Good+ External Rotation 5 Normal Internal Rotation 5 Normal Knee Strength Knee Manual Muscle Testing Left Flexion (S2) 4+ Good+ Extension (L3) 5 Normal Right Flexion (S2) 5 Normal Extension (L3) 5 Normal Ankle/Foot Strength Ankle and Foot Manual Muscle Testing Left Dorsiflexion (L4) 4+ Good+ Plantarflexion (S1) 4+ Good+ Inversion 5 Normal Eversion (S1) 5 Normal Right Dorsiflexion (L4) 5 Normal Plantarflexion (S1) 5 Normal Inversion 5 Normal Eversion (S1) 5 Normal PT-OP-Q Treatments Start: 01/14/21 08:44 Freq: Status: Active Protocol: Document 01/20/21 12:14 SP (Rec: 01/20/21 13:53 SP [id number]) Therapeutic Exercises Supine Exercises pirformis stretch Supine Exercise Name leg over opposite knee added to HEP Side bilateral Reps/Minutes 30 x2 Comments good form Kevin stretch Supine Exercise Name added to HEP Side bilateral Reps/Minutes 2x 30 Comments cued neutral pelvis, TA fac if needed, opp LE bent on table TA SLR Supine Exercise Name 12 o'clock; R 2o'clock, L 10 o 'clock ( added to HEP) Side left Resistance AROM Reps/Minutes 5 reps hold 2 x2 sets Comments good core facilitation PPT and self corrections TA, neutral pelvis trng Supine Exercise Name Instructed pre ther ex Reps/Minutes 34 min Comments pre HEP- good understanding bridge Supine Exercise Name bridge - reviewed HEP Equipment Used TB2 Reps/Minutes 5 x 1; 8 x 1 Comments lift - 3SH - 3sec ecc phase- cued neutral pelvis, modifed bridge glut/core supine clamshell Supine Exercise Name supine clamshell - reviewed HEP Side bilateral Resistance level 2 Equipment Used TB Reps/Minutes 10 x 2 Comments cued controlled eccentric phase Self-Care/Home Management Treatment Education Patient Education Home Exercise Program,Joint Protection,Pain Management, Posture Other Education Extra time for pelvis/ spinal alignment to allow core fac during bridge, added TA SLR and Kevin stretch with no adverse affects. PT-OP-T Assessment and Plan Start: 01/14/21 08:44 Freq: Status: Active Protocol: Document 01/20/21 12:14 SP (Rec: 01/20/21 13:53 SP [id number]) Physical Therapy Assessment Goals Four Impairment hip strength Halfway Goal (LTG) Pt will improve all hip strength to 5/5 for improved gait mechanics LTG Duration 8 weeks - 03/11/21 Three Impairment LEFS Halfway Goal (LTG) Pt will improve LEFS score from 54/80 66/80 or greater on LEFS to demonstrate improvement in ability to participate in daily and recreational activities. LTG Duration 8 weeks - 03/11/21 Two Impairment pain with hiking Short Term Goal (STG) Pt will hike hilly and uneven terrain 30 minutes without increase in baseline pain STG Duration 4 weeks - 02/11/21 Burn Center Nurse Goal (LTG) Pt will hike hilly and uneven terrain 60 minutes without increase in baseline pain LTG Duration 8 weeks - 03/11/21 One Impairment lacks HEP Short Term Goal (STG) Pt will be independent with HEP for hip and knee strength to support therapy services provided in clinic STG Duration 4 weeks - 02/11/21 Assessment Summary Assessment Pt responded well to HEP review. Pt required extra time for TA and PPT trng to allow increase core facilitation during slower controlled bridge w/ tolerant range and good carryover to initiated TA SLR and pelvic positioning for hip flexor stretch. Pt stated felt better and better understanding of HEP leaving. Physical Therapy Plan Frequency and Duration Frequency of Treatment 1-2x/week Duration of Treatment 8 weeks Plan of Care Start Date 01/14/21 Plan of Care End Date 03/16/21 Therapeutic Interventions Therapeutic Interventions Aquatic Therapy,Balance Training,Gait Training,Home Exercise Program,Joint Mobilizations,Manual Therapy, Neuromuscular Re-education, Patient/Caregiver Education, Self-Care/Home Management,Soft Tissue Mobilization,Taping, Therapeutic Activities, Therapeutic Exercises Next Visit Focus/Plan Next Note Type Treatment Note Next Visit Plan Review HEP, bridge, clamshell, TA SLR 2 positions, added LTR /pirformis/Kevin stretching intiated last tx. POC: progress hip strength as tolerated; medial quad strengthening
--- NOTE | 2021-01-22 11:58 | PT.OTN ---
Current Diagnoses Patellofemoral disorders, left knee (01/22/21) Difficulty in walking, not elsewhere classified (01/22/21) Physical Therapy Treatment Note PT-OP-A Visit Information Start: 01/14/21 08:44 Freq: Status: Active Protocol: Document 01/22/21 11:15 AW (Rec: 01/22/21 11:18 AW [id number]) Out-Patient Physical Therapy Visit Information Visit Information Visit Type Treatment Note Visit Start Time 10:30 Visit Stop Time 11:15 Total Visit Minutes 45 Visit Number 3 Number of K 9 POLICE OFFICER Visits 0 Evaluation Information Evaluation Date 01/14/21 Precautions Precautions osteoporosis PT-OP-B Current Condition Start: 01/14/21 08:44 Freq: Status: Active Protocol: Document 01/14/21 09:45 AW (Rec: 01/14/21 08:52 AW [email or web address]) Current Condition History of Current Condition Onset Date October 2020 Current Complaints left knee pain History of Current Condition Elba ramped up her activity very quickly in October. She had been less active than usual over the past year and decided to get back in shape. She started hiking [employer] regularly. She was also swimming. She started to notice worsening left knee pain - mostly medial but sometimes in the joint itself - which was worse with downhill activity. She noted some relief when she took a break for about 10 days. She also reports occasional swelling in the medial knee. She describes the pain as throbbing and like it's not gliding the way it should. Her pain is present but much more dull when she is less active. She has osteoporosis and fell in early 2018, fracturing her clavicle. She also reports thoracic compression fracture years ago from heavy overhead lifting. She denies falls over the past one year. She does admit she stubbed her left little toe and fractured it last year but did not fall. Prior Treatments and Tests - 11/13/20 left knee x-ray: Small joint effusion; otherwise no definite radiographic abnormality. - 2018 PT following fall and clavicle fracture Future Testing and Treatments Planned Dr. Atkins, ortho, suggests injection but pt would like to try PT first. Treatment Goals Patient/Caregiver Goals Pt would like to be able to return to regular hiking on hilly and uneven terrain without knee pain. Prior Functional Status Baseline Function- ADL's Independent Baseline Function- Mobility Independent Current Functional Impairments (Reported) Functional Limitations- Recreation/ Unable to tolerate downhill Hobbies and down stairs without pain. PT-OP-C Subjective Start: 01/14/21 08:44 Freq: Status: Active Protocol: Document 01/22/21 11:15 AW (Rec: 01/22/21 11:18 AW [id number]) OP-PT Subjective Patient Comments Patient Comments I already did my exercises this morning. PT-OP-D Balance Start: 01/14/21 08:44 Freq: Status: Active Protocol: Document 01/14/21 09:45 AW (Rec: 01/14/21 11:00 AW [email or web address]) Balance Tests Single Limb Standing Single Limb- Right >15 seconds but with instability Single Limb- Left 6 sec, 10 sec - unstable PT-OP-E Functional Tests Start: 01/14/21 08:44 Freq: Status: Active Protocol: Document 01/14/21 09:45 AW (Rec: 01/14/21 11:06 AW [email or web address]) Functional Tests Other sit to stand, squat Comment poor knee tracking bilaterally during descent - excessively medial PT-OP-F Manual Assessment Start: 01/14/21 08:44 Freq: Status: Active Protocol: Document 01/14/21 09:45 AW (Rec: 01/14/21 11:06 AW [email or web address]) Manual Assessments Soft Tissue Assessment Soft Tissue Mobility Assessment Slight atrophy medial quadriceps. No point tenderness at pes anserine or with deep palpation of any knee structure. Joint Mobility Assessment Joint Mobility Assessment Stable on all ligament testing bilaterally. PT-OP-H Neuro Start: 01/14/21 08:44 Freq: Status: Active Protocol: Document 01/14/21 09:45 AW (Rec: 01/14/21 11:06 AW [email or web address]) Sensation Evaluation Gross Sensation Gross Sensation WNL Deep Tendon Reflex & Clonus Assessment Deep Tendon Reflex Bilateral Bicep Deep Tendon Reflex 2+ Normal Bilateral Achilles Deep Tendon Reflex 1+ Diminished Bilateral Patellar Deep Tendon Reflex 2+ Normal Vital Signs Blood Pressure Sitting Blood Pressure (90/60-120/80 mmHg) 142/92 H Blood Pressure Source Manual Cuff,Right Upper Extremity PT-OP-J Posture/Palpation/Skin Start: 01/14/21 08:44 Freq: Status: Active Protocol: Document 01/14/21 09:45 AW (Rec: 01/14/21 11:06 AW [email or web address]) Posture Evaluation Position Standing Knee Posture (L) Neutral,(R) Neutral Ankle/Foot Posture (L) Neutral,(R) Neutral PT-OP-K Range of Motion Start: 01/14/21 08:44 Freq: Status: Active Protocol: Document 01/14/21 09:45 AW (Rec: 01/14/21 11:13 AW [email or web address]) Hip Goniometric Range of Motion Hip bilateral Hip ROM WFL Yes Testing Position Supine Comments Right IR limited. Left rotation WNL Hip ROM Limitations Hip ROM Limitations Soft Tissue Tightness Knee Goniometric Range of Motion Knee bilateral Knee ROM WFL Yes Patient Position Supine Flexion Active (degrees) 145 Flexion Passive (degrees) 150 Extension Active (degrees) 0 Comments No pain with overpressure. PT-OP-L Special Tests Start: 01/14/21 08:44 Freq: Status: Active Protocol: Document 01/14/21 09:45 AW (Rec: 01/14/21 11:13 AW [email or web address]) Special Tests Knee Special Tests Patellar Grind Test Test Results left positive; right negative Thessaly Test 5 Degrees Test Results negative PT-OP-M Strength Start: 01/14/21 08:44 Freq: Status: Active Protocol: Document 01/14/21 09:45 AW (Rec: 01/14/21 11:13 AW [email or web address]) Hip Strength Hip Manual Muscle Testing Left Flexion (L2) 4+ Good+ Extension (S1) 4 Good Abduction 4 Good Adduction 4+ Good+ External Rotation 4+ Good+ Internal Rotation 5 Normal Comments Left hip resisted ER painful Right Flexion (L2) 5 Normal Extension (S1) 4+ Good+ Abduction 4+ Good+ Adduction 4+ Good+ External Rotation 5 Normal Internal Rotation 5 Normal Knee Strength Knee Manual Muscle Testing Left Flexion (S2) 4+ Good+ Extension (L3) 5 Normal Right Flexion (S2) 5 Normal Extension (L3) 5 Normal Ankle/Foot Strength Ankle and Foot Manual Muscle Testing Left Dorsiflexion (L4) 4+ Good+ Plantarflexion (S1) 4+ Good+ Inversion 5 Normal Eversion (S1) 5 Normal Right Dorsiflexion (L4) 5 Normal Plantarflexion (S1) 5 Normal Inversion 5 Normal Eversion (S1) 5 Normal PT-OP-Q Treatments Start: 01/14/21 08:44 Freq: Status: Active Protocol: Document 01/22/21 11:15 AW (Rec: 01/22/21 11:18 AW [id number]) Therapeutic Exercises Supine Exercises ITB stretch Supine Exercise Name ITB stretch Side left Reps/Minutes 30 sec x 3 Comments irritated left knee; dc'ed HS stretch Supine Exercise Name HS stretch Side left Resistance HEP Equipment Used strap Reps/Minutes 30 SH x 4 Comments with adduction for ITB stretch pirformis stretch Supine Exercise Name HEP review Side bilateral Reps/Minutes 30 x2 Comments good form Kevin stretch Supine Exercise Name added to HEP Side bilateral Reps/Minutes 2x 30 Comments cued neutral pelvis, TA fac if needed, opp LE bent on table TA SLR Supine Exercise Name 12 o'clock; R 2o'clock, L 10 o 'clock ( added to HEP) Side left Resistance AROM Reps/Minutes 5 reps hold 2 x2 sets Comments focus on lift with ER Sidelying Exercises clamshell Sidelying Exercise Name clamshell Side bilateral Resistance TB2 Reps/Minutes x15 Comments good indep performance; HEP Manual Therapy Treatment Soft Tissue Mobilization left lateral quads, TFL, ITB Mobilization Type Myofascial Release,Rolling, Strumming Intensity/Depth Superficial Body Position Sidelying Comments Ridged rolling pin effective. Pt tolerates only superficial pressure Joint Mobilizations patellar Joint patellar Direction inf, sup Grade II Body Position Supine Reps/Duration 5 min Self-Care/Home Management Treatment Education Patient Education Home Exercise Program Other Education Added ITB stretch, SL clam ( replace supine clam) PT-OP-T Assessment and Plan Start: 01/14/21 08:44 Freq: Status: Active Protocol: Document 01/22/21 11:15 AW (Rec: 01/22/21 11:58 AW [id number]) Physical Therapy Assessment Goals Four Impairment hip strength Half-Way Goal (LTG) Pt will improve all hip strength to 5/5 for improved gait mechanics LTG Duration 8 weeks - 03/11/21 Three Impairment LEFS Early Childhood Specialist Goal (LTG) Pt will improve LEFS score from 54/80 66/80 or greater on LEFS to demonstrate improvement in ability to participate in daily and recreational activities. LTG Duration 8 weeks - 03/11/21 Two Impairment pain with hiking Short Term Goal (STG) Pt will hike hilly and uneven terrain 30 minutes without increase in baseline pain STG Duration 4 weeks - 02/11/21 Early Childhood Specialist Goal (LTG) Pt will hike hilly and uneven terrain 60 minutes without increase in baseline pain LTG Duration 8 weeks - 03/11/21 One Impairment lacks HEP Short Term Goal (STG) Pt will be independent with HEP for hip and knee strength to support therapy services provided in clinic STG Duration 4 weeks - 02/11/21 Assessment Summary Assessment Treatment focused on hip mobility and strengthening in supported position. Pt needing fewer cues for HEP performance. Physical Therapy Plan Frequency and Duration Frequency of Treatment 1-2x/week Duration of Treatment 8 weeks Plan of Care Start Date 01/14/21 Plan of Care End Date 03/16/21 Therapeutic Interventions Therapeutic Interventions Aquatic Therapy,Balance Training,Gait Training,Home Exercise Program,Joint Mobilizations,Manual Therapy, Neuromuscular Re-education, Patient/Caregiver Education, Self-Care/Home Management,Soft Tissue Mobilization,Taping, Therapeutic Activities, Therapeutic Exercises Next Visit Focus/Plan Next Note Type Treatment Note Next Visit Plan Review HEP (added SL clamshell and supine ITB stretch) POC: progress hip strength as tolerated; medial quad strengthening
--- NOTE | 2021-01-29 12:34 | PT.OTN ---
Current Diagnoses Patellofemoral disorders, left knee (01/29/21) Difficulty in walking, not elsewhere classified (01/29/21) Physical Therapy Treatment Note PT-OP-A Visit Information Start: 01/14/21 08:44 Freq: Status: Active Protocol: Document 01/29/21 10:30 AW (Rec: 01/29/21 10:30 AW [email or web address]) Out-Patient Physical Therapy Visit Information Visit Information Visit Type Treatment Note Visit Start Time 09:45 Visit Stop Time 10:30 Total Visit Minutes 45 Visit Number 4 Number of UMBRELLA FINISHER Visits 0 Evaluation Information Evaluation Date 01/14/21 Precautions Precautions osteoporosis PT-OP-B Current Condition Start: 01/14/21 08:44 Freq: Status: Active Protocol: Document 01/14/21 09:45 AW (Rec: 01/14/21 08:52 AW [email or web address]) Current Condition History of Current Condition Onset Date October 2020 Current Complaints left knee pain History of Current Condition Elba ramped up her activity very quickly in October. She had been less active than usual over the past year and decided to get back in shape. She started hiking [employer] and [employer] regularly. She was also swimming. She started to notice worsening left knee pain - mostly medial but sometimes in the joint itself - which was worse with downhill activity. She noted some relief when she took a break for about 10 days. She also reports occasional swelling in the medial knee. She describes the pain as throbbing and like it's not gliding the way it should. Her pain is present but much more dull when she is less active. She has osteoporosis and fell in early 2018, fracturing her clavicle. She also reports thoracic compression fracture years ago from heavy overhead lifting. She denies falls over the past one year. She does admit she stubbed her left little toe and fractured it last year but did not fall. Prior Treatments and Tests - 11/13/20 left knee x-ray: Small joint effusion; otherwise no definite radiographic abnormality. - 2018 PT following fall and clavicle fracture Future Testing and Treatments Planned Dr. Atkins, ortho, suggests injection but pt would like to try PT first. Treatment Goals Patient/Caregiver Goals Pt would like to be able to return to regular hiking on hilly and uneven terrain without knee pain. Prior Functional Status Baseline Function- ADL's Independent Baseline Function- Mobility Independent Current Functional Impairments (Reported) Functional Limitations- Recreation/ Unable to tolerate downhill Hobbies and down stairs without pain. PT-OP-C Subjective Start: 01/14/21 08:44 Freq: Status: Active Protocol: Document 01/29/21 10:30 AW (Rec: 01/29/21 10:30 AW [id number]) OP-PT Subjective Patient Comments Patient Comments I walked [place] (no pavement) for 1. 5 hours and the knee was ok. PT-OP-D Balance Start: 01/14/21 08:44 Freq: Status: Active Protocol: Document 01/14/21 09:45 AW (Rec: 01/14/21 11:00 AW [email or web address]) Balance Tests Single Limb Standing Single Limb- Right >15 seconds but with instability Single Limb- Left 6 sec, 10 sec - unstable PT-OP-E Functional Tests Start: 01/14/21 08:44 Freq: Status: Active Protocol: Document 01/14/21 09:45 AW (Rec: 01/14/21 11:06 AW [email or web address]) Functional Tests Other sit to stand, squat Comment poor knee tracking bilaterally during descent - excessively medial PT-OP-F Manual Assessment Start: 01/14/21 08:44 Freq: Status: Active Protocol: Document 01/14/21 09:45 AW (Rec: 01/14/21 11:06 AW [email or web address]) Manual Assessments Soft Tissue Assessment Soft Tissue Mobility Assessment Slight atrophy medial quadriceps. No point tenderness at pes anserine or with deep palpation of any knee structure. Joint Mobility Assessment Joint Mobility Assessment Stable on all ligament testing bilaterally. PT-OP-H Neuro Start: 01/14/21 08:44 Freq: Status: Active Protocol: Document 01/14/21 09:45 AW (Rec: 01/14/21 11:06 AW [email or web address]) Sensation Evaluation Gross Sensation Gross Sensation WNL Deep Tendon Reflex & Clonus Assessment Deep Tendon Reflex Bilateral Bicep Deep Tendon Reflex 2+ Normal Bilateral Achilles Deep Tendon Reflex 1+ Diminished Bilateral Patellar Deep Tendon Reflex 2+ Normal Vital Signs Blood Pressure Sitting Blood Pressure (90/60-120/80 mmHg) 142/92 H Blood Pressure Source Manual Cuff,Right Upper Extremity PT-OP-J Posture/Palpation/Skin Start: 01/14/21 08:44 Freq: Status: Active Protocol: Document 01/14/21 09:45 AW (Rec: 01/14/21 11:06 AW [email or web address]) Posture Evaluation Position Standing Knee Posture (L) Neutral,(R) Neutral Ankle/Foot Posture (L) Neutral,(R) Neutral PT-OP-K Range of Motion Start: 01/14/21 08:44 Freq: Status: Active Protocol: Document 01/14/21 09:45 AW (Rec: 01/14/21 11:13 AW [email or web address]) Hip Goniometric Range of Motion Hip bilateral Hip ROM WFL Yes Testing Position Supine Comments Right IR limited. Left rotation WNL Hip ROM Limitations Hip ROM Limitations Soft Tissue Tightness Knee Goniometric Range of Motion Knee bilateral Knee ROM WFL Yes Patient Position Supine Flexion Active (degrees) 145 Flexion Passive (degrees) 150 Extension Active (degrees) 0 Comments No pain with overpressure. PT-OP-L Special Tests Start: 01/14/21 08:44 Freq: Status: Active Protocol: Document 01/14/21 09:45 AW (Rec: 01/14/21 11:13 AW [email or web address]) Special Tests Knee Special Tests Patellar Grind Test Test Results left positive; right negative Thessaly Test 5 Degrees Test Results negative PT-OP-M Strength Start: 01/14/21 08:44 Freq: Status: Active Protocol: Document 01/14/21 09:45 AW (Rec: 01/14/21 11:13 AW [email or web address]) Hip Strength Hip Manual Muscle Testing Left Flexion (L2) 4+ Good+ Extension (S1) 4 Good Abduction 4 Good Adduction 4+ Good+ External Rotation 4+ Good+ Internal Rotation 5 Normal Comments Left hip resisted ER painful Right Flexion (L2) 5 Normal Extension (S1) 4+ Good+ Abduction 4+ Good+ Adduction 4+ Good+ External Rotation 5 Normal Internal Rotation 5 Normal Knee Strength Knee Manual Muscle Testing Left Flexion (S2) 4+ Good+ Extension (L3) 5 Normal Right Flexion (S2) 5 Normal Extension (L3) 5 Normal Ankle/Foot Strength Ankle and Foot Manual Muscle Testing Left Dorsiflexion (L4) 4+ Good+ Plantarflexion (S1) 4+ Good+ Inversion 5 Normal Eversion (S1) 5 Normal Right Dorsiflexion (L4) 5 Normal Plantarflexion (S1) 5 Normal Inversion 5 Normal Eversion (S1) 5 Normal PT-OP-Q Treatments Start: 01/14/21 08:44 Freq: Status: Active Protocol: Document 01/29/21 10:30 AW (Rec: 01/29/21 10:30 AW [id number]) Cardio Equipment Bicycle (Upright) Duration (Minutes) 6 Resistance 8 Seat Position 1 Other 50-60 rpm Therapeutic Exercises Supine Exercises HS stretch Supine Exercise Name HS stretch Side left Resistance HEP Equipment Used strap Reps/Minutes 30 SH x 4 Comments with adduction for ITB stretch TA SLR Supine Exercise Name 12 o'clock; R 2o'clock, L 10 o 'clock ( added to HEP) Side left Resistance AROM Reps/Minutes 5 reps hold 2 x2 sets Comments focus on lift with ER Sidelying Exercises clamshell Sidelying Exercise Name clamshell Side bilateral Resistance TB2 Reps/Minutes x15 Comments good indep performance; HEP review Standing Exercises resisted hip extension Standing Exercise Name resisted hip extension Side bilateral Resistance yellow loop Reps/Minutes x12 Comments HEP resisted hip abduction Standing Exercise Name resisted hip abduction Side bilateral Resistance yellow loop Reps/Minutes x12 Comments HEP TKE Standing Exercise Name TKE Side left Resistance TB2 Reps/Minutes x12 Comments clinic only Manual Therapy Treatment Soft Tissue Mobilization left lateral quads, TFL, ITB Mobilization Type Myofascial Release,Rolling, Strumming Intensity/Depth Moderate Body Position Sidelying Comments Ridged rolling pin effective. Pt less reactive, tolerates mod pressure today Joint Mobilizations patellar Joint patellar Direction inf, sup Grade II Body Position Supine Reps/Duration 3 min PT-OP-T Assessment and Plan Start: 01/14/21 08:44 Freq: Status: Active Protocol: Document 01/29/21 10:30 AW (Rec: 01/29/21 12:34 AW [email or web address]) Physical Therapy Assessment Other Concerns Age Related Concerns osteoporosis Goals Four Impairment hip strength Customer Engagement Representative Goal (LTG) Pt will improve all hip strength to 5/5 for improved gait mechanics LTG Duration 8 weeks - 03/11/21 Three Impairment LEFS Customer Engagement Representative Goal (LTG) Pt will improve LEFS score from 54/80 66/80 or greater on LEFS to demonstrate improvement in ability to participate in daily and recreational activities. LTG Duration 8 weeks - 03/11/21 Two Impairment pain with hiking Short Term Goal (STG) Pt will hike hilly and uneven terrain 30 minutes without increase in baseline pain STG Duration 4 weeks - 02/11/21 Customer Engagement Representative Goal (LTG) Pt will hike hilly and uneven terrain 60 minutes without increase in baseline pain LTG Duration 8 weeks - 03/11/21 One Impairment lacks HEP Short Term Goal (STG) Pt will be independent with HEP for hip and knee strength to support therapy services provided in clinic STG Duration 4 weeks - 02/11/21 Assessment Summary Assessment Progressed to some standing exercises today and pt demonstrates good understanding and performance. Added to HEP and will assess at next visit. Physical Therapy Plan Frequency and Duration Frequency of Treatment 1-2x/week Duration of Treatment 8 weeks Plan of Care Start Date 01/14/21 Plan of Care End Date 03/16/21 Therapeutic Interventions Therapeutic Interventions Aquatic Therapy,Balance Training,Gait Training,Home Exercise Program,Joint Mobilizations,Manual Therapy, Neuromuscular Re-education, Patient/Caregiver Education, Self-Care/Home Management,Soft Tissue Mobilization,Taping, Therapeutic Activities, Therapeutic Exercises Next Visit Focus/Plan Next Note Type Treatment Note Next Visit Plan Review HEP (added standing hip abd and ext) POC: progress hip strength as tolerated; medial quad strengthening
--- NOTE | 2021-02-05 12:40 | PT.OTN ---
Current Diagnoses Patellofemoral disorders, left knee (02/05/21) Difficulty in walking, not elsewhere classified (02/05/21) Physical Therapy Treatment Note PT-OP-A Visit Information Start: 01/14/21 08:44 Freq: Status: Active Protocol: Document 02/05/21 10:30 AW (Rec: 02/05/21 10:31 AW [id number]) Out-Patient Physical Therapy Visit Information Visit Information Visit Type Treatment Note Visit Start Time 09:47 Visit Stop Time 10:30 Total Visit Minutes 43 Visit Number 5 Number of HEALTH AND SAFETY ADVISOR Visits 0 Evaluation Information Evaluation Date 01/14/21 Precautions Precautions osteoporosis PT-OP-B Current Condition Start: 01/14/21 08:44 Freq: Status: Active Protocol: Document 01/14/21 09:45 AW (Rec: 01/14/21 08:52 AW [email or web address]) Current Condition History of Current Condition Onset Date October 2020 Current Complaints left knee pain History of Current Condition Elba ramped up her activity very quickly in October. She had been less active than usual over the past year and decided to get back in shape. She started hiking [employer] and [employer] regularly. She was also swimming. She started to notice worsening left knee pain - mostly medial but sometimes in the joint itself - which was worse with downhill activity. She noted some relief when she took a break for about 10 days. She also reports occasional swelling in the medial knee. She describes the pain as throbbing and like it's not gliding the way it should. Her pain is present but much more dull when she is less active. She has osteoporosis and fell in early 2018, fracturing her clavicle. She also reports thoracic compression fracture years ago from heavy overhead lifting. She denies falls over the past one year. She does admit she stubbed her left little toe and fractured it last year but did not fall. Prior Treatments and Tests - 11/13/20 left knee x-ray: Small joint effusion; otherwise no definite radiographic abnormality. - 2018 PT following fall and clavicle fracture Future Testing and Treatments Planned Dr. Atkins, ortho, suggests injection but pt would like to try PT first. Treatment Goals Patient/Caregiver Goals Pt would like to be able to return to regular hiking on hilly and uneven terrain without knee pain. Prior Functional Status Baseline Function- ADL's Independent Baseline Function- Mobility Independent Current Functional Impairments (Reported) Functional Limitations- Recreation/ Unable to tolerate downhill Hobbies and down stairs without pain. PT-OP-C Subjective Start: 01/14/21 08:44 Freq: Status: Active Protocol: Document 02/05/21 10:30 AW (Rec: 02/05/21 10:31 AW [id number]) OP-PT Subjective Patient Comments Patient Comments Been having some low back twitching for several days. Went swimming and hiking and did not have knee throbbing PT-OP-D Balance Start: 01/14/21 08:44 Freq: Status: Active Protocol: Document 01/14/21 09:45 AW (Rec: 01/14/21 11:00 AW [email or web address]) Balance Tests Single Limb Standing Single Limb- Right >15 seconds but with instability Single Limb- Left 6 sec, 10 sec - unstable PT-OP-E Functional Tests Start: 01/14/21 08:44 Freq: Status: Active Protocol: Document 01/14/21 09:45 AW (Rec: 01/14/21 11:06 AW [email or web address]) Functional Tests Other sit to stand, squat Comment poor knee tracking bilaterally during descent - excessively medial PT-OP-F Manual Assessment Start: 01/14/21 08:44 Freq: Status: Active Protocol: Document 01/14/21 09:45 AW (Rec: 01/14/21 11:06 AW [email or web address]) Manual Assessments Soft Tissue Assessment Soft Tissue Mobility Assessment Slight atrophy medial quadriceps. No point tenderness at pes anserine or with deep palpation of any knee structure. Joint Mobility Assessment Joint Mobility Assessment Stable on all ligament testing bilaterally. PT-OP-H Neuro Start: 01/14/21 08:44 Freq: Status: Active Protocol: Document 01/14/21 09:45 AW (Rec: 01/14/21 11:06 AW [email or web address]) Sensation Evaluation Gross Sensation Gross Sensation WNL Deep Tendon Reflex & Clonus Assessment Deep Tendon Reflex Bilateral Bicep Deep Tendon Reflex 2+ Normal Bilateral Achilles Deep Tendon Reflex 1+ Diminished Bilateral Patellar Deep Tendon Reflex 2+ Normal Vital Signs Blood Pressure Sitting Blood Pressure (90/60-120/80 mmHg) 142/92 H Blood Pressure Source Manual Cuff,Right Upper Extremity PT-OP-J Posture/Palpation/Skin Start: 01/14/21 08:44 Freq: Status: Active Protocol: Document 01/14/21 09:45 AW (Rec: 01/14/21 11:06 AW [email or web address]) Posture Evaluation Position Standing Knee Posture (L) Neutral,(R) Neutral Ankle/Foot Posture (L) Neutral,(R) Neutral PT-OP-K Range of Motion Start: 01/14/21 08:44 Freq: Status: Active Protocol: Document 01/14/21 09:45 AW (Rec: 01/14/21 11:13 AW [email or web address]) Hip Goniometric Range of Motion Hip bilateral Hip ROM WFL Yes Testing Position Supine Comments Right IR limited. Left rotation WNL Hip ROM Limitations Hip ROM Limitations Soft Tissue Tightness Knee Goniometric Range of Motion Knee bilateral Knee ROM WFL Yes Patient Position Supine Flexion Active (degrees) 145 Flexion Passive (degrees) 150 Extension Active (degrees) 0 Comments No pain with overpressure. PT-OP-L Special Tests Start: 01/14/21 08:44 Freq: Status: Active Protocol: Document 01/14/21 09:45 AW (Rec: 01/14/21 11:13 AW [email or web address]) Special Tests Knee Special Tests Patellar Grind Test Test Results left positive; right negative Thessaly Test 5 Degrees Test Results negative PT-OP-M Strength Start: 01/14/21 08:44 Freq: Status: Active Protocol: Document 01/14/21 09:45 AW (Rec: 01/14/21 11:13 AW [email or web address]) Hip Strength Hip Manual Muscle Testing Left Flexion (L2) 4+ Good+ Extension (S1) 4 Good Abduction 4 Good Adduction 4+ Good+ External Rotation 4+ Good+ Internal Rotation 5 Normal Comments Left hip resisted ER painful Right Flexion (L2) 5 Normal Extension (S1) 4+ Good+ Abduction 4+ Good+ Adduction 4+ Good+ External Rotation 5 Normal Internal Rotation 5 Normal Knee Strength Knee Manual Muscle Testing Left Flexion (S2) 4+ Good+ Extension (L3) 5 Normal Right Flexion (S2) 5 Normal Extension (L3) 5 Normal Ankle/Foot Strength Ankle and Foot Manual Muscle Testing Left Dorsiflexion (L4) 4+ Good+ Plantarflexion (S1) 4+ Good+ Inversion 5 Normal Eversion (S1) 5 Normal Right Dorsiflexion (L4) 5 Normal Plantarflexion (S1) 5 Normal Inversion 5 Normal Eversion (S1) 5 Normal PT-OP-Q Treatments Start: 01/14/21 08:44 Freq: Status: Active Protocol: Document 02/05/21 10:30 AW (Rec: 02/05/21 10:31 AW [id number]) Therapeutic Exercises Supine Exercises LTR Supine Exercise Name LTR Side bilateral Reps/Minutes x10 ITB stretch Supine Exercise Name ITB stretch Side left Reps/Minutes 30 sec x 3 Comments no irritation today HS stretch Supine Exercise Name HS stretch Side left Resistance HEP Equipment Used strap Reps/Minutes 30 SH x 4 Comments with adduction for ITB stretch Kevin stretch Supine Exercise Name added to HEP Side bilateral Reps/Minutes 2x 30 Comments cued neutral pelvis, TA fac if needed, opp LE bent on table Standing Exercises unilateral heel raise Comments irritated achilles on left; dc 'ed gastroc stretch Standing Exercise Name gastroc stretch Side bilateral Equipment Used [place] Reps/Minutes 30SH x 3 band walk Standing Exercise Name band walk Side bilateral Resistance TB2 Reps/Minutes 5' lap x 4 Comments no irritation; replace hip abd for HEP resisted hip extension Standing Exercise Name resisted hip extension Side bilateral Resistance TB2 Reps/Minutes x12 Comments HEP review resisted hip abduction Standing Exercise Name resisted hip abduction Side bilateral Resistance TB2 Reps/Minutes x12 Comments HEP review Manual Therapy Treatment Soft Tissue Mobilization achilles, triceps surae Body Location achilles, triceps surae Mobilization Type Rolling,Strumming,Sustained Pressure Intensity/Depth Moderate Body Position Hooklying left lateral quads, TFL, ITB Mobilization Type Myofascial Release,Rolling, Strumming Intensity/Depth Moderate Body Position Sidelying Comments Ridged rolling pin effective. Pt less reactive, tolerates mod pressure today Joint Mobilizations patellar Joint patellar Direction inf, sup Grade II Body Position Supine Reps/Duration 3 min PT-OP-T Assessment and Plan Start: 01/14/21 08:44 Freq: Status: Active Protocol: Document 02/05/21 10:30 AW (Rec: 02/05/21 12:40 AW [id number]) Physical Therapy Assessment Other Concerns Age Related Concerns osteoporosis Goals Four Impairment hip strength Teacher Vocational Training Goal (LTG) Pt will improve all hip strength to 5/5 for improved gait mechanics LTG Duration 8 weeks - 03/11/21 Three Impairment LEFS [facility] Goal (LTG) Pt will improve LEFS score from 54/80 66/80 or greater on LEFS to demonstrate improvement in ability to participate in daily and recreational activities. LTG Duration 8 weeks - 03/11/21 Two Impairment pain with hiking Short Term Goal (STG) Pt will hike hilly and uneven terrain 30 minutes without increase in baseline pain STG Duration 4 weeks - 02/11/21 Teacher Vocational Training Goal (LTG) Pt will hike hilly and uneven terrain 60 minutes without increase in baseline pain LTG Duration 8 weeks - 03/11/21 One Impairment lacks HEP Short Term Goal (STG) Pt will be independent with HEP for hip and knee strength to support therapy services provided in clinic STG Duration 4 weeks - 02/11/21 Assessment Summary Assessment Pt reports low back pain with bridge, standing hip abduction , and standing hip extension. Achilles pain noted with heel raises and pt responds well to manual therapy. Physical Therapy Plan Frequency and Duration Frequency of Treatment 1-2x/week Duration of Treatment 8 weeks Plan of Care Start Date 01/14/21 Plan of Care End Date 03/16/21 Therapeutic Interventions Therapeutic Interventions Aquatic Therapy,Balance Training,Gait Training,Home Exercise Program,Joint Mobilizations,Manual Therapy, Neuromuscular Re-education, Patient/Caregiver Education, Self-Care/Home Management,Soft Tissue Mobilization,Taping, Therapeutic Activities, Therapeutic Exercises Next Visit Focus/Plan Next Note Type Treatment Note Next Visit Plan POC: progress hip strength as tolerated; medial quad strengthening
--- NOTE | 2021-02-11 11:36 | PT.OTN ---
Current Diagnoses Patellofemoral disorders, left knee (02/11/21) Difficulty in walking, not elsewhere classified (02/11/21) Physical Therapy Treatment Note PT-OP-A Visit Information Start: 01/14/21 08:44 Freq: Status: Active Protocol: Document 02/11/21 11:18 AW (Rec: 02/11/21 11:19 AW [id number]) Out-Patient Physical Therapy Visit Information Visit Information Visit Type Treatment Note Visit Start Time 10:40 Visit Stop Time 11:18 Total Visit Minutes 38 Visit Number 6 Number of MANAGER STRATEGY Visits 0 Evaluation Information Evaluation Date 01/14/21 Precautions Precautions osteoporosis PT-OP-B Current Condition Start: 01/14/21 08:44 Freq: Status: Active Protocol: Document 01/14/21 09:45 AW (Rec: 01/14/21 08:52 AW [email or web address]) Current Condition History of Current Condition Onset Date October 2020 Current Complaints left knee pain History of Current Condition Elba ramped up her activity very quickly in October. She had been less active than usual over the past year and decided to get back in shape. She started hiking [place] and [employer] regularly. She was also swimming. She started to notice worsening left knee pain - mostly medial but sometimes in the joint itself - which was worse with downhill activity. She noted some relief when she took a break for about 10 days. She also reports occasional swelling in the medial knee. She describes the pain as throbbing and like it's not gliding the way it should. Her pain is present but much more dull when she is less active. She has osteoporosis and fell in early 2018, fracturing her clavicle. She also reports thoracic compression fracture years ago from heavy overhead lifting. She denies falls over the past one year. She does admit she stubbed her left little toe and fractured it last year but did not fall. Prior Treatments and Tests - 11/13/20 left knee x-ray: Small joint effusion; otherwise no definite radiographic abnormality. - 2018 PT following fall and clavicle fracture Future Testing and Treatments Planned Dr. Atkins, ortho, suggests injection but pt would like to try PT first. Treatment Goals Patient/Caregiver Goals Pt would like to be able to return to regular hiking on hilly and uneven terrain without knee pain. Prior Functional Status Baseline Function- ADL's Independent Baseline Function- Mobility Independent Current Functional Impairments (Reported) Functional Limitations- Recreation/ Unable to tolerate downhill Hobbies and down stairs without pain. PT-OP-C Subjective Start: 01/14/21 08:44 Freq: Status: Active Protocol: Document 02/11/21 11:18 AW (Rec: 02/11/21 11:19 AW [id number]) OP-PT Subjective Patient Comments Patient Comments Lateral band walk seemed to irritate knees. Pt swam Tuesday and felt good. PT-OP-D Balance Start: 01/14/21 08:44 Freq: Status: Active Protocol: Document 01/14/21 09:45 AW (Rec: 01/14/21 11:00 AW [email or web address]) Balance Tests Single Limb Standing Single Limb- Right >15 seconds but with instability Single Limb- Left 6 sec, 10 sec - unstable PT-OP-E Functional Tests Start: 01/14/21 08:44 Freq: Status: Active Protocol: Document 01/14/21 09:45 AW (Rec: 01/14/21 11:06 AW [email or web address]) Functional Tests Other sit to stand, squat Comment poor knee tracking bilaterally during descent - excessively medial PT-OP-F Manual Assessment Start: 01/14/21 08:44 Freq: Status: Active Protocol: Document 01/14/21 09:45 AW (Rec: 01/14/21 11:06 AW [email or web address]) Manual Assessments Soft Tissue Assessment Soft Tissue Mobility Assessment Slight atrophy medial quadriceps. No point tenderness at pes anserine or with deep palpation of any knee structure. Joint Mobility Assessment Joint Mobility Assessment Stable on all ligament testing bilaterally. PT-OP-H Neuro Start: 01/14/21 08:44 Freq: Status: Active Protocol: Document 01/14/21 09:45 AW (Rec: 01/14/21 11:06 AW [email or web address]) Sensation Evaluation Gross Sensation Gross Sensation WNL Deep Tendon Reflex & Clonus Assessment Deep Tendon Reflex Bilateral Bicep Deep Tendon Reflex 2+ Normal Bilateral Achilles Deep Tendon Reflex 1+ Diminished Bilateral Patellar Deep Tendon Reflex 2+ Normal Vital Signs Blood Pressure Sitting Blood Pressure (90/60-120/80 mmHg) 142/92 H Blood Pressure Source Manual Cuff,Right Upper Extremity PT-OP-J Posture/Palpation/Skin Start: 01/14/21 08:44 Freq: Status: Active Protocol: Document 01/14/21 09:45 AW (Rec: 01/14/21 11:06 AW [email or web address]) Posture Evaluation Position Standing Knee Posture (L) Neutral,(R) Neutral Ankle/Foot Posture (L) Neutral,(R) Neutral PT-OP-K Range of Motion Start: 01/14/21 08:44 Freq: Status: Active Protocol: Document 01/14/21 09:45 AW (Rec: 01/14/21 11:13 AW [email or web address]) Hip Goniometric Range of Motion Hip bilateral Hip ROM WFL Yes Testing Position Supine Comments Right IR limited. Left rotation WNL Hip ROM Limitations Hip ROM Limitations Soft Tissue Tightness Knee Goniometric Range of Motion Knee bilateral Knee ROM WFL Yes Patient Position Supine Flexion Active (degrees) 145 Flexion Passive (degrees) 150 Extension Active (degrees) 0 Comments No pain with overpressure. PT-OP-L Special Tests Start: 01/14/21 08:44 Freq: Status: Active Protocol: Document 01/14/21 09:45 AW (Rec: 01/14/21 11:13 AW [email or web address]) Special Tests Knee Special Tests Patellar Grind Test Test Results left positive; right negative Thessaly Test 5 Degrees Test Results negative PT-OP-M Strength Start: 01/14/21 08:44 Freq: Status: Active Protocol: Document 01/14/21 09:45 AW (Rec: 01/14/21 11:13 AW [email or web address]) Hip Strength Hip Manual Muscle Testing Left Flexion (L2) 4+ Good+ Extension (S1) 4 Good Abduction 4 Good Adduction 4+ Good+ External Rotation 4+ Good+ Internal Rotation 5 Normal Comments Left hip resisted ER painful Right Flexion (L2) 5 Normal Extension (S1) 4+ Good+ Abduction 4+ Good+ Adduction 4+ Good+ External Rotation 5 Normal Internal Rotation 5 Normal Knee Strength Knee Manual Muscle Testing Left Flexion (S2) 4+ Good+ Extension (L3) 5 Normal Right Flexion (S2) 5 Normal Extension (L3) 5 Normal Ankle/Foot Strength Ankle and Foot Manual Muscle Testing Left Dorsiflexion (L4) 4+ Good+ Plantarflexion (S1) 4+ Good+ Inversion 5 Normal Eversion (S1) 5 Normal Right Dorsiflexion (L4) 5 Normal Plantarflexion (S1) 5 Normal Inversion 5 Normal Eversion (S1) 5 Normal PT-OP-Q Treatments Start: 01/14/21 08:44 Freq: Status: Active Protocol: Document 02/11/21 11:18 AW (Rec: 02/11/21 11:19 AW [id number]) Cardio Equipment Recumbent Bicycle Duration (Minutes) 5 Resistance 8 Seat Position 1 Other upright not available Therapeutic Exercises Supine Exercises ITB stretch Supine Exercise Name ITB stretch Side left Reps/Minutes 30 sec x 3 Comments no irritation today HS stretch Supine Exercise Name HS stretch Side left Resistance HEP Equipment Used strap Reps/Minutes 30 SH x 4 Comments with adduction for ITB stretch Sitting Exercises hip ER/abd Sitting Exercise Name hip ER/abd Side bilateral Resistance yellow loop Reps/Minutes x20 Comments warmup for standing Standing Exercises band walk Standing Exercise Name band walk Side bilateral Resistance TB2 around knee Reps/Minutes 5' lap x 4 Comments band above knee to reduce knee irritation Manual Therapy Treatment Soft Tissue Mobilization left hamstrings Body Location left hamstrings Mobilization Type Rolling,Strumming,Sustained Pressure,Trigger Point Release Intensity/Depth Moderate Body Position Prone Comments moderate to deep with active knee flex/ext. Rolling with ridged pin particularly effective. Pt counseled to use spiky therapy all at home in long-sitting for self STM. Joint Mobilizations patellar Joint patellar Direction inf, sup Grade II Body Position Supine Reps/Duration 3 min PT-OP-T Assessment and Plan Start: 01/14/21 08:44 Freq: Status: Active Protocol: Document 02/11/21 11:18 AW (Rec: 02/11/21 11:36 AW [email or web address]) Physical Therapy Assessment Other Concerns Age Related Concerns osteoporosis Goals Four Impairment hip strength Mcc Goal (LTG) Pt will improve all hip strength to 5/5 for improved gait mechanics LTG Duration 8 weeks - 03/11/21 Three Impairment LEFS Translator Interpreter Goal (LTG) Pt will improve LEFS score from 54/80 66/80 or greater on LEFS to demonstrate improvement in ability to participate in daily and recreational activities. LTG Duration 8 weeks - 03/11/21 Two Impairment pain with hiking Short Term Goal (STG) Pt will hike hilly and uneven terrain 30 minutes without increase in baseline pain 02/11/21 - Pt now swimming regularly without increase in baseline pain but not feeling stable enough to hike hilly trails. STG Duration 4 weeks - 02/11/21 Mcc Goal (LTG) Pt will hike hilly and uneven terrain 60 minutes without increase in baseline pain LTG Duration 8 weeks - 03/11/21 One Impairment lacks HEP Short Term Goal (STG) Pt will be independent with HEP for hip and knee strength to support therapy services provided in clinic STG Duration 4 weeks - 02/11/21 Assessment Summary Assessment Pt complained of left posterior thigh cramping and tightness following resisted side stepping. Moved band from ankles to above knees with good feedback from pt. Physical Therapy Plan Frequency and Duration Frequency of Treatment 1-2x/week Duration of Treatment 8 weeks Plan of Care Start Date 01/14/21 Plan of Care End Date 03/16/21 Therapeutic Interventions Therapeutic Interventions Aquatic Therapy,Balance Training,Gait Training,Home Exercise Program,Joint Mobilizations,Manual Therapy, Neuromuscular Re-education, Patient/Caregiver Education, Self-Care/Home Management,Soft Tissue Mobilization,Taping, Therapeutic Activities, Therapeutic Exercises Next Visit Focus/Plan Next Note Type Treatment Note Next Visit Plan POC: progress hip strength as tolerated; medial quad strengthening
--- NOTE | 2021-02-25 12:12 | PT.OTN ---
Current Diagnoses Patellofemoral disorders, left knee (02/25/21) Difficulty in walking, not elsewhere classified (02/25/21) Physical Therapy Treatment Note PT-OP-A Visit Information Start: 01/14/21 08:44 Freq: Status: Active Protocol: Document 02/25/21 11:10 AW (Rec: 02/25/21 11:14 AW [id number]) Out-Patient Physical Therapy Visit Information Visit Information Visit Type Treatment Note Visit Start Time 10:30 Visit Stop Time 11:10 Total Visit Minutes 40 Visit Number 7 Number of PATIENT INFORMATION COORDINATOR Visits 0 Evaluation Information Evaluation Date 01/14/21 Precautions Precautions osteoporosis PT-OP-B Current Condition Start: 01/14/21 08:44 Freq: Status: Active Protocol: Document 01/14/21 09:45 AW (Rec: 01/14/21 08:52 AW [email or web address]) Current Condition History of Current Condition Onset Date October 2020 Current Complaints left knee pain History of Current Condition [place] ramped up her activity very quickly in October. She had been less active than usual over the past year and decided to get back in shape. She started hiking [employer] [place] [employer] regularly. She was also swimming. She started to notice worsening left knee pain - mostly medial but sometimes in the joint itself - which was worse with downhill activity. She noted some relief when she took a break for about 10 days. She also reports occasional swelling in the medial knee. She describes the pain as throbbing and like it's not gliding the way it should. Her pain is present but much more dull when she is less active. She has osteoporosis and fell in early 2018, fracturing her clavicle. She also reports thoracic compression fracture years ago from heavy overhead lifting. She denies falls over the past one year. She does admit she stubbed her left little toe and fractured it last year but did not fall. Prior Treatments and Tests - 11/13/20 left knee x-ray: Small joint effusion; otherwise no definite radiographic abnormality. - 2018 PT following fall and clavicle fracture Future Testing and Treatments Planned Dr. Atkins, ortho, suggests injection but pt would like to try PT first. Treatment Goals Patient/Caregiver Goals Pt would like to be able to return to regular hiking on hilly and uneven terrain without knee pain. Prior Functional Status Baseline Function- ADL's Independent Baseline Function- Mobility Independent Current Functional Impairments (Reported) Functional Limitations- Recreation/ Unable to tolerate downhill Hobbies and down stairs without pain. PT-OP-C Subjective Start: 01/14/21 08:44 Freq: Status: Active Protocol: Document 02/25/21 11:10 AW (Rec: 02/25/21 11:14 AW [id number]) OP-PT Subjective Patient Comments Patient Comments Still hiking ok but cautious with extreme inclines. [place]. Lateral band walk with band above knees still irritated knees. PT-OP-D Balance Start: 01/14/21 08:44 Freq: Status: Active Protocol: Document 01/14/21 09:45 AW (Rec: 01/14/21 11:00 AW [email or web address]) Balance Tests Single Limb Standing Single Limb- Right >15 seconds but with instability Single Limb- Left 6 sec, 10 sec - unstable PT-OP-E Functional Tests Start: 01/14/21 08:44 Freq: Status: Active Protocol: Document 01/14/21 09:45 AW (Rec: 01/14/21 11:06 AW [email or web address]) Functional Tests Other sit to stand, squat Comment poor knee tracking bilaterally during descent - excessively medial PT-OP-F Manual Assessment Start: 01/14/21 08:44 Freq: Status: Active Protocol: Document 01/14/21 09:45 AW (Rec: 01/14/21 11:06 AW [email or web address]) Manual Assessments Soft Tissue Assessment Soft Tissue Mobility Assessment Slight atrophy medial quadriceps. No point tenderness at pes anserine or with deep palpation of any knee structure. Joint Mobility Assessment Joint Mobility Assessment Stable on all ligament testing bilaterally. PT-OP-H Neuro Start: 01/14/21 08:44 Freq: Status: Active Protocol: Document 01/14/21 09:45 AW (Rec: 01/14/21 11:06 AW [email or web address]) Sensation Evaluation Gross Sensation Gross Sensation WNL Deep Tendon Reflex & Clonus Assessment Deep Tendon Reflex Bilateral Bicep Deep Tendon Reflex 2+ Normal Bilateral Achilles Deep Tendon Reflex 1+ Diminished Bilateral Patellar Deep Tendon Reflex 2+ Normal Vital Signs Blood Pressure Sitting Blood Pressure (90/60-120/80 mmHg) 142/92 H Blood Pressure Source Manual Cuff,Right Upper Extremity PT-OP-J Posture/Palpation/Skin Start: 01/14/21 08:44 Freq: Status: Active Protocol: Document 01/14/21 09:45 AW (Rec: 01/14/21 11:06 AW [email or web address]) Posture Evaluation Position Standing Knee Posture (L) Neutral,(R) Neutral Ankle/Foot Posture (L) Neutral,(R) Neutral PT-OP-K Range of Motion Start: 01/14/21 08:44 Freq: Status: Active Protocol: Document 01/14/21 09:45 AW (Rec: 01/14/21 11:13 AW [email or web address]) Hip Goniometric Range of Motion Hip bilateral Hip ROM WFL Yes Testing Position Supine Comments Right IR limited. Left rotation WNL Hip ROM Limitations Hip ROM Limitations Soft Tissue Tightness Knee Goniometric Range of Motion Knee bilateral Knee ROM WFL Yes Patient Position Supine Flexion Active (degrees) 145 Flexion Passive (degrees) 150 Extension Active (degrees) 0 Comments No pain with overpressure. PT-OP-L Special Tests Start: 01/14/21 08:44 Freq: Status: Active Protocol: Document 01/14/21 09:45 AW (Rec: 01/14/21 11:13 AW [email or web address]) Special Tests Knee Special Tests Patellar Grind Test Test Results left positive; right negative Thessaly Test 5 Degrees Test Results negative PT-OP-M Strength Start: 01/14/21 08:44 Freq: Status: Active Protocol: Document 01/14/21 09:45 AW (Rec: 01/14/21 11:13 AW [email or web address]) Hip Strength Hip Manual Muscle Testing Left Flexion (L2) 4+ Good+ Extension (S1) 4 Good Abduction 4 Good Adduction 4+ Good+ External Rotation 4+ Good+ Internal Rotation 5 Normal Comments Left hip resisted ER painful Right Flexion (L2) 5 Normal Extension (S1) 4+ Good+ Abduction 4+ Good+ Adduction 4+ Good+ External Rotation 5 Normal Internal Rotation 5 Normal Knee Strength Knee Manual Muscle Testing Left Flexion (S2) 4+ Good+ Extension (L3) 5 Normal Right Flexion (S2) 5 Normal Extension (L3) 5 Normal Ankle/Foot Strength Ankle and Foot Manual Muscle Testing Left Dorsiflexion (L4) 4+ Good+ Plantarflexion (S1) 4+ Good+ Inversion 5 Normal Eversion (S1) 5 Normal Right Dorsiflexion (L4) 5 Normal Plantarflexion (S1) 5 Normal Inversion 5 Normal Eversion (S1) 5 Normal PT-OP-Q Treatments Start: 01/14/21 08:44 Freq: Status: Active Protocol: Document 02/25/21 11:10 AW (Rec: 02/25/21 11:14 AW [id number]) Cardio Equipment Bicycle (Upright) Duration (Minutes) 6 Resistance 8 Seat Position 1 Other 50-60 rpm Therapeutic Exercises Sitting Exercises adduction squeeze Sitting Exercise Name adduction squeeze Standing Exercises wall squat hold with ball squeeze Standing Exercise Name wall squat hold with ball squeeze Equipment Used small ball Reps/Minutes 25 sec hold x 4 Comments cued feet fwd hip hike Standing Exercise Name hip hike Side bilateral Equipment Used 6 step Reps/Minutes 2x15 Comments HEP isometric hip abd Standing Exercise Name iso hip abd Side bilateral Reps/Minutes 5SH x 10; 2 sets Comments to replace lateral band walk in HEP band walk Comments dc'ed due to pain TKE Standing Exercise Name TKE Side bilateral Resistance TB3 Reps/Minutes x12 Comments HEP PT-OP-T Assessment and Plan Start: 01/14/21 08:44 Freq: Status: Active Protocol: Document 02/25/21 11:10 AW (Rec: 02/25/21 12:12 AW [email or web address]) Physical Therapy Assessment Other Concerns Age Related Concerns osteoporosis Goals Four Impairment hip strength Hardboard Supervisor Goal (LTG) Pt will improve all hip strength to 5/5 for improved gait mechanics LTG Duration 8 weeks - 03/11/21 Three Impairment LEFS Hardboard Supervisor Goal (LTG) Pt will improve LEFS score from 54/80 66/80 or greater on LEFS to demonstrate improvement in ability to participate in daily and recreational activities. LTG Duration 8 weeks - 03/11/21 Two Impairment pain with hiking Short Term Goal (STG) Pt will hike hilly and uneven terrain 30 minutes without increase in baseline pain 02/11/21 - Pt now swimming regularly without increase in baseline pain but not feeling stable enough to hike hilly trails. STG Duration 4 weeks - 02/11/21 Hardboard Supervisor Goal (LTG) Pt will hike hilly and uneven terrain 60 minutes without increase in baseline pain LTG Duration 8 weeks - 03/11/21 One Impairment lacks HEP Short Term Goal (STG) Pt will be independent with HEP for hip and knee strength to support therapy services provided in clinic STG Duration 4 weeks - 02/11/21 Assessment Summary Assessment Pt had no relief during lateral band walk with modifications made last session. Changed HEP today to include isometric hip abduction, hip hike, wall sit, and TKE. She will keep stretches and supine SLR in all orientations. Re-assess HEP at next visit. Physical Therapy Plan Frequency and Duration Frequency of Treatment 1-2x/week Duration of Treatment 8 weeks Plan of Care Start Date 01/14/21 Plan of Care End Date 03/16/21 Therapeutic Interventions Therapeutic Interventions Aquatic Therapy,Balance Training,Gait Training,Home Exercise Program,Joint Mobilizations,Manual Therapy, Neuromuscular Re-education, Patient/Caregiver Education, Self-Care/Home Management,Soft Tissue Mobilization,Taping, Therapeutic Activities, Therapeutic Exercises Next Visit Focus/Plan Next Note Type Treatment Note Next Visit Plan POC: progress hip strength as tolerated; medial quad strengthening
--- NOTE | 2021-03-18 16:40 | PT.OTN ---
Current Diagnoses Patellofemoral disorders, left knee (03/18/21) Difficulty in walking, not elsewhere classified (03/18/21) Physical Therapy Treatment Note PT-OP-A Visit Information Start: 01/14/21 08:44 Freq: Status: Active Protocol: Document 03/18/21 15:14 AW (Rec: 03/18/21 15:15 AW [id number]) Out-Patient Physical Therapy Visit Information Visit Information Visit Type Treatment Note Visit Start Time 14:30 Visit Number 8 Number of DECORATING EQUIPMENT SETTER Visits 0 Evaluation Information Evaluation Date 01/14/21 Precautions Precautions osteoporosis PT-OP-B Current Condition Start: 01/14/21 08:44 Freq: Status: Active Protocol: Document 01/14/21 09:45 AW (Rec: 01/14/21 08:52 AW [email or web address]) Current Condition History of Current Condition Onset Date October 2020 Current Complaints left knee pain History of Current Condition Elba ramped up her activity very quickly in October. She had been less active than usual over the past year and decided to get back in shape. She started hiking [employer] [place] [employer] regularly. She was also swimming. She started to notice worsening left knee pain - mostly medial but sometimes in the joint itself - which was worse with downhill activity. She noted some relief when she took a break for about 10 days. She also reports occasional swelling in the medial knee. She describes the pain as throbbing and like it's not gliding the way it should. Her pain is present but much more dull when she is less active. She has osteoporosis and fell in early 2018, fracturing her clavicle. She also reports thoracic compression fracture years ago from heavy overhead lifting. She denies falls over the past one year. She does admit she stubbed her left little toe and fractured it last year but did not fall. Prior Treatments and Tests - 11/13/20 left knee x-ray: Small joint effusion; otherwise no definite radiographic abnormality. - 2018 PT following fall and clavicle fracture Future Testing and Treatments Planned Dr. Atkins, ortho, suggests injection but pt would like to try PT first. Treatment Goals Patient/Caregiver Goals Pt would like to be able to return to regular hiking on hilly and uneven terrain without knee pain. Prior Functional Status Baseline Function- ADL's Independent Baseline Function- Mobility Independent Current Functional Impairments (Reported) Functional Limitations- Recreation/ Unable to tolerate downhill Hobbies and down stairs without pain. PT-OP-C Subjective Start: 01/14/21 08:44 Freq: Status: Active Protocol: Document 03/18/21 15:14 AW (Rec: 03/18/21 15:15 AW [id number]) OP-PT Subjective Patient Comments Patient Comments Hiked [place] [address] yesterday and feels sore today . Has been swimming nearly every day. PT-OP-D Balance Start: 01/14/21 08:44 Freq: Status: Active Protocol: Document 01/14/21 09:45 AW (Rec: 01/14/21 11:00 AW [email or web address]) Balance Tests Single Limb Standing Single Limb- Right >15 seconds but with instability Single Limb- Left 6 sec, 10 sec - unstable PT-OP-E Functional Tests Start: 01/14/21 08:44 Freq: Status: Active Protocol: Document 01/14/21 09:45 AW (Rec: 01/14/21 11:06 AW [email or web address]) Functional Tests Other sit to stand, squat Comment poor knee tracking bilaterally during descent - excessively medial PT-OP-F Manual Assessment Start: 01/14/21 08:44 Freq: Status: Active Protocol: Document 01/14/21 09:45 AW (Rec: 01/14/21 11:06 AW [email or web address]) Manual Assessments Soft Tissue Assessment Soft Tissue Mobility Assessment Slight atrophy medial quadriceps. No point tenderness at pes anserine or with deep palpation of any knee structure. Joint Mobility Assessment Joint Mobility Assessment Stable on all ligament testing bilaterally. PT-OP-H Neuro Start: 01/14/21 08:44 Freq: Status: Active Protocol: Document 01/14/21 09:45 AW (Rec: 01/14/21 11:06 AW [email or web address]) Sensation Evaluation Gross Sensation Gross Sensation WNL Deep Tendon Reflex & Clonus Assessment Deep Tendon Reflex Bilateral Bicep Deep Tendon Reflex 2+ Normal Bilateral Achilles Deep Tendon Reflex 1+ Diminished Bilateral Patellar Deep Tendon Reflex 2+ Normal Vital Signs Blood Pressure Sitting Blood Pressure (90/60-120/80 mmHg) 142/92 H Blood Pressure Source Manual Cuff,Right Upper Extremity PT-OP-J Posture/Palpation/Skin Start: 01/14/21 08:44 Freq: Status: Active Protocol: Document 01/14/21 09:45 AW (Rec: 01/14/21 11:06 AW [email or web address]) Posture Evaluation Position Standing Knee Posture (L) Neutral,(R) Neutral Ankle/Foot Posture (L) Neutral,(R) Neutral PT-OP-K Range of Motion Start: 01/14/21 08:44 Freq: Status: Active Protocol: Document 01/14/21 09:45 AW (Rec: 01/14/21 11:13 AW [email or web address]) Hip Goniometric Range of Motion Hip bilateral Hip ROM WFL Yes Testing Position Supine Comments Right IR limited. Left rotation WNL Hip ROM Limitations Hip ROM Limitations Soft Tissue Tightness Knee Goniometric Range of Motion Knee bilateral Knee ROM WFL Yes Patient Position Supine Flexion Active (degrees) 145 Flexion Passive (degrees) 150 Extension Active (degrees) 0 Comments No pain with overpressure. PT-OP-L Special Tests Start: 01/14/21 08:44 Freq: Status: Active Protocol: Document 01/14/21 09:45 AW (Rec: 01/14/21 11:13 AW [email or web address]) Special Tests Knee Special Tests Patellar Grind Test Test Results left positive; right negative Thessaly Test 5 Degrees Test Results negative PT-OP-M Strength Start: 01/14/21 08:44 Freq: Status: Active Protocol: Document 01/14/21 09:45 AW (Rec: 01/14/21 11:13 AW [email or web address]) Hip Strength Hip Manual Muscle Testing Left Flexion (L2) 4+ Good+ Extension (S1) 4 Good Abduction 4 Good Adduction 4+ Good+ External Rotation 4+ Good+ Internal Rotation 5 Normal Comments Left hip resisted ER painful Right Flexion (L2) 5 Normal Extension (S1) 4+ Good+ Abduction 4+ Good+ Adduction 4+ Good+ External Rotation 5 Normal Internal Rotation 5 Normal Knee Strength Knee Manual Muscle Testing Left Flexion (S2) 4+ Good+ Extension (L3) 5 Normal Right Flexion (S2) 5 Normal Extension (L3) 5 Normal Ankle/Foot Strength Ankle and Foot Manual Muscle Testing Left Dorsiflexion (L4) 4+ Good+ Plantarflexion (S1) 4+ Good+ Inversion 5 Normal Eversion (S1) 5 Normal Right Dorsiflexion (L4) 5 Normal Plantarflexion (S1) 5 Normal Inversion 5 Normal Eversion (S1) 5 Normal PT-OP-Q Treatments Start: 01/14/21 08:44 Freq: Status: Active Protocol: Document 03/18/21 15:14 AW (Rec: 03/18/21 15:15 AW [id number]) Cardio Equipment Bicycle (Upright) Duration (Minutes) 6 Resistance 8 Seat Position 1 Other 50-60 rpm Therapeutic Exercises Supine Exercises ITB stretch Supine Exercise Name ITB stretch Side left Reps/Minutes 30 sec x 3 Comments no irritation today bridge Supine Exercise Name SL bridge with opp hip in ER Reps/Minutes 6 x 2 Comments lift - 3SH - 3sec ecc phase- cued neutral pelvis, modifed bridge glut/core Prone Exercises quadruped donkey kick Prone Exercise Name quadruped donkey kick Side bilateral Reps/Minutes x8 Comments cued level pelvis Standing Exercises step down Standing Exercise Name step down Side bilateral Equipment Used 4 step Reps/Minutes x10 Comments no irritation today; cued neutral knee posture Manual Therapy Treatment Joint Mobilizations patellar Joint patellar Direction inf, sup Grade II Body Position Supine Reps/Duration 3 min PT-OP-T Assessment and Plan Start: 01/14/21 08:44 Freq: Status: Active Protocol: Document 03/18/21 15:14 AW (Rec: 03/18/21 16:40 AW [email or web address]) Physical Therapy Assessment Other Concerns Age Related Concerns osteoporosis Goals Four Impairment hip strength Senior Software Manager Goal (LTG) Pt will improve all hip strength to 5/5 for improved gait mechanics - 03/12/21 Improving all planes except abduction 4+/5 bilaterally LTG Duration 2 months - 05/22/21 Three Impairment LEFS Jail Goal (LTG) Pt will improve LEFS score from 54/80 66/80 or greater on LEFS to demonstrate improvement in ability to participate in daily and recreational activities. LTG Duration 2 months - 05/22/21 Two Impairment pain with hiking Short Term Goal (STG) Pt will hike hilly and uneven terrain 30 minutes without increase in baseline pain 02/11/21 - Pt now swimming regularly without increase in baseline pain but not feeling stable enough to hike hilly trails. STG Duration 4 weeks - 02/11/21 Jail Goal (LTG) Pt will hike hilly and uneven terrain 60 minutes without increase in baseline pain 03/12/21 - Pt continues to have pain with downhill, making trail hiking difficult. Continue toward goal. LTG Duration 2 months - 05/22/21 One Impairment lacks HEP Short Term Goal (STG) Pt will be independent with HEP for hip and knee strength to support therapy services provided in clinic STG Duration 4 weeks - 02/11/21 GOAL MET Progress Towards Goals Progress Towards Goals Progressing Toward Goals Progress Comments Pt has progressed toward goals , especially in hip strength. She remains limited by pain in her ability to manage downhill hiking and stairs. She would benefit from continued activity modification and progressive HEP to address LLE pain. Aquatic therapy would be an excellent adjuvant to land- based PT. Assessment Summary Assessment Pt continues to experience poor tracking of her left patella which increases her pain with downhill hiking and stairs. Aquatic therapy would be an excellent adjuvant to land-based PT. Also discussed returning to ortho for consideration of injection and /or further imaging. Physical Therapy Plan Frequency and Duration Frequency of Treatment 1-2x/week Duration of Treatment 8 weeks Plan of Care Start Date 03/18/21 Plan of Care End Date 05/22/21 Therapeutic Interventions Therapeutic Interventions Aquatic Therapy,Balance Training,Gait Training,Home Exercise Program,Joint Mobilizations,Manual Therapy, Neuromuscular Re-education, Patient/Caregiver Education, Self-Care/Home Management,Soft Tissue Mobilization,Taping, Therapeutic Activities, Therapeutic Exercises Modalities Cold Pack/Ice Massage,Hot Packs Next Visit Focus/Plan Next Note Type Treatment Note Next Visit Plan POC: progress hip strength as tolerated; medial quad strengthening; add aquatic PT
--- NOTE | 2021-03-18 16:40 | PT.OPPOC ---
Physical, Occupational & Speech Therapy At [facility] Current Diagnoses Patellofemoral disorders, left knee (03/18/21) Difficulty in walking, not elsewhere classified (03/18/21) Visit Care Team Role Provider Type Specialty: Address: Phone: Fax: Email: Kathy Alvarado DO Primary Care Provider Physician Specialty: Family Practice Address: [address] [place] [address], [address], [place], [address] Email: [email or web address] Kyle Atkins MD Attending Provider Physician Referring Provider Specialty: Orthopedics Address: [address] [place] [address], [id number] Email: [email or web address] Plan Of Care PT-OP-T Assessment and Plan Start: 01/14/21 08:44 Freq: Status: Active Protocol: Document 03/18/21 15:14 AW (Rec: 03/18/21 16:40 AW [email or web address]) Physical Therapy Assessment Other Concerns Age Related Concerns osteoporosis Goals Four Impairment hip strength Automotive Technician Instructor Goal (LTG) Pt will improve all hip strength to 5/5 for improved gait mechanics - 03/12/21 Improving all planes except abduction 4+/5 bilaterally LTG Duration 2 months - 05/22/21 Three Impairment LEFS Half-Way Goal (LTG) Pt will improve LEFS score from 54/80 66/80 or greater on LEFS to demonstrate improvement in ability to participate in daily and recreational activities. LTG Duration 2 months - 05/22/21 Two Impairment pain with hiking Short Term Goal (STG) Pt will hike hilly and uneven terrain 30 minutes without increase in baseline pain 02/11/21 - Pt now swimming regularly without increase in baseline pain but not feeling stable enough to hike hilly trails. STG Duration 4 weeks - 02/11/21 Half-Way Goal (LTG) Pt will hike hilly and uneven terrain 60 minutes without increase in baseline pain 03/12/21 - Pt continues to have pain with downhill, making trail hiking difficult. Continue toward goal. LTG Duration 2 months - 05/22/21 One Impairment lacks HEP Short Term Goal (STG) Pt will be independent with HEP for hip and knee strength to support therapy services provided in clinic STG Duration 4 weeks - 02/11/21 GOAL MET Progress Towards Goals Progress Towards Goals Progressing Toward Goals Progress Comments Pt has progressed toward goals , especially in hip strength. She remains limited by pain in her ability to manage downhill hiking and stairs. She would benefit from continued activity modification and progressive HEP to address LLE pain. Aquatic therapy would be an excellent adjuvant to land- based PT. Assessment Summary Assessment Pt continues to experience poor tracking of her left patella which increases her pain with downhill hiking and stairs. Aquatic therapy would be an excellent adjuvant to land-based PT. Also discussed returning to ortho for consideration of injection and /or further imaging. Physical Therapy Plan Frequency and Duration Frequency of Treatment 1-2x/week Duration of Treatment 8 weeks Plan of Care Start Date 03/18/21 Plan of Care End Date 05/22/21 Therapeutic Interventions Therapeutic Interventions Aquatic Therapy,Balance Training,Gait Training,Home Exercise Program,Joint Mobilizations,Manual Therapy, Neuromuscular Re-education, Patient/Caregiver Education, Self-Care/Home Management,Soft Tissue Mobilization,Taping, Therapeutic Activities, Therapeutic Exercises Modalities Cold Pack/Ice Massage,Hot Packs Next Visit Focus/Plan Next Note Type Treatment Note Next Visit Plan POC: progress hip strength as tolerated; medial quad strengthening; add aquatic PT Plan of Care Dates Plan of Care Start Date 03/18/21 Plan of Care End Date 05/22/21 Electronically Signed by: Aura Travis, PT 03/18/21 1640 Please Sign and Return: I have reviewed this Plan of Care and certify that the skilled therapy services above are required to meet the patient?s needs. Physician Signature Date Printed Name and Credentials Clinical Instructor Signature Printed Name and Credentials
--- NOTE | 2021-03-25 16:07 | PT.OTN ---
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 She had been less active than usual over the past year and decided to get back in shape. She started hiking [employer] and [employer] regularly. She was also swimming. She started to notice worsening left knee pain - mostly medial but sometimes in the joint itself - which was worse with downhill activity. She noted some relief when she took a break for about 10 days. She also reports occasional swelling in the medial knee. She describes the pain as throbbing and like it's not gliding the way it should. Her pain is present but much more dull when she is less active. She has osteoporosis and fell in early 2018, fracturing her clavicle. She also reports thoracic compression fracture years ago from heavy overhead lifting. She denies falls over the past one year. She does admit she stubbed her left little toe and fractured it last year but did not fall. Prior Treatments and Tests - 11/13/20 left knee x-ray: Small joint effusion; otherwise no definite radiographic abnormality. - 2018 PT following fall and clavicle fracture Future Testing and Treatments Planned Dr. Atkins, ortho, suggests injection but pt would like to try PT first. Treatment Goals Patient/Caregiver Goals Pt would like to be able to return to regular hiking on hilly and uneven terrain without knee pain. Prior Functional Status Baseline Function- ADL's Independent Baseline Function- Mobility Independent Current Functional Impairments (Reported) Functional Limitations- Recreation/ Unable to tolerate downhill Hobbies and down stairs without pain. PT-OP-C Subjective Start: 01/14/21 08:44 Freq: Status: Active Protocol: Document 03/25/21 15:47 LJ (Rec: 03/25/21 16:07 LJ [id number]) OP-PT Subjective Patient Comments Patient Comments Hiked [place] trail yesterday and feels sore today . Has been swimming nearly every day. Would like to get aquatic HEP. States her low back is a little sore today PT-OP-D Balance Start: 01/14/21 08:44 Freq: Status: Active Protocol: Document 01/14/21 09:45 AW (Rec: 01/14/21 11:00 AW [email or web address]) Balance Tests Single Limb Standing Single Limb- Right >15 seconds but with instability Single Limb- Left 6 sec, 10 sec - unstable PT-OP-E Functional Tests Start: 01/14/21 08:44 Freq: Status: Active Protocol: Document 01/14/21 09:45 AW (Rec: 01/14/21 11:06 AW [email or web address]) Functional Tests Other sit to stand, squat Comment poor knee tracking bilaterally during descent - excessively medial PT-OP-F Manual Assessment Start: 01/14/21 08:44 Freq: Status: Active Protocol: Document 01/14/21 09:45 AW (Rec: 01/14/21 11:06 AW [email or web address]) Manual Assessments Soft Tissue Assessment Soft Tissue Mobility Assessment Slight atrophy medial quadriceps. No point tenderness at pes anserine or with deep palpation of any knee structure. Joint Mobility Assessment Joint Mobility Assessment Stable on all ligament testing bilaterally. PT-OP-H Neuro Start: 01/14/21 08:44 Freq: Status: Active Protocol: Document 01/14/21 09:45 AW (Rec: 01/14/21 11:06 AW [email or web address]) Sensation Evaluation Gross Sensation Gross Sensation WNL Deep Tendon Reflex & Clonus Assessment Deep Tendon Reflex Bilateral Bicep Deep Tendon Reflex 2+ Normal Bilateral Achilles Deep Tendon Reflex 1+ Diminished Bilateral Patellar Deep Tendon Reflex 2+ Normal Vital Signs Blood Pressure Sitting Blood Pressure (90/60-120/80 mmHg) 142/92 H Blood Pressure Source Manual Cuff,Right Upper Extremity PT-OP-J Posture/Palpation/Skin Start: 01/14/21 08:44 Freq: Status: Active Protocol: Document 01/14/21 09:45 AW (Rec: 01/14/21 11:06 AW [email or web address]) Posture Evaluation Position Standing Knee Posture (L) Neutral,(R) Neutral Ankle/Foot Posture (L) Neutral,(R) Neutral PT-OP-K Range of Motion Start: 01/14/21 08:44 Freq: Status: Active Protocol: Document 01/14/21 09:45 AW (Rec: 01/14/21 11:13 AW [email or web address]) Hip Goniometric Range of Motion Hip bilateral Hip ROM WFL Yes Testing Position Supine Comments Right IR limited. Left rotation WNL Hip ROM Limitations Hip ROM Limitations Soft Tissue Tightness Knee Goniometric Range of Motion Knee bilateral Knee ROM WFL Yes Patient Position Supine Flexion Active (degrees) 145 Flexion Passive (degrees) 150 Extension Active (degrees) 0 Comments No pain with overpressure. PT-OP-L Special Tests Start: 01/14/21 08:44 Freq: Status: Active Protocol: Document 01/14/21 09:45 AW (Rec: 01/14/21 11:13 AW [email or web address]) Special Tests Knee Special Tests Patellar Grind Test Test Results left positive; right negative Thessaly Test 5 Degrees Test Results negative PT-OP-M Strength Start: 01/14/21 08:44 Freq: Status: Active Protocol: Document 01/14/21 09:45 AW (Rec: 01/14/21 11:13 AW [email or web address]) Hip Strength Hip Manual Muscle Testing Left Flexion (L2) 4+ Good+ Extension (S1) 4 Good Abduction 4 Good Adduction 4+ Good+ External Rotation 4+ Good+ Internal Rotation 5 Normal Comments Left hip resisted ER painful Right Flexion (L2) 5 Normal Extension (S1) 4+ Good+ Abduction 4+ Good+ Adduction 4+ Good+ External Rotation 5 Normal Internal Rotation 5 Normal Knee Strength Knee Manual Muscle Testing Left Flexion (S2) 4+ Good+ Extension (L3) 5 Normal Right Flexion (S2) 5 Normal Extension (L3) 5 Normal Ankle/Foot Strength Ankle and Foot Manual Muscle Testing Left Dorsiflexion (L4) 4+ Good+ Plantarflexion (S1) 4+ Good+ Inversion 5 Normal Eversion (S1) 5 Normal Right Dorsiflexion (L4) 5 Normal Plantarflexion (S1) 5 Normal Inversion 5 Normal Eversion (S1) 5 Normal PT-OP-Q Treatments Start: 01/14/21 08:44 Freq: Status: Active Protocol: Document 03/18/21 15:14 AW (Rec: 03/18/21 15:15 AW [id number]) Cardio Equipment Bicycle (Upright) Duration (Minutes) 6 Resistance 8 Seat Position 1 Other 50-60 rpm Therapeutic Exercises Supine Exercises ITB stretch Supine Exercise Name ITB stretch Side left Reps/Minutes 30 sec x 3 Comments no irritation today bridge Supine Exercise Name SL bridge with opp hip in ER Reps/Minutes 6 x 2 Comments lift - 3SH - 3sec ecc phase- cued neutral pelvis, modifed bridge glut/core Prone Exercises quadruped donkey kick Prone Exercise Name quadruped donkey kick Side bilateral Reps/Minutes x8 Comments cued level pelvis Standing Exercises step down Standing Exercise Name step down Side bilateral Equipment Used 4 step Reps/Minutes x10 Comments no irritation today; cued neutral knee posture Manual Therapy Treatment Joint Mobilizations patellar Joint patellar Direction inf, sup Grade II Body Position Supine Reps/Duration 3 min PT-OP-S Aquatic Treatment Start: 03/23/21 15:06 Freq: Status: Active Protocol: Document 03/25/21 15:47 LJ (Rec: 03/25/21 16:07 LJ [id number]) Aquatics Treatment Pool Entry/Exit Pool Entry/Exit Method Stairs Assistance Independent Water Walking Lunge Walk Water Level Chest Level Level of Assistance Standby Assistance,Verbal Cues Comments forward lean Marching Water Level Chest Level Level of Assistance Independent Comments reaching opp knee sideways/grapevine Water Level Chest Level Level of Assistance Independent forward/backward Water Level Chest Level Level of Assistance Independent Lower Extremity Exercises Hip circles Details at wall Body Position Standing Water Level Chest Level Reps/Duration 15 each dir B kick back Details back to wall Body Position Standing Water Level Chest Level Reps/Duration 15 B knee extension Details facing wall Body Position Standing Water Level Chest Level Reps/Duration 15 B Comments toe tap Hip flex/ext/AB/AD Details at wall Body Position Standing Water Level Chest Level Reps/Duration 15 each dir, B Lower Extremity Stretches hip flexors Details at wall Body Position Standing Water Level Chest Level Reps/Duration 30 sec x 2 B quads Details at wall Body Position Standing Equipment lg noodle under ankle Reps/Duration 30 sec x 2 B HS, gastroc, soleus Details at wall Body Position Standing Equipment lg noodle Reps/Duration 30 sec x 2 B [place] Activities [place] Activities Bicycle,Bicycle Backwards, [place],Hip Abduction/ Adduction Other Activities corner trunk rotation-L sitting bicyclling in corner Deep kicks at wall trunk pull down at wall power walk Equipment belt Comments 30/15 x 5 intervals-biking, ski, jacks, power walk PT-OP-T Assessment and Plan Start: 01/14/21 08:44 Freq: Status: Active Protocol: Document 03/25/21 15:47 SHIRLENE (Rec: 03/25/21 16:07 SHIRLENE [id number]) Physical Therapy Assessment Rehab Potential Rehabilitation Potential Excellent Evaluation Complexity Number of Personal Factors/Comorbidities 1-2 Number of Body Systems Impaired 1-2 Clinical Presentation at Evaluation Stable Other Concerns Age Related Concerns osteoporosis Goals Four Impairment hip strength Road Sign Installer Goal (LTG) Pt will improve all hip strength to 5/5 for improved gait mechanics - 03/12/21 Improving all planes except abduction 4+/5 bilaterally LTG Duration 2 months - 05/22/21 Three Impairment LEFS Jail Goal (LTG) Pt will improve LEFS score from 54/80 66/80 or greater on LEFS to demonstrate improvement in ability to participate in daily and recreational activities. LTG Duration 2 months - 05/22/21 Two Impairment pain with hiking Short Term Goal (STG) Pt will hike hilly and uneven terrain 30 minutes without increase in baseline pain 02/11/21 - Pt now swimming regularly without increase in baseline pain but not feeling stable enough to hike hilly trails. STG Duration 4 weeks - 02/11/21 Jail Goal (LTG) Pt will hike hilly and uneven terrain 60 minutes without increase in baseline pain 03/12/21 - Pt continues to have pain with downhill, making trail hiking difficult. Continue toward goal. LTG Duration 2 months - 05/22/21 One Impairment lacks HEP Short Term Goal (STG) Pt will be independent with HEP for hip and knee strength to support therapy services provided in clinic STG Duration 4 weeks - 02/11/21 GOAL MET Progress Towards Goals Progress Towards Goals Progressing Toward Goals Assessment Summary Assessment Pt very comfortable in pool. Performed all exercises well with a tendenancy to push herself. She would benefit from aquatic therapy over land therapy as she tends to overdo land-based activities. Continue AT adding step up activities. Physical Therapy Plan Frequency and Duration Frequency of Treatment 1-2x/week Duration of Treatment 8 weeks Plan of Care Start Date 03/18/21 Plan of Care End Date 05/22/21 Therapeutic Interventions Therapeutic Interventions Aquatic Therapy,Balance Training,Gait Training,Home Exercise Program,Joint Mobilizations,Manual Therapy, Neuromuscular Re-education, Patient/Caregiver Education, Self-Care/Home Management,Soft Tissue Mobilization,Taping, Therapeutic Activities, Therapeutic Exercises Modalities Cold Pack/Ice Massage,Hot Packs Next Visit Focus/Plan Next Note Type Treatment Note Next Visit Plan POC: progress hip strength and medial quad strength as tolerated in aquatic setting
--- NOTE | 2021-04-01 14:41 | PT.OTN ---
Current Diagnoses Patellofemoral disorders, left knee (04/01/21) Difficulty in walking, not elsewhere classified (04/01/21) Physical Therapy Treatment Note PT-OP-A Visit Information Start: 01/14/21 08:44 Freq: Status: Active Protocol: Document 04/01/21 14:30 LJ (Rec: 04/01/21 14:41 LJ [email or web address]) Out-Patient Physical Therapy Visit Information Visit Information Visit Type Aquatic Treatment Note Visit Start Time 11:45 Visit Stop Time 12:30 Total Visit Minutes 45 Visit Number 10 Number of CLINICAL DOCUMENTATION SPEC Visits 2 Evaluation Information Evaluation Date 01/14/21 Precautions Precautions osteoporosis PT-OP-B Current Condition Start: 01/14/21 08:44 Freq: Status: Active Protocol: Document 01/14/21 09:45 AW (Rec: 01/14/21 08:52 AW [email or web address]) Current Condition History of Current Condition Onset Date October 2020 Current Complaints left knee pain History of Current Condition Elba ramped up her activity very quickly in October. She had been less active than usual over the past year and decided to get back in shape. She started hiking [employer] and [employer] regularly. She was also swimming. She started to notice worsening left knee pain - mostly medial but sometimes in the joint itself - which was worse with downhill activity. She noted some relief when she took a break for about 10 days. She also reports occasional swelling in the medial knee. She describes the pain as throbbing and like it's not gliding the way it should. Her pain is present but much more dull when she is less active. She has osteoporosis and fell in early 2018, fracturing her clavicle. She also reports thoracic compression fracture years ago from heavy overhead lifting. She denies falls over the past one year. She does admit she stubbed her left little toe and fractured it last year but did not fall. Prior Treatments and Tests - 11/13/20 left knee x-ray: Small joint effusion; otherwise no definite radiographic abnormality. - 2018 PT following fall and clavicle fracture Future Testing and Treatments Planned Dr. Atkins, ortho, suggests injection but pt would like to try PT first. Treatment Goals Patient/Caregiver Goals Pt would like to be able to return to regular hiking on hilly and uneven terrain without knee pain. Prior Functional Status Baseline Function- ADL's Independent Baseline Function- Mobility Independent Current Functional Impairments (Reported) Functional Limitations- Recreation/ Unable to tolerate downhill Hobbies and down stairs without pain. PT-OP-C Subjective Start: 01/14/21 08:44 Freq: Status: Active Protocol: Document 04/01/21 14:30 LJ (Rec: 04/01/21 14:41 LJ [email or web address]) OP-PT Subjective Patient Comments Patient Comments Pt states she was fatigued after AT last week but didn't experience any soreness. Would like to continue AT [facility] with handouts for reference. PT-OP-D Balance Start: 01/14/21 08:44 Freq: Status: Active Protocol: Document 01/14/21 09:45 AW (Rec: 01/14/21 11:00 AW [email or web address]) Balance Tests Single Limb Standing Single Limb- Right >15 seconds but with instability Single Limb- Left 6 sec, 10 sec - unstable PT-OP-E Functional Tests Start: 01/14/21 08:44 Freq: Status: Active Protocol: Document 01/14/21 09:45 AW (Rec: 01/14/21 11:06 AW [email or web address]) Functional Tests Other sit to stand, squat Comment poor knee tracking bilaterally during descent - excessively medial PT-OP-F Manual Assessment Start: 01/14/21 08:44 Freq: Status: Active Protocol: Document 01/14/21 09:45 AW (Rec: 01/14/21 11:06 AW [email or web address]) Manual Assessments Soft Tissue Assessment Soft Tissue Mobility Assessment Slight atrophy medial quadriceps. No point tenderness at pes anserine or with deep palpation of any knee structure. Joint Mobility Assessment Joint Mobility Assessment Stable on all ligament testing bilaterally. PT-OP-H Neuro Start: 01/14/21 08:44 Freq: Status: Active Protocol: Document 01/14/21 09:45 AW (Rec: 01/14/21 11:06 AW [email or web address]) Sensation Evaluation Gross Sensation Gross Sensation WNL Deep Tendon Reflex & Clonus Assessment Deep Tendon Reflex Bilateral Bicep Deep Tendon Reflex 2+ Normal Bilateral Achilles Deep Tendon Reflex 1+ Diminished Bilateral Patellar Deep Tendon Reflex 2+ Normal Vital Signs Blood Pressure Sitting Blood Pressure (90/60-120/80 mmHg) 142/92 H Blood Pressure Source Manual Cuff,Right Upper Extremity PT-OP-J Posture/Palpation/Skin Start: 01/14/21 08:44 Freq: Status: Active Protocol: Document 01/14/21 09:45 AW (Rec: 01/14/21 11:06 AW [email or web address]) Posture Evaluation Position Standing Knee Posture (L) Neutral,(R) Neutral Ankle/Foot Posture (L) Neutral,(R) Neutral PT-OP-K Range of Motion Start: 01/14/21 08:44 Freq: Status: Active Protocol: Document 01/14/21 09:45 AW (Rec: 01/14/21 11:13 AW [email or web address]) Hip Goniometric Range of Motion Hip bilateral Hip ROM WFL Yes Testing Position Supine Comments Right IR limited. Left rotation WNL Hip ROM Limitations Hip ROM Limitations Soft Tissue Tightness Knee Goniometric Range of Motion Knee bilateral Knee ROM WFL Yes Patient Position Supine Flexion Active (degrees) 145 Flexion Passive (degrees) 150 Extension Active (degrees) 0 Comments No pain with overpressure. PT-OP-L Special Tests Start: 01/14/21 08:44 Freq: Status: Active Protocol: Document 01/14/21 09:45 AW (Rec: 01/14/21 11:13 AW [email or web address]) Special Tests Knee Special Tests Patellar Grind Test Test Results left positive; right negative Thessaly Test 5 Degrees Test Results negative PT-OP-M Strength Start: 01/14/21 08:44 Freq: Status: Active Protocol: Document 01/14/21 09:45 AW (Rec: 01/14/21 11:13 AW [email or web address]) Hip Strength Hip Manual Muscle Testing Left Flexion (L2) 4+ Good+ Extension (S1) 4 Good Abduction 4 Good Adduction 4+ Good+ External Rotation 4+ Good+ Internal Rotation 5 Normal Comments Left hip resisted ER painful Right Flexion (L2) 5 Normal Extension (S1) 4+ Good+ Abduction 4+ Good+ Adduction 4+ Good+ External Rotation 5 Normal Internal Rotation 5 Normal Knee Strength Knee Manual Muscle Testing Left Flexion (S2) 4+ Good+ Extension (L3) 5 Normal Right Flexion (S2) 5 Normal Extension (L3) 5 Normal Ankle/Foot Strength Ankle and Foot Manual Muscle Testing Left Dorsiflexion (L4) 4+ Good+ Plantarflexion (S1) 4+ Good+ Inversion 5 Normal Eversion (S1) 5 Normal Right Dorsiflexion (L4) 5 Normal Plantarflexion (S1) 5 Normal Inversion 5 Normal Eversion (S1) 5 Normal PT-OP-Q Treatments Start: 01/14/21 08:44 Freq: Status: Active Protocol: Document 03/18/21 15:14 AW (Rec: 03/18/21 15:15 AW [id number]) Cardio Equipment Bicycle (Upright) Duration (Minutes) 6 Resistance 8 Seat Position 1 Other 50-60 rpm Therapeutic Exercises Supine Exercises ITB stretch Supine Exercise Name ITB stretch Side left Reps/Minutes 30 sec x 3 Comments no irritation today bridge Supine Exercise Name SL bridge with opp hip in ER Reps/Minutes 6 x 2 Comments lift - 3SH - 3sec ecc phase- cued neutral pelvis, modifed bridge glut/core Prone Exercises quadruped donkey kick Prone Exercise Name quadruped donkey kick Side bilateral Reps/Minutes x8 Comments cued level pelvis Standing Exercises step down Standing Exercise Name step down Side bilateral Equipment Used 4 step Reps/Minutes x10 Comments no irritation today; cued neutral knee posture Manual Therapy Treatment Joint Mobilizations patellar Joint patellar Direction inf, sup Grade II Body Position Supine Reps/Duration 3 min PT-OP-S Aquatic Treatment Start: 03/23/21 15:06 Freq: Status: Active Protocol: Document 04/01/21 14:30 LJ (Rec: 04/01/21 14:41 LJ [email or web address]) Aquatics Treatment Pool Entry/Exit Pool Entry/Exit Method Stairs Assistance Independent Water Walking Lunge Walk Water Level Chest Level Level of Assistance Standby Assistance,Verbal Cues Comments forward lean Marching Water Level Chest Level Level of Assistance Independent Comments reaching opp knee sideways/grapevine Water Level Chest Level Level of Assistance Independent forward/backward Water Level Chest Level Level of Assistance Independent Lower Extremity Exercises Hip circles Details at wall Body Position Standing Water Level Chest Level Reps/Duration 15 each dir B kick back Details back to wall Body Position Standing Water Level Chest Level Reps/Duration 15 B knee extension Details facing wall Body Position Standing Water Level Chest Level Equipment Ankle Weight- 2.5# Reps/Duration 15 B Comments toe tap Hip flex/ext/AB/AD Details at wall Body Position Standing Water Level Chest Level Reps/Duration 15 each dir, B Lower Extremity Stretches hip flexors Details at wall Body Position Standing Water Level Chest Level Reps/Duration 30 sec x 2 B quads Details at wall Body Position Standing Equipment lg noodle under ankle Reps/Duration 30 sec x 2 B HS, gastroc, soleus Details at wall Body Position Standing Equipment lg noodle Reps/Duration 30 sec x 2 B Comments discomfort with LLE during stretch [place] Activities Other Activities corner trunk rotation-L sitting bicyclling in corner T hang 1/2 pendulum B shoot thru front back gymnist trunk rotation suupine crunches x 10 front, side, side BB under knees trunk pull down at wall Equipment belt, sm buoys PT-OP-T Assessment and Plan Start: 01/14/21 08:44 Freq: Status: Active Protocol: Document 04/01/21 14:30 SHIRLENE (Rec: 04/01/21 14:41 SHIRLENE [email or web address]) Physical Therapy Assessment Rehab Potential Rehabilitation Potential Excellent Evaluation Complexity Number of Personal Factors/Comorbidities 1-2 Number of Body Systems Impaired 1-2 Clinical Presentation at Evaluation Stable Other Concerns Age Related Concerns osteoporosis Goals Four Impairment hip strength [facility] Goal (LTG) Pt will improve all hip strength to 5/5 for improved gait mechanics - 03/12/21 Improving all planes except abduction 4+/5 bilaterally LTG Duration 2 months - 05/22/21 Three Impairment LEFS [facility] Goal (LTG) Pt will improve LEFS score from 54/80 66/80 or greater on LEFS to demonstrate improvement in ability to participate in daily and recreational activities. LTG Duration 2 months - 05/22/21 Two Impairment pain with hiking Short Term Goal (STG) Pt will hike hilly and uneven terrain 30 minutes without increase in baseline pain 02/11/21 - Pt now swimming regularly without increase in baseline pain but not feeling stable enough to hike hilly trails. STG Duration 4 weeks - 02/11/21 [facility] Goal (LTG) Pt will hike hilly and uneven terrain 60 minutes without increase in baseline pain 03/12/21 - Pt continues to have pain with downhill, making trail hiking difficult. Continue toward goal. LTG Duration 2 months - 05/22/21 Progress Towards Goals Progress Towards Goals Progressing Toward Goals Assessment Summary Assessment Pt performing all exercises well with good form and understanding. She was given a packet of exercises for AT [facility] which will be reviewed next session. Add [address] way leg kicks on boxes. Physical Therapy Plan Frequency and Duration Frequency of Treatment 1-2x/week Duration of Treatment 8 weeks Plan of Care Start Date 03/18/21 Plan of Care End Date 05/22/21 Therapeutic Interventions Therapeutic Interventions Aquatic Therapy,Balance Training,Gait Training,Home Exercise Program,Joint Mobilizations,Manual Therapy, Neuromuscular Re-education, Patient/Caregiver Education, Self-Care/Home Management,Soft Tissue Mobilization,Taping, Therapeutic Activities, Therapeutic Exercises Modalities Cold Pack/Ice Massage,Hot Packs Next Visit Focus/Plan Next Note Type Treatment Note Next Visit Plan POC: progress hip strength and medial quad strength as tolerated in aquatic setting
--- NOTE | 2022-06-15 11:04 | PT.OPDS ---
Current Diagnoses Patellofemoral disorders, left knee (04/01/21) Difficulty in walking, not elsewhere classified (04/01/21) Visit Care Team Role Provider Type Specialty: Address: Phone: Fax: Email: Kathy Alvarado DO Primary Care Provider Physician Specialty: Family Practice Address: [address] [place] [address], [address], [address] Email: [email or web address] Kyle Atkins MD Attending Provider Physician Referring Provider Specialty: Orthopedics Orthopedic Surgery Address: [address] [place] [address], [place], [address] Email: [email or web address] Visit Number Visit Number 10 Discharge Summary PT-OP-B Current Condition Start: 01/14/21 08:44 Freq: Status: Active Protocol: Document 01/14/21 09:45 AW (Rec: 01/14/21 08:52 AW [email or web address]) Current Condition History of Current Condition Onset Date October 2020 Current Complaints left knee pain History of Current Condition Elba ramped up her activity very quickly in October. She had been less active than usual over the past year and decided to get back in shape. She started hiking [employer] and [employer] regularly. She was also swimming. She started to notice worsening left knee pain - mostly medial but sometimes in the joint itself - which was worse with downhill activity. She noted some relief when she took a break for about 10 days. She also reports occasional swelling in the medial knee. She describes the pain as throbbing and like it's not gliding the way it should. Her pain is present but much more dull when she is less active. She has osteoporosis and fell in early 2018, fracturing her clavicle. She also reports thoracic compression fracture years ago from heavy overhead lifting. She denies falls over the past one year. She does admit she stubbed her left little toe and fractured it last year but did not fall. Prior Treatments and Tests - 11/13/20 left knee x-ray: Small joint effusion; otherwise no definite radiographic abnormality. - 2018 PT following fall and clavicle fracture Future Testing and Treatments Planned Dr. Atkins, ortho, suggests injection but pt would like to try PT first. Treatment Goals Patient/Caregiver Goals Pt would like to be able to return to regular hiking on hilly and uneven terrain without knee pain. Prior Functional Status Baseline Function- ADL's Independent Baseline Function- Mobility Independent Current Functional Impairments (Reported) Functional Limitations- Recreation/ Unable to tolerate downhill Hobbies and down stairs without pain. PT-OP-C Subjective Start: 01/14/21 08:44 Freq: Status: Active Protocol: Document 04/01/21 14:30 LJ (Rec: 04/01/21 14:41 LJ [email or web address]) OP-PT Subjective Patient Comments Patient Comments Pt states she was fatigued after AT last week but didn't experience any soreness. Would like to continue AT [facility] with handouts for reference. PT-OP-D Balance Start: 01/14/21 08:44 Freq: Status: Active Protocol: Document 01/14/21 09:45 AW (Rec: 01/14/21 11:00 AW [email or web address]) Balance Tests Single Limb Standing Single Limb- Right >15 seconds but with instability Single Limb- Left 6 sec, 10 sec - unstable PT-OP-E Functional Tests Start: 01/14/21 08:44 Freq: Status: Active Protocol: Document 01/14/21 09:45 AW (Rec: 01/14/21 11:06 AW [email or web address]) Functional Tests Other sit to stand, squat Comment poor knee tracking bilaterally during descent - excessively medial PT-OP-F Manual Assessment Start: 01/14/21 08:44 Freq: Status: Active Protocol: Document 01/14/21 09:45 AW (Rec: 01/14/21 11:06 AW [email or web address]) Manual Assessments Soft Tissue Assessment Soft Tissue Mobility Assessment Slight atrophy medial quadriceps. No point tenderness at pes anserine or with deep palpation of any knee structure. Joint Mobility Assessment Joint Mobility Assessment Stable on all ligament testing bilaterally. PT-OP-H Neuro Start: 01/14/21 08:44 Freq: Status: Active Protocol: Document 01/14/21 09:45 AW (Rec: 01/14/21 11:06 AW [email or web address]) Sensation Evaluation Gross Sensation Gross Sensation WNL Deep Tendon Reflex & Clonus Assessment Deep Tendon Reflex Bilateral Bicep Deep Tendon Reflex 2+ Normal Bilateral Achilles Deep Tendon Reflex 1+ Diminished Bilateral Patellar Deep Tendon Reflex 2+ Normal Vital Signs Blood Pressure Sitting Blood Pressure (90/60-120/80 mmHg) 142/92 H Blood Pressure Source Manual Cuff,Right Upper Extremity PT-OP-J Posture/Palpation/Skin Start: 01/14/21 08:44 Freq: Status: Active Protocol: Document 01/14/21 09:45 AW (Rec: 01/14/21 11:06 AW [email or web address]) Posture Evaluation Position Standing Knee Posture (L) Neutral,(R) Neutral Ankle/Foot Posture (L) Neutral,(R) Neutral PT-OP-K Range of Motion Start: 01/14/21 08:44 Freq: Status: Active Protocol: Document 01/14/21 09:45 AW (Rec: 01/14/21 11:13 AW [email or web address]) Hip Goniometric Range of Motion Hip bilateral Hip ROM WFL Yes Testing Position Supine Comments Right IR limited. Left rotation WNL Hip ROM Limitations Hip ROM Limitations Soft Tissue Tightness Knee Goniometric Range of Motion Knee bilateral Knee ROM WFL Yes Patient Position Supine Flexion Active (degrees) 145 Flexion Passive (degrees) 150 Extension Active (degrees) 0 Comments No pain with overpressure. PT-OP-L Special Tests Start: 01/14/21 08:44 Freq: Status: Active Protocol: Document 01/14/21 09:45 AW (Rec: 01/14/21 11:13 AW [email or web address]) Special Tests Knee Special Tests Patellar Grind Test Test Results left positive; right negative Thessaly Test 5 Degrees Test Results negative PT-OP-M Strength Start: 01/14/21 08:44 Freq: Status: Active Protocol: Document 01/14/21 09:45 AW (Rec: 01/14/21 11:13 AW [email or web address]) Hip Strength Hip Manual Muscle Testing Left Flexion (L2) 4+ Good+ Extension (S1) 4 Good Abduction 4 Good Adduction 4+ Good+ External Rotation 4+ Good+ Internal Rotation 5 Normal Comments Left hip resisted ER painful Right Flexion (L2) 5 Normal Extension (S1) 4+ Good+ Abduction 4+ Good+ Adduction 4+ Good+ External Rotation 5 Normal Internal Rotation 5 Normal Knee Strength Knee Manual Muscle Testing Left Flexion (S2) 4+ Good+ Extension (L3) 5 Normal Right Flexion (S2) 5 Normal Extension (L3) 5 Normal Ankle/Foot Strength Ankle and Foot Manual Muscle Testing Left Dorsiflexion (L4) 4+ Good+ Plantarflexion (S1) 4+ Good+ Inversion 5 Normal Eversion (S1) 5 Normal Right Dorsiflexion (L4) 5 Normal Plantarflexion (S1) 5 Normal Inversion 5 Normal Eversion (S1) 5 Normal PT-OP-T Assessment and Plan Start: 01/14/21 08:44 Freq: Status: Active Protocol: Document 06/15/22 11:02 AW (Rec: 06/15/22 11:04 AW [id number]) Physical Therapy Plan Discharge Physical Therapy Discharge Reasons No Longer Attending PT Discharge Comments Late discharge entered for pt who has not been seen in land- based or aquatic PT since 03/12. Pt has a new referral and will be seen in June to start a new plan of care.
== END | disposition home or self-care (01) ==
LOC: PHYS 01-14 09:23
PROVIDERS: PCP Family Medicine; Referring Provider Physical Medicine & Rehabilitation; Visit Provider Physical Medicine & Rehabilitation
DX: M22.2X2 Patellofemoral disorders, left knee (principal); R26.2 Difficulty in walking, not elsewhere classified
CPT/HCPCS: 97110; 97113; 97140; 97161; 97535

== ENCOUNTER 2022-06-18 15:44 | Emergency (ER) | payer MEDICARE, OTHER, SELFPAY ==
[2022-05-22 21:27] VITALS: BMI 25.1
[2022-06-18 15:59] VITALS: BP 155/72; PULSE 87; RESP 19; TEMP 36.5; O2SAT 98; BMI 24.2
--- NOTE | 2022-06-18 20:05 | ED.GENADULT ---
HPI - General Adult General Chief complaint: Abdominal Pain Stated complaint: abdominal pain Time Seen by Provider: 06/18/22 19:53 Source: patient Mode of arrival: Ambulatory Limitations: no limitations History of Present Illness HPI narrative: 67-year-old female who is here for evaluation of abdominal discomfort. Symptoms started earlier today. Does radiate down her right leg. Nothing seems to make it better or worse. Has not tried anything for the symptoms prior to arrival. Related Data Home Medications Medication Instructions Recorded Confirmed calcium carbonate 600 mg-vitamin 2 cap PO DAILY 06/16/21 05/22/22 D3 25 mcg (1,000 unit) capsule docusate sodium 100 mg PO DAILY 07/15/21 05/22/22 Previous Rx's Medication Instructions Recorded aspirin 81 mg tablet,delayed 81 mg PO DAILY #30 tabs 06/17/21 release atorvastatin 40 mg tablet 40 mg PO DAILY #90 tabs 06/23/21 sumatriptan succinate 50 mg tablet See Rx Instructions PO .COMPLEX 05/23/22 (Imitrex) #20 tabs Allergies Allergy/AdvReac Type Severity Reaction Status Date / Time influenza virus vaccine, Allergy Severe PASSED OUT Verified 06/18/22 15:59 specific [influenza virus vacc,specific] dog dander [DOG DANDER] Allergy Unknown Verified 06/18/22 15:59 Review of Systems Constitutional Constitutional: Reports system reviewed and no additional complaints, except as documented Cardiovascular Cardiovascular: Reports system reviewed and no additional complaints, except as documented Respiratory Respiratory: Reports system reviewed and no additional complaints, except as documented Gastrointestinal Gastrointestinal: Reports system reviewed and no additional complaints, except as documented Integumentary/Breasts Skin/Breast: Reports system reviewed and no additional complaints, except as documented Hematologic/Lymphatic On Anticoagulants: No Patient History Medical History Acute appendicitis Allergic rhinitis (04/22/14) Anal pruritus Chronic back pain (2010) Compression fracture of first lumbar vertebra, closed, initial encounter (01/21/16) Dry eye Fracture of fifth toe, left, closed Gastric ulcer (1989) Gastroesophageal reflux disease (01/25/14) GERD (gastroesophageal reflux disease) () Hemorrhoids (2005) Hiatal hernia History of head injury Hx of spinal cord injury Hypercalcemia Hyperlipidemia Knee pain (10/2013) Low back pain (01/25/14) Osteoporosis (06/07/14) Paresthesia of left upper extremity Peptic ulcer disease Rosacea Seasonal allergies (~1989) Tibia/fibula fracture (1988) Tobacco use disorder (04/22/14) Vaginal atrophy (05/18/17) Surgical History Anesthesia complication H/O local excision of skin lesion (10/2013) History of esophagogastroduodenoscopy (EGD) (12/03/16) History of orthopedic surgery (1990) History of surgery (1981) History of tonsillectomy (1972) Status post hemorrhoidectomy (2005) Status post LASIK surgery (2000) Family History Brother Age: 67 Hypertension Father Diabetes mellitus Heart disease Hypertension High cholesterol Mother Heart disease Stroke Renal failure Social History household members: none Smoking Status: Former smoker quit status: quit date established alcohol intake: current Smoking Status: Former smoker alcohol intake frequency: holidays/special occasions only Substance Use Type: does not use Exam Initial Vital Signs Initial Vital Signs: Vital Signs Temperature 97.7 F 06/18/22 15:59 Pulse Rate 87 06/18/22 15:59 Respiratory Rate 19 06/18/22 15:59 Blood Pressure 155/72 H 06/18/22 15:59 Pulse Oximetry 98 06/18/22 15:59 Oxygen Delivery Method 06/18/22 15:59 Const General: cooperative and comfortable HENMT Head: normal to inspection and normocephalic Resp Effort & Inspection: normal respiratory effort Auscultation: clear to auscultation bilaterally Cardio Rate: regular rate Rhythm: regular rhythm GI Inspection: normal to inspection and non-distended Palpation: soft, No firm and No guarding Back/Spine/Pelvis Back: No CVA tenderness Skin General: no rashes or lesions noted Extrem General: normal to inspection and capillary refill normal Course Orders Ordered: ED Orders 06/18/22 20:06 CT abdomen pelvis w con Stat 06/18/22 20:50 Complete Blood Count AUTO DIFF Stat Comprehensive Metabolic Panel Stat Lipase Stat Discontinued Medications Ondansetron HCl (Ondansetron 4 Mg Odt) 4 mg PO NOW PRN PRN Reason: Nausea And Vomiting Ondansetron HCl (Ondansetron 4 Mg/2 Ml Inj) 4 mg IV NOW PRN PRN Reason: Nausea And Vomiting Vital Signs Vital signs: Vital Signs - 8 hr 06/18/22 21:39 Pulse Oximetry 96 Oxygen Delivery Method Room Air Medical Decision Making Differential Diagnosis Differential Diagnosis: SBO, appendicitis, gastroenteritis, and others Condition is:: Improved Lab Data Lab results reviewed: Yes I reviewed the patient's lab results. 06/18/22 20:50 06/18/22 20:50 Labs: Lab Results 06/18/22 06/18/22 Range/Units 20:50 20:50 WBC 8.5 (4.5-11.0) X10^3/uL RBC 4.26 (4.0-5.2) X10^6/uL Hgb 12.9 (12.0-16.0) g/dL Hct 38.0 (36-46) % MCV 89.3 (80-100) fL MCH 30.3 (26-34) PG MCHC 34.0 (30-36) % RDW 12.8 (11.6-14.8) % Plt Count 313 (150-400) X10^3/uL Neut % (Auto) 45.0 L (50-75) % Lymph % (Auto) 45.4 H (25-40) % [place] % (Auto) 7.0 (3-14) % Eos % (Auto) 1.7 L (2-4) % Baso % (Auto) 0.9 (0-2) % Neut # (Auto) 3800 (3704-1012) /uL Lymph # (Auto) 3800 (8037-5139) /uL [place] # (Auto) 600 (0-900) /uL Eos # (Auto) 100 (0-450) /uL Baso # (Auto) 100 (0-100) /uL Sodium 139 (137-145) mmol/L Potassium 4.2 (3.4-5.1) mmol/L Chloride 103 (98-107) mmol/L Carbon Dioxide 26 (22-32) mmol/L BUN 17 (7-17) mg/dL Creatinine 0.59 (0.52-1.04) mg/dL Estimated GFR > 60 (>60) mL/min BUN/Creatinine Ratio 28.8 H (6-22) Glucose 85 (80-110) mg/dL Calcium 9.7 (8.4-10.2) mg/dL Total Bilirubin 0.8 (0.2-1.3) mg/dL AST 39 H (14-36) IU/L ALT 31 (<35) IU/L Alkaline Phosphatase 69 (38-126) U/L Total Protein 8.5 H (6.3-8.2) g/dL Albumin 5.1 H (3.5-5.0) g/dL Globulin 3.4 (1.7-4.1) g/dL Albumin/Globulin Ratio 1.5 (1.0-2.8) Lipase 72 (23-300) U/L Urine Dip Bedside Urine Glucose Negative Bedside Urine Bilirubin - Negative Bedside Urine Ketone - Negative Urine Specific [place] 1.015 Bedside Urine Occult Blood - Negative Bedside Urine pH 6.0 Bedside Urine Protein - Negative Bedside Urine Urobilinogen - Negative Bedside Urine Nitrite - Negative Bedside Urine Leukocytes - Negative Esterase Point of care testing: Urine Dip Bedside Urine Glucose Negative Bedside Urine Bilirubin - Negative Bedside Urine Ketone - Negative Urine Specific [place] 1.015 Bedside Urine Occult Blood - Negative Bedside Urine pH 6.0 Bedside Urine Protein - Negative Bedside Urine Urobilinogen - Negative Bedside Urine Nitrite - Negative Bedside Urine Leukocytes - Negative Esterase Imaging Data CT scan - abdomen/pelvis: Radiologist's Impression: [place] [address] CT Scan Report Signed Patient: Elba Diaz MR#: [id number] : 1955 Acct:[id number] Age/Sex: 67 / F Date of Service: 06/18/22 Loc: ED Accession Number: [id number] ?? Procedure: CT abdomen pelvis w con Ordering Provider: Christian Cates D.O. PROCEDURE:? CT ABDOMEN PELVIS W CON ? INDICATIONS:? RLQ abd pain ? TECHNIQUE:? After the administration of IV contrast, axial sections were acquired from the lung bases to the pubic symphysis.? Coronal and sagittal reformats were performed.? For radiation dose reduction, the following was used:? automated exposure control, adjustment of mA and/or kV according to patient size. ? COMPARISON:? [facility], CT, CT ABDOMEN PELVIS W CON, 10/29/2017, 14:46. ? FINDINGS:? Image quality:? Excellent.? ? Lung bases:? There is minimal dependent atelectasis.? ? Heart:? Heart is normal in size. ? ? ABDOMEN: Liver:? No mass lesion. Gallbladder:? Within normal limits without calcified gallstones.? ? Biliary ducts:? No biliary ductal dilatation.? ? Pancreas:? Unremarkable.? ? Spleen:? Normal in size.? ? Adrenal Glands:? No adrenal nodules.? ? Kidneys and Ureters:? No hydronephrosis.? ? ? Stomach and Bowel:? Stomach, small bowel loops, and colon are normal in caliber and wall thickness.? There are surgical sutures along the cecum likely related to prior appendectomy.? No pericecal inflammatory changes.? Peritoneum:? No abnormal intraperitoneal fluid.? No free air.? ? Ventral Wall: ? No hernia.? Abdominal Nodes:? No retroperitoneal or mesenteric adenopathy by size criteria.? Vessels:? Aorta and inferior vena cava are normal in size.? ? PELVIS: Pelvic Organs:? Uterus and ovaries appear within normal size limits.? ? Bladder:? The urinary bladder is partially distended.? ? Pelvic Nodes: No enlarged lymph nodes.? Miscellaneous: No inguinal hernias are seen. ? ? ? Bones:? Visualized osseous structures demonstrate no suspicious focal lesions. ? IMPRESSION:? ? 1.? No definite acute intra-abdominal abnormality. ? 2. Probable surgical absence of the appendix.? No pericecal inflammatory changes identified. ? 3. No evidence of obstructive uropathy. ? ? Dictated by: Kd Lennon M.D. on 06/18/2022 at 21:21 ? ? Approved by: Kd Lennon M.D. on 06/18/2022 at 21:27? ECG Data Attestation: I personally reviewed and interpreted this ECG as follows: Interpretation: Sinus rhythm Ventricular rate is 69 Normal axis Normal QRS Normal QTC No ST T wave changes MDM Narrative Medical decision making narrative: For could be in the emergency department is negative to include labs, EKG, and CT scan. Her exam is benign. There is no surgical process found. No indication for antibiotics. Indication for admission to the hospital. Did discuss this with the patient. We discussed return precautions and follow-up instructions. She expressed understanding and agreement. Discharge Plan Departure Patient Disposition: Home Clinical Impression: Abdominal pain Instructions: DI for Abdominal Pain-Adult Activity Restrictions/Additional Instructions: Recommend that you continue to take all of your medications as directed. Contact your primary doctor for a follow-up. Return to emergency department for any new symptoms. Prescriptions: No Action atorvastatin 40 mg tablet 40 mg PO DAILY Qty: 90 3RF docusate sodium 100 mg PO DAILY sumatriptan succinate [Imitrex] 50 mg tablet See Rx Instructions .ROUTE .COMPLEX Qty: 20 0RF Rx Instructions: take 1 tab at onset of headache; if no relief may repeat 1 tab after at least 2 hrs; max = 4 tabs/24 hr calcium carbonate-vitamin D3 600 mg-25 mcg (1,000 unit) Capsule 2 cap PO DAILY aspirin 81 mg Tablet,Delayed Release (Dr/Ec) 81 mg PO DAILY Qty: 30 0RF Referrals: Augustina Blount DO [Primary Care Provider] - Stand Alone Forms: Patient Portal/API
--- NOTE | 2022-06-18 20:06 | DI.CT.S_ITS ---
PROCEDURE: CT ABDOMEN PELVIS W CON INDICATIONS: RLQ abd pain TECHNIQUE: After the administration of IV contrast, axial sections were acquired from the lung bases to the pubic symphysis. Coronal and sagittal reformats were performed. For radiation dose reduction, the following was used: automated exposure control, adjustment of mA and/or kV according to patient size. COMPARISON: [facility], CT, CT ABDOMEN PELVIS W CON, 10/29/2017, 14:46. FINDINGS: Image quality: Excellent. Lung bases: There is minimal dependent atelectasis. Heart: Heart is normal in size. ABDOMEN: Liver: No mass lesion. Gallbladder: Within normal limits without calcified gallstones. Biliary ducts: No biliary ductal dilatation. Pancreas: Unremarkable. Spleen: Normal in size. Adrenal Glands: No adrenal nodules. Kidneys and Ureters: No hydronephrosis. Stomach and Bowel: Stomach, small bowel loops, and colon are normal in caliber and wall thickness. There are surgical sutures along the cecum likely related to prior appendectomy. No pericecal inflammatory changes. Peritoneum: No abnormal intraperitoneal fluid. No free air. Ventral Wall: No hernia. Abdominal Nodes: No retroperitoneal or mesenteric adenopathy by size criteria. Vessels: Aorta and inferior vena cava are normal in size. PELVIS: Pelvic Organs: Uterus and ovaries appear within normal size limits. Bladder: The urinary bladder is partially distended. Pelvic Nodes: No enlarged lymph nodes. Miscellaneous: No inguinal hernias are seen. Bones: Visualized osseous structures demonstrate no suspicious focal lesions. IMPRESSION: 1. No definite acute intra-abdominal abnormality. 2. Probable surgical absence of the appendix. No pericecal inflammatory changes identified. 3. No evidence of obstructive uropathy. Dictated by: Kd Lennon M.D. on 06/18/2022 at 21:21 Approved by: Kd Lennon M.D. on 06/18/2022 at 21:27
[2022-06-18 21:02] LABS: Add Manual Diff / Slide Review NO; Basophils Absolute Auto 100 /uL (0-100); Basophils Percent Auto 0.9 % (0-2); Eosinophils Absolute Auto 100 /uL (0-450); Eosinophils Percent Auto 1.7 % (2-4); Hemoglobin 12.9 g/dL (12.0-16.0); Lymphocytes Absolute Auto 3800 /uL (1100-4500); Lymphocytes Percent Auto 45.4 % (25-40); Mean Corpuscular Hemoglobin 30.3 PG (26-34); Mean Corpuscular Volume 89.3 fL (80-100); Monocytes Absolute Auto 600 /uL (0-900); Neutrophils Absolute Auto 3800 /uL (1500-7000); Platelet Count 313 X10^3/uL (150-400); Red Blood Cell Count 4.26 X10^6/uL (4.0-5.2); Red Cell Distribution Width 12.8 % (11.6-14.8); White Blood Cell Count 8.5 X10^3/uL (4.5-11.0)
[2022-06-18 21:11] LABS: Alanine Aminotransferase 31 IU/L (<35); Albumin 5.1 g/dL (3.5-5.0); Albumin Globulin Ratio 1.5 (1.0-2.8); Alkaline Phosphatase 69 U/L (38-126); BUN Creatinine Ratio 28.8 (6-22); Bilirubin Total 0.8 mg/dL (0.2-1.3); Blood Urea Nitrogen 17 mg/dL (7-17); Calcium 9.7 mg/dL (8.4-10.2); Carbon Dioxide 26 mmol/L (22-32); Chloride 103 mmol/L (98-107); Estimated Glomerular Filt Rate > 60 mL/min (>60); Globulin 3.4 g/dL (1.7-4.1); Glucose 85 mg/dL (80-110); HEMOLYSIS 88 (0-50); Lipase 72 U/L (23-300); Sodium 139 mmol/L (137-145); Total Protein 8.5 g/dL (6.3-8.2)
[2022-06-18 21:12] LABS: Aspartate Aminotransferase 39 IU/L (14-36)
[2022-06-18 21:13] LABS: Potassium 4.2 mmol/L (3.4-5.1)
[2022-06-18 21:39] VITALS: O2SAT 96
== END 2022-06-18 22:11 | disposition home or self-care (01) ==
PROVIDERS: Emergency Medicine; Emergency Provider Emergency Medicine; Family Provider Family Medicine; PCP Family Medicine
DX: R10.31 Right lower quadrant pain (principal); Z79.82 Long term (current) use of aspirin
CPT/HCPCS: 36415; 74177; 80053; 81003; 83690; 85025; 93005; 99283; 99284; Q9967

== ENCOUNTER 2022-08-09 13:00 | Outpatient (RCR) | payer MEDICARE, OTHER, SELFPAY ==
[2022-05-22 21:27] VITALS: BMI 25.1
--- NOTE | 2022-07-13 17:13 | PT.OPPOC ---
Physical, Occupational & Speech Therapy At [facility] Current Diagnoses Pain in right shoulder (07/13/22) Low back pain, unspecified (07/13/22) Visit Care Team Role Provider Type Martha Javed DO Family Provider Physician Primary Care Provider Specialty: Medical Address: [address] [place] [address], [address], [place], [address] Email: [email or web address] Augustina Blount DO Attending Provider Physician Referring Provider Specialty: Family Practice Address: [address] [place] [address], [address], [place], [address] Phone: Fax: Email: [email or web address] Plan Of Care PT-OP-T Assessment and Plan Start: 07/13/22 08:14 Freq: Status: Active Protocol: Document 07/13/22 14:32 SAK (Rec: 07/13/22 15:14 SAK [id number]) Physical Therapy Assessment Rehab Potential Rehabilitation Potential Good Evaluation Complexity Number of Personal Factors/Comorbidities 1-2 Number of Body Systems Impaired 3 Clinical Presentation at Evaluation Evolving Impairments Impairments Activity Tolerance,Pain,ROM, Strength Goals Four Impairment lacking HEP Impairment no current HEP for ROM or strengthening Short Term Goal (STG) Patient to be instructed in HEP for purposes of strengthenig and ROM right shoulder and HIP STG Duration 08/21/22 Enterprise Security Architect Goal (LTG) Patient to be independent and compliant with HEP and demonstrate right shoulder and hip ROM WNL and strength at least 4+/5 all motions LTG Duration 10/10/22 Three Impairment LEFS Short Term Goal (STG) Improve LEFS Long-Term Goal (LTG) Improve LEFS to at least 75% as measure of improved right LE function including walking, squatting, sleeping, LTG Duration 10/10/22 Two Impairment QuickDash UE disability Index score Short Term Goal (STG) Improve Quickdash score to no greater than STG Duration 08/21/22 Enterprise Security Architect Goal (LTG) Improve Quickdash score to no greater than 2/10 as measure of improved right shoulder function including reaching overhead, to side, across body , and behind back LTG Duration 10/10/22 One Impairment pain right shoulder and hip as high as 8/10 Short Term Goal (STG) decrease pain to no greater than 4/10 with all usual activities STG Duration 08/21/22 Long-Term Goal (LTG) Decrease pain to no greater than 2/10 with all usual activities LTG Duration 10/10/22 Assessment Summary Assessment Patient presents to PT with function-limiting pain right anterior shoulder and groin which appears due to injuring herself while trying to move a washing machine. She has weakness and lack of full motion right shoulder and hip with pain at end-range all motions in her shoulder, and external and internal rotation right hip. Impingement tests and belly press test are positive right shoulder, scour test positive right hip. Feel she would benefit from PT to decrease her pain and heal soft tissue injuries, improve her ROM, strength and function of her right shoulder and hip and allow her to return to her prior activities with minimal to no pain. We discussed POC and she is in agreement. Physical Therapy Plan Frequency and Duration Frequency of Treatment 2x/Week Duration of treatment (weeks) 12 Plan of Care Start Date 07/13/22 Plan of Care End Date 10/10/22 Therapeutic Interventions Therapeutic Interventions Home Exercise Program,Manual Therapy,Patient/Caregiver Education,Self-Care/Home Management,Soft Tissue Mobilization,Taping, Therapeutic Activities, Therapeutic Exercises Modalities Cold Pack/Ice Massage,Electric Stimulation,Hot Packs, Infrared Therapy,Iontophoresis ,Ultrasound Next Visit Focus/Plan Next Note Type Treatment Note Next Visit Plan Review HEP, pulleys for right shoulder ROM, consider isometrics. Progress LE strenthening, provide gentle hip joint distraction, ROM. Update HEP as indicated. End with modalities as indicated. Plan of Care Dates Plan of Care Start Date 07/13/22 Plan of Care End Date 10/10/22 Electronically Signed by: Daisha Salinas, PT 07/14/22 6620 If you are in agreement with this Plan of Care, please return a signed and dated copy. I have reviewed this Plan of Care and certify that the skilled therapy services above are required to meet the patient?s needs. Physician Signature Date Printed Name and Credentials Clinical Instructor Signature Printed Name and Credentials
--- NOTE | 2022-07-13 17:13 | PT.OIE ---
Current Diagnoses Pain in right shoulder (07/13/22) Low back pain, unspecified (07/13/22) Past Medical History (Last Reviewed 06/19/22 @ 01:15 by Christian Cates DO) Acute appendicitis Allergic rhinitis (04/22/14) Anal pruritus Chronic back pain (2010) Compression fracture of first lumbar vertebra, closed, initial encounter (01/21/16) Dry eye Fracture of fifth toe, left, closed Gastric ulcer (1989) Gastroesophageal reflux disease (01/25/14) GERD (gastroesophageal reflux disease) (~1989) Hemorrhoids (2005) Hiatal hernia History of head injury Hx of spinal cord injury Hypercalcemia Hyperlipidemia Knee pain (10/2013) Low back pain (01/25/14) Osteoporosis (06/07/14) Paresthesia of left upper extremity Peptic ulcer disease Rosacea Seasonal allergies (~1989) Tibia/fibula fracture (1988) Tobacco use disorder (04/22/14) Vaginal atrophy (05/18/17) Past Surgical History (Last Reviewed 05/23/22 @ 00:53 by Danilo Patino MD) Anesthesia complication H/O local excision of skin lesion (10/2013) History of esophagogastroduodenoscopy (EGD) (12/03/16) History of orthopedic surgery (1990) History of surgery (1981) History of tonsillectomy (1972) Status post hemorrhoidectomy (2005) Status post LASIK surgery (2000) Visit Care Team Role Provider Type Martha Javed DO Family Provider Physician Primary Care Provider Specialty: Medical Address: [address] [place], [place] [id number] Email: [email or web address] Augustina Blount DO Attending Provider Physician Referring Provider Specialty: Family Practice Address: [address] [place] [address], [id number] Phone: Fax: Email: [email or web address] Physical Therapy Initial Evaluation PT-OP-A Visit Information Start: 07/13/22 08:14 Freq: Status: Active Protocol: Document 07/13/22 14:32 [facility]AK (Rec: 07/13/22 15:14 SAK [id number]) Out-Patient Physical Therapy Visit Information Visit Information Visit Type Initial Evaluation Visit Start Time 14:32 Visit Stop Time 15:25 Total Visit Minutes 53 Visit Number 1 Evaluation Information Evaluation Date 07/13/22 Precautions Precautions PFO, TIA, migraine, fractured tib/fib, Osteoporosis, dizziness, falls PT-OP-B Current Condition Start: 07/13/22 08:14 Freq: Status: Active Protocol: Document 07/13/22 14:32 SAK (Rec: 07/13/22 15:14 [facility] [id number]) Current Condition History of Current Condition Onset Date 3 months Current Complaints right shoulder and groin pain History of Current Condition Right shoulder pain, right groin pain both possibly due to trying to move washing machine pulling toward herself , also may have hurt herself doing something else she can't remember. Denies N/T. Able to walk 4-6 miles but unable to swim due both to hip and shoulder pain. Has tried heat on the shoulder, helps for a little while. Difficulty sleeping. No current exercise program. Denies N/T, bowel or bladder symptoms. Prior Treatments and Tests no imaging. Future Testing and Treatments Planned Return to doctor after PT Treatment Goals Patient/Caregiver Goals Decrease pain, be able to sleep, swim, carry objects, get dressed, reach overhead, behind back, cross legs without pain. Prior Functional Status Baseline Function- ADL's Independent Baseline Function- Mobility Independent Baseline Function- Gait indep Baseline Function- Work/School retired Current Functional Impairments (Reported) Functional Limitations- ADL's painful Functional Limitations- Mobility/Gait no difficulty Functional Limitations- Work/School retired PT-OP-C Subjective Start: 07/13/22 08:14 Freq: Status: Active Protocol: Document 07/13/22 14:43 [facility] (Rec: 07/14/22 17:12 [facility] [id number]) OP-PT Pain Assessment Pain Assessment Grid Paper Pain Assessment Grid Completed Yes Location right shoulder and groin Intensity 8 Description Aching,Burning,Pressure,Sharp, Stabbing,Tender,Tightness, Throbbing Frequency Frequent Pain Aggravating Factors ADL's,Activity,Standing, Walking Pain Alleviating Factors Heat Home Pain Medication Use Pain Medications Used Yes Pain Behaviors Pain Behaviors Facial Grimacing,Wincing PT-OP-F Manual Assessment Start: 07/13/22 08:14 Freq: Status: Active Protocol: Document 07/13/22 14:43 [facility] (Rec: 07/14/22 17:12 [facility] [id number]) Manual Assessments Joint Mobility Assessment Joint Mobility Assessment hypomobile right shoulder inf and post glide hypomobile right hip distraction and posterior glide PT-OP-G Mobility & Gait Start: 07/13/22 08:14 Freq: Status: Active Protocol: Document 07/13/22 14:43 [facility]AK (Rec: 07/14/22 17:12 [facility] [id number]) OP Gait Assessment Gait Gait Assistance Required: Independent Assistive Devices Assistive Device None Gait Deviations General Gait Pattern Antalgic Factors Limiting Gait Function Factors Limiting Gait Function Decreased Strength,Limited Range of Motion,Pain PT-OP-H Neuro Start: 07/13/22 08:14 Freq: Status: Active Protocol: Document 07/13/22 14:43 [facility]AK (Rec: 07/14/22 17:12 [facility] [id number]) Sensation Evaluation Gross Sensation Gross Sensation WNL PT-OP-J Posture/Palpation/Skin Start: 07/13/22 08:14 Freq: Status: Active Protocol: Document 07/13/22 14:43 [facility]AK (Rec: 07/14/22 17:12 [facility] [id number]) Posture Evaluation Position Standing T-Spine Posture Increased Kyphosis L-Spine Posture Increased Lordosis Scapula Posture (L) Protracted,(R) Protracted Arm Posture (L) Internally Rotated,(R) Internally Rotated Hip Posture (L) Externally Rotated,(R) Externally Rotated Palpation Assessment Location psoas Palpation Location R Palpation Findings Soft Tissue Tightness,Muscle Guarding,Tenderness RC insertion Palpation Location R Palpation Findings Soft Tissue Tightness, Tenderness PT-OP-K Range of Motion Start: 07/13/22 08:14 Freq: Status: Active Protocol: Document 07/13/22 14:32 [facility] (Rec: 07/13/22 15:14 [facility] [id number]) Cervical Spine Range of Motion Cervical Spine Active Comments WNL Lumbar Spine Range of Motion Lumbar Spine Active Testing Position Standing Comments mild decrease all motions, no increase in groin pain Shoulder Goniometric Range of Motion Shoulder Right Active Shoulder ROM WFL No Testing Position Sitting Flexion 150 Extension 10 Abduction 65 External Rotation at 45 degrees 45 Abduction Internal Rotation Behind Back (text) lateral hip Left Active Shoulder ROM WFL Yes Shoulder ROM Limitations Shoulder ROM Limitations Pain Hip Goniometric Range of Motion Hip Right Flexion w/Knee Flexed 100 Straight Leg Raise 75 Extension 10 Abduction 35 Internal Rotation 25 External Rotation 35 Comments painful end-range ER Left Hip ROM WFL Yes Comments mild HS tightness PT-OP-L Special Tests Start: 07/13/22 08:14 Freq: Status: Active Protocol: Document 07/13/22 14:43 [facility] (Rec: 07/14/22 17:12 [facility] [id number]) Special Tests Shoulder Special Tests Elevation Impingement Test Results positive right Biceps Load II Test Test Results negative right Belly Press Test Results positive right Hip Special Tests KINGA Test Results negative Scour Test Test Results positive right PT-OP-M Strength Start: 07/13/22 08:14 Freq: Status: Active Protocol: Document 07/13/22 14:43 [facility] (Rec: 07/14/22 17:12 [facility] [id number]) Shoulder Strength Shoulder Manual Muscle Testing Right Flexion 3- Fair- Extension 3- Fair- Abduction (C5) 3- Fair- Adduction 3+ Fair+ External Rotation 3- Fair- Internal Rotation 3- Fair- Comments pain with resistance all motions right Left Flexion 5 Normal Extension 5 Normal Adduction 5 Normal External Rotation 4 Good Internal Rotation 4+ Good+ Elbow/Forearm Strength Elbow and Forearm Manual Muscle Testing Right Flexion (C6) 4 Good Extension (C7) 4 Good Comments guarding due to pain Left Flexion (C6) 5 Normal Extension (C7) 5 Normal Hip Strength Hip Manual Muscle Testing Right Flexion (L2) 4- Good- Extension (S1) 3+ Fair+ Abduction 3+ Fair+ Adduction 3+ Fair+ External Rotation 4- Good- Left Flexion (L2) 4 Good Extension (S1) 4 Good Abduction 4 Good External Rotation 4- Good- Internal Rotation 4+ Good+ Knee Strength Knee Manual Muscle Testing Right Flexion (S2) 4+ Good+ Extension (L3) 4+ Good+ Left Flexion (S2) 5 Normal Extension (L3) 5 Normal PT-OP-Q Treatments Start: 07/13/22 08:14 Freq: Status: Active Protocol: Document 07/13/22 14:43 [facility] (Rec: 07/14/22 17:12 [facility] [id number]) Self-Care/Home Management Treatment Education Patient Education Home Exercise Program Other Education issued written HO PT-OP-R Modalities Start: 07/13/22 08:14 Freq: Status: Active Protocol: Document 07/13/22 14:43 [facility] (Rec: 07/14/22 17:12 [facility] [id number]) Hot Pack/Cold Pack Treatment Cold Pack Location right shoulder and hip Patient Position Hooklying Treatment Duration (minutes) 10 Patient Tolerance Good PT-OP-T Assessment and Plan Start: 07/13/22 08:14 Freq: Status: Active Protocol: Document 07/13/22 14:32 [facility] (Rec: 07/13/22 15:14 [facility] [id number]) Physical Therapy Assessment Rehab Potential Rehabilitation Potential Good Evaluation Complexity Number of Personal Factors/Comorbidities 1-2 Number of Body Systems Impaired 3 Clinical Presentation at Evaluation Evolving Impairments Impairments Activity Tolerance,Pain,ROM, Strength Goals Four Impairment lacking HEP Impairment no current HEP for ROM or strengthening Short Term Goal (STG) Patient to be instructed in HEP for purposes of strengthenig and ROM right shoulder and HIP STG Duration 08/21/22 [employer] Supervisor Goal (LTG) Patient to be independent and compliant with HEP and demonstrate right shoulder and hip ROM WNL and strength at least 4+/5 all motions LTG Duration 10/10/22 Three Impairment LEFS Short Term Goal (STG) Improve LEFS Group Home Goal (LTG) Improve LEFS to at least 75% as measure of improved right LE function including walking, squatting, sleeping, LTG Duration 10/10/22 Two Impairment QuickDash UE disability Index score Short Term Goal (STG) Improve Quickdash score to no greater than STG Duration 08/21/22 Group Home Goal (LTG) Improve Quickdash score to no greater than 2/10 as measure of improved right shoulder function including reaching overhead, to side, across body , and behind back LTG Duration 10/10/22 One Impairment pain right shoulder and hip as high as 8/10 Short Term Goal (STG) decrease pain to no greater than 4/10 with all usual activities STG Duration 08/21/22 Group Home Goal (LTG) Decrease pain to no greater than 2/10 with all usual activities LTG Duration 10/10/22 Assessment Summary Assessment Patient presents to PT with function-limiting pain right anterior shoulder and groin which appears due to injuring herself while trying to move a washing machine. She has weakness and lack of full motion right shoulder and hip with pain at end-range all motions in her shoulder, and external and internal rotation right hip. Impingement tests and belly press test are positive right shoulder, scour test positive right hip. Feel she would benefit from PT to decrease her pain and heal soft tissue injuries, improve her ROM, strength and function of her right shoulder and hip and allow her to return to her prior activities with minimal to no pain. We discussed POC and she is in agreement. Physical Therapy Plan Frequency and Duration Frequency of Treatment 2x/Week Duration of treatment (weeks) 12 Plan of Care Start Date 07/13/22 Plan of Care End Date 10/10/22 Therapeutic Interventions Therapeutic Interventions Home Exercise Program,Manual Therapy,Patient/Caregiver Education,Self-Care/Home Management,Soft Tissue Mobilization,Taping, Therapeutic Activities, Therapeutic Exercises Modalities Cold Pack/Ice Massage,Electric Stimulation,Hot Packs, Infrared Therapy,Iontophoresis ,Ultrasound Next Visit Focus/Plan Next Note Type Treatment Note Next Visit Plan Review HEP, pulleys for right shoulder ROM, consider isometrics. Progress LE strenthening, provide gentle hip joint distraction, ROM. Update HEP as indicated. End with modalities as indicated.
--- NOTE | 2022-07-15 13:47 | PT.OTN ---
Current Diagnoses Pain in right shoulder (07/15/22) Low back pain, unspecified (07/15/22) Physical Therapy Treatment Note PT-OP-A Visit Information Start: 07/13/22 08:14 Freq: Status: Active Protocol: Document 07/15/22 13:01 SAK (Rec: 07/15/22 13:47 [facility] [id number]) Out-Patient Physical Therapy Visit Information Visit Information Visit Type Treatment Note Visit Start Time 13:01 Visit Stop Time 13:56 Total Visit Minutes 55 Visit Number 2 Evaluation Information Evaluation Date 07/13/22 Precautions Precautions PFO, TIA, migraine, fractured tib/fib, Osteoporosis, dizziness, falls PT-OP-B Current Condition Start: 07/13/22 08:14 Freq: Status: Active Protocol: Document 07/15/22 13:01 [facility] (Rec: 07/15/22 13:47 [facility] [id number]) Current Condition History of Current Condition Onset Date 3 months Current Complaints right shoulder and groin pain History of Current Condition Right shoulder pain, right groin pain both possibly due to trying to move washing machine pulling toward herself , also may have hurt herself doing something else she can't remember. Denies N/T. Able to walk 4-6 miles but unable to swim due both to hip and shoulder pain. Has tried heat on the shoulder, helps for a little while. Difficulty sleeping. No current exercise program. Denies N/T, bowel or bladder symptoms. Prior Treatments and Tests no imaging. Future Testing and Treatments Planned Return to doctor after PT Treatment Goals Patient/Caregiver Goals Decrease pain, be able to sleep, swim, carry objects, get dressed, reach overhead, behind back, cross legs without pain. PT-OP-C Subjective Start: 07/13/22 08:14 Freq: Status: Active Protocol: Document 07/15/22 13:01 [facility]AK (Rec: 07/15/22 13:47 [facility] [id number]) OP-PT Subjective Patient Comments Patient Comments Right shoulder throbbing. PT-OP-F Manual Assessment Start: 07/13/22 08:14 Freq: Status: Active Protocol: Document 07/13/22 14:43 [facility]AK (Rec: 07/14/22 17:12 [facility] [id number]) Manual Assessments Joint Mobility Assessment Joint Mobility Assessment hypomobile right shoulder inf and post glide hypomobile right hip distraction and posterior glide PT-OP-G Mobility & Gait Start: 07/13/22 08:14 Freq: Status: Active Protocol: Document 07/13/22 14:43 [facility] (Rec: 07/14/22 17:12 [facility] [id number]) OP Gait Assessment Gait Gait Assistance Required: Independent Assistive Devices Assistive Device None Gait Deviations General Gait Pattern Antalgic Factors Limiting Gait Function Factors Limiting Gait Function Decreased Strength,Limited Range of Motion,Pain PT-OP-H Neuro Start: 07/13/22 08:14 Freq: Status: Active Protocol: Document 07/13/22 14:43 [facility] (Rec: 07/14/22 17:12 [facility] [id number]) Sensation Evaluation Gross Sensation Gross Sensation WNL PT-OP-J Posture/Palpation/Skin Start: 07/13/22 08:14 Freq: Status: Active Protocol: Document 07/13/22 14:43 [facility] (Rec: 07/14/22 17:12 [facility] [id number]) Posture Evaluation Position Standing T-Spine Posture Increased Kyphosis L-Spine Posture Increased Lordosis Scapula Posture (L) Protracted,(R) Protracted Arm Posture (L) Internally Rotated,(R) Internally Rotated Hip Posture (L) Externally Rotated,(R) Externally Rotated Palpation Assessment Location psoas Palpation Location R Palpation Findings Soft Tissue Tightness,Muscle Guarding,Tenderness RC insertion Palpation Location R Palpation Findings Soft Tissue Tightness, Tenderness PT-OP-K Range of Motion Start: 07/13/22 08:14 Freq: Status: Active Protocol: Document 07/13/22 14:32 [facility] (Rec: 07/13/22 15:14 [facility] [id number]) Cervical Spine Range of Motion Cervical Spine Active Comments WNL Lumbar Spine Range of Motion Lumbar Spine Active Testing Position Standing Comments mild decrease all motions, no increase in groin pain Shoulder Goniometric Range of Motion Shoulder Right Active Shoulder ROM WFL No Testing Position Sitting Flexion 150 Extension 10 Abduction 65 External Rotation at 45 degrees 45 Abduction Internal Rotation Behind Back (text) lateral hip Left Active Shoulder ROM WFL Yes Shoulder ROM Limitations Shoulder ROM Limitations Pain Hip Goniometric Range of Motion Hip Right Flexion w/Knee Flexed 100 Straight Leg Raise 75 Extension 10 Abduction 35 Internal Rotation 25 External Rotation 35 Comments painful end-range ER Left Hip ROM WFL Yes Comments mild HS tightness PT-OP-L Special Tests Start: 07/13/22 08:14 Freq: Status: Active Protocol: Document 07/13/22 14:43 [facility] (Rec: 07/14/22 17:12 [facility] [id number]) Special Tests Shoulder Special Tests Elevation Impingement Test Results positive right Biceps Load II Test Test Results negative right Belly Press Test Results positive right Hip Special Tests KINGA Test Results negative Scour Test Test Results positive right PT-OP-M Strength Start: 07/13/22 08:14 Freq: Status: Active Protocol: Document 07/13/22 14:43 [facility] (Rec: 07/14/22 17:12 [facility] [id number]) Shoulder Strength Shoulder Manual Muscle Testing Right Flexion 3- Fair- Extension 3- Fair- Abduction (C5) 3- Fair- Adduction 3+ Fair+ External Rotation 3- Fair- Internal Rotation 3- Fair- Comments pain with resistance all motions right Left Flexion 5 Normal Extension 5 Normal Adduction 5 Normal External Rotation 4 Good Internal Rotation 4+ Good+ Elbow/Forearm Strength Elbow and Forearm Manual Muscle Testing Right Flexion (C6) 4 Good Extension (C7) 4 Good Comments guarding due to pain Left Flexion (C6) 5 Normal Extension (C7) 5 Normal Hip Strength Hip Manual Muscle Testing Right Flexion (L2) 4- Good- Extension (S1) 3+ Fair+ Abduction 3+ Fair+ Adduction 3+ Fair+ External Rotation 4- Good- Left Flexion (L2) 4 Good Extension (S1) 4 Good Abduction 4 Good External Rotation 4- Good- Internal Rotation 4+ Good+ Knee Strength Knee Manual Muscle Testing Right Flexion (S2) 4+ Good+ Extension (L3) 4+ Good+ Left Flexion (S2) 5 Normal Extension (L3) 5 Normal PT-OP-Q Treatments Start: 07/13/22 08:14 Freq: Status: Active Protocol: Document 07/15/22 13:01 [facility] (Rec: 07/15/22 13:47 [facility] [id number]) Therapeutic Exercises Supine Exercises marching Reps/Minutes 10x GH flex Supine Exercise Name wand Reps/Minutes 10x Comments 90-115 shoulder extension isometric Reps/Minutes 5x supine clam Resistance L2 TB Reps/Minutes 10x ball squeeze Reps/Minutes 10x Sitting Exercises pulleys Sitting Exercise Name scaption, flexion Reps/Minutes 10x Comments scaption better rachel than flexion scapular squeeze Reps/Minutes 5x Comments cues to inhibit UT table slide Sitting Exercise Name flex Equipment Used pillowcase Reps/Minutes 6x Standing Exercises shoulder rylan Standing Exercise Name flex/ext/ab/ad/IR/ER Reps/Minutes 3-5x ea Manual Therapy Treatment Soft Tissue Mobilization right bicep, deltoid, RC Mobilization Type Myofascial Release,Strumming, Sustained Pressure Intensity/Depth Moderate Self-Care/Home Management Treatment Education Patient Education Home Exercise Program Other Education issued updated written HO PT-OP-R Modalities Start: 07/13/22 08:14 Freq: Status: Active Protocol: Document 07/15/22 13:01 [facility] (Rec: 07/15/22 13:47 [facility] [id number]) Hot Pack/Cold Pack Treatment Cold Pack Location right shoulder and hip Patient Position Hooklying Treatment Duration (minutes) 10 Patient Tolerance Good PT-OP-T Assessment and Plan Start: 07/13/22 08:14 Freq: Status: Active Protocol: Document 07/15/22 13:01 [facility] (Rec: 07/15/22 13:47 [facility] [id number]) Physical Therapy Assessment Goals Four Impairment lacking HEP Impairment no current HEP for ROM or strengthening Short Term Goal (STG) Patient to be instructed in HEP for purposes of strengthenig and ROM right shoulder and HIP STG Duration 08/21/22 Nursing Home Goal (LTG) Patient to be independent and compliant with HEP and demonstrate right shoulder and hip ROM WNL and strength at least 4+/5 all motions LTG Duration 10/10/22 Three Impairment LEFS Short Term Goal (STG) Improve LEFS [facility] Manager Goal (LTG) Improve LEFS to at least 75% as measure of improved right LE function including walking, squatting, sleeping, LTG Duration 10/10/22 Two Impairment QuickDash UE disability Index score Short Term Goal (STG) Improve Quickdash score to no greater than STG Duration 08/21/22 [employer] [facility] Manager Goal (LTG) Improve Quickdash score to no greater than 2/10 as measure of improved right shoulder function including reaching overhead, to side, across body , and behind back LTG Duration 10/10/22 One Impairment pain right shoulder and hip as high as 8/10 Short Term Goal (STG) decrease pain to no greater than 4/10 with all usual activities STG Duration 08/21/22 [employer] [facility] Manager Goal (LTG) Decrease pain to no greater than 2/10 with all usual activities LTG Duration 10/10/22 Physical Therapy Plan Frequency and Duration Frequency of Treatment 2x/Week Duration of treatment (weeks) 12 Plan of Care Start Date 07/13/22 Plan of Care End Date 10/10/22 Therapeutic Interventions Therapeutic Interventions Home Exercise Program,Manual Therapy,Patient/Caregiver Education,Self-Care/Home Management,Soft Tissue Mobilization,Taping, Therapeutic Activities, Therapeutic Exercises Modalities Cold Pack/Ice Massage,Electric Stimulation,Hot Packs, Infrared Therapy,Iontophoresis ,Ultrasound Next Visit Focus/Plan Next Note Type Treatment Note Next Visit Plan Evaluate response to isometrics, added hip exercises. Consider cold laser or ultrasound to right shoulder, gentle joint mobs.
--- NOTE | 2022-07-19 14:34 | PT.OTN ---
Current Diagnoses Pain in right shoulder (07/19/22) Low back pain, unspecified (07/19/22) Physical Therapy Treatment Note PT-OP-A Visit Information Start: 07/13/22 08:14 Freq: Status: Active Protocol: Document 07/19/22 13:48 [facility]AK (Rec: 07/19/22 14:34 [facility] [id number]) Out-Patient Physical Therapy Visit Information Visit Information Visit Type Treatment Note Visit Start Time 13:49 Total Visit Minutes 55 Visit Number 3 Evaluation Information Evaluation Date 07/13/22 Precautions Precautions PFO, TIA, migraine, fractured tib/fib, Osteoporosis, dizziness, falls PT-OP-B Current Condition Start: 07/13/22 08:14 Freq: Status: Active Protocol: Document 07/19/22 13:48 SAK (Rec: 07/19/22 14:34 [facility] [id number]) Current Condition History of Current Condition Onset Date 3 months Current Complaints right shoulder and groin pain History of Current Condition Right shoulder pain, right groin pain both possibly due to trying to move washing machine pulling toward herself , also may have hurt herself doing something else she can't remember. Denies N/T. Able to walk 4-6 miles but unable to swim due both to hip and shoulder pain. Has tried heat on the shoulder, helps for a little while. Difficulty sleeping. No current exercise program. Denies N/T, bowel or bladder symptoms. Prior Treatments and Tests no imaging. Future Testing and Treatments Planned Return to doctor after PT Treatment Goals Patient/Caregiver Goals Decrease pain, be able to sleep, swim, carry objects, get dressed, reach overhead, behind back, cross legs without pain. PT-OP-C Subjective Start: 07/13/22 08:14 Freq: Status: Active Protocol: Document 07/19/22 13:48 SAK (Rec: 07/19/22 14:34 [facility] [id number]) OP-PT Subjective Patient Comments Patient Comments Compliant with exercises, reports also remembered lifting a metal clothing rack in March. PT-OP-F Manual Assessment Start: 07/13/22 08:14 Freq: Status: Active Protocol: Document 07/13/22 14:43 SAK (Rec: 07/14/22 17:12 [facility] [id number]) Manual Assessments Joint Mobility Assessment Joint Mobility Assessment hypomobile right shoulder inf and post glide hypomobile right hip distraction and posterior glide PT-OP-G Mobility & Gait Start: 07/13/22 08:14 Freq: Status: Active Protocol: Document 07/13/22 14:43 [facility] (Rec: 07/14/22 17:12 [facility] [id number]) OP Gait Assessment Gait Gait Assistance Required: Independent Assistive Devices Assistive Device None Gait Deviations General Gait Pattern Antalgic Factors Limiting Gait Function Factors Limiting Gait Function Decreased Strength,Limited Range of Motion,Pain PT-OP-H Neuro Start: 07/13/22 08:14 Freq: Status: Active Protocol: Document 07/13/22 14:43 [facility] (Rec: 07/14/22 17:12 [facility] [id number]) Sensation Evaluation Gross Sensation Gross Sensation WNL PT-OP-J Posture/Palpation/Skin Start: 07/13/22 08:14 Freq: Status: Active Protocol: Document 07/13/22 14:43 [facility] (Rec: 07/14/22 17:12 [facility] [id number]) Posture Evaluation Position Standing T-Spine Posture Increased Kyphosis L-Spine Posture Increased Lordosis Scapula Posture (L) Protracted,(R) Protracted Arm Posture (L) Internally Rotated,(R) Internally Rotated Hip Posture (L) Externally Rotated,(R) Externally Rotated Palpation Assessment Location psoas Palpation Location R Palpation Findings Soft Tissue Tightness,Muscle Guarding,Tenderness RC insertion Palpation Location R Palpation Findings Soft Tissue Tightness, Tenderness PT-OP-K Range of Motion Start: 07/13/22 08:14 Freq: Status: Active Protocol: Document 07/13/22 14:32 [facility] (Rec: 07/13/22 15:14 [facility] [id number]) Cervical Spine Range of Motion Cervical Spine Active Comments WNL Lumbar Spine Range of Motion Lumbar Spine Active Testing Position Standing Comments mild decrease all motions, no increase in groin pain Shoulder Goniometric Range of Motion Shoulder Right Active Shoulder ROM WFL No Testing Position Sitting Flexion 150 Extension 10 Abduction 65 External Rotation at 45 degrees 45 Abduction Internal Rotation Behind Back (text) lateral hip Left Active Shoulder ROM WFL Yes Shoulder ROM Limitations Shoulder ROM Limitations Pain Hip Goniometric Range of Motion Hip Right Flexion w/Knee Flexed 100 Straight Leg Raise 75 Extension 10 Abduction 35 Internal Rotation 25 External Rotation 35 Comments painful end-range ER Left Hip ROM WFL Yes Comments mild HS tightness PT-OP-L Special Tests Start: 07/13/22 08:14 Freq: Status: Active Protocol: Document 07/13/22 14:43 [facility] (Rec: 07/14/22 17:12 [facility] [id number]) Special Tests Shoulder Special Tests Elevation Impingement Test Results positive right Biceps Load II Test Test Results negative right Belly Press Test Results positive right Hip Special Tests KINGA Test Results negative Scour Test Test Results positive right PT-OP-M Strength Start: 07/13/22 08:14 Freq: Status: Active Protocol: Document 07/13/22 14:43 [facility] (Rec: 07/14/22 17:12 [facility] [id number]) Shoulder Strength Shoulder Manual Muscle Testing Right Flexion 3- Fair- Extension 3- Fair- Abduction (C5) 3- Fair- Adduction 3+ Fair+ External Rotation 3- Fair- Internal Rotation 3- Fair- Comments pain with resistance all motions right Left Flexion 5 Normal Extension 5 Normal Adduction 5 Normal External Rotation 4 Good Internal Rotation 4+ Good+ Elbow/Forearm Strength Elbow and Forearm Manual Muscle Testing Right Flexion (C6) 4 Good Extension (C7) 4 Good Comments guarding due to pain Left Flexion (C6) 5 Normal Extension (C7) 5 Normal Hip Strength Hip Manual Muscle Testing Right Flexion (L2) 4- Good- Extension (S1) 3+ Fair+ Abduction 3+ Fair+ Adduction 3+ Fair+ External Rotation 4- Good- Left Flexion (L2) 4 Good Extension (S1) 4 Good Abduction 4 Good External Rotation 4- Good- Internal Rotation 4+ Good+ Knee Strength Knee Manual Muscle Testing Right Flexion (S2) 4+ Good+ Extension (L3) 4+ Good+ Left Flexion (S2) 5 Normal Extension (L3) 5 Normal PT-OP-Q Treatments Start: 07/13/22 08:14 Freq: Status: Active Protocol: Document 07/19/22 13:48 [facility] (Rec: 07/19/22 14:34 [facility] [id number]) Therapeutic Exercises Sitting Exercises forward flex Sitting Exercise Name forward lean Equipment Used wand, vertical, hand on top Reps/Minutes 10x pulleys Sitting Exercise Name scaption, flexion Reps/Minutes 10x Comments scaption better rachel than flexion scapular squeeze Reps/Minutes 10x5 Comments cues to inhibit UT table slide Sitting Exercise Name flex Equipment Used pillowcase Reps/Minutes 6x Standing Exercises shoulder rylan Standing Exercise Name HEP Manual Therapy Treatment Soft Tissue Mobilization right bicep, deltoid, RC Mobilization Type Myofascial Release,Strumming, Sustained Pressure Intensity/Depth Moderate Self-Care/Home Management Treatment Education Patient Education Home Exercise Program,Pain Management,Posture PT-OP-R Modalities Start: 07/13/22 08:14 Freq: Status: Active Protocol: Document 07/19/22 13:48 [facility] (Rec: 07/19/22 14:34 [facility] [id number]) Hot Pack/Cold Pack Treatment Hot Pack Location right shoulder Patient Position Hooklying Treatment Duration (minutes) 15 Patient Tolerance Good Ultrasound Therapy Treatment right shoulder Treatment Duration (minutes) 8 Patient Position Hooklying Mode Setting Pulsed Duty Cycle 50% Intensity Setting (w/cm2) 1.2 PT-OP-T Assessment and Plan Start: 07/13/22 08:14 Freq: Status: Active Protocol: Document 07/19/22 13:48 [facility] (Rec: 07/19/22 14:34 [facility] [id number]) Physical Therapy Assessment Goals Four Impairment lacking HEP Impairment no current HEP for ROM or strengthening Short Term Goal (STG) Patient to be instructed in HEP for purposes of strengthenig and ROM right shoulder and HIP STG Duration 08/21/22 Senior Staff Consultant Goal (LTG) Patient to be independent and compliant with HEP and demonstrate right shoulder and hip ROM WNL and strength at least 4+/5 all motions LTG Duration 10/10/22 Three Impairment LEFS Short Term Goal (STG) Improve LEFS Senior Staff Consultant Goal (LTG) Improve LEFS to at least 75% as measure of improved right LE function including walking, squatting, sleeping, LTG Duration 10/10/22 Two Impairment QuickDash UE disability Index score Short Term Goal (STG) Improve Quickdash score to no greater than STG Duration 08/21/22 Half-Way Goal (LTG) Improve Quickdash score to no greater than 2/10 as measure of improved right shoulder function including reaching overhead, to side, across body , and behind back LTG Duration 10/10/22 One Impairment pain right shoulder and hip as high as 8/10 Short Term Goal (STG) decrease pain to no greater than 4/10 with all usual activities STG Duration 08/21/22 Senior Staff Consultant Goal (LTG) Decrease pain to no greater than 2/10 with all usual activities LTG Duration 10/10/22 Physical Therapy Plan Frequency and Duration Frequency of Treatment 2x/Week Duration of treatment (weeks) 12 Plan of Care Start Date 07/13/22 Plan of Care End Date 10/10/22 Therapeutic Interventions Therapeutic Interventions Home Exercise Program,Manual Therapy,Patient/Caregiver Education,Self-Care/Home Management,Soft Tissue Mobilization,Taping, Therapeutic Activities, Therapeutic Exercises Modalities Cold Pack/Ice Massage,Electric Stimulation,Hot Packs, Infrared Therapy,Iontophoresis ,Ultrasound Next Visit Focus/Plan Next Note Type Treatment Note Next Visit Plan evaluate response to US, DTM. REview HEP, consider joint mobs, AAROM, PROM
--- NOTE | 2022-07-21 17:08 | PT.OTN ---
Current Diagnoses Pain in right shoulder (07/21/22) Low back pain, unspecified (07/21/22) Physical Therapy Treatment Note PT-OP-A Visit Information Start: 07/13/22 08:14 Freq: Status: Active Protocol: Document 07/21/22 12:58 [facility] (Rec: 07/21/22 13:[address] [facility] [id number]) Out-Patient Physical Therapy Visit Information Visit Information Visit Type Treatment Note Visit Start Time 13:00 Visit Stop Time 13:55 Total Visit Minutes 55 Visit Number 4 Evaluation Information Evaluation Date 07/13/22 Precautions Precautions PFO, TIA, migraine, fractured tib/fib, Osteoporosis, dizziness, falls PT-OP-B Current Condition Start: 07/13/22 08:14 Freq: Status: Active Protocol: Document 07/21/22 12:[address] [facility] (Rec: 07/21/22 13:[address] [facility] [id number]) Current Condition History of Current Condition Onset Date 3 months Current Complaints right shoulder and groin pain History of Current Condition Right shoulder pain, right groin pain both possibly due to trying to move washing machine pulling toward herself , also may have hurt herself doing something else she can't remember. Denies N/T. Able to walk 4-6 miles but unable to swim due both to hip and shoulder pain. Has tried heat on the shoulder, helps for a little while. Difficulty sleeping. No current exercise program. Denies N/T, bowel or bladder symptoms. Prior Treatments and Tests no imaging. Future Testing and Treatments Planned Return to doctor after PT Treatment Goals Patient/Caregiver Goals Decrease pain, be able to sleep, swim, carry objects, get dressed, reach overhead, behind back, cross legs without pain. Woke up in middle of night with shoulder pain. PT-OP-C Subjective Start: 07/13/22 08:14 Freq: Status: Active Protocol: Document 07/21/22 12:[address] [facility] (Rec: 07/21/22 13:[address] [facility] [id number]) OP-PT Subjective Patient Comments Patient Comments States left shoulder hurting from using it more. Inc pain after PT in low back. Shoulder felt ok initially, then sore later in day, took Ibuprofen that day then end of day. Doing HEP. Receptive to trial iontophoresis to shoulder. States she realized she was still lifting too high on bridge exercise, better rachel with lower lift. Should get pulleys for home use in next couple days. PT-OP-F Manual Assessment Start: 07/13/22 08:14 Freq: Status: Active Protocol: Document 07/13/22 14:[address] [facility] (Rec: 07/14/22 17:[address] [facility] [id number]) Manual Assessments Joint Mobility Assessment Joint Mobility Assessment hypomobile right shoulder inf and post glide hypomobile right hip distraction and posterior glide PT-OP-G Mobility & Gait Start: 07/13/22 08:14 Freq: Status: Active Protocol: Document 07/13/22 14:[address] [facility] (Rec: 07/14/22 17:[address] [facility] [id number]) OP Gait Assessment Gait Gait Assistance Required: Independent Assistive Devices Assistive Device None Gait Deviations General Gait Pattern Antalgic Factors Limiting Gait Function Factors Limiting Gait Function Decreased Strength,Limited Range of Motion,Pain PT-OP-H Neuro Start: 07/13/22 08:14 Freq: Status: Active Protocol: Document 07/13/22 14:[address] [facility] (Rec: 07/14/22 17:[address] [facility] [id number]) Sensation Evaluation Gross Sensation Gross Sensation WNL PT-OP-J Posture/Palpation/Skin Start: 07/13/22 08:14 Freq: Status: Active Protocol: Document 07/13/22 14:[address] [facility] (Rec: 07/14/22 17:[address] [facility] [id number]) Posture Evaluation Position Standing T-Spine Posture Increased Kyphosis L-Spine Posture Increased Lordosis Scapula Posture (L) Protracted,(R) Protracted Arm Posture (L) Internally Rotated,(R) Internally Rotated Hip Posture (L) Externally Rotated,(R) Externally Rotated Palpation Assessment Location psoas Palpation Location R Palpation Findings Soft Tissue Tightness,Muscle Guarding,Tenderness RC insertion Palpation Location R Palpation Findings Soft Tissue Tightness, Tenderness PT-OP-K Range of Motion Start: 07/13/22 08:14 Freq: Status: Active Protocol: Document 07/13/22 14:32 [facility] (Rec: 07/13/22 15:[address] [facility] [id number]) Cervical Spine Range of Motion Cervical Spine Active Comments WNL Lumbar Spine Range of Motion Lumbar Spine Active Testing Position Standing Comments mild decrease all motions, no increase in groin pain Shoulder Goniometric Range of Motion Shoulder Right Active Shoulder ROM WFL No Testing Position Sitting Flexion 150 Extension 10 Abduction 65 External Rotation at 45 degrees 45 Abduction Internal Rotation Behind Back (text) lateral hip Left Active Shoulder ROM WFL Yes Shoulder ROM Limitations Shoulder ROM Limitations Pain Hip Goniometric Range of Motion Hip Right Flexion w/Knee Flexed 100 Straight Leg Raise 75 Extension 10 Abduction 35 Internal Rotation 25 External Rotation 35 Comments painful end-range ER Left Hip ROM WFL Yes Comments mild HS tightness PT-OP-L Special Tests Start: 07/13/22 08:14 Freq: Status: Active Protocol: Document 07/13/22 14:[address] [facility] (Rec: 07/14/22 17:[address] [facility] [id number]) Special Tests Shoulder Special Tests Elevation Impingement Test Results positive right Biceps Load II Test Test Results negative right Belly Press Test Results positive right Hip Special Tests KINGA Test Results negative Scour Test Test Results positive right PT-OP-M Strength Start: 07/13/22 08:14 Freq: Status: Active Protocol: Document 07/13/22 14:[address] [facility] (Rec: 07/14/22 17:[address] [facility] [id number]) Shoulder Strength Shoulder Manual Muscle Testing Right Flexion 3- Fair- Extension 3- Fair- Abduction (C5) 3- Fair- Adduction 3+ Fair+ External Rotation 3- Fair- Internal Rotation 3- Fair- Comments pain with resistance all motions right Left Flexion 5 Normal Extension 5 Normal Adduction 5 Normal External Rotation 4 Good Internal Rotation 4+ Good+ Elbow/Forearm Strength Elbow and Forearm Manual Muscle Testing Right Flexion (C6) 4 Good Extension (C7) 4 Good Comments guarding due to pain Left Flexion (C6) 5 Normal Extension (C7) 5 Normal Hip Strength Hip Manual Muscle Testing Right Flexion (L2) 4- Good- Extension (S1) 3+ Fair+ Abduction 3+ Fair+ Adduction 3+ Fair+ External Rotation 4- Good- Left Flexion (L2) 4 Good Extension (S1) 4 Good Abduction 4 Good External Rotation 4- Good- Internal Rotation 4+ Good+ Knee Strength Knee Manual Muscle Testing Right Flexion (S2) 4+ Good+ Extension (L3) 4+ Good+ Left Flexion (S2) 5 Normal Extension (L3) 5 Normal PT-OP-Q Treatments Start: 07/13/22 08:14 Freq: Status: Active Protocol: Document 07/21/22 12:[address] [facility] (Rec: 07/21/22 13:[address] [facility] [id number]) Therapeutic Exercises Supine Exercises serratus punch Reps/Minutes 10x GH flex Supine Exercise Name wand Reps/Minutes 10x Comments 90-115 Sidelying Exercises shoulder flex Sidelying Exercise Name PROM >AAROM with manual scap upward rot Reps/Minutes 10x shoulder ER Reps/Minutes 10x Comments denied pain Sitting Exercises pulleys Sitting Exercise Name scaption, flexion Reps/Minutes 10x Comments scaption better rachel than flexion scapular squeeze Reps/Minutes 10x5 Comments cues to inhibit UT table slide Sitting Exercise Name HEP Standing Exercises pendulum Reps/Minutes 10x ea Comments f/b/circles shoulder rylan Standing Exercise Name HEP review Reps/Minutes 3x each direction Manual Therapy Treatment Joint Mobilizations scapula Joint prot/retr/inf/sup Grade III Body Position Sidelying Self-Care/Home Management Treatment Education Patient Education Home Exercise Program,Pain Management,Posture PT-OP-R Modalities Start: 07/13/22 08:14 Freq: Status: Active Protocol: Document 07/21/22 12:[address] [facility] (Rec: 07/21/22 13:[address] [facility] [id number]) Hot Pack/Cold Pack Treatment Hot Pack Location right shoulder and ant right hip Patient Position Hooklying Treatment Duration (minutes) 15 Patient Tolerance Good Iontophoresis Treatment right ant shoulder Treatment Medication Dexamethasone (-) Medication Amount (mL) (ml) 1 Treatment Polarity Negative Treatment Duration (minutes) 3 Ultrasound Therapy Treatment right shoulder Treatment Duration (minutes) 8 Patient Position Hooklying Mode Setting Pulsed Duty Cycle 50% Intensity Setting (w/cm2) 1.2 PT-OP-T Assessment and Plan Start: 07/13/22 08:14 Freq: Status: Active Protocol: Document 07/21/22 12:[address] [facility] (Rec: 07/21/22 13:[address] [facility] [id number]) Physical Therapy Assessment Goals Four Impairment lacking HEP Impairment no current HEP for ROM or strengthening Short Term Goal (STG) Patient to be instructed in HEP for purposes of strengthenig and ROM right shoulder and HIP STG Duration 08/21/22 Assistant Project Engineer Goal (LTG) Patient to be independent and compliant with HEP and demonstrate right shoulder and hip ROM WNL and strength at least 4+/5 all motions LTG Duration 10/10/22 Three Impairment LEFS Short Term Goal (STG) Improve LEFS Halfway Goal (LTG) Improve LEFS to at least 75% as measure of improved right LE function including walking, squatting, sleeping, LTG Duration 10/10/22 Two Impairment QuickDash UE disability Index score Short Term Goal (STG) Improve Quickdash score to no greater than STG Duration 08/21/22 Assistant Project Engineer Goal (LTG) Improve Quickdash score to no greater than 2/10 as measure of improved right shoulder function including reaching overhead, to side, across body , and behind back LTG Duration 10/10/22 One Impairment pain right shoulder and hip as high as 8/10 Short Term Goal (STG) decrease pain to no greater than 4/10 with all usual activities STG Duration 08/21/22 Assistant Project Engineer Goal (LTG) Decrease pain to no greater than 2/10 with all usual activities LTG Duration 10/10/22 Assessment Summary Assessment Patient reported decrease in pain for several hours after last PT session, though then more sore. Trial iontophoresis today. Did not add new ex to HEP yet. Good performance of shoulder isometrics with review today. Sidelying shoulder flex with manual scapular upward rotation no pain max 140 deg. Physical Therapy Plan Frequency and Duration Frequency of Treatment 2x/Week Duration of treatment (weeks) 12 Plan of Care Start Date 07/13/22 Plan of Care End Date 10/10/22 Therapeutic Interventions Therapeutic Interventions Home Exercise Program,Manual Therapy,Patient/Caregiver Education,Self-Care/Home Management,Soft Tissue Mobilization,Taping, Therapeutic Activities, Therapeutic Exercises Modalities Cold Pack/Ice Massage,Electric Stimulation,Hot Packs, Infrared Therapy,Iontophoresis ,Ultrasound Next Visit Focus/Plan Next Note Type Treatment Note Next Visit Plan Evaluate response to iontophoresis. Continue strengthening, ROM, stab ex for shoulder, hip strengthening and flexibility as tolerated.
--- NOTE | 2022-07-27 13:46 | PT.OTN ---
Current Diagnoses Pain in right shoulder (07/27/22) Low back pain, unspecified (07/27/22) Physical Therapy Treatment Note PT-OP-A Visit Information Start: 07/13/22 08:14 Freq: Status: Active Protocol: Document 07/27/22 13:01 [facility] (Rec: 07/27/22 13:46 [facility] [id number]) Out-Patient Physical Therapy Visit Information Visit Information Visit Type Treatment Note Visit Start Time 13:00 Visit Stop Time 13:55 Total Visit Minutes 58 Visit Number 5 Evaluation Information Evaluation Date 07/13/22 Precautions Precautions PFO, TIA, migraine, fractured tib/fib, Osteoporosis, dizziness, falls PT-OP-B Current Condition Start: 07/13/22 08:14 Freq: Status: Active Protocol: Document 07/27/22 13:01 [facility] (Rec: 07/27/22 13:46 [facility] [id number]) Current Condition History of Current Condition Onset Date 3 months Current Complaints right shoulder and groin pain History of Current Condition Right shoulder pain, right groin pain both possibly due to trying to move washing machine pulling toward herself , also may have hurt herself doing something else she can't remember. Denies N/T. Able to walk 4-6 miles but unable to swim due both to hip and shoulder pain. Has tried heat on the shoulder, helps for a little while. Difficulty sleeping. No current exercise program. Denies N/T, bowel or bladder symptoms. Prior Treatments and Tests no imaging. Future Testing and Treatments Planned Return to doctor after PT Treatment Goals Patient/Caregiver Goals Decrease pain, be able to sleep, swim, carry objects, get dressed, reach overhead, behind back, cross legs without pain. Woke up in middle of night with shoulder pain. PT-OP-C Subjective Start: 07/13/22 08:14 Freq: Status: Active Protocol: Document 07/27/22 13:01 [facility] (Rec: 07/27/22 13:46 [facility] [id number]) OP-PT Subjective Patient Comments Patient Comments Reports decrease in pain after iontophoresis, took a break on still felt better for the whole weekend. Compliant with HEP. Can move a little more with less pain, was able to lift container of orange juice with less pain. PT-OP-F Manual Assessment Start: 07/13/22 08:14 Freq: Status: Active Protocol: Document 07/13/22 14:43 [facility] (Rec: 07/14/22 17:12 [facility] [id number]) Manual Assessments Joint Mobility Assessment Joint Mobility Assessment hypomobile right shoulder inf and post glide hypomobile right hip distraction and posterior glide PT-OP-G Mobility & Gait Start: 07/13/22 08:14 Freq: Status: Active Protocol: Document 07/13/22 14:43 [facility] (Rec: 07/14/22 17:12 [facility] [id number]) OP Gait Assessment Gait Gait Assistance Required: Independent Assistive Devices Assistive Device None Gait Deviations General Gait Pattern Antalgic Factors Limiting Gait Function Factors Limiting Gait Function Decreased Strength,Limited Range of Motion,Pain PT-OP-H Neuro Start: 07/13/22 08:14 Freq: Status: Active Protocol: Document 07/13/22 14:43 [facility] (Rec: 07/14/22 17:12 [facility] [id number]) Sensation Evaluation Gross Sensation Gross Sensation WNL PT-OP-J Posture/Palpation/Skin Start: 07/13/22 08:14 Freq: Status: Active Protocol: Document 07/13/22 14:43 [facility] (Rec: 07/14/22 17:12 [facility] [id number]) Posture Evaluation Position Standing T-Spine Posture Increased Kyphosis L-Spine Posture Increased Lordosis Scapula Posture (L) Protracted,(R) Protracted Arm Posture (L) Internally Rotated,(R) Internally Rotated Hip Posture (L) Externally Rotated,(R) Externally Rotated Palpation Assessment Location psoas Palpation Location R Palpation Findings Soft Tissue Tightness,Muscle Guarding,Tenderness RC insertion Palpation Location R Palpation Findings Soft Tissue Tightness, Tenderness PT-OP-K Range of Motion Start: 07/13/22 08:14 Freq: Status: Active Protocol: Document 07/13/22 14:32 [facility] (Rec: 07/13/22 15:14 [facility] [id number]) Cervical Spine Range of Motion Cervical Spine Active Comments WNL Lumbar Spine Range of Motion Lumbar Spine Active Testing Position Standing Comments mild decrease all motions, no increase in groin pain Shoulder Goniometric Range of Motion Shoulder Right Active Shoulder ROM WFL No Testing Position Sitting Flexion 150 Extension 10 Abduction 65 External Rotation at 45 degrees 45 Abduction Internal Rotation Behind Back (text) lateral hip Left Active Shoulder ROM WFL Yes Shoulder ROM Limitations Shoulder ROM Limitations Pain Hip Goniometric Range of Motion Hip Right Flexion w/Knee Flexed 100 Straight Leg Raise 75 Extension 10 Abduction 35 Internal Rotation 25 External Rotation 35 Comments painful end-range ER Left Hip ROM WFL Yes Comments mild HS tightness PT-OP-L Special Tests Start: 07/13/22 08:14 Freq: Status: Active Protocol: Document 07/13/22 14:43 [facility] (Rec: 07/14/22 17:12 [facility] [id number]) Special Tests Shoulder Special Tests Elevation Impingement Test Results positive right Biceps Load II Test Test Results negative right Belly Press Test Results positive right Hip Special Tests KINGA Test Results negative Scour Test Test Results positive right PT-OP-M Strength Start: 07/13/22 08:14 Freq: Status: Active Protocol: Document 07/13/22 14:43 [facility] (Rec: 07/14/22 17:12 [facility] [id number]) Shoulder Strength Shoulder Manual Muscle Testing Right Flexion 3- Fair- Extension 3- Fair- Abduction (C5) 3- Fair- Adduction 3+ Fair+ External Rotation 3- Fair- Internal Rotation 3- Fair- Comments pain with resistance all motions right Left Flexion 5 Normal Extension 5 Normal Adduction 5 Normal External Rotation 4 Good Internal Rotation 4+ Good+ Elbow/Forearm Strength Elbow and Forearm Manual Muscle Testing Right Flexion (C6) 4 Good Extension (C7) 4 Good Comments guarding due to pain Left Flexion (C6) 5 Normal Extension (C7) 5 Normal Hip Strength Hip Manual Muscle Testing Right Flexion (L2) 4- Good- Extension (S1) 3+ Fair+ Abduction 3+ Fair+ Adduction 3+ Fair+ External Rotation 4- Good- Left Flexion (L2) 4 Good Extension (S1) 4 Good Abduction 4 Good External Rotation 4- Good- Internal Rotation 4+ Good+ Knee Strength Knee Manual Muscle Testing Right Flexion (S2) 4+ Good+ Extension (L3) 4+ Good+ Left Flexion (S2) 5 Normal Extension (L3) 5 Normal PT-OP-Q Treatments Start: 07/13/22 08:14 Freq: Status: Active Protocol: Document 07/27/22 13:01 [facility] (Rec: 07/27/22 13:46 [facility] [id number]) Therapeutic Exercises Sidelying Exercises shoulder ER Reps/Minutes 10x Comments denied pain Sitting Exercises pulleys Sitting Exercise Name scaption, flexion Reps/Minutes 10x Comments scaption better rachel than flexion Standing Exercises row Equipment Used L1 TB Reps/Minutes 10x Comments verbal and tactile cues for scapular activation and movement sh hor add Standing Exercise Name behind back Equipment Used wand Reps/Minutes 10x shoulder ext Equipment Used wand Reps/Minutes 10x Manual Therapy Treatment Joint Mobilizations scapula Joint prot/retr/inf/sup Grade III Body Position Sidelying PT-OP-R Modalities Start: 07/13/22 08:14 Freq: Status: Active Protocol: Document 07/27/22 13:01 [facility] (Rec: 07/27/22 13:46 [facility] [id number]) Hot Pack/Cold Pack Treatment Hot Pack Location right shoulder and ant right hip Patient Position Hooklying Treatment Duration (minutes) 15 Patient Tolerance Good Iontophoresis Treatment right ant shoulder Treatment Medication Dexamethasone (-) Medication Amount (mL) (ml) 1 Treatment Polarity Negative Treatment Duration (minutes) 3 Ultrasound Therapy Treatment right shoulder Treatment Duration (minutes) 8 Patient Position Hooklying Mode Setting Pulsed Duty Cycle 50% Intensity Setting (w/cm2) 1.2 PT-OP-T Assessment and Plan Start: 07/13/22 08:14 Freq: Status: Active Protocol: Document 07/27/22 13:01 [facility] (Rec: 07/27/22 13:46 [facility] [id number]) Physical Therapy Assessment Goals Four Impairment lacking HEP Impairment no current HEP for ROM or strengthening Short Term Goal (STG) Patient to be instructed in HEP for purposes of strengthenig and ROM right shoulder and HIP STG Duration 08/21/22 Assisted Goal (LTG) Patient to be independent and compliant with HEP and demonstrate right shoulder and hip ROM WNL and strength at least 4+/5 all motions LTG Duration 10/10/22 Three Impairment LEFS Short Term Goal (STG) Improve LEFS Recycling Operator Goal (LTG) Improve LEFS to at least 75% as measure of improved right LE function including walking, squatting, sleeping, LTG Duration 10/10/22 Two Impairment QuickDash UE disability Index score Short Term Goal (STG) Improve Quickdash score to no greater than STG Duration 08/21/22 Assisted Goal (LTG) Improve Quickdash score to no greater than 2/10 as measure of improved right shoulder function including reaching overhead, to side, across body , and behind back LTG Duration 10/10/22 One Impairment pain right shoulder and hip as high as 8/10 Short Term Goal (STG) decrease pain to no greater than 4/10 with all usual activities STG Duration 08/21/22 Recycling Operator Goal (LTG) Decrease pain to no greater than 2/10 with all usual activities LTG Duration 10/10/22 Progress Towards Goals Progress Towards Goals Progressing Toward Goals Assessment Summary Assessment Good compliance with HEP. Added sidelying sh ER and standing row with L1 TB today with good tolerance. Decreased pain with iontophoresis so done again today. Physical Therapy Plan Frequency and Duration Frequency of Treatment 2x/Week Duration of treatment (weeks) 12 Plan of Care Start Date 07/13/22 Plan of Care End Date 10/10/22 Therapeutic Interventions Therapeutic Interventions Home Exercise Program,Manual Therapy,Patient/Caregiver Education,Self-Care/Home Management,Soft Tissue Mobilization,Taping, Therapeutic Activities, Therapeutic Exercises Modalities Cold Pack/Ice Massage,Electric Stimulation,Hot Packs, Infrared Therapy,Iontophoresis ,Ultrasound Next Visit Focus/Plan Next Note Type Treatment Note Next Visit Plan Continue PT for right shoulder and right hip flexibility and strengthening; inc emphasis on hip next session as tolerated.
--- NOTE | 2022-07-29 17:04 | PT.OTN ---
Current Diagnoses Pain in right shoulder (07/29/22) Low back pain, unspecified (07/29/22) Physical Therapy Treatment Note PT-OP-A Visit Information Start: 07/13/22 08:14 Freq: Status: Active Protocol: Document 07/29/22 13:00 [facility] (Rec: 07/29/22 13:50 [facility] [id number]) Out-Patient Physical Therapy Visit Information Visit Information Visit Type Treatment Note Visit Start Time 13:00 Visit Stop Time 13:45 Total Visit Minutes 45 Visit Number 6 Evaluation Information Evaluation Date 07/13/22 Precautions Precautions PFO, TIA, migraine, fractured tib/fib, Osteoporosis, dizziness, falls PT-OP-B Current Condition Start: 07/13/22 08:14 Freq: Status: Active Protocol: Document 07/29/22 13:00 [facility] (Rec: 07/29/22 13:50 [facility] [id number]) Current Condition History of Current Condition Onset Date 3 months Current Complaints right shoulder and groin pain History of Current Condition Right shoulder pain, right groin pain both possibly due to trying to move washing machine pulling toward herself , also may have hurt herself doing something else she can't remember. Denies N/T. Able to walk 4-6 miles but unable to swim due both to hip and shoulder pain. Has tried heat on the shoulder, helps for a little while. Difficulty sleeping. No current exercise program. Denies N/T, bowel or bladder symptoms. Prior Treatments and Tests no imaging. Future Testing and Treatments Planned Return to doctor after PT PT-OP-C Subjective Start: 07/13/22 08:14 Freq: Status: Active Protocol: Document 07/29/22 13:00 [facility] (Rec: 07/29/22 13:50 [facility] [id number]) OP-PT Subjective Patient Comments Patient Comments Pain level 0-4+ right shoulder , 5/10 right hip with getting dressed, no pain with walking. Difficulty putting right ankleonto left knee-painful to put shoes or socks on. Compliant to HEP PT-OP-F Manual Assessment Start: 07/13/22 08:14 Freq: Status: Active Protocol: Document 07/13/22 14:43 [facility] (Rec: 07/14/22 17:12 [facility] [id number]) Manual Assessments Joint Mobility Assessment Joint Mobility Assessment hypomobile right shoulder inf and post glide hypomobile right hip distraction and posterior glide PT-OP-G Mobility & Gait Start: 07/13/22 08:14 Freq: Status: Active Protocol: Document 07/13/22 14:43 [facility] (Rec: 07/14/22 17:12 [facility] [id number]) OP Gait Assessment Gait Gait Assistance Required: Independent Assistive Devices Assistive Device None Gait Deviations General Gait Pattern Antalgic Factors Limiting Gait Function Factors Limiting Gait Function Decreased Strength,Limited Range of Motion,Pain PT-OP-H Neuro Start: 07/13/22 08:14 Freq: Status: Active Protocol: Document 07/13/22 14:43 [facility] (Rec: 07/14/22 17:12 [facility] [id number]) Sensation Evaluation Gross Sensation Gross Sensation WNL PT-OP-J Posture/Palpation/Skin Start: 07/13/22 08:14 Freq: Status: Active Protocol: Document 07/13/22 14:43 [facility] (Rec: 07/14/22 17:12 [facility] [id number]) Posture Evaluation Position Standing T-Spine Posture Increased Kyphosis L-Spine Posture Increased Lordosis Scapula Posture (L) Protracted,(R) Protracted Arm Posture (L) Internally Rotated,(R) Internally Rotated Hip Posture (L) Externally Rotated,(R) Externally Rotated Palpation Assessment Location psoas Palpation Location R Palpation Findings Soft Tissue Tightness,Muscle Guarding,Tenderness RC insertion Palpation Location R Palpation Findings Soft Tissue Tightness, Tenderness PT-OP-K Range of Motion Start: 07/13/22 08:14 Freq: Status: Active Protocol: Document 07/13/22 14:32 [facility] (Rec: 07/13/22 15:14 [facility] [id number]) Cervical Spine Range of Motion Cervical Spine Active Comments WNL Lumbar Spine Range of Motion Lumbar Spine Active Testing Position Standing Comments mild decrease all motions, no increase in groin pain Shoulder Goniometric Range of Motion Shoulder Right Active Shoulder ROM WFL No Testing Position Sitting Flexion 150 Extension 10 Abduction 65 External Rotation at 45 degrees 45 Abduction Internal Rotation Behind Back (text) lateral hip Left Active Shoulder ROM WFL Yes Shoulder ROM Limitations Shoulder ROM Limitations Pain Hip Goniometric Range of Motion Hip Right Flexion w/Knee Flexed 100 Straight Leg Raise 75 Extension 10 Abduction 35 Internal Rotation 25 External Rotation 35 Comments painful end-range ER Left Hip ROM WFL Yes Comments mild HS tightness PT-OP-L Special Tests Start: 07/13/22 08:14 Freq: Status: Active Protocol: Document 07/13/22 14:43 [facility] (Rec: 07/14/22 17:12 [facility] [id number]) Special Tests Shoulder Special Tests Elevation Impingement Test Results positive right Biceps Load II Test Test Results negative right Belly Press Test Results positive right Hip Special Tests KINGA Test Results negative Scour Test Test Results positive right PT-OP-M Strength Start: 07/13/22 08:14 Freq: Status: Active Protocol: Document 07/13/22 14:43 [facility] (Rec: 07/14/22 17:12 [facility] [id number]) Shoulder Strength Shoulder Manual Muscle Testing Right Flexion 3- Fair- Extension 3- Fair- Abduction (C5) 3- Fair- Adduction 3+ Fair+ External Rotation 3- Fair- Internal Rotation 3- Fair- Comments pain with resistance all motions right Left Flexion 5 Normal Extension 5 Normal Adduction 5 Normal External Rotation 4 Good Internal Rotation 4+ Good+ Elbow/Forearm Strength Elbow and Forearm Manual Muscle Testing Right Flexion (C6) 4 Good Extension (C7) 4 Good Comments guarding due to pain Left Flexion (C6) 5 Normal Extension (C7) 5 Normal Hip Strength Hip Manual Muscle Testing Right Flexion (L2) 4- Good- Extension (S1) 3+ Fair+ Abduction 3+ Fair+ Adduction 3+ Fair+ External Rotation 4- Good- Left Flexion (L2) 4 Good Extension (S1) 4 Good Abduction 4 Good External Rotation 4- Good- Internal Rotation 4+ Good+ Knee Strength Knee Manual Muscle Testing Right Flexion (S2) 4+ Good+ Extension (L3) 4+ Good+ Left Flexion (S2) 5 Normal Extension (L3) 5 Normal PT-OP-Q Treatments Start: 07/13/22 08:14 Freq: Status: Active Protocol: Document 07/29/22 13:00 [facility] (Rec: 07/29/22 13:50 [facility] [id number]) Therapeutic Exercises Supine Exercises unil hip IR/ER Reps/Minutes 10x Comments foot on table, knee bent Sitting Exercises pulleys Sitting Exercise Name scaption, flexion Reps/Minutes 10x Comments scaption better rachel than flexion, manual facil of scapular upward rotation Standing Exercises row Standing Exercise Name HEP sh hor add Standing Exercise Name HEP shoulder ext Standing Exercise Name HEP Manual Therapy Treatment Soft Tissue Mobilization right bicep, deltoid, RC Mobilization Type Myofascial Release,Strumming, Sustained Pressure Joint Mobilizations right hip Direction long and short axis distraction, lateral distraction; neutral and with ER Grade III Body Position Supine Reps/Duration 11 min PT-OP-R Modalities Start: 07/13/22 08:14 Freq: Status: Active Protocol: Document 07/29/22 13:00 [facility] (Rec: 07/29/22 13:50 [facility] [id number]) Hot Pack/Cold Pack Treatment Hot Pack Location no time Iontophoresis Treatment right ant shoulder Treatment Medication Dexamethasone (-) Medication Amount (mL) (ml) 1 Treatment Polarity Negative Treatment Duration (minutes) 3 Ultrasound Therapy Treatment right shoulder Treatment Duration (minutes) 8 Patient Position Hooklying Mode Setting Pulsed Duty Cycle 50% Intensity Setting (w/cm2) 1.2 PT-OP-T Assessment and Plan Start: 07/13/22 08:14 Freq: Status: Active Protocol: Document 07/29/22 13:00 [facility] (Rec: 07/29/22 13:50 [facility] [id number]) Physical Therapy Assessment Goals Four Impairment lacking HEP Impairment no current HEP for ROM or strengthening Short Term Goal (STG) Patient to be instructed in HEP for purposes of strengthenig and ROM right shoulder and HIP STG Duration 08/21/22 Skilled Nursing Goal (LTG) Patient to be independent and compliant with HEP and demonstrate right shoulder and hip ROM WNL and strength at least 4+/5 all motions LTG Duration 10/10/22 Three Impairment LEFS Short Term Goal (STG) Improve LEFS Silk Weaver Goal (LTG) Improve LEFS to at least 75% as measure of improved right LE function including walking, squatting, sleeping, LTG Duration 10/10/22 Two Impairment QuickDash UE disability Index score Short Term Goal (STG) Improve Quickdash score to no greater than STG Duration 08/21/22 Silk Weaver Goal (LTG) Improve Quickdash score to no greater than 2/10 as measure of improved right shoulder function including reaching overhead, to side, across body , and behind back LTG Duration 10/10/22 One Impairment pain right shoulder and hip as high as 8/10 Short Term Goal (STG) decrease pain to no greater than 4/10 with all usual activities STG Duration 08/21/22 Skilled Nursing Goal (LTG) Decrease pain to no greater than 2/10 with all usual activities LTG Duration 10/10/22 Progress Towards Goals Progress Towards Goals Progressing Toward Goals Assessment Summary Assessment Initiated manual techniques for hip focused arthrokinematics for improved hip functional ER with good tolerance neutral rotation, painful with ER. Physical Therapy Plan Frequency and Duration Frequency of Treatment 2x/Week Duration of treatment (weeks) 12 Plan of Care Start Date 07/13/22 Plan of Care End Date 10/10/22 Therapeutic Interventions Therapeutic Interventions Home Exercise Program,Manual Therapy,Patient/Caregiver Education,Self-Care/Home Management,Soft Tissue Mobilization,Taping, Therapeutic Activities, Therapeutic Exercises Modalities Cold Pack/Ice Massage,Electric Stimulation,Hot Packs, Infrared Therapy,Iontophoresis ,Ultrasound Next Visit Focus/Plan Next Note Type Treatment Note Next Visit Plan Evaluate response to hip joint mobilizations
--- NOTE | 2022-08-03 13:30 | PT-OP ANOTE ---
cancelled due to ill
--- NOTE | 2022-08-05 17:30 | PT.OTN ---
Current Diagnoses Pain in right shoulder (08/05/22) Low back pain, unspecified (08/05/22) Physical Therapy Treatment Note PT-OP-A Visit Information Start: 07/13/22 08:14 Freq: Status: Active Protocol: Document 08/05/22 14:34 SAK (Rec: 08/05/22 15:18 [facility] [id number]) Out-Patient Physical Therapy Visit Information Visit Information Visit Type Treatment Note Visit Start Time 14:34 Visit Stop Time 15:25 Total Visit Minutes 51 Visit Number 7 Evaluation Information Evaluation Date 07/13/22 Precautions Precautions PFO, TIA, migraine, fractured tib/fib, Osteoporosis, dizziness, falls PT-OP-B Current Condition Start: 07/13/22 08:14 Freq: Status: Active Protocol: Document 08/05/22 14:34 SAK (Rec: 08/05/22 15:18 [facility] [id number]) Current Condition History of Current Condition Onset Date 3 months Current Complaints right shoulder and groin pain History of Current Condition Right shoulder pain, right groin pain both possibly due to trying to move washing machine pulling toward herself , also may have hurt herself doing something else she can't remember. Denies N/T. Able to walk 4-6 miles but unable to swim due both to hip and shoulder pain. Has tried heat on the shoulder, helps for a little while. Difficulty sleeping. No current exercise program. Denies N/T, bowel or bladder symptoms. Prior Treatments and Tests no imaging. Future Testing and Treatments Planned Return to doctor after PT PT-OP-C Subjective Start: 07/13/22 08:14 Freq: Status: Active Protocol: Document 08/05/22 14:34 SAK (Rec: 08/05/22 15:18 [facility] [id number]) OP-PT Subjective Patient Comments Patient Comments Has been sore, not sleeping in same bed, inc shoulder pain. Did exercises yesterday and this am. Feels like she pulled something PT-OP-F Manual Assessment Start: 07/13/22 08:14 Freq: Status: Active Protocol: Document 07/13/22 14:43 SAK (Rec: 07/14/22 17:12 [facility] [id number]) Manual Assessments Joint Mobility Assessment Joint Mobility Assessment hypomobile right shoulder inf and post glide hypomobile right hip distraction and posterior glide PT-OP-G Mobility & Gait Start: 07/13/22 08:14 Freq: Status: Active Protocol: Document 07/13/22 14:43 [facility] (Rec: 07/14/22 17:12 [facility] [id number]) OP Gait Assessment Gait Gait Assistance Required: Independent Assistive Devices Assistive Device None Gait Deviations General Gait Pattern Antalgic Factors Limiting Gait Function Factors Limiting Gait Function Decreased Strength,Limited Range of Motion,Pain PT-OP-H Neuro Start: 07/13/22 08:14 Freq: Status: Active Protocol: Document 07/13/22 14:43 SAK (Rec: 07/14/22 17:12 [facility] [id number]) Sensation Evaluation Gross Sensation Gross Sensation WNL PT-OP-J Posture/Palpation/Skin Start: 07/13/22 08:14 Freq: Status: Active Protocol: Document 07/13/22 14:43 [facility] (Rec: 07/14/22 17:12 [facility] [id number]) Posture Evaluation Position Standing T-Spine Posture Increased Kyphosis L-Spine Posture Increased Lordosis Scapula Posture (L) Protracted,(R) Protracted Arm Posture (L) Internally Rotated,(R) Internally Rotated Hip Posture (L) Externally Rotated,(R) Externally Rotated Palpation Assessment Location psoas Palpation Location R Palpation Findings Soft Tissue Tightness,Muscle Guarding,Tenderness RC insertion Palpation Location R Palpation Findings Soft Tissue Tightness, Tenderness PT-OP-K Range of Motion Start: 07/13/22 08:14 Freq: Status: Active Protocol: Document 07/13/22 14:32 SAK (Rec: 07/13/22 15:14 [facility] [id number]) Cervical Spine Range of Motion Cervical Spine Active Comments WNL Lumbar Spine Range of Motion Lumbar Spine Active Testing Position Standing Comments mild decrease all motions, no increase in groin pain Shoulder Goniometric Range of Motion Shoulder Right Active Shoulder ROM WFL No Testing Position Sitting Flexion 150 Extension 10 Abduction 65 External Rotation at 45 degrees 45 Abduction Internal Rotation Behind Back (text) lateral hip Left Active Shoulder ROM WFL Yes Shoulder ROM Limitations Shoulder ROM Limitations Pain Hip Goniometric Range of Motion Hip Right Flexion w/Knee Flexed 100 Straight Leg Raise 75 Extension 10 Abduction 35 Internal Rotation 25 External Rotation 35 Comments painful end-range ER Left Hip ROM WFL Yes Comments mild HS tightness PT-OP-L Special Tests Start: 07/13/22 08:14 Freq: Status: Active Protocol: Document 07/13/22 14:43 [facility] (Rec: 07/14/22 17:12 [facility] [id number]) Special Tests Shoulder Special Tests Elevation Impingement Test Results positive right Biceps Load II Test Test Results negative right Belly Press Test Results positive right Hip Special Tests KINGA Test Results negative Scour Test Test Results positive right PT-OP-M Strength Start: 07/13/22 08:14 Freq: Status: Active Protocol: Document 07/13/22 14:43 [facility] (Rec: 07/14/22 17:12 [facility] [id number]) Shoulder Strength Shoulder Manual Muscle Testing Right Flexion 3- Fair- Extension 3- Fair- Abduction (C5) 3- Fair- Adduction 3+ Fair+ External Rotation 3- Fair- Internal Rotation 3- Fair- Comments pain with resistance all motions right Left Flexion 5 Normal Extension 5 Normal Adduction 5 Normal External Rotation 4 Good Internal Rotation 4+ Good+ Elbow/Forearm Strength Elbow and Forearm Manual Muscle Testing Right Flexion (C6) 4 Good Extension (C7) 4 Good Comments guarding due to pain Left Flexion (C6) 5 Normal Extension (C7) 5 Normal Hip Strength Hip Manual Muscle Testing Right Flexion (L2) 4- Good- Extension (S1) 3+ Fair+ Abduction 3+ Fair+ Adduction 3+ Fair+ External Rotation 4- Good- Left Flexion (L2) 4 Good Extension (S1) 4 Good Abduction 4 Good External Rotation 4- Good- Internal Rotation 4+ Good+ Knee Strength Knee Manual Muscle Testing Right Flexion (S2) 4+ Good+ Extension (L3) 4+ Good+ Left Flexion (S2) 5 Normal Extension (L3) 5 Normal PT-OP-Q Treatments Start: 07/13/22 08:14 Freq: Status: Active Protocol: Document 08/05/22 14:34 [facility] (Rec: 08/05/22 15:18 [facility] [id number]) Cardio Equipment Recumbent Stepper (Sci-Fit) Duration (Minutes) 2 Seat Position 7 Other stopped due to knee pain Gym Equipment Cable Column (Body Solid) scapular shrug Resistance 10 Reps/Time 10 Rows Resistance 10 Reps/Time 10 Lat Pull Down Resistance 15 Reps/Time x15 Shuttle Recovery Bilateral Squats Resistance 50 Shuttle Recovery Platform Stable Reps/Time 10 Therapeutic Exercises Supine Exercises unil hip IR/ER Reps/Minutes 10x Comments foot on table, knee bent Sitting Exercises pulleys Sitting Exercise Name scaption, flexion Reps/Minutes 10x Comments scaption better rachel than flexion, manual facil of scapular upward rotation Standing Exercises Shoulder ER Equipment Used L1 TB Reps/Minutes 10x row Standing Exercise Name HEP review Equipment Used L1 TB Reps/Minutes 10x sh hor add Standing Exercise Name HEP review shoulder ext Standing Exercise Name HEP review Resistance L1 TB Reps/Minutes 10x Manual Therapy Treatment Joint Mobilizations right hip Direction long and short axis distraction, lateral distraction; neutral and with ER Grade III Body Position Supine Reps/Duration 8 min PT-OP-R Modalities Start: 07/13/22 08:14 Freq: Status: Active Protocol: Document 08/05/22 14:34 [facility] (Rec: 08/05/22 15:18 [facility] [id number]) Iontophoresis Treatment right ant shoulder Treatment Medication Dexamethasone (-) Medication Amount (mL) (ml) 1 Treatment Polarity Negative Treatment Duration (minutes) 3 PT-OP-T Assessment and Plan Start: 07/13/22 08:14 Freq: Status: Active Protocol: Document 08/05/22 14:34 [facility] (Rec: 08/05/22 15:18 [facility] [id number]) Physical Therapy Assessment Goals Four Impairment lacking HEP Impairment no current HEP for ROM or strengthening Short Term Goal (STG) Patient to be instructed in HEP for purposes of strengthenig and ROM right shoulder and HIP STG Duration 08/21/22 Local Hazmat Driver Goal (LTG) Patient to be independent and compliant with HEP and demonstrate right shoulder and hip ROM WNL and strength at least 4+/5 all motions LTG Duration 10/10/22 Three Impairment LEFS Short Term Goal (STG) Improve LEFS Detention Goal (LTG) Improve LEFS to at least 75% as measure of improved right LE function including walking, squatting, sleeping, LTG Duration 10/10/22 Two Impairment QuickDash UE disability Index score Short Term Goal (STG) Improve Quickdash score to no greater than STG Duration 08/21/22 Detention Goal (LTG) Improve Quickdash score to no greater than 2/10 as measure of improved right shoulder function including reaching overhead, to side, across body , and behind back LTG Duration 10/10/22 One Impairment pain right shoulder and hip as high as 8/10 Short Term Goal (STG) decrease pain to no greater than 4/10 with all usual activities STG Duration 08/21/22 Detention Goal (LTG) Decrease pain to no greater than 2/10 with all usual activities LTG Duration 10/10/22 Assessment Summary Assessment Improved tolerance for shoulder exercises with some impingement symptoms overhead. Added shoulder IR and ER with TB with good tolerance. Decreased pain and improved hip mobility with joint mobs Physical Therapy Plan Frequency and Duration Frequency of Treatment 2x/Week Duration of treatment (weeks) 12 Plan of Care Start Date 07/13/22 Plan of Care End Date 10/10/22 Therapeutic Interventions Therapeutic Interventions Home Exercise Program,Manual Therapy,Patient/Caregiver Education,Self-Care/Home Management,Soft Tissue Mobilization,Taping, Therapeutic Activities, Therapeutic Exercises Modalities Cold Pack/Ice Massage,Electric Stimulation,Hot Packs, Infrared Therapy,Iontophoresis ,Ultrasound Next Visit Focus/Plan Next Note Type Treatment Note Next Visit Plan Continue progression of ther ex for shoulder and hip ROM and strengthening, joint mob and DTM as indicated. End with modalities as needed.
--- NOTE | 2022-08-09 16:34 | PT.OTN ---
Current Diagnoses Pain in right shoulder (08/09/22) Low back pain, unspecified (08/09/22) Physical Therapy Treatment Note PT-OP-A Visit Information Start: 07/13/22 08:14 Freq: Status: Active Protocol: Document 08/09/22 13:00 SAK (Rec: 08/09/22 13:46 [facility] [id number]) Out-Patient Physical Therapy Visit Information Visit Information Visit Type Treatment Note Visit Start Time 13:00 Visit Stop Time 13:52 Total Visit Minutes 52 Visit Number 8 Evaluation Information Evaluation Date 07/13/22 Precautions Precautions PFO, TIA, migraine, fractured tib/fib, Osteoporosis, dizziness, falls PT-OP-B Current Condition Start: 07/13/22 08:14 Freq: Status: Active Protocol: Document 08/09/22 13:00 [facility] (Rec: 08/09/22 13:46 [facility] [id number]) Current Condition History of Current Condition Onset Date 3 months Current Complaints right shoulder and groin pain History of Current Condition Right shoulder pain, right groin pain both possibly due to trying to move washing machine pulling toward herself , also may have hurt herself doing something else she can't remember. Denies N/T. Able to walk 4-6 miles but unable to swim due both to hip and shoulder pain. Has tried heat on the shoulder, helps for a little while. Difficulty sleeping. No current exercise program. Denies N/T, bowel or bladder symptoms. Prior Treatments and Tests no imaging. Future Testing and Treatments Planned Return to doctor after PT PT-OP-C Subjective Start: 07/13/22 08:14 Freq: Status: Active Protocol: Document 08/09/22 13:00 SAK (Rec: 08/09/22 13:46 [facility] [id number]) OP-PT Subjective Patient Comments Patient Comments Went to gym yesterday, may have overdone it. Did rows, lat pull, bands (too strong of band), bicycle. Did wand ex for behind back in shower . Thinks doing more than she has been PT-OP-F Manual Assessment Start: 07/13/22 08:14 Freq: Status: Active Protocol: Document 07/13/22 14:43 SAK (Rec: 07/14/22 17:12 [facility] [id number]) Manual Assessments Joint Mobility Assessment Joint Mobility Assessment hypomobile right shoulder inf and post glide hypomobile right hip distraction and posterior glide PT-OP-G Mobility & Gait Start: 07/13/22 08:14 Freq: Status: Active Protocol: Document 07/13/22 14:43 [facility] (Rec: 07/14/22 17:12 [facility] [id number]) OP Gait Assessment Gait Gait Assistance Required: Independent Assistive Devices Assistive Device None Gait Deviations General Gait Pattern Antalgic Factors Limiting Gait Function Factors Limiting Gait Function Decreased Strength,Limited Range of Motion,Pain PT-OP-H Neuro Start: 07/13/22 08:14 Freq: Status: Active Protocol: Document 07/13/22 14:43 [facility] (Rec: 07/14/22 17:12 [facility] [id number]) Sensation Evaluation Gross Sensation Gross Sensation WNL PT-OP-J Posture/Palpation/Skin Start: 07/13/22 08:14 Freq: Status: Active Protocol: Document 07/13/22 14:43 [facility] (Rec: 07/14/22 17:12 [facility] [id number]) Posture Evaluation Position Standing T-Spine Posture Increased Kyphosis L-Spine Posture Increased Lordosis Scapula Posture (L) Protracted,(R) Protracted Arm Posture (L) Internally Rotated,(R) Internally Rotated Hip Posture (L) Externally Rotated,(R) Externally Rotated Palpation Assessment Location psoas Palpation Location R Palpation Findings Soft Tissue Tightness,Muscle Guarding,Tenderness RC insertion Palpation Location R Palpation Findings Soft Tissue Tightness, Tenderness PT-OP-K Range of Motion Start: 07/13/22 08:14 Freq: Status: Active Protocol: Document 07/13/22 14:32 [facility] (Rec: 07/13/22 15:14 [facility] [id number]) Cervical Spine Range of Motion Cervical Spine Active Comments WNL Lumbar Spine Range of Motion Lumbar Spine Active Testing Position Standing Comments mild decrease all motions, no increase in groin pain Shoulder Goniometric Range of Motion Shoulder Right Active Shoulder ROM WFL No Testing Position Sitting Flexion 150 Extension 10 Abduction 65 External Rotation at 45 degrees 45 Abduction Internal Rotation Behind Back (text) lateral hip Left Active Shoulder ROM WFL Yes Shoulder ROM Limitations Shoulder ROM Limitations Pain Hip Goniometric Range of Motion Hip Right Flexion w/Knee Flexed 100 Straight Leg Raise 75 Extension 10 Abduction 35 Internal Rotation 25 External Rotation 35 Comments painful end-range ER Left Hip ROM WFL Yes Comments mild HS tightness PT-OP-L Special Tests Start: 07/13/22 08:14 Freq: Status: Active Protocol: Document 07/13/22 14:43 [facility] (Rec: 07/14/22 17:12 [facility] [id number]) Special Tests Shoulder Special Tests Elevation Impingement Test Results positive right Biceps Load II Test Test Results negative right Belly Press Test Results positive right Hip Special Tests KINGA Test Results negative Scour Test Test Results positive right PT-OP-M Strength Start: 07/13/22 08:14 Freq: Status: Active Protocol: Document 07/13/22 14:43 [facility] (Rec: 07/14/22 17:12 [facility] [id number]) Shoulder Strength Shoulder Manual Muscle Testing Right Flexion 3- Fair- Extension 3- Fair- Abduction (C5) 3- Fair- Adduction 3+ Fair+ External Rotation 3- Fair- Internal Rotation 3- Fair- Comments pain with resistance all motions right Left Flexion 5 Normal Extension 5 Normal Adduction 5 Normal External Rotation 4 Good Internal Rotation 4+ Good+ Elbow/Forearm Strength Elbow and Forearm Manual Muscle Testing Right Flexion (C6) 4 Good Extension (C7) 4 Good Comments guarding due to pain Left Flexion (C6) 5 Normal Extension (C7) 5 Normal Hip Strength Hip Manual Muscle Testing Right Flexion (L2) 4- Good- Extension (S1) 3+ Fair+ Abduction 3+ Fair+ Adduction 3+ Fair+ External Rotation 4- Good- Left Flexion (L2) 4 Good Extension (S1) 4 Good Abduction 4 Good External Rotation 4- Good- Internal Rotation 4+ Good+ Knee Strength Knee Manual Muscle Testing Right Flexion (S2) 4+ Good+ Extension (L3) 4+ Good+ Left Flexion (S2) 5 Normal Extension (L3) 5 Normal PT-OP-Q Treatments Start: 07/13/22 08:14 Freq: Status: Active Protocol: Document 08/09/22 13:00 [facility] (Rec: 08/09/22 13:46 [facility] [id number]) Gym Equipment Cable Column (Body Solid) hamstring curl Resistance 20 Reps/Time 2x10 hip ad Resistance 20 Reps/Time 2x10 hip ab Resistance 20 Reps/Time 2x10 scapular shrug Details HEP Rows Details HEP Lat Pull Down Details HEP Shuttle Recovery Bilateral Squats Details HEP Therapeutic Exercises Sitting Exercises pulleys Sitting Exercise Name scaption, flexion Reps/Minutes 10x Comments scaption better rachel than flexion, manual facil of scapular upward rotation Standing Exercises 4-way hip Equipment Used L1 TB (peach) Reps/Minutes 10x domonique Comments domonique UE support for balance pulleys Standing Exercise Name shoulder IR Reps/Minutes 10x2 Comments manual cues for shoulder alignment Shoulder ER Equipment Used L1 TB Reps/Minutes 10x row Standing Exercise Name HEP review Equipment Used L1 TB Reps/Minutes 10x sh hor add Standing Exercise Name HEP review shoulder ext Standing Exercise Name HEP review Resistance L1 TB Reps/Minutes 10x Manual Therapy Treatment Soft Tissue Mobilization subscap Mobilization Type Sustained Pressure Comments pin and stretch with GH flex right bicep, deltoid, RC Mobilization Type Myofascial Release,Strumming, Sustained Pressure Joint Mobilizations GH Direction post,in Grade III Body Position Supine PT-OP-R Modalities Start: 07/13/22 08:14 Freq: Status: Active Protocol: Document 08/09/22 13:00 [facility] (Rec: 08/09/22 13:46 [facility] [id number]) Hot Pack/Cold Pack Treatment Cold Pack Location right shoulder and hip Patient Position Hooklying Treatment Duration (minutes) 10 Patient Tolerance Good Iontophoresis Treatment right ant shoulder Treatment Medication Dexamethasone (-) Medication Amount (mL) (ml) 1 Treatment Polarity Negative Treatment Duration (minutes) 3 PT-OP-T Assessment and Plan Start: 07/13/22 08:14 Freq: Status: Active Protocol: Document 08/09/22 13:00 [facility] (Rec: 08/09/22 13:46 [facility] [id number]) Physical Therapy Assessment Goals Four Impairment lacking HEP Impairment no current HEP for ROM or strengthening Short Term Goal (STG) Patient to be instructed in HEP for purposes of strengthenig and ROM right shoulder and HIP STG Duration 08/21/22 Usp Goal (LTG) Patient to be independent and compliant with HEP and demonstrate right shoulder and hip ROM WNL and strength at least 4+/5 all motions LTG Duration 10/10/22 Three Impairment LEFS Short Term Goal (STG) Improve LEFS Podiatry Doctor Goal (LTG) Improve LEFS to at least 75% as measure of improved right LE function including walking, squatting, sleeping, LTG Duration 10/10/22 Two Impairment QuickDash UE disability Index score Short Term Goal (STG) Improve Quickdash score to no greater than STG Duration 08/21/22 Usp Goal (LTG) Improve Quickdash score to no greater than 2/10 as measure of improved right shoulder function including reaching overhead, to side, across body , and behind back LTG Duration 10/10/22 One Impairment pain right shoulder and hip as high as 8/10 Short Term Goal (STG) decrease pain to no greater than 4/10 with all usual activities STG Duration 08/21/22 Usp Goal (LTG) Decrease pain to no greater than 2/10 with all usual activities LTG Duration 10/10/22 Assessment Summary Assessment Patient went to gym for ther ex as previously discussed, overdid but felt good about getting back to gym. Additional exercises reviewed for doing in gym with good understanding for alignment of machine for HS curl, hip ab/ ad, lira-free intensity and ROM . Shoulder IR most limited and painful, improved with joint mob Physical Therapy Plan Frequency and Duration Frequency of Treatment 2x/Week Duration of treatment (weeks) 12 Plan of Care Start Date 07/13/22 Plan of Care End Date 10/10/22 Therapeutic Interventions Therapeutic Interventions Home Exercise Program,Manual Therapy,Patient/Caregiver Education,Self-Care/Home Management,Soft Tissue Mobilization,Taping, Therapeutic Activities, Therapeutic Exercises Modalities Cold Pack/Ice Massage,Electric Stimulation,Hot Packs, Infrared Therapy,Iontophoresis ,Ultrasound Next Visit Focus/Plan Next Note Type Treatment Note Next Visit Plan Continue progression of ther ex for shoulder and hip ROM and strengthening, joint mob and DTM as indicated. End with modalities as needed.
--- NOTE | 2022-12-20 16:00 | PT.OPDS ---
Current Diagnoses Pain in right shoulder (08/09/22) Low back pain, unspecified (08/09/22) Visit Care Team Role Provider Type Martha Javed DO Family Provider Physician Primary Care Provider Specialty: Medical Address: [address] [place] [address], [address], [place], [address] Email: [email or web address] [email or web address] Blount DO Attending Provider Physician Referring Provider Specialty: Family Practice Address: [address] [place] [address], [address], [place], [address] Email: [email or web address] Visit Number Visit Number 8 Discharge Summary PT-OP-B Current Condition Start: 07/13/22 08:14 Freq: Status: Active Protocol: Document 08/09/22 13:00 SAK (Rec: 08/09/22 13:46 [facility] [id number]) Current Condition History of Current Condition Onset Date 3 months Current Complaints right shoulder and groin pain History of Current Condition Right shoulder pain, right groin pain both possibly due to trying to move washing machine pulling toward herself , also may have hurt herself doing something else she can't remember. Denies N/T. Able to walk 4-6 miles but unable to swim due both to hip and shoulder pain. Has tried heat on the shoulder, helps for a little while. Difficulty sleeping. No current exercise program. Denies N/T, bowel or bladder symptoms. Prior Treatments and Tests no imaging. Future Testing and Treatments Planned Return to doctor after PT PT-OP-C Subjective Start: 07/13/22 08:14 Freq: Status: Active Protocol: Document 08/09/22 13:00 SAK (Rec: 08/09/22 13:46 [facility] [id number]) OP-PT Subjective Patient Comments Patient Comments Went to gym yesterday, may have overdone it. Did rows, lat pull, bands (too strong of band), bicycle. Did wand ex for behind back in shower . Thinks doing more than she has been PT-OP-F Manual Assessment Start: 07/13/22 08:14 Freq: Status: Active Protocol: Document 07/13/22 14:43 SAK (Rec: 07/14/22 17:12 [facility] [id number]) Manual Assessments Joint Mobility Assessment Joint Mobility Assessment hypomobile right shoulder inf and post glide hypomobile right hip distraction and posterior glide PT-OP-G Mobility & Gait Start: 07/13/22 08:14 Freq: Status: Active Protocol: Document 07/13/22 14:43 [facility] (Rec: 07/14/22 17:12 [facility] [id number]) OP Gait Assessment Gait Gait Assistance Required: Independent Assistive Devices Assistive Device None Gait Deviations General Gait Pattern Antalgic Factors Limiting Gait Function Factors Limiting Gait Function Decreased Strength,Limited Range of Motion,Pain PT-OP-H Neuro Start: 07/13/22 08:14 Freq: Status: Active Protocol: Document 07/13/22 14:43 [facility] (Rec: 07/14/22 17:12 [facility] [id number]) Sensation Evaluation Gross Sensation Gross Sensation WNL PT-OP-J Posture/Palpation/Skin Start: 07/13/22 08:14 Freq: Status: Active Protocol: Document 07/13/22 14:43 [facility] (Rec: 07/14/22 17:12 [facility] [id number]) Posture Evaluation Position Standing T-Spine Posture Increased Kyphosis L-Spine Posture Increased Lordosis Scapula Posture (L) Protracted,(R) Protracted Arm Posture (L) Internally Rotated,(R) Internally Rotated Hip Posture (L) Externally Rotated,(R) Externally Rotated Palpation Assessment Location psoas Palpation Location R Palpation Findings Soft Tissue Tightness,Muscle Guarding,Tenderness RC insertion Palpation Location R Palpation Findings Soft Tissue Tightness, Tenderness PT-OP-K Range of Motion Start: 07/13/22 08:14 Freq: Status: Active Protocol: Document 07/13/22 14:32 [facility] (Rec: 07/13/22 15:14 [facility] [id number]) Cervical Spine Range of Motion Cervical Spine Active Comments WNL Lumbar Spine Range of Motion Lumbar Spine Active Testing Position Standing Comments mild decrease all motions, no increase in groin pain Shoulder Goniometric Range of Motion Shoulder Right Active Shoulder ROM WFL No Testing Position Sitting Flexion 150 Extension 10 Abduction 65 External Rotation at 45 degrees 45 Abduction Internal Rotation Behind Back (text) lateral hip Left Active Shoulder ROM WFL Yes Shoulder ROM Limitations Shoulder ROM Limitations Pain Hip Goniometric Range of Motion Hip Right Flexion w/Knee Flexed 100 Straight Leg Raise 75 Extension 10 Abduction 35 Internal Rotation 25 External Rotation 35 Comments painful end-range ER Left Hip ROM WFL Yes Comments mild HS tightness PT-OP-L Special Tests Start: 07/13/22 08:14 Freq: Status: Active Protocol: Document 07/13/22 14:43 [facility] (Rec: 07/14/22 17:12 [facility] [id number]) Special Tests Shoulder Special Tests Elevation Impingement Test Results positive right Biceps Load II Test Test Results negative right Belly Press Test Results positive right Hip Special Tests KINGA Test Results negative Scour Test Test Results positive right PT-OP-M Strength Start: 07/13/22 08:14 Freq: Status: Active Protocol: Document 07/13/22 14:43 [facility] (Rec: 07/14/22 17:12 [facility] [id number]) Shoulder Strength Shoulder Manual Muscle Testing Right Flexion 3- Fair- Extension 3- Fair- Abduction (C5) 3- Fair- Adduction 3+ Fair+ External Rotation 3- Fair- Internal Rotation 3- Fair- Comments pain with resistance all motions right Left Flexion 5 Normal Extension 5 Normal Adduction 5 Normal External Rotation 4 Good Internal Rotation 4+ Good+ Elbow/Forearm Strength Elbow and Forearm Manual Muscle Testing Right Flexion (C6) 4 Good Extension (C7) 4 Good Comments guarding due to pain Left Flexion (C6) 5 Normal Extension (C7) 5 Normal Hip Strength Hip Manual Muscle Testing Right Flexion (L2) 4- Good- Extension (S1) 3+ Fair+ Abduction 3+ Fair+ Adduction 3+ Fair+ External Rotation 4- Good- Left Flexion (L2) 4 Good Extension (S1) 4 Good Abduction 4 Good External Rotation 4- Good- Internal Rotation 4+ Good+ Knee Strength Knee Manual Muscle Testing Right Flexion (S2) 4+ Good+ Extension (L3) 4+ Good+ Left Flexion (S2) 5 Normal Extension (L3) 5 Normal PT-OP-T Assessment and Plan Start: 07/13/22 08:14 Freq: Status: Active Protocol: Document 12/20/22 16:00 [facility] (Rec: 12/20/22 16:00 [facility] [id number]) Physical Therapy Plan Discharge Physical Therapy Discharge Reasons No Longer Attending PT
== END 2022-12-22 11:14 | disposition home or self-care (01) ==
LOC: PHYS 13:00
PROVIDERS: Absent Provider Family Medicine; Family Provider Family Medicine; PCP Family Medicine; Referring Provider Family Medicine; Visit Provider Family Medicine
DX: M25.511 Pain in right shoulder (principal); M54.50 Low back pain, unspecified
CPT/HCPCS: 97110; 97140; 97162; 97535

== ENCOUNTER → 2022-11-17 15:09 | Outpatient (CLI) | payer MEDICARE, OTHER, SELFPAY ==
[2022-05-22 21:27] VITALS: BMI 25.1
== END ==
PROVIDERS: Family Provider Family Medicine; PCP Family Medicine; Visit Provider Physician Assistant
DX: N39.0 Urinary tract infection, site not specified (principal); L29.3 Anogenital pruritus, unspecified
CPT/HCPCS: 87086; 87210

== ENCOUNTER → 2023-02-07 15:03 | Outpatient (CLI) | payer MEDICARE, OTHER, SELFPAY ==
[2022-05-22 21:27] VITALS: BMI 25.1
--- NOTE | 2023-02-07 15:04 | DI.RAD.S_ITS ---
PROCEDURE: XR CERVICAL SPINE 2V OR 3V INDICATIONS: neck lump/pain TECHNIQUE: 3 view(s) of the cervical spine were acquired. COMPARISON: [facility], CR, XR CERVICAL SPINE 2V OR 3V, 12/13/2018, 10:42. FINDINGS: Bones: No fractures or dislocations to the C7-T1 level. The lateral masses of C1 appear intact on the odontoid view. No suspicious bony lesions. Reversal cervical curvature is present with apex at C5. There is trace retrolisthesis of C5 on C6. Severe disc space narrowing is present at C5-6, C6-7, mild to moderate throughout the remainder cervical spine. Multilevel anterior osteophytes are present as well as uncovertebral arthropathy. Overall appearance is mildly progressive compared to 2019. Soft tissues: No prevertebral soft tissue swelling. IMPRESSION: Mildly progressive multilevel arthritic change. Dictated by: Renetta Mckenzie M.D. on 02/07/2023 at 17:24 Approved by: Renetta Mckenzie M.D. on 02/07/2023 at 17:25
== END ==
PROVIDERS: Family Provider Family Medicine; PCP Family Medicine; Referring Provider Family Medicine; Visit Provider Family Medicine
DX: M54.2 Cervicalgia (principal); R22.0 Localized swelling, mass and lump, head; R22.1 Localized swelling, mass and lump, neck
CPT/HCPCS: 72040

== ENCOUNTER → 2023-05-10 12:39 | Outpatient (CLI) | payer MEDICARE, OTHER, SELFPAY ==
[2022-05-22 21:27] VITALS: BMI 25.1
--- NOTE | 2023-05-10 12:41 | DI.RAD.S_ITS ---
Bone Density Report Name: NARA GAITAN Age: 68 Sex: Female Ethnicity: White Date of : 1955 Indication: postmenopausal osteoporosis; prior fracture; Referring Provider: DERREK OSORIO Study: Bone densitometry was performed. Exam Date: May 10, 2023 Accession number: [id number] Bone Density: Region BMD T-score Z-score Classification AP Spine(L1-L4) 0.683 -3.3 -1.4 Osteoporosis Femoral Neck (Left) 0.588 -2.4 -0.7 Osteopenia Total Hip (Left) 0.648 -2.4 -1.1 Osteopenia Femoral Neck (Right) 0.548 -2.7 -1.1 Osteoporosis Total Hip (Right) 0.693 -2.0 -0.7 Osteopenia Total Hip Mean 0.671 -2.2 -0.9 Osteopenia World Health Organization criteria for BMD impression classify patients as: Normal (T-score at or above -1.0), Osteopenia (T-score between -1.0 and -2.5), or Osteoporosis (T-score at or below -2.5). 10-year Fracture Risk: FRAX not reported because: Some T-score for Spine Total or Hip Total or Femoral Neck at or below -2.5 Prior hip or vertebral fracture Previous Exams: -- Region Exam Age BMD T-score BMD Change BMD Change Date g/cm2 vs Baseline vs Previous -- AP Spine (L1-L4) 05/10/2023 68 0.683 -3.3 -0.055 (-7.5%)# -0.010 (-1.4%)# 05/09/2020 65 0.692 -3.2 -0.046 (-6.2%)* -0.057 (-7.6%)* 05/11/2017 62 0.749 -2.7 0.011 (1.5%) 0.011 (1.5%) 02/06/2014 59 0.738 -2.8 Total Hip(Left) 05/10/2023 68 0.648 -2.4 -0.061 (-8.6%)# -0.052 (-7.4%)# 05/09/2020 65 0.700 -2.0 -0.009 (-1.2%) -0.009 (-1.3%) 05/11/2017 62 0.709 -1.9 0.000 (0.0%) 0.000 (0.0%) 02/06/2014 59 0.709 -1.9 Total Hip(Right) 05/10/2023 68 0.693 -2.0 -0.009 (-1.3%)# 0.048 (7.5%)# 05/09/2020 65 0.645 -2.4 -0.058 (-8.2%)* -0.037 (-5.4%)* 05/11/2017 62 0.682 -2.1 -0.021 (-2.9%) -0.021 (-2.9%) 02/06/2014 59 0.703 -2.0 -- *Denotes significance at 95% confidence level, LSC for AP Spine = 0.022 g/cm2, LSC for Total Hip = 0.027 g/cm2 # Denotes dissimilar scan types or analysis methods Impression: The patient has established osteoporosis, based on the Total Spine T-score and the existence of a prior fracture. The patient has risk factors, including: previous fracture. No significant bone loss was observed. Discussion: HIGH RISK OF FRACTURE. BONE DENSITY IS UNDESIRABLY LOW AT ONE OR MORE SKELETAL SITES, CONSISTENT WITH POSTMENOPAUSAL OSTEOPOROSIS. This patient's lowest T-score, in a patient who has previously fractured, meets the World Health Organization's (WHO) criteria for severe osteoporosis. In untreated patients, the risk of osteoporotic fracture increases approximately two-fold for each 1.0 SD decrease in T-score. Low bone density is not the only risk factor for fracture; also consider factors such as patient's age, frailty or poor health, risk of falling, risk of injury, previous osteoporotic fracture, family history of osteoporosis, cigarette smoking, low body weight, etc. Not everyone with low bone mineral density has osteoporosis; osteomalacia and other metabolic bone disorders should also be considered. Patients who have osteoporosis should be evaluated for specific diseases and conditions (secondary causes) that may cause or contribute to bone loss. The [place] Association [employer] Endocrinologists (AACE) and National Osteoporosis Foundation (NOF) recommend pharmacologic intervention for all postmenopausal women with a previous hip or vertebral fracture and a T-score in this range. The patient should follow a healthful lifestyle (good nutrition with adequate calcium and vitamin D, and appropriate weight-bearing exercise). Follow-Up: Consider a repeat BMD and Vertebral Fracture Assessment (VFA) exam in 2 years or sooner if medically necessary, to reassess this patient's status. Reported by: DARON THOMPSON M.D. on 05/10/2023 1:17:00 PM.
--- NOTE | 2023-05-10 12:41 | DI.US.S_ITS ---
PROCEDURE: US SOFT TISSUE HEAD AND NECK INDICATIONS: LUMP OF LEFT POSTERIOR CERVICAL CHAIN TECHNIQUE: Real-time scanning was performed of the neck region of interest, with image documentation. COMPARISON: None. FINDINGS: There is a normal appearing lymph node within the left lateral cervical region which corresponds as palpated and measures 0.5 x 1.1 x 0.4 cm. IMPRESSION: Normal left cervical lymph node which corresponds as palpated. Dictated by: Sheila Gonzalez M.D. on 05/10/2023 at 15:56 Approved by: Sheila Gonzalez M.D. on 05/10/2023 at 15:56
--- NOTE | 2023-05-10 12:41 | DI.MG.S_ITS ---
BILATERAL DIGITAL SCREENING MAMMOGRAM 3D/2D WITH CAD: 05/10/2023 CLINICAL: Routine screening. Comparison is made to exams dated: 02/15/2022 mammogram, 02/12/2021 mammogram, and 01/29/2020 mammogram - [facility]. Both breasts are almost entirely fatty (category a/<25% glandular tissue). Current study was also evaluated with a Computer Aided Detection (CAD) system. There is a benign calcification in the right breast. No significant masses, calcifications, or other findings are seen in either breast. There has been no significant interval change. IMPRESSION: BENIGN There is no mammographic evidence of malignancy. A 1 year screening mammogram is recommended. Based on the Tyrer Cuzick model (a risk assessment model) the patient's lifetime risk is 4.4% and her 10 year risk is 2.3%. According to the ACR, ACS, and NCCN guidelines, an annual breast MRI exam along with mammogram is recommended if the patient's lifetime risk is 20% or greater. This exam was interpreted at Station ID: [id number]. NOTE: For mammograms, a report in lay terms will be sent to the patient. Approximately 15% of breast malignancies will not be visualized mammographically. In the management of a palpable breast mass, a negative mammogram must not discourage biopsy of a clinically suspicious lesion. Electronically Signed By: Tarsha mares/seth:05/10/2023 14:58:07 letter sent: Normal Exam ACR BI-RADS Category 2: Benign Finding(s) 3342F
== END ==
PROVIDERS: Family Provider Family Medicine; PCP Family Medicine; Referring Provider Family Medicine; Visit Provider Family Medicine
DX: M81.0 Age-related osteoporosis without current pathological fracture (principal); Z12.31 Encounter for screening mammogram for malignant neoplasm of breast; N95.1 Menopausal and female climacteric states; R22.0 Localized swelling, mass and lump, head; R22.1 Localized swelling, mass and lump, neck; M25.511 Pain in right shoulder; G89.29 Other chronic pain
CPT/HCPCS: 76536; 77063; 77067; 77080

== ENCOUNTER 2023-05-17 14:46 | Emergency (ER) | payer MEDICARE, OTHER, SELFPAY ==
[2022-05-22 21:27] VITALS: BMI 25.1
[2023-05-17 15:01] VITALS: BP 178/87; PULSE 89; RESP 20; TEMP 37.1; O2SAT 98; BMI 23.0
--- NOTE | 2023-05-17 15:27 | DI.RAD.S_ITS ---
PROCEDURE: XR THORACIC SPINE 3V INDICATIONS: Thoracic pain s/p trauma hx of osteoporosis TECHNIQUE: 3 views of the thoracic spine were acquired. COMPARISON: [facility], CR, XR THORACIC SPINE 3V, 08/26/2021, 16:20. FINDINGS: Bones: Old T12 compression fracture. No acute compression fractures. No suspicious bony lesions. 12 pairs of ribs are noted, and appear intact where visualized. Soft tissues: No paravertebral stripe thickening. IMPRESSION: Old T12 compression fracture. No evidence acute bony abnormality. Dictated by: Reji Fofana M.D. on 05/17/2023 at 15:54 Approved by: Reji Fofana M.D. on 05/17/2023 at 15:55
--- NOTE | 2023-05-17 15:27 | DI.CT.S_ITS ---
PROCEDURE: CT HEAD/BRAIN WO CON INDICATIONS: Trauma and head injury TECHNIQUE: Noncontrast 4.5 mm thick angled axial sections acquired from the foramen magnum to the vertex, with coronal and sagittal reformats. For radiation dose reduction, the following was used: automated exposure control, adjustment of mA and/or kV according to patient size. COMPARISON: [facility], CT, CT HEAD/BRAIN WO CON, 06/21/2021, 12:25. FINDINGS: Image quality: Diagnostic. CSF spaces: Basal cisterns are patent. No extra-axial fluid collections. The ventricles are symmetric in size and shape. Brain: No intracranial bleeds or masses. There is cerebral volume loss for age, with resultant ventricular and sulcal prominence. There are periventricular and deep white matter chronic small vessel ischemic changes. Skull and face: Calvarium and visualized facial bones appear intact, without suspicious lesions. Sinuses: Visualized sinuses and mastoids are clear. IMPRESSION: No acute intracranial pathology. Dictated by: Reji Fofana M.D. on 05/17/2023 at 15:50 Approved by: Rjei Fofana M.D. on 05/17/2023 at 15:51
--- NOTE | 2023-05-17 15:27 | DI.CT.S_ITS ---
PROCEDURE: CT CERVICAL SPINE WO CON INDICATIONS: Neck pain sp trauma TECHNIQUE: Noncontrast 3 mm thick sections acquired from the skull base to the T4 level. Sagittal and coronal reformats were then constructed. For radiation dose reduction, the following was used: automated exposure control, adjustment of mA and/or kV according to patient size. COMPARISON: [facility], CT, CT CERVICAL SPINE WO CON, 06/16/2021, 14:39. FINDINGS: Image quality: Excellent. Bones: No fractures or dislocations. Visualized superior ribs are intact. Prominent left C3-C4 and C4-C5 facet hypertrophy. Multilevel bilateral bony foraminal narrowing. Soft tissues: Prevertebral soft tissues are normal in thickness. No paravertebral hematomas. No apical pneumothoraces. IMPRESSION: 1. No acute cervical fracture or dislocation. 2. Cervical spondylosis. Dictated by: Reji Fofana M.D. on 05/17/2023 at 15:51 Approved by: Reji Fofana M.D. on 05/17/2023 at 15:54
--- NOTE | 2023-05-17 15:59 | ED_ITS ---
HPI - Back Pain/Injury <Abdulaziz Lawson PA-C - Last Filed: 05/17/23 16:06> General Chief Complaint: Back Pain/Injury Stated Complaint: GLF T-4 headache/Lside of back hurting Time Seen by Provider: 05/17/23 15:18 Source: patient History of Present Illness HPI Narrative: This is a 68-year-old female presents to the emergency department due to a mechanical ground level fall where she fell backwards on her stairs. She reports an injury to the left side of her thoracic spine as well as head pain. She was not recall hitting her head or lose conscious but? she says just can not remember?. Denies any nausea, vomiting, dizziness. Does report some left-sided neck pain. Related Data Home Medications Medication Instructions Recorded Confirmed calcium carbonate 600 mg-vitamin 2 cap PO DAILY 06/16/21 07/12/22 D3 25 mcg (1,000 unit) capsule docusate sodium 100 mg PO DAILY 07/15/21 07/12/22 atorvastatin 40 mg tablet 20 mg PO DAILY 07/12/22 nicotine (polacrilex) 2 mg gum 2 mg buccal Q2H 07/12/22 07/12/22 (Nicorette) Previous Rx's Medication Instructions Recorded aspirin 81 mg tablet,delayed 81 mg PO DAILY #30 tabs 06/17/21 release sumatriptan succinate 50 mg tablet See Rx Instructions PO .COMPLEX 05/23/22 (Imitrex) #20 tabs coenzyme Q10 75 mg capsule (Ultra 150 mg (2 x 75 mg) PO DAILY #1 cap 07/12/22 CoQ10) Allergies Allergy/AdvReac Type Severity Reaction Status Date / Time influenza virus vaccine, AdvReac Severe PASSED OUT Verified 07/12/22 15:27 specific [influenza virus vacc,specific] Review of Systems <Abdulaziz Lawson PA-C - Last Filed: 05/17/23 16:06> Review of Systems Narrative: GENERAL: Denies chills, fatigue, malaise, fever, sweats. HEENT: Reports head and neck pain. Denies sinus pain, ear pain, sore throat, difficulty swallowing, dizziness. RESPIRATORY: Denies dyspnea, cough, wheezing, hemoptysis, sputum. CARDIOVASCULAR: Denies chest pain, palpitations, orthopnea, edema, GASTROINTESTINAL: Denies nausea, vomiting, abdominal pain, diarrhea, constipation, melena. : Denies dysuria, frequency, incontinence, hematuria, urinary retention. MUSCULOSKELETAL: Reports left thoracic pain. Denies weakness, joint pain, or bony pain SKIN: Denies rash, skin lesions, or other NEUROLOGIC: Denies weakness, headache, numbness, change in speech, confusion, seizures, incoordination. PSYCHIATRIC: No concerning psychosocial issues. 12 point review of systems is negative except for those stated above Patient History <Abdulaziz Lawson PA-C - Last Filed: 05/17/23 16:06> Medical History (Updated 05/17/23 @ 16:06 by Abdulaziz Lawson PA-C) Anal pruritus Hyperlipidemia Hypercalcemia Fracture of fifth toe, left, closed History of head injury Paresthesia of left upper extremity Hx of spinal cord injury Tibia/fibula fracture (1988) Gastric ulcer (1989) GERD (gastroesophageal reflux disease) (~1989) Peptic ulcer disease Hiatal hernia Chronic back pain (2010) Hemorrhoids (2005) Rosacea Knee pain (10/2013) Seasonal allergies (~1989) Dry eye Acute appendicitis Vaginal atrophy (05/18/17) Compression fracture of first lumbar vertebra, closed, initial encounter (01/21/16) Osteoporosis (06/07/14) Tobacco use disorder (04/22/14) Allergic rhinitis (04/22/14) Low back pain (01/25/14) Gastroesophageal reflux disease (01/25/14) Surgical History H/O local excision of skin lesion (10/2013) History of orthopedic surgery (1990) History of surgery (1981) Anesthesia complication History of esophagogastroduodenoscopy (EGD) (12/03/16) Status post hemorrhoidectomy (2005) History of tonsillectomy (1972) Status post LASIK surgery (2000) Family History Brother Age: 68 Hypertension Father Diabetes mellitus Heart disease Hypertension High cholesterol Mother Heart disease Stroke Renal failure Social History household members: none Smoking Status: Former smoker quit status: quit date established alcohol intake: current Smoking Status: Former smoker alcohol intake frequency: holidays/special occasions only Substance Use Type: does not use Exam <Abdulaziz Lawson PA-C - Last Filed: 05/17/23 16:06> Narrative Exam Narrative: GENERAL: Well-developed patient, in mild distress. HEAD: Atraumatic. Normocephalic. EYES: Pupils equal round and reactive. Extraocular motions intact. No scleral icterus. No injection or drainage. ENT: Nose without bleeding, purulent drainage. Throat without erythema, tonsillar hypertrophy or exudate. Airway patent. NECK: Trachea midline. Non tender CARDIOVASCULAR: Regular rate and rhythm without murmurs, gallops, or rubs. RESPIRATORY: Clear to auscultation. Breath sounds equal bilaterally. No wheezes, rales, or rhonchi. GASTROINTESTINAL: Abdomen soft, non-tender, nondistended. EXTREMITIES: No edema or joint tenderness. BACK: Mild tenderness to palpation to the thoracic spinal paraspinals muscles. Some tenderness to palpation to the cervical paraspinal muscles as well. NEURO: AOx3. Cranial nerves 2-12 intact. SKIN: No rash or erythema of visible areas Initial Vital Signs Initial Vital Signs: Vital Signs Temperature 98.7 F 05/17/23 15:01 Pulse Rate 89 05/17/23 15:01 Respiratory Rate 20 05/17/23 15:01 Blood Pressure 178/87 H 05/17/23 15:01 Pulse Oximetry 98 05/17/23 15:01 Oxygen Delivery Method Room Air 05/17/23 15:01 <Catherine Aguilar DO - Last Filed: 05/18/23 07:53> Initial Vital Signs Initial Vital Signs: Vital Signs Temperature 98.7 F 05/17/23 15:01 Pulse Rate 89 05/17/23 15:01 Respiratory Rate 20 05/17/23 15:01 Blood Pressure 178/87 H 05/17/23 15:01 Pulse Oximetry 98 05/17/23 15:01 Oxygen Delivery Method Room Air 05/17/23 15:01 Course <Abdulaziz Lawson PA-C - Last Filed: 05/17/23 16:06> Orders Ordered: ED Orders 05/17/23 15:27 CT cervical spine wo con Stat CT head/brain wo con Stat XR thoracic spine 3V Stat Vital Signs Vital signs: Vital Signs - 8 hr 05/17/23 15:01 Temperature 98.7 F Pulse Rate 89 Respiratory Rate 20 Blood Pressure 178/87 H Pulse Oximetry 98 Oxygen Delivery Method Room Air <Catherine Aguilar DO - Last Filed: 05/18/23 07:53> Orders Ordered: ED Orders 05/17/23 15:27 CT cervical spine wo con Stat CT head/brain wo con Stat XR thoracic spine 3V Stat Vital Signs Vital signs: Vital Signs - 8 hr 05/17/23 15:01 Temperature 98.7 F Pulse Rate 89 Respiratory Rate 20 Blood Pressure 178/87 H Pulse Oximetry 98 Oxygen Delivery Method Room Air MDM - Back Pain/Injury <Abdulaziz Lawson PA-C - Last Filed: 05/17/23 16:06> Imaging Data Thoracic spine XR : Radiologist's Impression: [address] [address] XRay Report Signed Patient: Elba Diaz MR#: [id number] : 1955 Acct:[id number] Age/Sex: 68 / F Date of Service: 05/17/23 Loc: ED Accession Number: [id number] Procedure: XR thoracic spine 3V Ordering Provider: Abdulaziz Lawson P.A-C PROCEDURE: XR THORACIC SPINE 3V INDICATIONS: Thoracic pain s/p trauma hx of osteoporosis TECHNIQUE: 3 views of the thoracic spine were acquired. [facility] 16:20. FINDINGS: Bones: Old T12 compression fracture. No acute compression fractures. No suspicious bony lesions. 12 pairs of ribs are noted, and appear intact where visualized. Soft tissues: No paravertebral stripe thickening. IMPRESSION: Old T12 compression fracture. No evidence acute bony abnormality. Dictated by: Reji Fofana M.D. on 05/17/2023 at 15:54 Approved by: Reji Fofana M.D. on 05/17/2023 at 15:55 CT - cervical spine: Radiologist's Impression: [address] [address] [address] Scan Report Signed Patient: Elba Diaz MR#: [id number] : 1955 Acct:[id number] Age/Sex: 68 / F Date of Service: 05/17/23 Loc: ED Accession Number: [id number] Procedure: CT head/brain wo con Ordering Provider: Abdulaziz Lawson P.A-C PROCEDURE: CT HEAD/BRAIN WO CON INDICATIONS: Trauma and head injury TECHNIQUE: Noncontrast 4.5 mm thick angled axial sections acquired from the foramen magnum to the vertex, with coronal and sagittal reformats. For radiation dose reduction, the following was used: automated exposure control, adjustment of mA and/or kV according to patient size. COMPARISON: [facility], CT, CT HEAD/BRAIN WO CON, 06/21/2021, 12:25. FINDINGS: Image quality: Diagnostic. CSF spaces: Basal cisterns are patent. No extra-axial fluid collections. The ventricles are symmetric in size and shape. Brain: No intracranial bleeds or masses. There is cerebral volume loss for age, with resultant ventricular and sulcal prominence. There are periventricular and deep white matter chronic small vessel ischemic changes. Skull and face: Calvarium and visualized facial bones appear intact, without suspicious lesions. Sinuses: Visualized sinuses and mastoids are clear. IMPRESSION: No acute intracranial pathology. Dictated by: Reji Fofana M.D. on 05/17/2023 at 15:50 Approved by: Reji Fofana M.D. on 05/17/2023 at 15:51 CT scan - head: Radiologist's Impression: [place] [address] CT Scan Report Signed Patient: Elba Diaz MR#: [id number] : 1955 Acct:[id number] Age/Sex: 68 / F Date of Service: 05/17/23 Loc: ED Accession Number: [id number] Procedure: CT cervical spine wo con Ordering Provider: Abdulaziz Lawson P.A-C PROCEDURE: CT CERVICAL SPINE WO CON INDICATIONS: Neck pain sp trauma TECHNIQUE: Noncontrast 3 mm thick sections acquired from the skull base to the T4 level. Sagittal and coronal reformats were then constructed. For radiation dose reduction, the following was used: automated exposure control, adjustment of mA and/or kV according to patient size. COMPARISON: [facility], CT, CT CERVICAL SPINE WO CON, 06/16/2021, 14:39. FINDINGS: Image quality: Excellent. Bones: No fractures or dislocations. Visualized superior ribs are intact. Prominent left C3-C4 and C4-C5 facet hypertrophy. Multilevel bilateral bony foraminal narrowing. Soft tissues: Prevertebral soft tissues are normal in thickness. No paravertebral hematomas. No apical pneumothoraces. IMPRESSION: 1. No acute cervical fracture or dislocation. 2. Cervical spondylosis. Dictated by: Reji Fofana M.D. on 05/17/2023 at 15:51 Approved by: Reji Fofana M.D. on 05/17/2023 at 15:54 MDM Narrative Medical decision making narrative: MDM * differential diagnosis includes but not limited to thoracic vertebral fracture. Soft tissue injury. Intracranial bleed. Vertebral fracture * Prior records reviewed: Patient was last seen here 11 months ago due to abdominal pain. History of chronic back pain, compression fracture of the 1st lumbar vertebra, osteoporosis workup unremarkable. * My lab interpretation: None obtained * My imgaing interpretation: Chronic T12 compression fracture. No acute findings * Clinical Decision Rules/Scores evaluated: None * Independent discussions with: None ED Course: This is a 68-year-old female presenting to the emergency department due to thoracic back pain as well as head and neck pain after a fall 5 days ago. Patient unable to report a completely clear recollection of the injury and shared decision-making utilized and CT head and neck ordered which were both unremarkable. Also complaining of some thoracic pain. No acute fractures. Suspect all injuries are muscular in nature. Recommended supportive care. Shared Decision Making: Discussed plan with the patient was comfortable with the plan. Social Considerations: None Disposition: Discharged to home Discharge Plan Departure Patient Disposition: Home Clinical Impression: Back pain, thoracic Instructions: DI for Back Strain or Sprain Activity Restrictions/Additional Instructions: Thank you for coming to the [facility] Emergency Department today. Your x-ray of your back showed a old T12 compression fracture but no new fractures. The CT of your head and neck showed no intracranial bleeds or neck fractures or any other injuries. Please use ibuprofen and Tylenol as needed for the pain. I hope you feel better soon. Please follow up with your primary care provider within a week if your symptoms continue. If you do not have a primary care provider please contact the [facility] Resource line at [phone]. They will ask some questions about your medical history and help you get set up with a provider in the community. Prescriptions: No Action atorvastatin 40 mg tablet 20 mg PO DAILY nicotine (polacrilex) [Nicorette] 2 mg gum 2 mg buccal Q2H Ultra CoQ10 75 mg capsule 150 mg PO DAILY Qty: 1 0RF docusate sodium 100 mg PO DAILY sumatriptan succinate [Imitrex] 50 mg tablet See Rx Instructions .ROUTE .COMPLEX Qty: 20 0RF Rx Instructions: take 1 tab at onset of headache; if no relief may repeat 1 tab after at least 2 hrs; max = 4 tabs/24 hr calcium carbonate-vitamin D3 600 mg-25 mcg (1,000 unit) Capsule 2 cap PO DAILY aspirin 81 mg Tablet,Delayed Release (Dr/Ec) 81 mg PO DAILY Qty: 30 0RF Referrals: Martha Javed DO [Primary Care Provider] - Stand Alone Forms: Patient Portal/API ED Sign-out <Catherine Aguilar DO - Last Filed: 05/18/23 07:53> Cosign ED Attending Allyature Attestation: I was available for consultation.
[2023-05-17 16:05] VITALS: BP 176/85; PULSE 79; RESP 100; TEMP 36.7
== END 2023-05-17 16:25 | disposition home or self-care (01) ==
PROVIDERS: Emergency Provider Physician Assistant Medical; Family Provider Family Medicine; PCP Family Medicine
DX: M54.6 Pain in thoracic spine (principal); M54.2 Cervicalgia; S09.90XA Unspecified injury of head, initial encounter; W10.9XXA Fall (on) (from) unspecified stairs and steps, initial encounter
CPT/HCPCS: 70450; 72072; 72125; 99281; 99284

== ENCOUNTER → 2023-05-26 10:01 | Outpatient (CLI) | payer MEDICARE, OTHER, SELFPAY ==
[2022-05-22 21:27] VITALS: BMI 25.1
--- NOTE | 2023-05-26 10:04 | DI.RAD.S_ITS ---
PROCEDURE: XR RIBS LT MIN 3V W CXR1V INDICATIONS: posterior rib pain btwn 5-6 TECHNIQUE: 2 views of the ribs were acquired, along with a single view chest. COMPARISON: None. FINDINGS: Surgical changes and devices: None. Bones and chest wall: No fractures or dislocations. No suspicious bony lesions. Overlying soft tissues appear unremarkable. Lungs and pleura: No pleural effusions or pneumothorax. Lungs appear clear. Mediastinum: Mediastinal contours appear normal. Heart size is normal. IMPRESSION: No displaced rib fracture or pneumothorax. Dictated by: Jesse Ya M.D. on 05/26/2023 at 11:57 Approved by: Jesse Ya M.D. on 05/26/2023 at 11:58
== END ==
PROVIDERS: Family Provider Family Medicine; PCP Family Medicine; Referring Provider Family Medicine; Visit Provider Family Medicine
DX: M54.6 Pain in thoracic spine (principal); R07.81 Pleurodynia
CPT/HCPCS: 71101

== ENCOUNTER → 2023-07-09 11:43 | Outpatient (CLI) | payer MEDICARE, OTHER, SELFPAY ==
[2022-05-22 21:27] VITALS: BMI 25.1
[2023-07-09 13:21] LABS: Alanine Aminotransferase 20 IU/L (<35); Albumin Globulin Ratio 1.6 (1.0-2.8); Alkaline Phosphatase 58 U/L (38-126); Aspartate Aminotransferase 30 IU/L (14-36); BUN Creatinine Ratio 18.2 (6-22); Bilirubin Total 0.9 mg/dL (0.2-1.3); Blood Urea Nitrogen 12 mg/dL (7-17); Calcium 10.4 mg/dL (8.4-10.2); Carbon Dioxide 25 mmol/L (22-32); Chloride 101 mmol/L (98-107); Cholesterol 161 mg/dL (140-199); Estimated Glomerular Filt Rate > 60 mL/min (>60); Globulin 3.1 g/dL (1.7-4.1); Glucose 88 mg/dL (80-110); HDL Cholesterol 67 mg/dL (40-60); HEMOLYSIS 36 (0-50); LDL Cholesterol Calculated 63 mg/dL (<100); Potassium 4.2 mmol/L (3.4-5.1); Sodium 139 mmol/L (137-145); Total Protein 8.1 g/dL (6.3-8.2); Triglycerides 155 mg/dL (35-150)
== END ==
LOC: LAB 11:44
PROVIDERS: Family Provider Family Medicine; PCP Family Medicine; Referring Provider Family Medicine; Visit Provider Family Medicine
DX: E78.5 Hyperlipidemia, unspecified (principal); E83.52 Hypercalcemia
CPT/HCPCS: 36415; 80053; 80061

== ENCOUNTER 2024-02-14 09:19 | Day surgery (SDC) | payer MEDICARE, OTHER, SELFPAY ==
[2022-05-22 21:27] VITALS: BMI 25.1
--- NOTE | 2024-02-14 | PATH_ITS ---
[facility] Accession Number: [id number] No. of containers..02 Tissue . 01 Material submitted: . PART A: esophagus, E-G Junction - GE JUNCTION PART B: esophagus - RANDOM ESOPHAGEAL . 01 Diagnosis: A. GASTROESOPHAGEAL JUNCTION, BIOPSY: Squamocolumnar junctional mucosa with specialized intestinal metaplasia consistent with Moore's esophagus. Squamous mucosa with increased intraepithelial eosinophils (up to 40 per high-powered field). Please see comment. Negative for dysplasia and malignancy. . B. RANDOM ESOPHAGUS, BIOPSY: Squamous epithelium with no diagnostic abnormality. Intraepithelial eosinophils are not increased. Negative for dysplasia and malignancy. MRV 02/16/2024 1328 Local . 01 Comment: A. In the proper clinical setting, the histopathologic appearance would support a clinical impression of eosinophilic esophagitis. The differential diagnosis includes drug reaction, gastroesophageal reflux, and food allergies. . . 01 Electronically signed: . Bibiana Mauricio MD, Pathologist NPI- [id number] . 01 Gross description: . A. Received in formalin with two patient identifiers and GE junction, are three gil soft tissue fragments, 0.3 to 0.5 cm in greatest dimension. Submitted in A1. B. Received in formalin with two patient identifiers and random esophageal, are two gil soft tissue fragments, both measuring 0.4 cm in greatest dimension. Submitted in B1. ([id number]) /MRV 02/15/2024 0828 Local . 01 Pathologist provided ICD-10: K22.70, K20.0, R13.10 . 01 CPT . 035203, [id number] Specimen Comment: A courtesy copy of this report has been sent to [phone] Performed at: [address] [place] [address] [address] [facility], [place], [place] [id number] MD Kd Gutierrez MD Phone: [phone]
--- NOTE | 2024-02-14 08:57 | PM.PREOP ---
Pre-operative Note Interval Note History & Physical reviewed/Exam performed by Physician: Yes Changes to H&P: No
[2024-02-14 09:47] VITALS: BP 132/74; PULSE 71; RESP 18; TEMP 36.8; O2SAT 100
[2024-02-14] MEDS: LACTATED RINGERS 1,000 ML 42 ML IV (10:10)
[2024-02-14 10:49] VITALS: BP 119/71; PULSE 77; RESP 16; TEMP 36.4; O2SAT 97
--- NOTE | 2024-02-14 10:51 | PM.OP.EGD ---
Operative Date/Time/Diagnoses Date of procedure: 02/14/24 Time of procedure: 10:52 Pre-op diagnosis: History of Barretts Post-op diagnosis: other (Esophagitis) Procedure & Clinicians Study performed: Esophagogastroduodenoscopy Same procedure as scheduled: Yes Indications: History of Barretts with new esophageal dysphagia Surgeon: Alonzo Tomlinson Procedure Notes Procedure in detail: The history and physical was performed/updated and the patient is ASA class is 2. The procedure was discussed in detail with the patient. Potential risks complications including infection, bleeding, missed diagnosis, perforation, need for surgery, and were explained. Their questions were answered and informed consent was obtained. Patient placed in left lateral decubitus position. Time out was performed. Procedural sedation was administered by Anesthesia. A bite block was placed. the scope was inserted into the mouth and advanced through the esophagus and into the stomach. The pylorus was intubated and the duodenum was examined to the 2nd portion. The scope was then withdrawn into the stomach and was retroflexed. The stomach was decompressed and scope was withdrawn slowly through the esophagus. FINDINGS -no esophageal stricture -no paulo Barretts at GE junction. GE junction biopsied with forceps -mild distal esophagitis, random esophageal biopsies taken with forceps. The patient tolerated the procedure well and will be discharged when they meet criteria. Impression: Esophagitis Post-procedure Plan for aftercare: 1 month trial with omeprazole 20 mg daily Repeat upper endoscopy 3 years Disposition: same day surgery
[2024-02-14 10:55] VITALS: BP 117/76; PULSE 77; RESP 13; O2SAT 98
[2024-02-14 11:00] VITALS: BP 124/75; PULSE 74; RESP 18; O2SAT 98
[2024-02-14 11:04] VITALS: BP 130/76; PULSE 75; RESP 16; TEMP 36.4; O2SAT 100
== END 2024-02-14 11:39 | disposition home or self-care (01) ==
PROVIDERS: Family Provider Family Medicine; PCP Family Medicine; Referring Provider Surgery; Visit Provider Surgery
PROC: 0DJ08ZZ Inspection of Upper Intestinal Tract, Via Natural or Artificial Opening Endoscopic (ICD-10-PCS; CPT 43239; principal; 2024-02-14 10:30)
DX: K20.90 Esophagitis, unspecified without bleeding (principal); K22.70 Barrett's esophagus without dysplasia
CPT/HCPCS: 43239; J2704

== ENCOUNTER → 2024-05-12 09:42 | Outpatient (CLI) | payer MEDICARE, OTHER, SELFPAY ==
[2022-05-22 21:27] VITALS: BMI 25.1
--- NOTE | 2024-05-12 09:45 | DI.MG.S_ITS ---
BILATERAL DIGITAL SCREENING MAMMOGRAM 3D/2D WITH CAD: 05/12/2024 CLINICAL: Routine screening. Comparison is made to exams dated: 05/10/2023 mammogram, 02/15/2022 mammogram, and 02/12/2021 mammogram - [facility]. There are scattered areas of fibroglandular density (category b / 25%-50% glandular tissue). Current study was also evaluated with a Computer Aided Detection (CAD) system. There is a benign calcification in the right breast. No significant masses, calcifications, or other findings are seen in either breast. There has been no significant interval change. IMPRESSION: BENIGN There is no mammographic evidence of malignancy. A 1 year screening mammogram is recommended. Based on the Tyrer Cuzick model (a risk assessment model) the patient's lifetime risk is 6.2% and her 10 year risk is 3.4%. According to the ACR, ACS, and NCCN guidelines, an annual breast MRI exam along with mammogram is recommended if the patient's lifetime risk is 20% or greater. This exam was interpreted at Station ID: [id number]. NOTE: For mammograms, a report in lay terms will be sent to the patient. Approximately 15% of breast malignancies will not be visualized mammographically. In the management of a palpable breast mass, a negative mammogram must not discourage biopsy of a clinically suspicious lesion. Electronically Signed By: Giles degroot/seth:05/14/2024 11:46:55 letter sent: Normal Exam ACR BI-RADS Category 2: Benign
== END ==
LOC: MAMMO 09:44
PROVIDERS: Family Provider Family Medicine; PCP Family Medicine; Referring Provider Family Medicine; Visit Provider Family Medicine
DX: Z12.31 Encounter for screening mammogram for malignant neoplasm of breast (principal)
CPT/HCPCS: 77063; 77067